=== PATIENT | female | born 1935 | race Caucasian/White ===

== ENCOUNTER 2023-05-12 07:38 | Inpatient (IN) ==
--- NOTE | 2023-05-12 08:12 | Emergency Department Note ---
History of Present Illness General Chief complaint: Fall Stated complaint: AB PAIN, HEADACE Time Seen by Provider: 05/12/23 07:55 Source: patient, family (Son who is at the bedside), RN notes reviewed and old records reviewed (Attempted but there are no old records in the EMR) Mode of arrival: ambulatory Limitations: no limitations History of Present Illness This patient is a 87-year-old female who is brought in by EMS after having frequent falls headache and abdominal distention. She was in [facility] recently for 21 days she tells me she is a DO NOT RESUSCITATE also by report she is on hospice which the patient also tells me she is a headache for about a week she has been falling a lot. Denies chest pain or shortness of breath. No numbness or weakness. I do not have any old records available on her but she tells me she was in for fluid overload. Home Medications Medication Instructions Recorded Confirmed Type Hydrocodone/Acetaminophen 1 tab PO Q6H PRN Pain #0 tabs 04/24/15 05/12/23 History 5MG/325MG ([place] 5MG/325MG) LEVOTHYROXINE SODIUM (SYNTHROID) 75 mg PO QAM 30 days #30 tabs 04/24/15 05/12/23 History Prednisone 5 mg PO DAILY #0 tabs 04/24/15 05/12/23 History Furosemide (Lasix) See Rx Instructions .Route 12/03/15 05/12/23 History .COMPLEX #0 tabs Sertraline (Zoloft) 100 mg PO DAILY #0 tabs 02/13/16 05/12/23 History acetaminophen 650 mg 650 mg PO Q8H PRN Fever Or Pain 05/12/23 05/12/23 History tablet,extended release carvedilol 25 mg tablet 12.5 mg PO BID 05/12/23 05/12/23 History ferrous sulfate 325 mg (65 mg 325 mg PO DAILY 05/12/23 05/12/23 History iron) tablet metolazone 5 mg tablet 5 mg PO .Tuesday05/12/23 05/12/23 History potassium chloride 20 mEq 20 meq PO UD 05/12/23 05/12/23 History tablet,extended release Allergies Allergy/AdvReac Type Severity Reaction Status Date / Time clarithromycin AdvReac Intermediate GI SYMPTOMS Verified 04/15/15 12:56 adhesive AdvReac Unknown RASH Uncoded 12/04/15 07:47 Past Med/Surg History Medical History (Updated 05/12/23 @ 13:59 by Jose A Acuña MD) Chronic kidney disease (CKD), stage III (moderate) Ovarian cyst, left Osteoporosis Aortic stenosis HLD (hyperlipidemia) HTN (hypertension) PMR (polymyalgia rheumatica) Surgical History (Updated 05/12/23 @ 12:06 by Marija Lord PA-C) History of cholecystectomy Hx of appendectomy Family History (Updated 05/12/23 @ 13:00 by Marija Lord PA-C) Mother Diabetes Brother Heart disease Social History (Updated 05/12/23 @ 13:00 by Marija Lord PA-C) Smoking Status: Never smoker Hx Alcohol Use: No Hx Substance Use: No Preferred Language: Thai Feels Safe at Home: Yes Immunizations: Past medical historyCHF. Social history she lives in [facility] she is presently at home Review of Systems A total of 10 systems reviewed and were otherwise negative Physical Exam Vital Signs Vital Signs - 24 hr 05/12/23 07:54 05/12/23 08:00 05/12/23 08:03 Temperature 37.2 C Temperature Source Oral Pulse Rate 81 83 78 Pulse Rate [Right Finger] Respiratory Rate 18 14 18 Respiratory Effort / Characteristics Non-Labored Spontaneous Respiratory Depth Normal Respiratory Pattern Regular Blood Pressure 145/93 H 144/98 H Blood Pressure [Left Arm] Blood Pressure Mean 110 113 Blood Pressure Mean [Left Arm] Blood Pressure Position Semi-fowlers Blood Pressure Position [Left Arm] Pulse Oximetry 91 92 91 Oxygen Delivery Method Nasal Cannula Nasal Cannula Nasal Cannula Oxygen Flow Rate 2 2 2 Sepsis Recent Fever Within 48 Hours No Sepsis New/Unexplained Change in Mental Status No Sepsis Action Taken by Nursing No Action Required Oxygen Flow Rate - Titration Pulse Oximetry Post Tiitration 05/12/23 08:04 05/12/23 08:30 05/12/23 09:21 Temperature Temperature Source Pulse Rate 77 80 Pulse Rate [Right Finger] Respiratory Rate 16 Respiratory Effort / Characteristics Respiratory Depth Respiratory Pattern Blood Pressure 149/83 H Blood Pressure [Left Arm] Blood Pressure Mean 105 Blood Pressure Mean [Left Arm] Blood Pressure Position Blood Pressure Position [Left Arm] Pulse Oximetry 87 L 92 Oxygen Delivery Method Nasal Cannula Oxygen Flow Rate 0 2 Sepsis Recent Fever Within 48 Hours Sepsis New/Unexplained Change in Mental Status Sepsis Action Taken by Nursing Oxygen Flow Rate - Titration 2 Pulse Oximetry Post Tiitration 94 05/12/23 09:30 05/12/23 09:30 05/12/23 10:00 Temperature Temperature Source Pulse Rate 90 74 Pulse Rate [Right Finger] 88 Respiratory Rate 20 14 13 Respiratory Effort / Characteristics Non-Labored Spontaneous Respiratory Depth Normal Respiratory Pattern Regular Blood Pressure 156/96 H 138/87 Blood Pressure [Left Arm] 156/96 H Blood Pressure Mean 116 104 Blood Pressure Mean [Left Arm] 116 Blood Pressure Position Blood Pressure Position [Left Arm] Semi-fowlers Pulse Oximetry 94 93 93 Oxygen Delivery Method Nasal Cannula Nasal Cannula Nasal Cannula Oxygen Flow Rate 2 2 2 Sepsis Recent Fever Within 48 Hours Sepsis New/Unexplained Change in Mental Status Sepsis Action Taken by Nursing Oxygen Flow Rate - Titration Pulse Oximetry Post Tiitration 05/12/23 11:01 05/12/23 11:07 Temperature Temperature Source Pulse Rate 88 76 Pulse Rate [Right Finger] Respiratory Rate 20 Respiratory Effort / Characteristics Respiratory Depth Respiratory Pattern Blood Pressure 137/54 L Blood Pressure [Left Arm] Blood Pressure Mean 81 Blood Pressure Mean [Left Arm] Blood Pressure Position Blood Pressure Position [Left Arm] Pulse Oximetry 92 Oxygen Delivery Method Nasal Cannula Oxygen Flow Rate 2 Sepsis Recent Fever Within 48 Hours Sepsis New/Unexplained Change in Mental Status Sepsis Action Taken by Nursing Oxygen Flow Rate - Titration Pulse Oximetry Post Tiitration General: Well developed well nourished older female who is sitting in the room with a wet towel on her forehead in no acute distress, breathing comfortably on room air. Normal speech HEENT: Normal cephalic atraumatic. Pupils are equal round and reactive to light. Extraocular movements are intact. Oropharynx is pink with moist mucous membranes. No swelling of the mouth lips or tongue. Neck: Supple with a midline trachea. No meningeal signs or stiffness, no JVD or bruits. No Stridor. Chest: Clear to auscultation bilaterally. No wheezes or rhonchi. No increased work of breathing. Heart: Regular rate and rhythm without murmurs or gallops. Abdomen: Soft nontender, it does appear to be distended but without rebound guarding or rigidity. Extremities: No cyanosis clubbing she does have some mild lower extremity edema left greater than right there is a bandage on the left leg and left arm. No calf tenderness or assymetry Spine/Back. Non tender to palpation. No CVA tenderness Skin: Good turgor without rashes. Neurologic exam: Cranial nerves two through 12 are intact. Motor and sensation are intact and symmetrical throughout. Course Administered Medications Docusate Sodium (Docusate Sodium 100 Mg Cap) 100 mg PO BID KAYKAY Stop: 06/11/23 11:44 Last Admin: 05/12/23 13:00 Dose: 100 mg Documented By: [facility] Vancomycin HCl 1,750 mg/ (Sodium Chloride) 535 mls @ 200 mls/hr IV NOW ONE Stop: 05/12/23 13:54 Last Admin: 05/12/23 12:55 Dose: 200 mls/hr Documented By: [facility] Polyethylene Glycol (Polyethylene (Miralax) 17 Gm Pack) 17 gm PO DAILY KAYKAY Stop: 06/11/23 11:44 Last Admin: 05/12/23 13:01 Dose: 17 gm Documented By: [facility] Discontinued Medications Hydrocodone Bitart/Acetaminophen (Hydrocodone/Acetamophen 5/325mg Tab) 1 tab PO ONCE STA Stop: 05/12/23 10:47 Last Admin: 05/12/23 10:57 Dose: 1 tab Documented By: STONE Sodium Chloride (Nss) 500 mls @ 999 mls/hr IV .Q31M ONE Stop: 05/12/23 10:29 Last Infusion: 05/12/23 11:05 Dose: Infused Documented By: Admin: 05/12/23 10:23 Dose: 999 mls/hr Documented By: KIRA Piperacillin Sod/Tazobactam Sod (Zosyn) 4.5 gm in 100 mls @ 200 mls/hr IV NOW STA; Protocol Stop: 05/12/23 10:38 Last Infusion: 05/12/23 11:05 Dose: Infused Documented By: Admin: 05/12/23 10:23 Dose: 200 mls/hr Documented By: KIRA Potassium Chloride (K Zaid / Wtr) 10 meq in 100 mls @ 100 mls/hr IV Q1H KAYKAY Stop: 05/12/23 13:44 Last Admin: 05/12/23 12:55 Dose: 100 mls/hr Documented By: [facility] Morphine Sulfate (Morphine Sulfate 2 Mg/Ml Carp) 2 mg IV NOW STA Stop: 05/12/23 10:31 Last Admin: 05/12/23 10:37 Dose: 2 mg Documented By: STONE Ondansetron HCl (Ondansetron Inj 2 Mg/Ml 2 Ml Vial) 4 mg IV NOW STA Stop: 05/12/23 10:31 Last Admin: 05/12/23 10:37 Dose: 4 mg Documented By: STONE Prednisone (Prednisone 20 Mg Tab) 20 mg PO NOW STA Stop: 05/12/23 11:15 Last Admin: 05/12/23 13:01 Dose: 20 mg Documented By: CATHY Critical Care Time Critical Care Time: Yes Total Critical Care Time: 35 I have personally spent greater than 35 minutes of critical care time in the direct management of this patient. This includes bedside care, interpretation of diagnostic studies, and testing, discussion with consultants, patient, and family members, and other required patient management activities. This 35 minutes is in excess of all separately billable procedures. Medical Decision Making Differential Diagnosis Head injury, intra-abdominal process, electrolyte or metabolic abnormality, cardiac disease, infection, UTI, traumatic injury Medical Records Attestation: I reviewed the patient's medical records. Home Medications Current Medication List: was personally reviewed by me Laboratory Data Attestation: I reviewed the patient's lab results. 05/12/23 07:45 05/12/23 07:45 Lab Results 05/12/23 05/12/23 05/12/23 Range/Units 07:45 08:45 08:57 WBC 23.30 H (4.8-10.8) K/ul RBC 4.31 (4.20-5.40) M/uL Hgb 10.0 L (12.0-16.0) g/dl Hct 33.4 L (37.0-47.0) % MCV 77.5 L (80.0-100.0) fL MCH 23.2 L (25.0-34.0) pg MCHC 29.9 L (32.0-36.0) g/dL RDW Std Deviation 46.7 H (36.4-46.3) fL RDW Coeff of Mary 16.5 H (11.5-14.5) % Plt Count 405 H (130-400) K/uL MPV 9.8 (9.4-12.4) fL Immature Gran % (Auto) 1.0 % Neut % (Auto) 87.0 % Lymph % (Auto) 5.0 % [place] % (Auto) 5.9 % Eos % (Auto) 0.7 % Baso % (Auto) 0.4 % Neut # (Auto) 20.27 H (1.40-6.50) K/uL Lymph # (Auto) 1.16 L (1.20-3.40) K/uL [place] # (Auto) 1.38 H (0.11-0.59) K/uL Eos # (Auto) 0.17 (0.00-0.50) K/uL Baso # (Auto) 0.09 (0.00-0.20) K/uL Immature Gran # (Auto) 0.23 H (0.01-0.20) K/uL PT 11.0 (9.0-12.0) Seconds INR 1.0 (0.9-1.1) APTT 24 (21-31) Seconds PTT Ratio 0.9 Sodium 137 (136-145) mmol/L Potassium 2.8 L (3.5-5.1) mmol/L Chloride 92 L (98-107) mmol/L Carbon Dioxide 31 (21-32) mmol/L Anion Gap 14 H (3-11) BUN 76 H (6-23) mg/dl Creatinine 1.99 H (0.6-1.2) mg/dl Est Cr Clr Drug Dosing 18.3 ml/min Est GFR ( Amer) 25.7 ml/min Est GFR (Non-Af Amer) 22.2 ml/min BUN/Creatinine Ratio 38.2 H (10-20) Glucose 169 H (70-99(Fasting)) mg/dl Lactate (0.4-2.0) mmol/L Calcium 9.3 (8.6-10.3) mg/dl Total Bilirubin 0.7 (0.2-1.0) mg/dl AST 14 (13-39) U/L ALT 8 (7-52) U/L Alkaline Phosphatase 139 H (34-104) U/L Total Creatine Kinase 41 (26-192) U/L Troponin I High Sens 55.8 H* (0-14) pg/ml B-Natriuretic Peptide 225 H (0-100) pg/ml Total Protein 7.9 (6.0-8.3) gm/dl Albumin 3.7 (3.4-5.0) gm/dl Globulin 4.2 H (2.5-4.0) gm/dl Albumin/Globulin Ratio 0.9 (0.9-2) Lipase 12 (11-82) U/L Procalcitonin 0.39 (0-0.5) ng/ml TSH 3.123 (0.300-4.500) uIu/ml Urine Color Yellow Urine Appearance Clear (Clear) Urine pH 5.5 (4.5-7.5) Ur Specific [place] 1.015 (1.000-1.030) Urine Protein Trace H (Negative) Urine Glucose (UA) Negative (Negative) Urine Ketones Negative (Negative) Urine Blood Trace H (Negative) Urine Nitrite Negative (Negative) Urine Bilirubin Negative (Negative) Urine Urobilinogen Negative (Negative) Ur Leukocyte Esterase Trace H (Negative) Urine WBC (Auto) 1-5 (0-5) /hpf Urine RBC (Auto) 0-4 (0-4) /hpf U Hyaline Cast (Auto) 5-10 H (0-5) /lpf U Epithel Cells (Auto) 10-20 H (0-5) /lpf Urine Bacteria (Auto) Negative (Negative) Adenovirus (PCR) (NotDetected) B. pertussis DNA (PCR) (NotDetected) B.parapertussis DNA PCR (NotDetected) C. pneumoniae DNA (PCR) (NotDetected) Coronavirus OC43 (PCR) (NotDetected) Coronavirus HKU1 (PCR) (NotDetected) Coronavirus 229E (PCR) (NotDetected) SARS-CoV-2 (PCR) (NotDetected) Coronavirus NL63 (PCR) (NotDetected) Human Metapneumovir PCR (NotDetected) Influenza Type A (PCR) (NotDetected) Influenza Type B (PCR) (NotDetected) M. pneumoniae (PCR) (NotDetected) Parainfluenza 1 (PCR) (NotDetected) Parainfluenza 2 (PCR) (NotDetected) Parainfluenza 3 (PCR) (NotDetected) Parainfluenza 4 (PCR) (NotDetected) RSV (PCR) (NotDetected) Entero/Rhino (PCR) (NotDetected) 05/12/23 05/12/23 Range/Units 09:04 09:50 WBC (4.8-10.8) K/ul RBC (4.20-5.40) M/uL Hgb (12.0-16.0) g/dl Hct (37.0-47.0) % MCV (80.0-100.0) fL MCH (25.0-34.0) pg MCHC (32.0-36.0) g/dL RDW Std Deviation (36.4-46.3) fL RDW Coeff of Mary (11.5-14.5) % Plt Count (130-400) K/uL MPV (9.4-12.4) fL Immature Gran % (Auto) % Neut % (Auto) % Lymph % (Auto) % [place] % (Auto) % Eos % (Auto) % Baso % (Auto) % Neut # (Auto) (1.40-6.50) K/uL Lymph # (Auto) (1.20-3.40) K/uL [place] # (Auto) (0.11-0.59) K/uL Eos # (Auto) (0.00-0.50) K/uL Baso # (Auto) (0.00-0.20) K/uL Immature Gran # (Auto) (0.01-0.20) K/uL PT (9.0-12.0) Seconds INR (0.9-1.1) APTT (21-31) Seconds PTT Ratio Sodium (136-145) mmol/L Potassium (3.5-5.1) mmol/L Chloride (98-107) mmol/L Carbon Dioxide (21-32) mmol/L Anion Gap (3-11) BUN (6-23) mg/dl Creatinine (0.6-1.2) mg/dl Est Cr Clr Drug Dosing ml/min Est GFR ( Amer) ml/min Est GFR (Non-Af Amer) ml/min BUN/Creatinine Ratio (10-20) Glucose (70-99(Fasting)) mg/dl Lactate 1.9 (0.4-2.0) mmol/L Calcium (8.6-10.3) mg/dl Total Bilirubin (0.2-1.0) mg/dl AST (13-39) U/L ALT (7-52) U/L Alkaline Phosphatase (34-104) U/L Total Creatine Kinase (26-192) U/L Troponin I High Sens 51.7 H* (0-14) pg/ml B-Natriuretic Peptide (0-100) pg/ml Total Protein (6.0-8.3) gm/dl Albumin (3.4-5.0) gm/dl Globulin (2.5-4.0) gm/dl Albumin/Globulin Ratio (0.9-2) Lipase (11-82) U/L Procalcitonin (0-0.5) ng/ml TSH (0.300-4.500) uIu/ml Urine Color Urine Appearance (Clear) Urine pH (4.5-7.5) Ur Specific [place] (1.000-1.030) Urine Protein (Negative) Urine Glucose (UA) (Negative) Urine Ketones (Negative) Urine Blood (Negative) Urine Nitrite (Negative) Urine Bilirubin (Negative) Urine Urobilinogen (Negative) Ur Leukocyte Esterase (Negative) Urine WBC (Auto) (0-5) /hpf Urine RBC (Auto) (0-4) /hpf U Hyaline Cast (Auto) (0-5) /lpf U Epithel Cells (Auto) (0-5) /lpf Urine Bacteria (Auto) (Negative) Adenovirus (PCR) Not Detected (NotDetected) B. pertussis DNA (PCR) Not Detected (NotDetected) B.parapertussis DNA PCR Not Detected (NotDetected) C. pneumoniae DNA (PCR) Not Detected (NotDetected) Coronavirus OC43 (PCR) Not Detected (NotDetected) Coronavirus HKU1 (PCR) Not Detected (NotDetected) Coronavirus 229E (PCR) Not Detected (NotDetected) SARS-CoV-2 (PCR) Not Detected (NotDetected) Coronavirus NL63 (PCR) Not Detected (NotDetected) Human Metapneumovir PCR Not Detected (NotDetected) Influenza Type A (PCR) Not Detected (NotDetected) Influenza Type B (PCR) Not Detected (NotDetected) M. pneumoniae (PCR) Not Detected (NotDetected) Parainfluenza 1 (PCR) Not Detected (NotDetected) Parainfluenza 2 (PCR) Not Detected (NotDetected) Parainfluenza 3 (PCR) Not Detected (NotDetected) Parainfluenza 4 (PCR) Not Detected (NotDetected) RSV (PCR) DETECTED A (NotDetected) Entero/Rhino (PCR) Not Detected (NotDetected) Imaging Data Attestation: I personally reviewed and interpreted this imaging study as follows: My Impression: Chest x-raycardiomegaly but no acute infiltrate, failure, pneumothorax seen. Head CTno hemorrhage or mass effect Radiologist's Impression: Chest X-Ray 05/12/23 08:21 XR chest 1V portable HISTORY: Shortness of breath. COMPARISON: None. FINDINGS: No pneumothorax. No pleural effusions. The heart is mildly enlarged. Mitral annulus calcifications are noted. No focal lung consolidations to suggest a pneumonia. No evidence for pulmonary edema. Mild interstitial thickening which is likely chronic. No acute fractures identified. Degenerative changes within the shoulders. Right basilar linear densities favor subsegmental atelectasis. IMPRESSION: 1. Cardiomegaly and mild interstitial thickening. This is likely chronic. 2. Right basilar linear densities favor subsegmental atelectasis. ACT 112: Negative or not required by law. Electronically signed by: Masoud Falcon M.D. 05/12/2023 9:[address] 05/12/23 08:26 CT OF THE CERVICAL SPINE WITHOUT CONTRAST CLINICAL HISTORY: Falls. COMPARISON STUDY: No previous studies for comparison. TECHNIQUE: Helical axial images of the cervical spine were obtained without IV contrast. Sagittal and coronal reconstructions were viewed. Automated exposure control was utilized for the study. A dose lowering technique was utilized adhering to the principles of ALARA. FINDINGS: There is reversal of the cervical lordosis and mild anterolisthesis of C2 on C3 and C3 on C4. This is likely due to facet arthrosis. Severe facet arthrosis is noted at multiple levels. There is also severe multilevel disc space narrowing and osteophytosis within the cervical spine. There is no cervical spine fracture. Craniocervical junction is intact. IMPRESSION: 1. No acute cervical spine fracture or subluxation. 2. Severe multilevel degenerative changes within the cervical spine. ACT 112: Negative or not required by law. Electronically signed by: Kevin Hill M.D. 05/12/2023 9:[address] 05/12/23 08:[address] DOSE: HISTORY: falls TECHNIQUE: Multiaxial CT images of the head were performed without the use of intravenous contrast. Automated exposure control was utilized for this study. A dose lowering technique was utilized adhering to the principles of ALARA. Comparison: None. Findings: Fluid levels with near complete opacification of the right maxillary sinus. There is partial opacification of the ethmoid air cells and left sphenoid sinus due to multiple fluid levels. The mastoid air cells are clear. Prior right parietal craniotomy. A 13 mm completely calcified extra-axial lesion within the left middle cranial fossa consistent with a meningioma. No calvarial fractures identified. Mild atrophy and mild microvascular ischemic changes are noted. 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 No hematoma, midline shift, or acute infarct. Impression: 1. No acute intracranial abnormality. 2. Acute paranasal sinusitis. 3. Additional findings as described above. ACT 112: Negative or not required by law. Electronically signed by: Masoud Falcon M.D. 05/12/2023 9:32 AM Abdomen/Pelvis CT 05/12/23 09:06 CT chest diagnostic wo con, CT abd pelvis wo con CT DOSE: 2540.32 mGy.cm HISTORY: Multiple falls. Assess for trauma. TECHNIQUE: Multiaxial CT images of the chest , abdomen, and pelvis were performed without contrast. A dose lowering technique was utilized adhering to the principles of ALARA. COMPARISON: None. FINDINGS: Chest CT: No mediastinal hematoma or lymphadenopathy. No hilar lymphadenopathy. The heart is mildly enlarged. No pleural or pericardial effusions. Dense mitral annulus calcifications are noted. The ascending thoracic aorta measures up to 4.3 cm in diameter. Moderate calcified plaque within the thoracic aorta. Degenerative changes within the shoulders. Old mild superior endplate compression deformities at T4 and T12. Old left lower rib fractures are noted. No acute fractures within the chest. No pneumothorax. The central airways are patent. There are small patchy densities within the base of the bilateral lower lobes. A few punctate calcified granulomas within the base of the right lower lobe. There is a 6 mm nodule within the right lower lobe on image 142 and a 4 mm nodule within the right middle lobe on image 131. Abdomen/pelvis CT: Mild motion artifact. No pneumoperitoneum. No pneumatosis. No acute fractures identified. Abdominal wall laxity is noted. Prior cholecystectomy. The unenhanced liver, spleen, adrenal glands, pancreas, and right kidney are unremarkable. There are 2 hypodense lesions within the left kidney with the largest measuring 14 mm. These are incompletely characterized on this noncontrast study but favor cysts. There is also a 1 cm hyperdense lesion within the left kidney. There is a similar-appearing 5 mm hyperdense lesion within the right kidney. These are also incompletely characterized on this noncontrast study but favor hyperdense cysts. No hydronephrosis. Calcified plaque within the normal caliber abdominal aorta. No retroperitoneal or pelvic hematoma. No lymphadenopathy identified. The uterus and right ovary are unremarkable. There is a 4 cm cyst within the left ovary. The bladder is decompressed by a Antonio catheter. There is mild pelvic floor collapse. Multiple colonic diverticula. Minimal fat stranding at the distal sigmoid colon.. Therefore, an early acute diverticulitis is not excluded. No definite bowel wall thickening or obstruction. Moderate fecal retention. IMPRESSION: 1. No acute traumatic process within the chest, abdomen, or pelvis. 2. Small patchy densities within the base of the bilateral lower lobes. This may represent atelectasis or a low-grade pneumonitis. 3. There are 2 indeterminate pulmonary nodules within the right lung with the largest in the right lower lobe measuring 6 mm. Please refer to the chart below for recommended follow-up. 4. Minimal fat stranding at the distal sigmoid colon. An early acute diverticulitis excluded. 5. A 4 cm cyst within the left ovary. This is considered pathologic in a postmenopausal female. Please refer to below summary of Fleischner criteria recommendations for follow- up of incidental CT nodules (Maria Fernanda Laguerre, Guidelines for management of small pulmonary nodules detected on CT scans: A statement from the Fleischner Society, Radiology 237: [phone].) SOLID NODULES Solitary nodule size: <6 mm * Low risk patients: no follow-up needed * high risk patients: optional CT at 12 months Solitary nodule size: 6-8 mm * Low risk patients: follow-up at 6-12 months, then consider further follow-up at 18-24 months * high risk patients: initial follow-up CT at 6-12 months and then at 18-24 months if no change Solitary nodule size: >8 mm * either low or high risk patients - consider follow-up CT at 3 months, and/or CT-PET, and/or biopsy Multiple nodules size: <6 mm * Low risk patients: no routine follow-up * high risk patients: optional CT at 12 months Multiple nodules size: 6-8 mm * Low risk patients: follow-up at 3-6 months, then consider further follow-up at 18-24 months * high risk patients: follow-up at 3-6 months, then at 18-24 months if no change Multiple nodules size: >8 mm * Low risk patients: follow-up at 3-6 months, then consider further follow-up at 18-24 months * high risk patients: follow-up at 3-6 months, then at 18-24 months if no change Note: newly detected indeterminate nodule in persons 35 years of age or older. * Low risk patients: minimal or absent history of smoking and/or other known risk factors * high risk patients: history of smoking or of other known risk factors (e.g. first degree relative with lung cancer, or exposure to asbestos, radon, uranium) * if a nodule up to 8 mm is partly solid or is ground glass further follow-up is required after 24 months to exclude possible slow growing adenocarcinoma (TE) SUBSOLID NODULES Solitary pure ground-glass nodule * nodule size <6 mm - no CT follow-up required * nodule size >=6 mm - follow-up CT at 6-12 months, then every 2 years until 5 years Solitary part-solid nodule * nodule size <6 mm - no CT follow-up required * nodule size >=6 mm - follow-up CT at 3-6 months. If unchanged, and solid component remains <6 mm, then annual follow-up for 5 years Multiple subsolid nodules * nodule size <6 mm - follow-up CT at 3-6 months, consider further follow-up at 2 and 4 years if stable * nodule size >=6 mm - follow-up CT at 3-6 months, subsequent management based on the most suspicious nodule(s) ACT 112: Negative or not required by law. Electronically signed by: Masoud Falcon M.D. 05/12/2023 9:[address] 05/12/23 09:06 CT chest diagnostic wo con, CT abd pelvis wo con CT DOSE: 2540.32 mGy.cm HISTORY: Multiple falls. Assess for trauma. TECHNIQUE: Multiaxial CT images of the chest , abdomen, and pelvis were performed without contrast. A dose lowering technique was utilized adhering to the principles of ALARA. COMPARISON: None. FINDINGS: Chest CT: No mediastinal hematoma or lymphadenopathy. No hilar lymphadenopathy. The heart is mildly enlarged. No pleural or pericardial effusions. Dense mitral annulus calcifications are noted. The ascending thoracic aorta measures up to 4.3 cm in diameter. Moderate calcified plaque within the thoracic aorta. Degenerative changes within the shoulders. Old mild superior endplate compression deformities at T4 and T12. Old left lower rib fractures are noted. No acute fractures within the chest. No pneumothorax. The central airways are patent. There are small patchy densities within the base of the bilateral lower lobes. A few punctate calcified granulomas within the base of the right lower lobe. There is a 6 mm nodule within the right lower lobe on image 142 and a 4 mm nodule within the right middle lobe on image 131. Abdomen/pelvis CT: Mild motion artifact. No pneumoperitoneum. No pneumatosis. No acute fractures identified. Abdominal wall laxity is noted. Prior cholecystectomy. The unenhanced liver, spleen, adrenal glands, pancreas, and right kidney are unremarkable. There are 2 hypodense lesions within the left kidney with the largest measuring 14 mm. These are incompletely characterized on this noncontrast study but favor cysts. There is also a 1 cm hyperdense lesion within the left kidney. There is a similar-appearing 5 mm hyperdense lesion within the right kidney. These are also incompletely characterized on this noncontrast study but favor hyperdense cysts. No hydronephrosis. Calcified plaque within the normal caliber abdominal aorta. No retroperitoneal or pelvic hematoma. No lymphadenopathy identified. The uterus and right ovary are unremarkable. There is a 4 cm cyst within the left ovary. The bladder is decompressed by a Antonio catheter. There is mild pelvic floor collapse. Multiple colonic diverticula. Minimal fat stranding at the distal sigmoid colon.. Therefore, an early acute diverticulitis is not excluded. No definite bowel wall thickening or obstruction. Moderate fecal retention. IMPRESSION: 1. No acute traumatic process within the chest, abdomen, or pelvis. 2. Small patchy densities within the base of the bilateral lower lobes. This may represent atelectasis or a low-grade pneumonitis. 3. There are 2 indeterminate pulmonary nodules within the right lung with the largest in the right lower lobe measuring 6 mm. Please refer to the chart below for recommended follow-up. 4. Minimal fat stranding at the distal sigmoid colon. An early acute diverticulitis excluded. 5. A 4 cm cyst within the left ovary. This is considered pathologic in a postmenopausal female. Please refer to below summary of Fleischner criteria recommendations for follow- up of incidental CT nodules (Maria Fernanda Laguerre, Guidelines for management of small pulmonary nodules detected on CT scans: A statement from the Fleischner Society, Radiology 237: [phone].) SOLID NODULES Solitary nodule size: <6 mm * Low risk patients: no follow-up needed * high risk patients: optional CT at 12 months Solitary nodule size: 6-8 mm * Low risk patients: follow-up at 6-12 months, then consider further follow-up at 18-24 months * high risk patients: initial follow-up CT at 6-12 months and then at 18-24 months if no change Solitary nodule size: >8 mm * either low or high risk patients - consider follow-up CT at 3 months, and/or CT-PET, and/or biopsy Multiple nodules size: <6 mm * Low risk patients: no routine follow-up * high risk patients: optional CT at 12 months Multiple nodules size: 6-8 mm * Low risk patients: follow-up at 3-6 months, then consider further follow-up at 18-24 months * high risk patients: follow-up at 3-6 months, then at 18-24 months if no change Multiple nodules size: >8 mm * Low risk patients: follow-up at 3-6 months, then consider further follow-up at 18-24 months * high risk patients: follow-up at 3-6 months, then at 18-24 months if no change Note: newly detected indeterminate nodule in persons 35 years of age or older. * Low risk patients: minimal or absent history of smoking and/or other known risk factors * high risk patients: history of smoking or of other known risk factors (e.g. first degree relative with lung cancer, or exposure to asbestos, radon, uranium) * if a nodule up to 8 mm is partly solid or is ground glass further follow-up is required after 24 months to exclude possible slow growing adenocarcinoma (TE) SUBSOLID NODULES Solitary pure ground-glass nodule * nodule size <6 mm - no CT follow-up required * nodule size >=6 mm - follow-up CT at 6-12 months, then every 2 years until 5 years Solitary part-solid nodule * nodule size <6 mm - no CT follow-up required * nodule size >=6 mm - follow-up CT at 3-6 months. If unchanged, and solid component remains <6 mm, then annual follow-up for 5 years Multiple subsolid nodules * nodule size <6 mm - follow-up CT at 3-6 months, consider further follow-up at 2 and 4 years if stable * nodule size >=6 mm - follow-up CT at 3-6 months, subsequent management based on the most suspicious nodule(s) ACT 112: Negative or not required by law. Electronically signed by: Masoud Falcon M.D. 05/12/2023 9:52 AM ECG Data Attestation: I personally reviewed and interpreted this ECG as follows: Indication: + weakness Rate (beats per minute): 98 Rhythm: + sinus with SA ECG Intervals/blocks: + Normal QRS, + Normal QT and + Normal RI ECG [place]: + Normal ECG ST segments: + Nonspecific ST abnormalities ECG Findings: no PACs or no PVCs Comparison ECG Date: no prior available MDM Narrative This patient comes in as described above. She was placed on a court monitor in room A9. She is here for treatment evaluation of frequent falls and headache. She was just in [place] for 21 days and is apparently on hospice at home. Not much else is known about her medical history she does answer questions appropriately and denies chest pain or shortness of breath. I have attempted to contact the son but there is no number in the EMR but his mom says that he is on the way. IV access was established blood work was obtained she was placed on a court monitor room A9. The patient does confirm to me that she is a DNR/DNI. I did call and talk to Stephen who is the son. He tells me that she was admitted in the [place] but it was about 6 months ago for sepsis he said that she declined a blood transfusion and the only way would let her go home she was on hospice she been doing well until this past Tuesday when she fell and could not get up she had significant pain since then in her head and abdomen. She has had the hospice nurses out they saw her yesterday and told her that she was okay and did not need to see a doctor. He is frustrated because she has had ongoing pain. He does agree and acknowledges she is DNR/DNI and he says that she is at the end of life and ready to go. He is concerned there is something going on and does want to get CAT scans and blood work and is in agreement with a typical workup as the patient is as well. Her hemoglobin is 10. I do not have any old labs available for comparison. Her white count is elevated at 23,000. Her chest x-ray does not show any pneumothorax or acute CHF or pneumonia her troponin came back elevated at 55 if she does not have any chest pain or ischemic EKG changes. Her creatinine also came back elevated at 1.99 with an elevated BUN as well. This could be prerenal but given her elevated creatinine I did change the CAT scans to without contrast. I did CAT scan of the head, cervical spine, chest/abdomen/pelvis. There is no acute traumatic process seen. There is no definite source for infection is no bowel obstruction. There is possibly a mild pneumonitis and diverticulitis. The patient did receive IV fluid bolus 500 cc I was concerned about fluid overload/CHF so this was judicious particular in the setting of normotension and normal lactic acid. She was given Zosyn 4.5 g IV after I discussed the antibiotic choices with her ED pharmacist. I do think she needs to be admitted/observed for further treatment and evaluation and pain management. She did receive morphine 2 mg IV and Zofran 4 mg IV for pain and nausea management. Her legs have some redness of the skin is possible that cellulitis could be a source of infection/sepsis Continuous cardiac monitoring: Order was placed in EMR for continuous court monitor upon my evaluation patient was noted to be in normal sinus rhythm with a rate of 100 Impression & Plan Sepsis, Hypokalemia, Weakness, Frequent falls, Elevated troponin, Abdominal pain, Headache, DNR (do not resuscitate) Discharge Plan Visit Data Chief Complaint: Fall Stated Complaint: AB PAIN, HEADACE ED Provider: Jose A Acuña Discharge Problem: Sepsis, Hypokalemia, Weakness, Frequent falls, Elevated troponin, Abdominal pain, Headache, DNR (do not resuscitate) Patient Disposition: Admitted As Inpatient Discharge Instructions Interventions: ED Discharge Assessment Last Done: 05/12/23 13:09 Discharge Problem: Sepsis Qualifiers: Sepsis type: sepsis due to unspecified organism Sepsis acute organ dysfunction status: unspecified Qualified Code(s): A41.9 - Sepsis, unspecified organism Abdominal pain Qualifiers: Abdominal location: unspecified location Qualified Code(s): R10.9 - Unspecified abdominal pain Headache Qualifiers: Headache type: unspecified Headache chronicity pattern: unspecified pattern I ntractability: not intractable Qualified Code(s): R51.9 - Headache, unspecified
[2023-05-12 08:30] LABS: Hematocrit (blood only) 33.4 % (37.0-47.0); Mean Corpuscular Hemoglobin 23.2 pg (25.0-34.0); Mean Corpuscular Hgb Conc 29.9 g/dL (32.0-36.0); Mean Corpuscular Volume 77.5 fL (80.0-100.0); Mean Platelet Volume 9.8 fL (9.4-12.4); Platelet Count 405 K/uL (130-400); RDW Coefficient of Variation 16.5 % (11.5-14.5); RDW Standard Deviation 46.7 fL (36.4-46.3); Red Blood Count 4.31 M/uL (4.20-5.40)
[2023-05-12 08:51] LABS: Basophils # (auto) 0.09 K/uL (0.00-0.20); Basophils % (auto) 0.4 %; Eosinophils # (auto) 0.17 K/uL (0.00-0.50); Eosinophils % (auto) 0.7 %; Immature Granulocytes # (auto) 0.23 K/uL (0.01-0.20); Lymphocytes # (auto) 1.16 K/uL (1.20-3.40); Monocytes # (auto) 1.38 K/uL (0.11-0.59); Monocytes % (auto) 5.9 %; Neutrophils # (auto) 20.27 K/uL (1.40-6.50)
[2023-05-12 08:55] LABS: Albumin Globulin Ratio 0.9 (0.9-2); Albumin Level 3.7 gm/dl (3.4-5.0); BUN Creatinine Ratio 38.2 (10-20); Bilirubin,Total 0.7 mg/dl (0.2-1.0); Calcium 9.3 mg/dl (8.6-10.3); Creatinine Clr Calc Pharmacy 18.3 ml/min; Est GFR (African American) 25.7 ml/min; Est GFR (Non-African American) 22.2 ml/min; Globulin 4.2 gm/dl (2.5-4.0); Potassium 2.8 mmol/L (3.5-5.1); Total Protein 7.9 gm/dl (6.0-8.3)
[2023-05-12 08:58] LABS: Appearance Urine Clear (Clear); Bacteria Urine Automated Negative (Negative); Bilirubin Urine Negative (Negative); Blood Urine Trace (Negative); Color Urine Yellow; Glucose Urine UA Negative (Negative); Ketones Urine Negative (Negative); Leukocyte Esterase Urine Trace (Negative); Nitrite Urine Negative (Negative); Protein Urine Trace (Negative); RBC Urine Automated 0-4 /hpf (0-4); Specific Gravity Urine 1.015 (1.000-1.030); Urobilinogen Urine Negative (Negative); pH Urine 5.5 (4.5-7.5)
[2023-05-12 09:02] LABS: Partial Thromboplastin Ratio 0.9; Partial Thromboplastin Time 24 Seconds (21-31)
--- NOTE | 2023-05-12 09:04 | XRay Report ---
XR chest 1V portable HISTORY: Shortness of breath. COMPARISON: None. FINDINGS: No pneumothorax. No pleural effusions. The heart is mildly enlarged. Mitral annulus calcifi cations are noted. No focal lung consolidations to suggest a pneumonia. No evidence for pulmonary sherie ma. Mild interstitial thickening which is likely chronic. No acute fractures identified. Degenerative changes within the shoulders. Right basilar linear densities favor subsegmental atelectasis. IMPRESSION: 1. Cardiomegaly and mild interstitial thickening. This is likely chronic. 2. Right basilar linear densities favor subsegmental atelectasis. ACT 112: Negative or not required by law. Electronically signed by: Masoud Falcon M.D. 05/12/2023 9:03 AM
[2023-05-12 09:07] LABS: Troponin I High Sensitivity 55.8 pg/ml (0-14)
--- NOTE | 2023-05-12 09:30 | CT Scan Report ---
CT OF THE CERVICAL SPINE WITHOUT CONTRAST CLINICAL HISTORY: Falls. COMPARISON STUDY: No previous studies for comparison. TECHNIQUE: Helical axial images of the cervical spine were obtained without IV contrast. Sagittal a nd coronal reconstructions were viewed. Automated exposure control was utilized for the study. A do se lowering technique was utilized adhering to the principles of ALARA. FINDINGS: There is reversal of the cervical lordosis and mild anterolisthesis of C2 on C3 and C3 on C 4. This is likely due to facet arthrosis. Severe facet arthrosis is noted at multiple levels. There i s also severe multilevel disc space narrowing and osteophytosis within the cervical spine. There is n o cervical spine fracture. Craniocervical junction is intact. IMPRESSION: 1. No acute cervical spine fracture or subluxation. 2. Severe multilevel degenerative changes within the cervical spine. ACT 112: Negative or not required by law. Electronically signed by: Kevin Hill M.D. 05/12/2023 9:29 AM
--- NOTE | 2023-05-12 09:34 | CT Scan Report ---
HEAD CT NONCONTRAST CT DOSE: HISTORY: falls TECHNIQUE: Multiaxial CT images of the head were performed without the use of intravenous contrast. A utomated exposure control was utilized for this study. A dose lowering technique was utilized adheri ng to the principles of ALARA. Comparison: None. Findings: Fluid levels with near complete opacification of the right maxillary sinus. There is partia l opacification of the ethmoid air cells and left sphenoid sinus due to multiple fluid levels. The ma stoid air cells are clear. Prior right parietal craniotomy. A 13 mm completely calcified extra-axial lesion within the left middle cranial fossa consistent with a meningioma. No calvarial fractures iden tified. Mild atrophy and mild microvascular ischemic changes are noted. 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 No hematoma, midline shift, or acute infarct. Impression: 1. No acute intracranial abnormality. 2. Acute paranasal sinusitis. 3. Additional findings as described above. ACT 112: Negative or not required by law. Electronically signed by: Masoud Falcon M.D. 05/12/2023 9:32 AM
--- NOTE | 2023-05-12 09:54 | CT Scan Report ---
CT chest diagnostic wo con, CT abd pelvis wo con CT DOSE: 2540.32 mGy.cm HISTORY: Multiple falls. Assess for trauma. TECHNIQUE: Multiaxial CT images of the chest , abdomen, and pelvis were performed without contrast. A dose lowering technique was utilized adhering to the principles of ALARA. COMPARISON: None. FINDINGS: Chest CT: No mediastinal hematoma or lymphadenopathy. No hilar lymphadenopathy. The heart is mildly e nlarged. No pleural or pericardial effusions. Dense mitral annulus calcifications are noted. The asce nding thoracic aorta measures up to 4.3 cm in diameter. Moderate calcified plaque within the thoracic aorta. Degenerative changes within the shoulders. Old mild superior endplate compression deformities at T4 and T12. Old left lower rib fractures are noted. No acute fractures within the chest. No pneum othorax. The central airways are patent. There are small patchy densities within the base of the bila teral lower lobes. A few punctate calcified granulomas within the base of the right lower lobe. There is a 6 mm nodule within the right lower lobe on image 142 and a 4 mm nodule within the right middle lobe on image 131. Abdomen/pelvis CT: Mild motion artifact. No pneumoperitoneum. No pneumatosis. No acute fractures iden tified. Abdominal wall laxity is noted. Prior cholecystectomy. The unenhanced liver, spleen, adrenal glands, pancreas, and right kidney are unremarkable. There are 2 hypodense lesions within the left ki dney with the largest measuring 14 mm. These are incompletely characterized on this noncontrast study but favor cysts. There is also a 1 cm hyperdense lesion within the left kidney. There is a similar-a ppearing 5 mm hyperdense lesion within the right kidney. These are also incompletely characterized on this noncontrast study but favor hyperdense cysts. No hydronephrosis. Calcified plaque within the no rmal caliber abdominal aorta. No retroperitoneal or pelvic hematoma. No lymphadenopathy identified. T he uterus and right ovary are unremarkable. There is a 4 cm cyst within the left ovary. The bladder i s decompressed by a Antonio catheter. There is mild pelvic floor collapse. Multiple colonic diverticula . Minimal fat stranding at the distal sigmoid colon.. Therefore, an early acute diverticulitis is not excluded. No definite bowel wall thickening or obstruction. Moderate fecal retention. IMPRESSION: 1. No acute traumatic process within the chest, abdomen, or pelvis. 2. Small patchy densities within the base of the bilateral lower lobes. This may represent atelectasi s or a low-grade pneumonitis. 3. There are 2 indeterminate pulmonary nodules within the right lung with the largest in the right lo wer lobe measuring 6 mm. Please refer to the chart below for recommended follow-up. 4. Minimal fat stranding at the distal sigmoid colon. An early acute diverticulitis excluded. 5. A 4 cm cyst within the left ovary. This is considered pathologic in a postmenopausal female. Please refer to below summary of Fleischner criteria recommendations for follow-up of incidental CT n odules (Maria Fernanda Laguerre, Guidelines for management of small pulmonary nodules detected on CT scans: A sta tement from the Fleischner Society, Radiology 237: [phone].) SOLID NODULES Solitary nodule size: <6 mm * Low risk patients: no follow-up needed * high risk patients: optional CT at 12 months Solitary nodule size: 6-8 mm * Low risk patients: follow-up at 6-12 months, then consider further follow-up at 18-24 months * high risk patients: initial follow-up CT at 6-12 months and then at 18-24 months if no change Solitary nodule size: >8 mm * either low or high risk patients - consider follow-up CT at 3 months, and/or CT-PET, and/or biopsy Multiple nodules size: <6 mm * Low risk patients: no routine follow-up * high risk patients: optional CT at 12 months Multiple nodules size: 6-8 mm * Low risk patients: follow-up at 3-6 months, then consider further follow-up at 18-24 months * high risk patients: follow-up at 3-6 months, then at 18-24 months if no change Multiple nodules size: >8 mm * Low risk patients: follow-up at 3-6 months, then consider further follow-up at 18-24 months * high risk patients: follow-up at 3-6 months, then at 18-24 months if no change Note: newly detected indeterminate nodule in persons 35 years of age or older. * Low risk patients: minimal or absent history of smoking and/or other known risk factors * high risk patients: history of smoking or of other known risk factors (e.g. first degree relative with lung cancer, or exposure to asbestos, radon, uranium) * if a nodule up to 8 mm is partly solid or is ground glass further follow-up is required after 24 m onths to exclude possible slow growing adenocarcinoma (TE) SUBSOLID NODULES Solitary pure ground-glass nodule * nodule size <6 mm - no CT follow-up required * nodule size >=6 mm - follow-up CT at 6-12 months, then every 2 years until 5 years Solitary part-solid nodule * nodule size <6 mm - no CT follow-up required * nodule size >=6 mm - follow-up CT at 3-6 months. If unchanged, and solid component remains <6 mm, then annual follow-up for 5 years Multiple subsolid nodules * nodule size <6 mm - follow-up CT at 3-6 months, consider further follow-up at 2 and 4 years if sta ble * nodule size >=6 mm - follow-up CT at 3-6 months, subsequent management based on the most suspiciou s nodule(s) ACT 112: Negative or not required by law. Electronically signed by: Masoud Falcon M.D. 05/12/2023 9:52 AM
[2023-05-12 09:57] LABS: Thyroid Stimulating Hormone 3.123 uIu/ml (0.300-4.500)
[2023-05-12] MEDS ORDERED: PIPERACILLIN/TAZOBACTAM 4.5 GM in DEXTROSE 5% MINI-B 100 ML IV ONE (10:01)
[2023-05-12] MEDS: PIPERACILLIN/TAZOBACTAM 4.5 GM/100 ML BAG IV STA (10:23)
[2023-05-12] MEDS: SODIUM CHLORIDE 0.9% 500 ML IV ONE (10:23)
--- NOTE | 2023-05-12 10:30 | History & Physical Report ---
Date of Service May 12, 2023 Assessment & Plan (1) Sepsis: (2) Acute renal failure: (3) Weakness: (4) Fall: (5) Leukocytosis: (6) PMR (polymyalgia rheumatica): Plan: Appears patient was placed on hospice care in September 2022 status post hospital stay at [facility] for sepsis from arm cellulitis, A-fib with RVR. After this hospital stay patient family wants her to be able to go home again with hospice, they are looking for increased improvement in her pain management, and treating her for any current underlying infection. palliative care consultation while she is in hospital. - Admit to med surg with tele - WBC of 23 K, possible infectious source of cellulitis of the bilateral lower extremities with open wounds, wound consulted, CT abd stating cannot exclude diverticulitis, and pt with acute parasinus infection on CT head with recent upp er resp symptoms. Will await blood cultures x 2, lactate negative at 1.9, Pro- Abraham 0.39, and check RVP/MRSA nasal swab -Treating with IV Vanco and Zosyn now -Concern for acute PMR flare as patient reports pain all over, no specific region, will dose with prednisone 20 mg daily starting today, baseline she takes 5 mg daily - PT/OT consults - Pain management with oxycodone 5 mg Q4H, tylenol, MS IV for breakthrough pain, prednisone - Bowel regimen ordered for moderate fecal impaction on CT abd - Allow diet as tolerated, antiemetics ordered (7) Aortic stenosis: (8) HTN (hypertension): (9) HLD (hyperlipidemia): Plan: -Patient denies any chest pain/heaviness, EKG is negative for acute changes and do not think that this is ACS -Troponin 58 --> 51 on recheck, BNP 225, does not appear fluid overloaded at this time -Patient was on short course of Lasix p.o. recently per hospice for edema in lower extremities, this appears improved however she does still have redness surrounding some wounds as noted above (10) Osteoporosis: Plan: -Chronic, stable (11) Ovarian cyst, left: Plan: -CT abdomen left ovarian cyst measuring 4 cm, will discuss with patient/family regarding further workup for such (12) Hypokalemia: Plan: -Replace potassium with p.o. and IV, 2.8 on arrival -Trend with a.m. labs (13) Chronic kidney disease (CKD), stage III (moderate): Plan: -Baseline appears to be creatinine of 1.2. -BUN 76, Cr. 1.99 on admission, likely secondary to acute Lasix dosing for lower extremity edema as above -Hold Lasix/spironolactone -Renally reduce medications, avoid nephrotoxins -If worsening would consider nephrology consultation DVT PPx- scds Lines: 2 PIV FEN/GI: Allow regular diet, easy to chew CODE: DNR/DNI A total of 80 minutes were spent with greater than 50% of that time face to face with the patient, personally reviewing all current laboratories, imaging studies, past medication reconciliation, outpatient chart review, and discussion with specialists to collaborate care for the patient with attending. Please see attending documentation for corrections and/or additions. (14) RSV (respiratory syncytial virus infection): (15) Hypoxia: (16) Anemia: History of Present Illness Chief Complaint: Falls, weakness Primary Care Provider: Roland Shannon PA-C This is a 87 yo F with PMHx of vitamin D deficiency, HTN, chronic diastolic CHF, polymyalgia rheumatica, nonrheumatic aortic valve stenosis, CKD stage III, HLD, vitamin D deficiency, osteoporosis who was recently transitioned to hospice care on 05/[address] Lopez and on [facility] chart review. She presents today here from home by being brought EMS as her family states she is weak and continues to fall at home. Her family son, Stephen and son's girlfriend, Tawny are present at bedside and supports the history. They state that she has been on hospice for approximately the past 6 months since being admitted to [facility] for sepsis and requiring a blood transfusion at that point in time. They cannot recall what her source of infection was but stated that if she did not receive a blood transfusion she would likely within a 3-month timeframe. She received a blood transfusion there and has been doing quite well since then. She lives at home, grandson is there during the day as he works filling station attendant, and other family members check in with her routinely. They note that she fell on Tuesday morning and was on the ground for 1 hour of time. She attempted to get up and walk without her walker in the kitchen after grandson left to go to work in the morning. As she is currently on hospice, nurses check on her twice per week but they do not receive additional caregiver support. She also has had respiratory symptoms for the past 2 weeks, Tawny has asked for antibiotic for symptoms however they have not prescribed. Since her fall patient has been attempting to ambulate with use of a walker, states she is having pain all over, present in her legs bilaterally, abdomen, low back, and cannot pinpoint which area is the worst currently. Denies any acute fevers, chills or sweats. She does not wear any supplemental O2 at baseline. Patient did not get any of her morning medications today. She has been taking prednisone 5 mg for PMR. On review of [facility] outpatient it appears that she has been treated recently for lower extremity edema and bilateral lower extremity wounds with Lasix burst and Zaroxolyn dosing. Patient is found to have hypokalemia, elevated white count of 23,000, afebrile, creatinine 1.99 compared to her baseline of 1.2. Allergies Allergy/AdvReac Type Severity Reaction Status Date / Time clarithromycin AdvReac Intermediate GI SYMPTOMS Verified 04/15/15 12:56 adhesive AdvReac Unknown RASH Uncoded 12/04/15 07:47 Home Medications Medication Instructions Recorded Confirmed Type Hydrocodone/Acetaminophen 1 tab PO Q6H PRN Pain #0 tabs 04/24/15 05/12/23 History 5MG/325MG ([place] 5MG/325MG) LEVOTHYROXINE SODIUM (SYNTHROID) 75 mg PO QAM 30 days #30 tabs 04/24/15 05/12/23 History Prednisone 5 mg PO DAILY #0 tabs 04/24/15 05/12/23 History Furosemide (Lasix) See Rx Instructions .Route 12/03/15 05/12/23 History .COMPLEX #0 tabs Sertraline (Zoloft) 100 mg PO DAILY #0 tabs 02/13/16 05/12/23 History acetaminophen 650 mg 650 mg PO Q8H PRN Fever Or Pain 05/12/23 05/12/23 History tablet,extended release carvedilol 25 mg tablet 12.5 mg PO BID 05/12/23 05/12/23 History ferrous sulfate 325 mg (65 mg 325 mg PO DAILY 05/12/23 05/12/23 History iron) tablet metolazone 5 mg tablet 5 mg PO .Tuesday05/12/23 05/12/23 History potassium chloride 20 mEq 20 meq PO UD 05/12/23 05/12/23 History tablet,extended release Past Med/Surg History Medical History (Updated 05/12/23 @ 15:19 by Nora Ayala, ) Chronic kidney disease (CKD), stage III (moderate) Ovarian cyst, left Osteoporosis Aortic stenosis HLD (hyperlipidemia) HTN (hypertension) PMR (polymyalgia rheumatica) Surgical History (Updated 05/12/23 @ 12:06 by Marija Lord PA-C) History of cholecystectomy Hx of appendectomy Family History (Updated 05/12/23 @ 13:00 by Marija Lord PA-C) Mother Diabetes Brother Heart disease Social History (Updated 05/12/23 @ 13:00 by Marija Lord PA-C) Smoking Status: Never smoker Hx Alcohol Use: No Hx Substance Use: No Preferred Language: Bruneian Feels Safe at Home: Yes Review of Systems Review of Systems: Constitutional: No fever, sweats or chills, + pain throughout body Eyes: No diplopia, no worsening or blurred vision ENT: normal hearing, no trouble swallowing, + runny nose, nasal congestion Respiratory: No cough, sputum, dyspnea at rest or on exertion Cardiovascular: No chest pain, tightness or palpitations Back: chronic lower back pain Abdomen: + distneded, + pain, + nausea, no vomiting, diarrhea or constipation, tolerates oral intake without difficulty Musculoskeletal: + diffuse joint pain,no calf pain, no swelling Neurologic: No weakness, numbness/tingling, or balance problems Psychiatric: No anxiety or depression Skin: No rash or itch, + erythema BLE, + wounds on left lateral lower leg, and posterior half of right lower leg Physical Exam Physical Exam: General: awake, alert, uncomfortable, elderly white female Head: Normocephalic, atraumatic ENT: PERRL, EOMI, no pharyngeal exudate, mucous membranes slightly dry Chest: Clear to auscultation, on 2 LPM NC, diminished breath sounds at bases bilaterally Cardiac: Regular rate and rhythm, mild LANCE grade 3/4, no JVD, normal peripheral pulses, good capillary refill Abdominal: NABS x 4 quadrants, appears distended but soft, + hernia, + mildly tender to palpation in LLQ, no rebound or guarding Back: No ecchymosis or injury Extremities: + Skin tear on left upper extremity, + BLE erythema surrounding, left lateral lower extremity with wounds, right posterior calf with wounds, no peripheral edema, calfs nontender to palpation Psych: Depressed, tearful mood and affect Neuro: AAO x 3, strength intact bilaterally and rated 4/5, no motor deficits, speech is clear, no peripheral sensory deficits Results & Data Results & Data Vital Signs (Past 12 Hours) Vital Signs Temp Pulse Pulse Resp BP BP Pulse Ox 05/12/23 09:30 88 20 156/96 H 94 05/12/23 09:21 80 05/12/23 08:04 87 L 05/12/23 08:03 78 18 91 05/12/23 07:54 37.2 C 81 18 145/93 H 91 O2 Del Method O2 Flow Rate 05/12/23 09:30 Nasal Cannula 2 05/12/23 09:21 05/12/23 08:04 0 05/12/23 08:03 Nasal Cannula 2 05/12/23 07:54 Nasal Cannula 2 Laboratory Results 05/12/23 08:57 Aerobic Blood Culture - Pending Blood Anaerobic Blood Culture - Pending 05/12/23 09:05 Aerobic Blood Culture - Pending Blood Anaerobic Blood Culture - Pending 05/12/23 05/12/23 05/12/23 09:04 08:57 08:45 WBC RBC Hgb Hct MCV MCH MCHC RDW Std Deviation RDW Coeff of Mary Plt Count MPV Immature Gran % (Auto) Neut % (Auto) Lymph % (Auto) [place] % (Auto) Eos % (Auto) Baso % (Auto) Neut # (Auto) Lymph # (Auto) [place] # (Auto) Eos # (Auto) Baso # (Auto) Immature Gran # (Auto) PT INR APTT PTT Ratio Sodium Potassium Chloride Carbon Dioxide Anion Gap BUN Creatinine Est Cr Clr Drug Dosing Est GFR ( Amer) Est GFR (Non-Af Amer) BUN/Creatinine Ratio Glucose Lactate 1.9 Calcium Total Bilirubin AST ALT Alkaline Phosphatase Total Creatine Kinase 41 Troponin I High Sens B-Natriuretic Peptide Total Protein Albumin Globulin Albumin/Globulin Ratio Lipase TSH 3.123 Urine Color Yellow Urine Appearance Clear Urine pH 5.5 Ur Specific [place] 1.015 Urine Protein Trace H Urine Glucose (UA) Negative Urine Ketones Negative Urine Blood Trace H Urine Nitrite Negative Urine Bilirubin Negative Urine Urobilinogen Negative Ur Leukocyte Esterase Trace H Urine WBC (Auto) 1-5 Urine RBC (Auto) 0-4 U Hyaline Cast (Auto) 5-10 H U Epithel Cells (Auto) 10-20 H Urine Bacteria (Auto) Negative 05/12/23 07:45 WBC 23.30 H RBC 4.31 Hgb 10.0 L Hct 33.4 L MCV 77.5 L MCH 23.2 L MCHC 29.9 L RDW Std Deviation 46.7 H RDW Coeff of Mary 16.5 H Plt Count 405 H MPV 9.8 Immature Gran % (Auto) 1.0 Neut % (Auto) 87.0 Lymph % (Auto) 5.0 [place] % (Auto) 5.9 Eos % (Auto) 0.7 Baso % (Auto) 0.4 Neut # (Auto) 20.27 H Lymph # (Auto) 1.16 L [place] # (Auto) 1.38 H Eos # (Auto) 0.17 Baso # (Auto) 0.09 Immature Gran # (Auto) 0.23 H PT 11.0 INR 1.0 APTT 24 PTT Ratio 0.9 Sodium 137 Potassium 2.8 L Chloride 92 L Carbon Dioxide 31 Anion Gap 14 H BUN 76 H Creatinine 1.99 H Est Cr Clr Drug Dosing 18.3 Est GFR ( Amer) 25.7 Est GFR (Non-Af Amer) 22.2 BUN/Creatinine Ratio 38.2 H Glucose 169 H Lactate Calcium 9.3 Total Bilirubin 0.7 AST 14 ALT 8 Alkaline Phosphatase 139 H Total Creatine Kinase Troponin I High Sens 55.8 H* B-Natriuretic Peptide 225 H Total Protein 7.9 Albumin 3.7 Globulin 4.2 H Albumin/Globulin Ratio 0.9 Lipase 12 TSH Urine Color Urine Appearance Urine pH Ur Specific [place] Urine Protein Urine Glucose (UA) Urine Ketones Urine Blood Urine Nitrite Urine Bilirubin Urine Urobilinogen Ur Leukocyte Esterase Urine WBC (Auto) Urine RBC (Auto) U Hyaline Cast (Auto) U Epithel Cells (Auto) Urine Bacteria (Auto) Diagnostic Findings Chest X-Ray 05/12/23 08:21 XR chest 1V portable HISTORY: Shortness of breath. COMPARISON: None. FINDINGS: No pneumothorax. No pleural effusions. The heart is mildly enlarged. Mitral annulus calcifications are noted. No focal lung consolidations to suggest a pneumonia. No evidence for pulmonary edema. Mild interstitial thickening which is likely chronic. No acute fractures identified. Degenerative changes within the shoulders. Right basilar linear densities favor subsegmental atelectasis. IMPRESSION: 1. Cardiomegaly and mild interstitial thickening. This is likely chronic. 2. Right basilar linear densities favor subsegmental atelectasis. ACT 112: Negative or not required by law. Electronically signed by: Masoud Falcon M.D. 05/12/2023 9:[address] 05/12/23 08:26 CT OF THE CERVICAL SPINE WITHOUT CONTRAST CLINICAL HISTORY: Falls. COMPARISON STUDY: No previous studies for comparison. TECHNIQUE: Helical axial images of the cervical spine were obtained without IV contrast. Sagittal and coronal reconstructions were viewed. Automated exposure control was utilized for the study. A dose lowering technique was utilized adhering to the principles of ALARA. FINDINGS: There is reversal of the cervical lordosis and mild anterolisthesis of C2 on C3 and C3 on C4. This is likely due to facet arthrosis. Severe facet arthr osis is noted at multiple levels. There is also severe multilevel disc space narrowing and osteophytosis within the cervical spine. There is no cervical spine fracture. Craniocervical junction is intact. IMPRESSION: 1. No acute cervical spine fracture or subluxation. 2. Severe multilevel degenerative changes within the cervical spine. ACT 112: Negative or not required by law. Electronically signed by: Kevin Hill M.D. 05/12/2023 9:[address] 05/12/23 08:[address] DOSE: HISTORY: falls TECHNIQUE: Multiaxial CT images of the head were performed without the use of intravenous contrast. Automated exposure control was utilized for this study. A dose lowering technique was utilized adhering to the principles of ALARA. Comparison: None. Findings: Fluid levels with near complete opacification of the right maxillary sinus. There is partial opacification of the ethmoid air cells and left sphenoid sinus due to multiple fluid levels. The mastoid air cells are clear. Prior right parietal craniotomy. A 13 mm completely calcified extra-axial lesion within the left middle cranial fossa consistent with a meningioma. No calvarial fractures identified. Mild atrophy and mild microvascular ischemic changes are noted. 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 No hematoma, midline shift, or acute infarct. Impression: 1. No acute intracranial abnormality. 2. Acute paranasal sinusitis. 3. Additional findings as described above. ACT 112: Negative or not required by law. Electronically signed by: Masoud Falcon M.D. 05/12/2023 9:32 AM Abdomen/Pelvis CT 05/12/23 09:06 CT chest diagnostic wo con, CT abd pelvis wo con CT DOSE: 2540.32 mGy.cm HISTORY: Multiple falls. Assess for trauma. TECHNIQUE: Multiaxial CT images of the chest , abdomen, and pelvis were performed without contrast. A dose lowering technique was utilized adhering to the principles of ALARA. COMPARISON: None. FINDINGS: Chest CT: No mediastinal hematoma or lymphadenopathy. No hilar lymphadenopathy. The heart is mildly enlarged. No pleural or pericardial effusions. Dense mitral annulus calcifications are noted. The ascending thoracic aorta measures up to 4.3 cm in diameter. Moderate calcified plaque within the thoracic aorta. Degenerative changes within the shoulders. Old mild superior endplate compression deformities at T4 and T12. Old left lower rib fractures are noted. No acute fractures within the chest. No pneumothorax. The central airways are patent. There are small patchy densities within the base of the bilateral lower lobes. A few punctate calcified granulomas within the base of the right lower lobe. There is a 6 mm nodule within the right lower lobe on image 142 and a 4 mm nodule within the right middle lobe on image 131. Abdomen/pelvis CT: Mild motion artifact. No pneumoperitoneum. No pneumatosis. No acute fractures identified. Abdominal wall laxity is noted. Prior cholecystectomy. The unenhanced liver, spleen, adrenal glands, pancreas, and right kidney are unremarkable. There are 2 hypodense lesions within the left kidney with the largest measuring 14 mm. These are incompletely characterized on this noncontrast study but favor cysts. There is also a 1 cm hyperdense lesion within the left kidney. There is a similar-appearing 5 mm hyperdense lesion within the right kidney. These are also incompletely characterized on this noncontrast study but favor hyperdense cysts. No hydronephrosis. Calcified plaque within the normal caliber abdominal aorta. No retroperitoneal or pelvic hematoma. No lymphadenopathy identified. The uterus and right ovary are unremarkable. There is a 4 cm cyst within the left ovary. The bladder is de compressed by a Muniz catheter. There is mild pelvic floor collapse. Multiple colonic diverticula. Minimal fat stranding at the distal sigmoid colon.. Therefore, an early acute diverticulitis is not excluded. No definite bowel wall thickening or obstruction. Moderate fecal retention. IMPRESSION: 1. No acute traumatic process within the chest, abdomen, or pelvis. 2. Small patchy densities within the base of the bilateral lower lobes. This may represent atelectasis or a low-grade pneumonitis. 3. There are 2 indeterminate pulmonary nodules within the right lung with the largest in the right lower lobe measuring 6 mm. Please refer to the chart below for recommended follow-up. 4. Minimal fat stranding at the distal sigmoid colon. An early acute diverticulitis excluded. 5. A 4 cm cyst within the left ovary. This is considered pathologic in a postmenopausal female. Please refer to below summary of Fleischner criteria recommendations for follow- up of incidental CT nodules (Maria Fernanda Laguerre, Guidelines for management of small pulmonary nodules detected on CT scans: A statement from the Fleischner Society, Radiology 237: [id number].) SOLID NODULES Solitary nodule size: <6 mm * Low risk patients: no follow-up needed * high risk patients: optional CT at 12 months Solitary nodule size: 6-8 mm * Low risk patients: follow-up at 6-12 months, then consider further follow-up at 18-24 months * high risk patients: initial follow-up CT at 6-12 months and then at 18-24 months if no change Solitary nodule size: >8 mm * either low or high risk patients - consider follow-up CT at 3 months, and/or CT-PET, and/or biopsy Multiple nodules size: <6 mm * Low risk patients: no routine follow-up * high risk patients: optional CT at 12 months Multiple nodules size: 6-8 mm * Low risk patients: follow-up at 3-6 months, then consider further follow-up at 18-24 months * high risk patients: follow-up at 3-6 months, then at 18-24 months if no change Multiple nodules size: >8 mm * Low risk patients: follow-up at 3-6 months, then consider further follow-up at 18-24 months * high risk patients: follow-up at 3-6 months, then at 18-24 months if no change Note: newly detected indeterminate nodule in persons 35 years of age or older. * Low risk patients: minimal or absent history of smoking and/or other known risk factors * high risk patients: history of smoking or of other known risk factors (e.g. first degree relative with lung cancer, or exposure to asbestos, radon, uranium) * if a nodule up to 8 mm is partly solid or is ground glass further follow-up is required after 24 months to exclude possible slow growing adenocarcinoma (TE) SUBSOLID NODULES Solitary pure ground-glass nodule * nodule size <6 mm - no CT follow-up required * nodule size >=6 mm - follow-up CT at 6-12 months, then every 2 years until 5 years Solitary part-solid nodule * nodule size <6 mm - no CT follow-up required * nodule size >=6 mm - follow-up CT at 3-6 months. If unchanged, and solid component remains <6 mm, then annual follow-up for 5 years Multiple subsolid nodules * nodule size <6 mm - follow-up CT at 3-6 months, consider further follow-up at 2 and 4 years if stable * nodule size >=6 mm - follow-up CT at 3-6 months, subsequent management based on the most suspicious nodule(s) ACT 112: Negative or not required by law. Electronically signed by: Masoud Falcon M.D. 05/12/2023 9:[address] 05/12/23 09:06 CT chest diagnostic wo con, CT abd pelvis wo con CT DOSE: 2540.32 mGy.cm HISTORY: Multiple falls. Assess for trauma. TECHNIQUE: Multiaxial CT images of the chest , abdomen, and pelvis were performed without contrast. A dose lowering technique was utilized adhering to the principles of ALARA. COMPARISON: None. FINDINGS: Chest CT: No mediastinal hematoma or lymphadenopathy. No hilar lymphadenopathy. The heart is mildly enlarged. No pleural or pericardial effusions. Dense mitral annulus calcifications are noted. The ascending thoracic aorta measures up to 4.3 cm in diameter. Moderate calcified plaque within the thoracic aorta. Degenerative changes within the shoulders. Old mild superior endplate compression deformities at T4 and T12. Old left lower rib fractures are noted. No acute fractures within the chest. No pneumothorax. The central airways are patent. There are small patchy densities within the base of the bilateral lower lobes. A few punctate calcified granulomas within the base of the right lower lobe. There is a 6 mm nodule within the right lower lobe on image 142 and a 4 mm nodule within the right middle lobe on image 131. Abdomen/pelvis CT: Mild motion artifact. No pneumoperitoneum. No pneumatosis. No acute fractures identified. Abdominal wall laxity is noted. Prior cholecystectomy. The unenhanced liver, spleen, adrenal glands, pancreas, and right kidney are unremarkable. There are 2 hypodense lesions within the left kidney with the largest measuring 14 mm. These are incompletely characterized on this noncontrast study but favor cysts. There is also a 1 cm hyperdense lesion within the left kidney. There is a similar-appearing 5 mm hyperdense lesion within the right kidney. These are also incompletely characterized on this noncontrast study but favor hyperdense cysts. No hydronephrosis. Calcified plaque within the normal caliber abdominal aorta. No retroperitoneal or pelvic hematoma. No lymphadenopathy identified. The uterus and right ovary are unremarkable. There is a 4 cm cyst within the left ovary. The bladder is d ecompressed by a Muniz catheter. There is mild pelvic floor collapse. Multiple colonic diverticula. Minimal fat stranding at the distal sigmoid colon.. Therefore, an early acute diverticulitis is not excluded. No definite bowel wall thickening or obstruction. Moderate fecal retention. IMPRESSION: 1. No acute traumatic process within the chest, abdomen, or pelvis. 2. Small patchy densities within the base of the bilateral lower lobes. This may represent atelectasis or a low-grade pneumonitis. 3. There are 2 indeterminate pulmonary nodules within the right lung with the largest in the right lower lobe measuring 6 mm. Please refer to the chart below for recommended follow-up. 4. Minimal fat stranding at the distal sigmoid colon. An early acute diverticulitis excluded. 5. A 4 cm cyst within the left ovary. This is considered pathologic in a postmenopausal female. Please refer to below summary of Fleischner criteria recommendations for follow- up of incidental CT nodules (Maria Fernanda Laguerre, Guidelines for management of small pulmonary nodules detected on CT scans: A statement from the Fleischner Society, Radiology 237: [phone].) SOLID NODULES Solitary nodule size: <6 mm * Low risk patients: no follow-up needed * high risk patients: optional CT at 12 months Solitary nodule size: 6-8 mm * Low risk patients: follow-up at 6-12 months, then consider further follow-up at 18-24 months * high risk patients: initial follow-up CT at 6-12 months and then at 18-24 months if no change Solitary nodule size: >8 mm * either low or high risk patients - consider follow-up CT at 3 months, and/or CT-PET, and/or biopsy Multiple nodules size: <6 mm * Low risk patients: no routine follow-up * high risk patients: optional CT at 12 months Multiple nodules size: 6-8 mm * Low risk patients: follow-up at 3-6 months, then consider further follow-up at 18-24 months * high risk patients: follow-up at 3-6 months, then at 18-24 months if no change Multiple nodules size: >8 mm * Low risk patients: follow-up at 3-6 months, then consider further follow-up at 18-24 months * high risk patients: follow-up at 3-6 months, then at 18-24 months if no change Note: newly detected indeterminate nodule in persons 35 years of age or older. * Low risk patients: minimal or absent history of smoking and/or other known risk factors * high risk patients: history of smoking or of other known risk factors (e.g. first degree relative with lung cancer, or exposure to asbestos, radon, uranium) * if a nodule up to 8 mm is partly solid or is ground glass further follow-up is required after 24 months to exclude possible slow growing adenocarcinoma (TE) SUBSOLID NODULES Solitary pure ground-glass nodule * nodule size <6 mm - no CT follow-up required * nodule size >=6 mm - follow-up CT at 6-12 months, then every 2 years until 5 years Solitary part-solid nodule * nodule size <6 mm - no CT follow-up required * nodule size >=6 mm - follow-up CT at 3-6 months. If unchanged, and solid component remains <6 mm, then annual follow-up for 5 years Multiple subsolid nodules * nodule size <6 mm - follow-up CT at 3-6 months, consider further follow-up at 2 and 4 years if stable * nodule size >=6 mm - follow-up CT at 3-6 months, subsequent management based on the most suspicious nodule(s) ACT 112: Negative or not required by law. Electronically signed by: Masoud Falcon M.D. 05/12/2023 9:52 AM Code Status & VTE Plan Code Status DNR/DNI - discussed at bedside with pt and family Supervising Physician Co-Signing Physician Notes I have seen and examined the patient and have discussed the case with the provider above. I have reviewed the advanced practitioner's documentation, and I agree with, and take responsibility for that plan of care. The patient is an 87 yo F who presents with generalized weakness for the past several days after multiple falls at home. She is clinically dehydrated and has not been eating or drinking much which is corroborated by her son and his fianc/pt animal caretaker at the bedside who are assisting with the history. At baseline, the patient ambulates independently and is very sharp mentally. She manages her own medications. She comes in today with terrible pain which she describes as all over and is constant. She also reports abdominal pain for an undetermined amount of time in the RLQ which is not well characterized. There are no clear exacerbating/alleviating factors and no changes in her stool. It is not clear if she has nausea or is avoiding eating because of this pain. She has a history of PMR and is steroid-dependent on prednisone 5mg daily. She was also admitted to [facility] from 09/04/22 to 09/26/22 for sepsis related to a LUE abscess s/p I&D and surrounding cellulitis. She also has a history of atrial fibrillation, hypothyroidism, osteoarthritis, hypertension, and chronic anemia, depression and aortic stenosis. Per outside records that were obtained from [facility], during that hospital stay, she initially presented with LUE cellulitis that was refractory to PO abx and was treated with intravenous abx and I&D for an abscess of her LUE. She developed new onset a fib and anemia at that time. She underwent an upper GI endoscopy on 09/17/22 for acute posthemorrhagic anemia and melena that revealed one superficial esophageal ulcer with no bleeding. Multiple small angioectasias were found in the gastric fundus and in the gastric body which were treated with APC. She had an echo performed on 09/05/22 revealing a EF 65-70% and mild LVH. She had normal right and left ventricular function and there was severe aortic sclerosis with stenosis noted. Cardiology was consulted for her afib and it was determined that although her stroke risk score was high, anticoagulation would put her at risk given her history of frequent falls. She was discharged on aspirin monotherapy. There was a consultation with palliative services and the patient was placed on home hospice. At this point, given her baseline level of function, she may not be appropriate for Hospice and this was briefly discussed with family who agrees. Her CT scan today did reveal a possible early developing diverticulitis at the distal sigmoid colon and revealed a 4cm ovarian cyst. I discussed these findings with the patient and family who wish to pursue a workup on this cyst. IV antibiotics have been started for possible sepsis of unclear source. She is positive for RSV and has a nonproductive cough with clear lungs to auscultation. She is on oxygen supplementation in the ER today and is not working to breathe. She has a normal baseline renal function with a worsened creatinine today of 1.99, along with signs of dehydration mentioned above including dry mucous membranes and generalized weakness in the setting of poor PO intake. She denies any issues with urination recently. She reports using a lot of ibuprofen for her generalized pain in addition to Lortab every 3-4 hours at home. She has constipation. On exam she is very weak and ill appearing. She is mentating clearly but is a poor historian because of fatigue and lethargy. She cannot sit up or roll independently in the bed, therefore, exam is limited. She has wounds that are closed on her lower posterior right leg and second right toe with swelling and erythema of that right toe along with a scab on the dorsal surface of the distal toe joint. She has another wound with a gauze that is stuck to the wound in a fashion that is dried and if pulled off would put her at risk for wound destruction but appears to be a stage II ulceration. She has an appearance to her lower distal extremities of venous stasis vs celluliits not involving the feet on both legs. She has pain with movement including flexion and extension of her knees bilaterally. She has average ROM with passive movement by examiner. CN 2-12 are grossly intact and she is making good eye contact and able to follow instructions. Poor dentition noted with very dry oral mucous membranes noted. No cervical LAD. Lungs are clear to auscultation throughout. She has a harsh 3/6 LANCE across the precordium (patient is aware of this and h/o in the records). Abdomen is soft, nondistended, with TTP in the RLQ>RUQ and mild pain in the LLQ. Muniz catheter is in place. Workup today includes leukocytosis of 23K with a left shift on differential, presence on bands and a monocytosis, +RSV on biofire panel, anemia with an H/H 10/33.4. Chemistry reflects dehydrated state with K 2.8, Cl 92, AG 14, BUN 76, and create 1..99. Will perform screening A1C given her glucose of 169 in this fasting state. She has a mild troponemia of 55.8 with repeat 51.7 in the setting of no chest pain or evidence of acute ischemia on EKG. She denies any chest pain. UA with no sarah signs of infection but with microscopic blood and protein after muniz placement. Imaging as noted above. 1. Possible sepsis, uncertain source-poss early diverticulitis, possible underlying pneumonia? LE cellulitis? Cont broad spectrum abx pending culture results and clinical improvement. 2. ARF-likely prerenal with toxicity from frequent NSAID use at home. Hold NSAIDs and Lasix and metolazone and cont with pain control efforts as outlined below. 3. PMR-steroid dependent and total body pain may reflect a flare. Wilmer increase to flare dose pred 20mg PO daily for a few days. With her underlying h/o OA, will also add scheduled APAP. Cont to wean her off so many opiates (which was given to palliate by Hospice) to help with likely opiate-induced constipation and other side effects likely grogginess while still controlling her pain. 4. RSV-cont supportive care efforts including cough syrup and Mucinex/oxygen, etc. 5. Generalized weakness-likely the result of ongoing CIERA illness with delayed care given hospice status, in the setting of multiple falls, poor PO intake. She doesnt appear to have any fractures because of her falls. PT/OT to see and evaluate. I made it clear to family and patient that rehab as a transition to home was very possible. 6. Hypokalemia-replace 7. Hypoxia-poss related to respiratory illness and overall state of weakness. She does have with an elevated BNP. She appears clinically volume depleted but will monitor closely for any signs of volume overload as we rehydrate her. IF not able to wean oxygen in the next few days, would investigate further. 8. L ovarian cyst-strategic accounts manager consultation for assistance with workup. 9. Anemia-no reports of blood per rectum but she does have a h/o GI bleed last year. Appears to be at her baseline, cont monitoring. 10. PAF- sinus rhythm on admission, cont Coreg per home regimen. No anticoagulation as mentioned above. Follow-up with outpatient bank teller machine mechanic. 11. Wounds-poss Stage II ulcerative wounds, consult driver's license reviewing officer and will need follouwp in the outpatient space. 12. Hypertroponemia-probably related to demand ischemia in setting of poss sepsis with known valve disease. Repeat echo. She is a clear DNR per my conversation with her today and with family, however, would like to revoke Hospice and be re-evaluated for home health vs rehab options. May need [facility] care options for home closer o discharge. Appreciate case management looking into this. Daughter also asking for a wedge pillow at discharge. DO Jamie (1) Sepsis Sepsis acute organ dysfunction status: unspecified Sepsis type: sepsis due to unspecified organism Qualified Code(s): A41.9 - Sepsis, unspecified organism
[2023-05-12] MEDS: MoRPHine SULFATE 2 MG/ML CARP IV STA (10:37)
[2023-05-12] MEDS: ONDANSETRON INJ 2 MG/ML 2 ML VIAL IV STA (10:37)
[2023-05-12] MEDS: HYDROCODONE/ACETAMOPHEN 5/325MG TAB PO STA (10:57)
[2023-05-12] MEDS ORDERED: VANCOMYCIN CONSULT ACTIVE PRN ×2 (11:14→13:48)
[2023-05-12] MEDS ORDERED: bisacodyL 10 MG SUPP PR PRN (11:33)
[2023-05-12 11:41] LABS: Adenovirus PCR Not Detected (NotDetected); Bordetella parapertussis PCR Not Detected (NotDetected); Bordetella pertussis PCR Not Detected (NotDetected); Chlamydia pneumoniae PCR Not Detected (NotDetected); Coronavirus 229E PCR Not Detected (NotDetected); Coronavirus CoV-2 (COVID19)PCR Not Detected (NotDetected); Coronavirus HKU1 PCR Not Detected (NotDetected); Coronavirus NL63 PCR Not Detected (NotDetected); Coronavirus OC43PCR Not Detected (NotDetected); Human Metapneumovirus PCR Not Detected (NotDetected); Influenza A PCR Not Detected (NotDetected); Influenza B PCR Not Detected (NotDetected); Mycoplasma pneumoniae PCR Not Detected (NotDetected); Parainfluenza Virus 1 PCR Not Detected (NotDetected); Parainfluenza Virus 2 PCR Not Detected (NotDetected); Parainfluenza Virus 3 PCR Not Detected (NotDetected); Parainfluenza Virus 4 PCR Not Detected (NotDetected); Respiratory Syncytial VirusPCR DETECTED (NotDetected); Rhinovirus/Enterovirus PCR Not Detected (NotDetected)
[2023-05-12] MEDS: VANCOMYCIN HCL 1,750 MG in SODIUM CHLORIDE 0.9% 500 ML IV ONE (12:55)
[2023-05-12] MEDS: POTASSIUM CHLORIDE / WTR 10 MEQ/100 ML PLCT IV SCH (12:55)
[2023-05-12] MEDS: DOCUSATE SODIUM 100 MG CAP PO SCH (13:00)
[2023-05-12] MEDS: POLYETHYLENE (MIRALAX) 17 GM PACK PO SCH (13:01)
[2023-05-12] MEDS: predniSONE 20 MG TAB PO STA (13:01)
--- NOTE | 2023-05-12 13:31 | Electrocardiogram Report ---
Test Reason : Blood Pressure : / mmHG Vent. Rate : 098 BPM Atrial Rate : 098 BPM P-R Int : 206 ms QRS Dur : 076 ms QT Int : 364 ms P-R-T Axes : -01 009 013 degrees QTc Int : 464 ms Poor data quality, interpretation may be adversely affected Sinus rhythm with sinus arrhythmia Abnormal ECG No previous ECGs available Confirmed by Fabricio Prince ([id number]) on 05/12/2023 1:31:27 PM Referred By: REFERRED SELF Confirmed By:Fabricio Prince
[2023-05-12] MEDS ORDERED: ONDANSETRON INJ 2 MG/ML 2 ML VIAL IV PRN (13:48)
[2023-05-12] MEDS ORDERED: MoRPHine SULFATE 2 MG/ML CARP IV PRN (13:48)
[2023-05-12] MEDS ORDERED: ACETAMINOPHEN 325 MG TAB PO PRN (13:48)
[2023-05-12] MEDS: POTASSIUM CHLORIDE CRTAB 20 MEQ TABCR PO STA ×2 (14:25→14:54)
--- NOTE | 2023-05-12 15:27 | Pharmacy Report ---
Pharmacy PK ABX Note - Date of Service May 12, 2023 - Assessment and Plan Assessment 87 year old F receiving Vancomycin and Zosyn for treatment of illness of unknown source. * Day #1 of antimicrobial therapy. * Afebrile. Leukocytosis of 23.3k. SCr 1.99 mg/dL, CrCl 18.3 mL/min. Procal 0.39 ng/mL. * Blood cultures pending. Respiratory biofire positive for RSV. * Provider note states possible GI infection, skin soft tissue, and/or pulm source. Plan Vancomycin * Loading dose: 1750 mg IV x 1 * No maintenance dose will be ordered due to kidney dysfunction * Random level ordered for: 05/13/23 Zosyn * 4.5 g IV every 12 hours Pharmacy will continue to follow and will adjust dose/frequency as necessary. Thank you. Pharmacy has transitioned to AUC monitoring for vancomycin. AUC/JESSICA is the preferred PK/PD target and is associated with decreased risk of nephrotoxicity compared to traditional trough targets.
[2023-05-12] MEDS: carvediloL 12.5 MG TAB PO SCH (16:28)
[2023-05-12] MEDS: ACETAMINOPHEN 500 MG TAB PO SCH (16:28)
[2023-05-12] MEDS: SODIUM CHLORIDE 0.9% 1,000 ML IV SCH (16:44)
[2023-05-12] MEDS: SODIUM CHLORIDE 0.9% 250 ML IV SCH (18:33)
[2023-05-12] MEDS: PIPERACILLIN/TAZOBACTAM 4.5 GM in DEXTROSE 5% MINI-B 100 ML IV SCH (19:20)
--- NOTE | 2023-05-12 19:59 | OB/GYN Consultation ---
Date of Consultation May 12, 2023 Assessment & Plan (1) PMR (polymyalgia rheumatica): (2) HTN (hypertension): (3) HLD (hyperlipidemia): (4) Aortic stenosis: (5) Osteoporosis: (6) Ovarian cyst, left: (7) Weakness: (8) Fall: (9) Leukocytosis: (10) Hypokalemia: (11) Chronic kidney disease (CKD), stage III (moderate): (12) Sepsis: (13) Frequent falls: (14) Elevated troponin: (15) Abdominal pain: (16) Headache: (17) DNR (do not resuscitate): (18) Acute renal failure: (19) RSV (respiratory syncytial virus infection): (20) Hypoxia: (21) Anemia: Plan 87-year-old hospice patient brought to the emergency room today for dehydration and generalized weakness after several falls. Patient has multiple medical problems. Problems are listed above. As part of her ER evaluation CT scan done showed 4 cm left ovarian cyst. No ascites is reported on ultrasound. Consult is placed for evaluation of the foci with ovarian cyst. Further workup will include a pelvic ultrasound and surgery. Since patient is a hospice patient not think we need to proceed in that route. Unfortunately I was not able to meet patient's family to have this discussion with them. I have therefore discussed this with the hospitalist,Dr Gonzalez. My recommendation at this point is expectant management thank. History of Present Illness Reason for Consultation: Ovarian cyst Attending Physician: Nora Ayala, History of Present Illness This is an 87-year-old patient who presented to the emergency room today patient was brought in by his son and fiance. Patient is status post hospice since admission at [facility]. Shortness brought in today by her sister she had generalized weakness for several days was not eating and to have fallen several times. On admission to the ER she complains of abdominal pain and right lower quadrant pain. Patient has multiple medical problems including sepsis diverticulitis pneumonia renal failure hyperkalemia hypertension anemia aortic aneurysm, to mention to mention a few. As part of her workup in the ER she received a CT scan which showed an incidental finding of a 4 cm left ovarian cyst. This is what prompted the SUPERVISOR COLOR MAKING consult. On arrival to see patient patient is unable to give history there is no family member for me to talk to so most of this information is obtained from reviewing the patient's chart. Patient is able to tell me where she is but is not able to give me any history at all. Therefore done best by going through patient's record as well as the ER and medicine evaluation. Allergies Allergy/AdvReac Type Severity Reaction Status Date / Time clarithromycin AdvReac Intermediate GI SYMPTOMS Verified 04/15/15 12:56 adhesive AdvReac Rash Verified 05/12/23 16:08 Home Medications Medication Instructions Recorded Confirmed Type Hydrocodone/Acetaminophen 1 tab PO Q6H PRN Pain #0 tabs 04/24/15 05/12/23 History 5MG/325MG ([place] 5MG/325MG) LEVOTHYROXINE SODIUM (SYNTHROID) 75 mg PO QAM 30 days #30 tabs 04/24/15 05/12/23 History Prednisone 5 mg PO DAILY #0 tabs 04/24/15 05/12/23 History Furosemide (Lasix) See Rx Instructions .Route 12/03/15 05/12/23 History .COMPLEX #0 tabs Sertraline (Zoloft) 100 mg PO DAILY #0 tabs 02/13/16 05/12/23 History acetaminophen 650 mg 650 mg PO Q8H PRN Fever Or Pain 05/12/23 05/12/23 History tablet,extended release carvedilol 25 mg tablet 12.5 mg PO BID 05/12/23 05/12/23 History ferrous sulfate 325 mg (65 mg 325 mg PO DAILY 05/12/23 05/12/23 History iron) tablet metolazone 5 mg tablet 5 mg PO .Tuesday05/12/23 05/12/23 History potassium chloride 20 mEq 20 meq PO UD 05/12/23 05/12/23 History tablet,extended release Patient History Medical History (Updated 05/12/23 @ 15:19 by Nora Ayala DO) Chronic kidney disease (CKD), stage III (moderate) Ovarian cyst, left Osteoporosis Aortic stenosis HLD (hyperlipidemia) HTN (hypertension) PMR (polymyalgia rheumatica) Surgical History (Updated 05/12/23 @ 12:06 by Marija Lord PA-C) History of cholecystectomy Hx of appendectomy Family History (Updated 05/12/23 @ 13:00 by Marija C Filipowicz, PA-C) Mother Diabetes Brother Heart disease Social History (Updated 05/12/23 @ 13:00 by Marija Lord PA-C) Smoking Status: Never smoker Hx Alcohol Use: No Hx Substance Use: No Preferred Language: [place] Leonean Feels Safe at Home: Yes Results & Data Vital Signs (Past 12 Hours) Vital Signs Temp Pulse Pulse Resp BP BP Pulse Ox 05/12/23 19:24 36.5 C 54 L 16 97/52 L 96 05/12/23 18:30 58 L 17 114/59 L 99 05/12/23 18:02 55 L 16 90/46 L 95 05/12/23 17:33 63 17 92/48 L 95 05/12/23 17:00 62 15 96/40 L 95 05/12/23 16:30 67 18 121/58 L 96 05/12/23 16:10 71 16 05/12/23 16:01 70 16 05/12/23 16:00 75 17 138/78 97 05/12/23 15:33 61 05/12/23 15:30 66 15 88/50 L 95 05/12/23 15:00 66 16 112/53 L 96 05/12/23 14:30 68 16 117/59 L 97 05/12/23 14:00 68 15 105/63 95 05/12/23 13:30 72 17 95/52 L 95 05/12/23 13:00 71 15 116/63 96 05/12/23 12:30 75 12 109/67 95 05/12/23 12:00 74 16 108/69 95 05/12/23 11:30 78 17 113/71 96 05/12/23 11:07 76 05/12/23 11:01 88 20 137/54 L 92 05/12/23 10:00 74 13 138/87 93 05/12/23 09:30 90 14 156/96 H 93 05/12/23 09:30 88 20 156/96 H 94 05/12/23 09:21 80 05/12/23 08:30 77 16 149/83 H 92 05/12/23 08:04 87 L 05/12/23 08:03 78 18 91 05/12/23 08:00 83 14 144/98 H 92 05/12/23 07:54 37.2 C 81 18 145/93 H 91 O2 Del Method O2 Flow Rate 05/12/23 19:24 Nasal Cannula 2 05/12/23 18:30 Nasal Cannula 2 05/12/23 18:02 Nasal Cannula 2 05/12/23 17:33 Nasal Cannula 2 05/12/23 17:00 Nasal Cannula 2 05/12/23 16:30 Nasal Cannula 2 05/12/23 16:10 05/12/23 16:01 05/12/23 16:00 Nasal Cannula 2 05/12/23 15:33 05/12/23 15:30 Nasal Cannula 2 05/12/23 15:00 Nasal Cannula 2 05/12/23 14:30 Nasal Cannula 2 05/12/23 14:00 Nasal Cannula 2 05/12/23 13:30 Nasal Cannula 2 05/12/23 13:00 Nasal Cannula 2 05/12/23 12:30 Nasal Cannula 2 05/12/23 12:00 Nasal Cannula 2 05/12/23 11:30 Nasal Cannula 2 05/12/23 11:07 05/12/23 11:01 Nasal Cannula 2 05/12/23 10:00 Nasal Cannula 2 05/12/23 09:30 Nasal Cannula 2 05/12/23 09:30 Nasal Cannula 2 05/12/23 09:21 05/12/23 08:30 Nasal Cannula 2 05/12/23 08:04 0 05/12/23 08:03 Nasal Cannula 2 05/12/23 08:00 Nasal Cannula 2 05/12/23 07:54 Nasal Cannula 2 (12) Sepsis Sepsis acute organ dysfunction status: unspecified Sepsis type: sepsis due to unspecified organism Qualified Code(s): A41.9 - Sepsis, unspecified organism (15) Abdominal pain Abdominal location: unspecified location Qualified Code(s): R10.9 - Unspecified abdominal pain (16) Headache Headache chronicity pattern: unspecified pattern Headache type: unspecified Intractability: not intractable Qualified Code(s): R51.9 - Headache, unspecified
--- OUTSIDE RECORDS SUMMARY | 2023-05-12 20:18 | External Medical Summary ---
Author Name Unknown Address Unknown Organization [id number] [address] [id number] Laboratory Report Ordering Provider Test Date Status MARSHA TOVAR 01/18/2023 17:17:00 Final Observation Date Value Abnormality Reference (Units ) Status Glucose 01/18/2023 17:47 114 Above high normal 70-99 (mg/dL) Final BUN 01/18/2023 17:47 17 7-18 (mg/dL) Final Creatinine 01/18/2023 17:47 1.16 0.60-1.30 (m g/dL) Final eGFR 01/18/2023 17:47 46 Below low normal >59 (m L/min/1.73m2) Final eGFR = 142 X [min(Scr/k,1)]* *a [max(Scr/k,1)-1.200x0.9938age X 1.012 [if female] Where Scr is serum creatinine; k is 0.7 for females and 0.9 males; a is -0.241 for females and -0.302 for males; min indicates the minimum of Scr/k or 1, max indicates the maximum of Scr/k or 1 Sodium 01/18/2023 17:47 140 136-145 (mmol /L) Final Potassium 01/18/2023 17:47 3.0 Below low normal 3.6-5. 0 (mmol/L) Final Chloride 01/18/2023 17:47 101 101-111 (mmol /L) Final CO2 01/18/2023 17:47 27 21-31 (mmol/L ) Final Anion Gap 01/18/2023 17:47 15 6-16 (mmol/L) Final Calcium 01/18/2023 17:47 8.4 8.4-10.5 (mg/ dL) Final Performing Location [facility] [address] [id number]
--- OUTSIDE RECORDS SUMMARY | 2023-05-12 20:18 | External Medical Summary | Summary of Care ---
Author Name Unknown Organization [facility] Address [address] [place] [address] Phone [phone] Care Team Providers Care Knurling Machine Tender Name Role Phone Blair Simental DO Primary Care Provid er Reason for Visit * Reason Comments eRx-Medication Refill Encounter Details Date Type Department Care Team ([facility] Contact Info) Description 01/16/[address] [phone] Blair Simental DO [address] [place] [id number] Dyslipidemia, goal LDL below 130 Allergies Active Allergy Reactions Criticality Noted Date Comments Adhesive Tape 04/20/2004 Clarithromycin 10/03/2000 nausea documented as of this encounter (statuses as of 01/17/2023) Medications Medication Sig Dispensed Refills Start Date End Date Status ASPIRIN 81 MG OR CHEWIndications:Gen eralized osteoarthritis of multiple sites 1 chewable by mouth daily to prevent heart attack 100 5 03/27/2003 Active Carvedilol 25 MG Oral Tablet (Coreg) TAKE 1 TABLET BY MOUTH TWICE DAILY 200 Tablet 1 07/06/2022 Active Furosemide 40 MG Oral Tablet (Lasix)Indications: Hypertensive heart disease with heart failure (HCC) TAKE 2 TABLETS BY MOUTH ONCE DAILY IN THE MORNING 200 Tablet 1 07/06/2022 Active HYDROcodone-Acetami nophen 5-325 MG Oral TabletIndications:P MR (polymyalgia rheumatica) (HCC),Chronic pain syndrome Take 1 Tablet by mouth every 6 hours as needed for Other (pain). 60 Tablet 0 09/03/2022 Active predniSONE 5 MG Oral Tablet (Deltasone)Indicati ons:Bilateral knee pain,PMR (polymyalgia rheumatica) (HCC) TAKE ONE TABLET BY MOUTH ONCE DAILY 90 Tablet 1 09/14/2022 Active Sertraline HCl 100 MG Oral Tablet (Zoloft)Indications :Depression with anxiety TAKE 1 TABLET BY MOUTH ONCE DAILY IN THE MORNING 90 Tablet 2 09/25/2022 Active Levothyroxine Sodium 75 MCG Oral Tablet (Levoxyl)Indication s:Acquired hypothyroidism TAKE 1 TABLET BY MOUTH ONCE DAILY AT LEAST 30 MINUTES PRIOR TO BREAKFAST AND OTHER MEDS 100 Tablet 1 09/25/2022 Active Atorvastatin Calcium 20 MG Oral Tablet (Lipitor)Indication s:Dyslipidemia, goal LDL below 130 TAKE ONE TABLET BY MOUTH ONCE DAILY 90 Tablet 1 01/17/2023 Active Atorvastatin Calcium 20 MG Oral Tablet (Lipitor)Indication s:Dyslipidemia, goal LDL below 130 TAKE ONE TABLET BY MOUTH ONCE DAILY 90 Tablet 1 07/15/2022 01/18/20 23 Discontinued documented as of this encounter (statuses as of 01/17/2023) Active Problems Problem Noted Date Diagnosed Date Mixed hyperlipidemia 06/28/2022 Controlled substance agreement signed 12/09/2020 Chronic kidney disease, stage 3a 08/26/2020 Overview: Per CKD protocol Nonrheumatic aortic valve stenosis 11/29/2017 Overview: Mild in 2017 Acquired hypothyroidism 08/26/2017 PMR (polymyalgia rheumatica) 08/26/2017 Hypertensive 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 Age-related osteoporosis wit hout current pathological fracture Overview: dexa 09/13 mod fx risk, started on Fosamax 08/16 documented as of this encounter (statuses as of 01/17/2023) Resolved Problems Problem Noted Date Diagnosed Date Resolved Date Gastroesophageal reflux dise ase without esophagitis 07/25/2020 07/25/2020 Benign hypertension with sta ge 3a chronic kidney disease 07/22/2020 12/09/2020 Overview: Per CKD protocol Benign hypertension with chr onic kidney disease, stage III 05/08/2019 07/24/2020 Overview: Per CKD protocol Non-rheumatic tricuspid valve insufficiency 11/29/2017 12/09/2020 Hypertensive heart disease with heart failure 08/27/19 18 06/02/2018 Thoracic aortic aneurysm without rupture 08/26/2017 11/29/2017 HTN, goal below 140/90 09/27/201609/27 Acquired hypothyroidism 09/27/201603/14 Kidney disease, chronic, sta ge III (GFR 30-59 ml/min) 07/19/2016 05/24/2019 Overview: Per CKD protocol #1 Essential hypertension with goal blood pressure less than 140/90 12/29/2015 09/27/2016 History of colonic polyps 07/19/2012 Overview: ICD-10 update of inactive term OA (osteoarthritis) of knee 06/22/2012 03/28/2017 Vertebral fracture 10/21/2011 8 Encounter for long-term (cur rent) use of medications 10/21/2011 03/28/2017 Overview: ICD-10 update of inactive term PMR (polymyalgia rheumatica) 10/21/2011 09/27/2016 Dyslipidemia, goal to be determined 02/26/2009 03/28/2017 Overview: Per Lipid Taxonomy. Menopause 09/16/2004 03/28/2017 Overview: lmp 1987, hrt x 2 yrs [id number] IRON DEF ANEMIA DIETARY 08/26/200403/14 GENERAL OSTEOARTHROSIS 02/26/200412/09 Benign neoplasm of cerebral meninges 11/13/2003 09/27/2016 Overview: surgery in 1998 Vertebral fracture, pathological 08/21/2002 09/27/2016 Special screening for malign ant neoplasms, colon 01/30/2002 03/28/2017 Overview: 12/01/01 Hypothyroidism 08/26/2017 Mixed dyslipidemia 02/26/ 9 Overview: Per Lipid Taxonomy. Major depressive disorder Overview: ICD-10 update of inactive term Anxiety state 03/28/2017 Positional vertigo 8 HTN, goal below 140/90 12/24 Overview: 06/12 documented as of this encounter (statuses as of 01/17/2023) Immunizations Name Administration Dates Next Due COVID-19 mRNA, LNP-s, No Pre serve, 2-Dose Series (Moderna) 03/25/2021,08/13/2020,07/14/2020 Influenza, Whole Virus 12/21/2005 Pneumococcal Conjugate Vacc, 13 Valent (Prevnar) 12/25/2015 Pneumococcal Polysaccharide PPV23 (Pneumovax) 12/21/2005 SEASONAL INFLUENZA, PF, 6 M & Above, IM , (FLULAVAL or FLUZONE) 12/14/2019,01/31/2018,03/18/2017 Seasonal Influenza, Quadriva lent Hd (Fluzone Hd) 12/23/2021,12/09/2020 Seasonal Influenza, Quadriva lent, No Preserve, IM 12/25/2015 Seasonal Influenza, Split, I IV3, With Preserve, Inj 11/28/2014,02/01/2014,04/02/2013,12/22,01/14/2011,01/26/2010,12/04/2008 ,12/26/2007,01/12/2007 Seasonal Influenza, Trivalen t, Adjuvanted, 65+ yrs 12/05/2018 TD - Tetanus/Diptheria (ADULT) 11/01/2007 TDAP (age 10 and older)(Boostrix) 11/29/2014 documented as of this encounter Social History Tobacco Use Types Packs/Day Years Used Date Smoking Tobacco: Never Smokeless Tobacco: Never Alcohol Use Standard Drinks/Week Comments No 0 (1 standard drink = 0.6 oz pur e alcohol) PHQ-2 Answer Date Recorded PHQ Adult Total Score 0 12/23/2021 Hunger Vital Sign Answer Date Recorded Worried About Running Out of Food in the Last Ye ar Never true 10/16/2019 Ran Out of Food in the Last Year Never true 10/16/2019 Sex and Gender Information Value Date Recorded Sex Assigned at Female 12/09/2020 3:42 PM EDT Gender Identity Female 12/09/2020 3:42 PM EDT Sexual Orientation Straight 12/09/2020 3: 42 PM EDT Job Start Date Occupation Industry Not on file Not on file Not on file documented as of this encounter Miscellaneous Notes * Telephone Encounter - Maxine Pittman RPh - 01/17/2023 12:06 PM ESTSigned Prescriptions: Disp Refills Atorvastatin Calcium 20 MG Oral Tablet (Li*90 Tab*1 Sig: TAKE ONE TABLET BY MOUTH ONCE DAILYAuthorizing Provider: BLAIR SIMENTAL User: VINOD PITTMAN documented in this encounter Plan of Treatment Upcoming Encounters Date Type Department Care Team ([facility] Contact Info) Description 01/21/2023 10:20 AM EST Office Visit Family [address] [phone] Blair Simental DO [address] [place] [phone] Scheduled Procedures Name Priority Associated Diagnoses Date/Ti me COLONOSCOPY CA SCRN HI RISK Recall History of colon polyps Health Maintenance Due Date Last Done Comments *BISPHONATE OR OTHER ACCEPTABLE MEDICATION NEEDED FOR OSTEOPOROSIS (REFER TO SMARTSET #1146) 08/29/2017 DXA Scan 06/29/2020 06/29/2018, 02/0 03/2012, 03/20/2010, Additional history exists COVID-19 Vaccine ( season) 2022 03/25/2021, 08/13/2020, 07/14/2020 Influenza Vaccine (FLU shot) (#1) 2022 12/23/2021, 12/09/2020, 12/14/2019, Additional history exists Albumin/Creatinine Ratio 12/07/2022 022, 01/17/2020, 03/06/2019, Additional history exists CKD PHOS USE SMARTSET 97192 12/07/202211/13, 01/17/2020, 03/06/2019, Additional history exists Depression Screening 12/23/2022 12/23/2021 TSH 06/22/2023 06/21/2022, 11/13, 12/02/2020, Additional history exists CKD HGB USE SMARTSET 67717 09/04/202309/03, 09/03/2022, 06/21/2022, Additional history exists DTaP,Tdap,and Td Vaccines (2 - Td or Tdap) 11/29/2024 11/29/2014, 11/01/2007 Pneumococcal Vaccine: 65+ Years Completed 12/25/2015, 12/21/2005, 01/01/1999 VITAMIN D LEVEL ONCE IN A LIFETIME-USE SMARTSET# [id number] Completed 06/27/2020, 01/17/2020, 03/06/2019, Additional history exists GARDASIL-HPV IMMUNIZATION SERIES Aged Out No longer eligible based on patient's age to complete this topic Hepatitis B Aged Out No longer eligi ble based on patient's age to complete this topic MENINGOCOCCAL (MENACTRA/MENVEO) Aged Out No longer eligible based on patient's age to complete this topic Zoster Vaccines Discontinued documented as of this encounter Medical Devices Not on filedocumented as of this encounter Visit Diagnoses Diagnosis Dyslipidemia, goal LDL below 130 Other and unspecified hyperlipidemia documented in this encounter Care Teams Knurling Machine Tender Relationship Specialty Start Date End Date Blair Simental DO [address] [place] [phone] PCP - General Internal Medicine 09/03/20 documented as of this encounter
--- OUTSIDE RECORDS SUMMARY | 2023-05-12 20:18 | External Medical Summary | Summary of Care ---
Author Name Unknown Organization [facility] Address [address] [place] [address] Phone [phone] Care Team Providers Care Customer Marketing Assistant Name Role Phone Blair Kasper DO Primary Care Provid er Reason for Visit * Reason Onset Date Comments Medication Administration 01/21/2023 Flu an d/or Pneumo Inj Follow Up Patient is here today for a follow up. Patient would like to discuss injection in shoulder. Encounter Details Date Type Department Care Team ([facility] Contact Info) Description 01/21/2023 10:20 AM EST Office Visit [address] [phone] Blair Kasper DO [address] [place] [phone] Hypertensive heart and kidney disease with chronic diastolic congestive heart failure and stage 3b chronic kidney disease ([facility])*; Need for prophylactic vaccination and inoculation against influenza; Depression with anxiety; Acquired hypothyroidism; Chronic kidney disease, stage 3a ([facility]); Mixed hyperlipidemia; PMR (polymyalgia rheumatica) ([facility]); PAF (paroxysmal atrial fibrillation) ([facility]); Hospice care patient; Chronic right shoulder pain Allergies Active Allergy Reactions Criticality Noted Date Comments Adhesive Tape 04/20/2004 Clarithromycin 10/03/2000 nausea documented as of this encounter (statuses as of 01/21/2023) Medications Medication Sig Dispensed Refills Start Date End Date Status ASPIRIN 81 MG OR CHEWIndications:Gene ralized osteoarthritis of multiple sites 1 chewable by mouth daily to prevent heart attack 100 5 03/27/2003 Active Carvedilol 25 MG Oral Tablet (Coreg) TAKE 1 TABLET BY MOUTH TWICE DAILY 200 Tablet 1 07/06/2022 Active Additional Information Patient taking differently: Only taking 1 per day, Reported on 01/21/2023 Furosemide 40 MG Oral Tablet (Lasix)Indications:H ypertensive heart disease with heart failure (HCC) TAKE 2 TABLETS BY MOUTH ONCE DAILY IN THE MORNING 200 Tablet 1 07/06/2022 Active Additional Information Patient taking differently: Four pills Tuesday, Tuesday and Tuesday.Two Pills Tuesday, , Tuesday, Tuesday, Reported on 01/21/2023 HYDROcodone-Acetamin ophen 5-325 MG Oral TabletIndications:PM R (polymyalgia rheumatica) (HCC),Chronic pain syndrome Take 1 Tablet by mouth every 6 hours as needed for Other (pain). 60 Tablet 0 09/03/2022 Active predniSONE 5 MG Oral Tablet (Deltasone)Indicatio ns:Bilateral knee pain,PMR (polymyalgia rheumatica) (HCC) TAKE ONE TABLET BY MOUTH ONCE DAILY 90 Tablet 1 09/14/2022 Active Sertraline HCl 100 MG Oral Tablet (Zoloft)Indications: Depression with anxiety TAKE 1 TABLET BY MOUTH ONCE DAILY IN THE MORNING 90 Tablet 2 09/25/2022 Active Levothyroxine Sodium 75 MCG Oral Tablet (Levoxyl)Indications :Acquired hypothyroidism TAKE 1 TABLET BY MOUTH ONCE DAILY AT LEAST 30 MINUTES PRIOR TO BREAKFAST AND OTHER MEDS 100 Tablet 1 09/25/2022 Active Atorvastatin Calcium 20 MG Oral Tablet (Lipitor)Indications :Dyslipidemia, goal LDL below 130 TAKE ONE TABLET BY MOUTH ONCE DAILY 90 Tablet 1 01/17/2023 Active Hospital, Clinic, or Other Facility Administered Medication Ordered Dose Route Frequency Start Date End Date Status lidocaine 1 % inj 10 mgIndications:Chronic right shoulder pain 10 mg IX ONCE 01/21/2023 01/21/2023 Ended dexAMETHasone Sodium Phosphate (Decadron) 4 MG/ML inj 4 mgIndications:Chronic right shoulder pain 4 mg IX ONCE 01/21/2023 01/21/2023 Ended Triamcinolone Acetonide (Kenalog) 40 MG/ML inj 40 mgIndications:Chronic right shoulder pain 40 mg IX ONCE 01/21/2023 01/21/2023 Ended documented as of this encounter (statuses as of 01/21/2023) Active Problems Problem Noted Date Diagnosed Date [...] as of this encounter (statuses as of 01/21/2023) Resolved Problems Problem Noted Date Diagnosed Date [...] Lipid Taxonomy. Menopause 09/16/2004 03/28/2017 Overview: lmp 1986, hrt x 2 yrs [id number] IRON DEF ANEMIA DIETARY 08/26/200403/14 GENERAL OSTEOARTHROSIS 02/26/200412/09 Benign neoplasm of cerebral meninges 11/13/2003 09/27/2016 Overview: surgery in 1998 Vertebral fracture, pathological 08/21/2002 09/27/2016 Special screening for malign ant neoplasms, colon 01/30/2002 03/28/2017 Overview: 12/01/01 Hypothyroidism 08/26/2017 Mixed dyslipidemia 9 Overview: Per Lipid Taxonomy. Major depressive disorder Overview: ICD-10 update of inactive term Anxiety state 03/28/2017 Positional vertigo 8 HTN, goal below 140/90 12/24 Overview: 06/12 documented as of this encounter (statuses as of 01/21/2023) Immunizations Name Administration Dates Next Due COVID-19 mRNA, LNP-s, No Pre serve, 2-Dose Series (Moderna) 03/25/2021,08/13/2020,07/14/2020 Influenza, Whole Virus 12/21/2005 Pneumococcal Conjugate Vacc, 13 Valent (Prevnar) 12/25/2015 Pneumococcal Polysaccharide PPV23 (Pneumovax) 12/21/2005 SEASONAL INFLUENZA, PF, 6 M & Above, IM , (FLULAVAL or FLUZONE) 12/14/2019,01/31/2018,03/18/2017 Seasonal Influenza, Quadriva lent Hd (Fluzone Hd) 01/21/2023,12/23/2021,12/09/2020 Seasonal Influenza, Quadriva lent, No Preserve, IM [...] on file documented as of this encounter Last Filed Vital Signs Vital Sign Reading Time Taken Comments Blood Pressure 118/88 01/21/2023 10:10 AM EST Pulse 68 01/21/2023 10:10 AM EST Temperature 35.8 C (96.4 F) 01/21/2023 10:[address] Respiratory Rate 16 01/21/2023 10:10 AM EST Oxygen Saturation 95% 01/21/2023 10:10 AM EST Inhaled Oxygen Concentration - - Weight 71.9 kg (158 lb 9.6 oz) 01/21/2023 10:10 AM EST Height - - Body Mass Index 35.88 06/28/2022 3:42 PM EDT documented in this encounter Progress Notes * Blair Kasper, DO - 01/21/2023 10:20 AM EST Subjective Judith Crowe is a 87 year old female. Chief Complaint Patient presents with Medication Administration Flu and/or Pneumo Inj Follow Up Patient is here today for a follow up. Patient would like to discuss injection in shoulder. HPI: Patient presents to office for routine follow up. No new labs done for this visit. Medication list reviewed. Patient previously had complex hospitalization at [facility] in August 2022 due to significantleft upper extremity cellulitis, abscess with resultant sepsis. She was treated with IV antibioticsin her arm is now looking better from this regard however her hospitalization was complicated by Afib, acute renal failure, CHF. Patient eventually decided after speaking with son that she did not want any other aggressive care. She was discharged from the hospital on home hospice service through [facility]. Available notes reviewed. 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 Has historically received occasional cortisone injections. These have helped in the past. She would like 1 today. She has also been prescribed hydrocodone/APAP 5-325 mg every 6 hours as needed for pain without any acute side effects. Medications still effective Hypertension, hyperlipidemia. Tolerating current medication regimen. No symptoms noted be consistent with elevation of baseline blood pressure. Labs on discharge from [facility] in August showedstable renal function and electrolytes. She has not wanted any further testing since on hospice Only other issue that she and son note is history of lymphedema, chronic swelling in both of her legs. This does limit her ability to ambulate to appoint. She is not tolerated compression socks in the past. She does have a small cut on her left duong which is currently being treated topically by hospice team PMH: Patient Active Problem List Diagnosis Code ADVANCE DIRECTIVE INFORMATION Age-related osteoporosis without current pathological fracture M81.0 Generalized osteoarthritis M15.9 BMI 35-39 ISOLATED (SEE ACTUAL BMI) E66.9 Vitamin D deficiency E55.9 Hypertensive heart and kidney disease with chronic diastolic congestive heart failure and stage 3b chronic kidney disease (HCC) I13.0, I50.32, N18.32 Acquired hypothyroidism E03.9 PMR (polymyalgia rheumatica) ([facility]) M35.3 Nonrheumatic aortic valve stenosis I35.0 Chronic kidney disease, stage 3a (HCC) N18.31 Controlled substance agreement signed Z79.899 Mixed hyperlipidemia E78.2 Current Outpatient Medications Medication Sig Dispense Refill ASPIRIN 81 MG OR CHEW 1 chewable by mouth daily to prevent heart attack 100 5 Carvedilol 25 MG Oral Tablet (Coreg) TAKE 1 TABLET BY MOUTH TWICE DAILY (Patient taking differently: Only taking 1 per day) 200 Tablet 1 Furosemide 40 MG Oral Tablet (Lasix) TAKE 2 TABLETS BY MOUTH ONCE DAILY IN THE MORNING (Patient taking differently: Four pills Tuesday, Tuesday and Tuesday. Two Pills Tuesday, , Tuesday, Tuesday) 200 Tablet 1 HYDROcodone-Acetaminophen 5-325 MG Oral Tablet Take 1 Tablet by mouth every 6 hours as needed for Other (pain). 60 Tablet 0 predniSONE 5 MG Oral Tablet (Deltasone) TAKE ONE TABLET BY MOUTH ONCE DAILY 90 Tablet 1 Sertraline HCl 100 MG Oral Tablet (Zoloft) TAKE 1 TABLET BY MOUTH ONCE DAILY IN THE MORNING 90 Tablet 2 Levothyroxine Sodium 75 MCG Oral Tablet (Levoxyl) TAKE 1 TABLET BY MOUTH ONCE DAILY AT LEAST 30 MINUTES PRIOR TO BREAKFAST AND OTHER MEDS 100 Tablet 1 Atorvastatin Calcium 20 MG Oral Tablet (Lipitor) TAKE ONE TABLET BY MOUTH ONCE DAILY 90 Tablet 1 Current Facility-Administered Medications Medication Dose Route Frequency Provider Last Rate Last Admin lidocaine 1 % inj 10 mg 10 mg Intra-Articular Once Blair Kasper DO dexAMETHasone Sodium Phosphate (Decadron) 4 MG/ML inj 4 mg 4 mg Intra-Articular Once Blair Kasper DO Triamcinolone Acetonide (Kenalog) 40 MG/ML inj 40 mg 40 mg Intra-Articular Once Blair Kasper DO Past Medical History: Diagnosis Date Anxiety state Anxiety State Benign neoplasm of cerebral meninges (HCC) surgery in 1998 Depressive disorder, not elsewhere classified Depression Diverticulosis of colon Esophageal reflux Generalized osteoarthritis of multiple sites Hemorrhoids, external without complications Hypertensive heart and kidney disease with chronic diastolic congestive heart failure and stage 3b chronic kidney disease (HCC) 09/27/2016 Hypothyroidism Menopause 09/16/2004 lmp 1987, hrt x 2 yrs [id number] Mixed dyslipidemia Osteoporosis Personal history of peptic ulcer disease Past Surgical History: Procedure Laterality Date COLONOSCOPY 11/13 diverticulosis REMOVAL OF APPENDIX Appendectomy REMOVE GALLBLADDER Cholecystectomy Review of patient's allergies indicates: Allergen Reactions Adhesive Tape Clarithromycin nausea Family History Problem Relation Age of Onset Diabetes Mother insulin Other (aceves) Father home burned, he lived 26d Endocrine Disorder Sister liver failure Heart Disorder Brother Cancer Brother colon Family Status Relation Status Mo (Not Specified) Fa (Not Specified) Sis (Not Specified) Bro (Not Specified) Bro (Not Specified) Social History Socioeconomic History Marital status: Spouse name: Not on file Number of children: 2 Years of education: 9 Highest education level: Not on file Occupational History Occupation: cleaning person Tobacco Use Smoking status: Never Smokeless tobacco: Never Vaping Use Vaping Use: Never used Substance and Sexual Activity Alcohol use: No Drug use: Never Sexual activity: Not Currently Other Topics Concern Service No Blood Transfusions No Caffeine Concern No Occupational Exposure No Hobby Hazards No Sleep Concern Yes Stress Concern Yes Comment: gets weary, deaths in family, family pressures. Weight Concern Yes Special Diet No Back Care Yes Comment: Saw Chiropractor in the past month Exercise Yes Comment: walking Bike Helmet No Seat Belt Yes Self-Exams No Social History Narrative Not on file Social Determinants of Health Financial Resource Strain: Not on file Food Insecurity: No Food Insecurity (10/16/2019) Hunger Vital Sign Worried About Running Out of Food in the Last Year: Never true Ran Out of Food in the Last Year: Never true Transportation Needs: Not on file Physical Activity: Not on file Stress: Not on file Social Connections: Not on file Intimate Partner Violence: Not on file Housing Stability: Not on file Review of Systems Constitutional: Negative for chills and fever. HENT: Negative for congestion, sore throat and trouble swallowing. Eyes: Negative for photophobia and itching. Respiratory: Negative for apnea, cough, shortness of breath and wheezing. Cardiovascular: Positive for leg swelling. Negative for chest pain and palpitations. Gastrointestinal: Negative for abdominal distention, abdominal pain, nausea and vomiting. Genitourinary: Negative for dysuria and frequency. Musculoskeletal: Positive for arthralgias. Negative for myalgias. Skin: Negative for pallor and rash. Neurological: Negative for dizziness, light-headedness and headaches. Psychiatric/Behavioral: Negative for sleep disturbance. The patient is not nervous/anxious. Objective BP 118/88 | Pulse 68 | Temp 35.8 C (96.4 F) (Tympanic) | Resp 16 | Wt 71.9 kg (158 lb 9.6 oz) |SpO2 95% | BMI 35.88 kg/m | BSA 1.68 m Physical Exam Constitutional: General: She is not in acute distress. Appearance: She is not ill-appearing. HENT: Head: Normocephalic and atraumatic. Right Ear: Tympanic membrane, ear canal and external ear normal. Left Ear: Tympanic membrane, ear canal and external ear normal. Nose: Nose normal. No congestion or rhinorrhea. Mouth/Throat: Mouth: Mucous membranes are moist. Pharynx: Oropharynx is clear. Eyes: General: No scleral icterus. Extraocular Movements: Extraocular movements intact. Conjunctiva/sclera: Conjunctivae normal. Pupils: Pupils are equal, round, and reactive to light. Cardiovascular: Rate and Rhythm: Normal rate and regular rhythm. Pulses: Normal pulses. Heart sounds: Normal heart sounds. No murmur heard. No friction rub. No gallop. Pulmonary: Effort: Pulmonary effort is normal. Breath sounds: Normal breath sounds. No wheezing, rhonchi or rales. Abdominal: General: Bowel sounds are normal. There is no distension. Palpations: Abdomen is soft. There is no mass. Tenderness: There is no abdominal tenderness. There is no right CVA tenderness or left CVA tenderness. Musculoskeletal: General: No deformity. Normal range of motion. Cervical back: Normal range of motion and neck supple. Right lower leg: Edema present. Left lower leg: Edema present. Comments: Chronic lymphedema noted both lower extremities Decreased range of motion right shoulder. No obvious subluxation or dislocation Lymphadenopathy: Cervical: No cervical adenopathy. Skin: General: Skin is warm and dry. Coloration: Skin is not jaundiced. Findings: No rash. Comments: Does have skin tear left duong. No signs of secondary infection Neurological: General: No focal deficit present. Mental Status: She is oriented to person, place, and time. Cranial Nerves: No cranial nerve deficit. Sensory: No sensory deficit. Motor: No weakness. Psychiatric: Mood and Affect: Mood normal. Behavior: Behavior normal. Procedure Note: Right Shoulder Injection Patient presents to office for follow-up. Has known DJD in the right shoulder. Has benefitted from cortisone injections in the past. Has not had any within the past 3-4 months. Wishes to have repeat injection. Counseled patient on risks/benefits of procedure. Risks minimal but do include bleeding, infection, worsening pain. She acknowledges this and wishes to proceed. Posterior shoulder landmarkscorrectly identified. Area cleaned with Betadine as well as alcohol swab. Cold spray used for topical anesthesia. Injection of triamcinolone, Decadron, lidocaine successfully introduced into shoulderjoint space. Medication administered without issues. Minimal blood loss. Patient tolerated procedure well ASSESSMENT/PLAN: Hypertensive heart and kidney disease with chronic diastolic congestive heart failure and stage 3b chronic kidney disease (HCC) (Primary) Need for prophylactic vaccination and inoculation against influenza - INFLUENZA VACC, QUAD, HIGH DOSE (FLUZONE [facility]) Depression with anxiety Acquired hypothyroidism Chronic kidney disease, stage 3a ([facility]) Mixed hyperlipidemia PMR (polymyalgia rheumatica) ([facility]) PAF (paroxysmal atrial fibrillation) ([facility]) Hospice care patient Chronic right shoulder pain - ARTHROCENT ASP &/OR INJ MAJOR JX/BURSA W/O US - lidocaine 1 % inj 10 mg - dexAMETHasone Sodium Phosphate (Decadron) 4 MG/ML inj 4 mg - Triamcinolone Acetonide (Kenalog) 40 MG/ML inj 40 mg Plan: Patient presents office for routine follow-up. Is having her usual joint pains but feeling okay overall. Is now being followed by hospice team at [facility] for diagnosis of AFib, CKD, CHF. Recent, available hospice notes personally reviewed from [facility] Patient given cortisone injection successfully in right shoulder. Will continue to monitor. Tolerated well Flu shot given today in office, left deltoid, tolerated well Continue current medications. Her blood pressure is currently managed by carvedilol 25 mg twice daily, Lasix 20 mg daily Reviewed her most recent lab work from [facility] in August. Showed anemia for which she did not want bloodtransfusion. Showed stable renal function and electrolytes Continue to follow with [facility] hospice/palliative Follow Up: Return in about 6 months (around 07/22/2023), or if symptoms worsen or fail to improve, for Return with Physician. | For: Return with Physician | Check-out note: 6 month follow up, sooner if needed\\[id number]\\ Blair Kasper DO * Otilia Leon LPN - 01/21/2023 10:09 AM EST Pre-Administration Time Out Procedure Performed: Yes Patient Identified (Ask Name/Date of ): Yes Does the patient have a fever greater than 101 degrees today? No Patient allergic to latex? No Has the patient ever fainted after receiving an injection? No VFC Stock: No Immunization(s) verified: Yes, Immunization Name: Flu, VIS Sheet(s) given: Yes Verified Side and Site: Yes Verified Shot(s) with Parent(s)/Patient: Yes Flu Injection was placed by Dr. Kasper. PRE - ADMINISTRATION DOCUMENTATION Are you experiencing any cold symptoms or fever? No Have you had Guillain-[place] Syndrome (an illness that causes paralysis) within the last 6 weeks? No Have you had the flu shot in the past? YES Have you ever had a reaction to the flu shot? No Otilia Leon LPN, 01/21/2023 10:09 AM documented in this encounter Nursing Notes * Otilia Leon LPN - 01/21/2023 10:14 AM EST The patient has been properly identified by confirmation of name and date of . Chief Complaint Patient presents with Medication Administration Flu and/or Pneumo Inj Follow Up Patient is here today for a follow up. Patient would like to discuss injection in shoulder. documented in this encounter Plan of Treatment Upcoming Encounters Date Type Department Care Team ([facility] Contact Info) Description 07/22/2023 9:00 AM EDT Office Visit [address] [phone] Blair Kasper, DO [address] [place] [address] Scheduled Orders Name Type Priority Associated Diagnoses Orde r Schedule ARTHROCENT ASP &/OR INJ MAJOR JX/BURSA W/O US Procedures Routine Chronic right shoulder pain Ordered: 01/21/2023 Scheduled Procedures Name Priority Associated Diagnoses Date/Ti me COLONOSCOPY CA SCRN HI RISK Recall History of colon polyps Health Maintenance Due Date Last Done Comments *BISPHONATE OR OTHER ACCEPTABLE MEDICATION NEEDED FOR OSTEOPOROSIS (REFER TO SMARTSET #1146) 08/29/2017 DXA Scan 06/29/2020 06/29/2018, 03/2012, 03/20/2010, Additional history exists COVID-19 Vaccine ( season) 2022 03/25/2021, 08/13/2020, 07/14/2020 Albumin/Creatinine Ratio 12/07/2022 022, 01/17/2020, 03/06/2019, Additional history exists CKD PHOS USE SMARTSET 82360 12/07/202211/13, 01/17/2020, 03/06/2019, Additional history exists Depression Screening 12/23/2022 12/23/2021 TSH 06/22/2023 06/21/2022, 11/13, 12/02/2020, Additional history exists CKD HGB USE SMARTSET 36079 09/04/202309/03, 09/03/2022, 06/21/2022, Additional history exists DTaP,Tdap,and Td Vaccines (2 - Td or Tdap) 11/29/2024 11/29/2014, 11/01/2007 Pneumococcal Vaccine: 65+ Years Completed 12/25/2015, 12/21/2005, 01/01/1999 VITAMIN D LEVEL ONCE IN A LIFETIME-USE SMARTSET# [id number] Completed 06/27/2020, 01/17/2020, 03/06/2019, Additional history exists Influenza Vaccine (FLU shot) Completed 01/21/2023, 12/23/2021, 12/09/2020, Additional history exists GARDASIL-HPV IMMUNIZATION SERIES Aged [...] as of this encounter Visit Diagnoses Diagnosis Hypertensive heart and kidney disease with chronic diastolic congestive heart failure and stage 3b chronic kidney disease (HCC)- Primary Need for prophylactic vaccination and inoculation against influenza Depression with anxiety Dysthymic disorder Acquired hypothyroidism Unspecified hypothyroidism Chronic kidney disease, stage 3a (HCC) Mixed hyperlipidemia PMR (polymyalgia rheumatica) (HCC) Polymyalgia rheumatica PAF (paroxysmal atrial fibrillation) (HCC) Atrial fibrillation Hospice care patient Encounter for palliative care Chronic right shoulder pain Pain in joint, shoulder region documented in this encounter Administered Medications Inactive Administered Medications - up to 3 most recent administrations Medication Order MAR Action Action Date Dose Rate Site dexAMETHasone Sodium Phosphate (Decadron) 4 MG/ML inj 4 mg 4 mg, Intra-Articular, ONCE, On Tue01/21/23 at 1115, For 1 dose, Protect from Light Given 01/21/2023 10:49 AM EST 4 mg lidocaine 1 % inj 10 mg 10 mg, Intra-Articular, ONCE, On Tue01/21/23 at 1115, For 1 dose Given 01/21/2023 10:49 AM EST 10 mg Triamcinolone Acetonide (Kenalog) 40 MG/ML inj 40 mg 40 mg, Intra-Articular, ONCE, On Tue01/21/23 at 1115, For 1 dose Given 01/21/2023 10:49 AM EST 40 mg documented in this encounter Care Teams Customer Marketing Assistant Relationship Specialty Start Date End Date Blair Kasepr DO [address] [place] [id number] PCP - General Internal Medicine 09/03/20 documented as of this encounter"
--- OUTSIDE RECORDS SUMMARY | 2023-05-12 20:18 | External Medical Summary ---
Author Name Unknown Address Unknown Organization [id number] [address] [id number] Laboratory Report Ordering Provider Test Date Status MARSHA TOVAR 03/17/2023 13:45:00 Final Observation Date Value Abnormality Reference (Units ) Status Glucose 03/17/2023 14:55 108 Above high normal 70-99 (mg/dL) Final BUN 03/17/2023 14:55 56 Above high normal 7-18 (mg/dL) Final Creatinine 03/17/2023 14:55 2.42 Above high normal 0.60 -1.30 (mg/dL) Final eGFR 03/17/2023 14:55 19 Below low normal >59 (m L/min/1.73m2) Final eGFR = 142 X [min(Scr/k,1)]* *a [max(Scr/k,1)-1.200x0.9938age X 1.012 [if female] Where Scr is serum creatinine; k is 0.7 for females and 0.9 males; a is -0.241 for females and -0.302 for males; min indicates the minimum of Scr/k or 1, max indicates the maximum of Scr/k or 1 Sodium 03/17/2023 14:55 135 Below low normal 136-14 5 (mmol/L) Final Potassium 03/17/2023 14:55 3.3 Below low normal 3.6-5. 0 (mmol/L) Final Chloride 03/17/2023 14:55 92 Below low normal 101-11 1 (mmol/L) Final CO2 03/17/2023 14:55 26 21-31 (mmol/L ) Final Anion Gap 03/17/2023 14:55 20 Above high normal 6-16 (mmol/L) Final Calcium 03/17/2023 14:55 8.6 8.4-10.5 (mg/ dL) Final Performing Location [facility] [address] [id number]
--- OUTSIDE RECORDS SUMMARY | 2023-05-12 20:18 | External Medical Summary ---
Author Name Unknown Address Unknown Organization [email or web address] [address] [address] Laboratory Report Ordering Provider Test Date Status MARSHA TOVAR 03/31/2023 14:45:00 Final Observation Date Value Abnormality Reference (Units ) Status Glucose 03/31/2023 15:49 100 Above high normal 70-99 (mg/dL) Final BUN 03/31/2023 15:49 46 Above high normal 7-18 (mg/dL) Final Creatinine 03/31/2023 15:49 1.50 Above high normal 0.60 -1.30 (mg/dL) Final eGFR 03/31/2023 15:49 33 Below low normal >59 (m L/min/1.73m2) Final eGFR = 142 X [min(Scr/k,1)]* *a [max(Scr/k,1)-1.200x0.9938age X 1.012 [if female] Where Scr is serum creatinine; k is 0.7 for females and 0.9 males; a is -0.241 for females and -0.302 for males; min indicates the minimum of Scr/k or 1, max indicates the maximum of Scr/k or 1 Sodium 03/31/2023 15:49 137 136-145 (mmol /L) Final Potassium 03/31/2023 15:49 3.8 3.6-5.0 (mmol /L) Final Chloride 03/31/2023 15:49 94 Below low normal 101-11 1 (mmol/L) Final CO2 03/31/2023 15:49 30 21-31 (mmol/L ) Final Anion Gap 03/31/2023 15:49 17 Above high normal 6-16 (mmol/L) Final Calcium 03/31/2023 15:49 9.0 8.4-10.5 (mg/ dL) Final Performing Location [facility] [address] [address]
--- OUTSIDE RECORDS SUMMARY | 2023-05-12 20:18 | External Medical Summary | Summary of Care ---
Author Name Unknown Organization [facility] Address [address] [place] [address] Phone [phone] Care Team Providers Care Electronic Maintenance Supervisor Name Role Phone Blair Simental DO Primary Care Provid er Reason for Visit * Reason Comments eRx-Medication Refill Encounter Details Date Type Department Care Team ([facility] Contact Info) Description 05/03/[address] [phone] Blair Simental DO [address] [place] [phone] Bilateral knee pain; PMR (polymyalgia rheumatica) ([facility]); Acquired hypothyroidism Allergies Active Allergy Reactions Criticality Noted Date Comments Adhesive Tape 04/20/2004 Clarithromycin 10/03/2000 nausea documented as of this encounter (statuses as of 05/03/2023) Medications Medication Sig Dispensed Refills Start Date End Date Status ASPIRIN 81 MG OR CHEWIndications:Gen eralized osteoarthritis of multiple sites 1 chewable by mouth daily to prevent heart attack 100 5 4 Active Carvedilol 25 MG Oral Tablet (Coreg) TAKE 1 TABLET BY MOUTH TWICE DAILY 200 Tablet 1 3 Active Additional Information Patient taking differently: Only taking 1 per day, Reported on 01/21/2023 HYDROcodone-Acetami nophen 5-325 MG Oral TabletIndications:P MR (polymyalgia rheumatica) (HCC),Chronic pain syndrome Take 1 Tablet by mouth every 6 hours as needed for Other (pain). 60 Tablet 0 3 Active Sertraline HCl 100 MG Oral Tablet (Zoloft)Indications :Depression with anxiety TAKE 1 TABLET BY MOUTH ONCE DAILY IN THE MORNING 90 Tablet 2 3 Active Atorvastatin Calcium 20 MG Oral Tablet (Lipitor)Indication s:Dyslipidemia, goal LDL below 130 TAKE ONE TABLET BY MOUTH ONCE DAILY 90 Tablet 1 3 Active Furosemide 40 MG Oral Tablet (Lasix)Indications: Hypertensive heart disease with heart failure (HCC) TAKE 2 TABLETS BY MOUTH ONCE DAILY IN THE MORNING 200 Tablet 1 4 Active predniSONE 5 MG Oral Tablet (Deltasone)Indicati ons:Bilateral knee pain,PMR (polymyalgia rheumatica) (HCC) TAKE ONE TABLET BY MOUTH ONCE DAILY 90 Tablet 1 4 Active Levothyroxine Sodium 75 MCG Oral Tablet (Levoxyl)Indication s:Acquired hypothyroidism TAKE 1 TABLET BY MOUTH ONCE DAILY AT LEAST 30 MINUTES PRIOR TO BREAKFAST AND OTHER MEDS 100 Tablet 0 4 Active predniSONE 5 MG Oral Tablet (Deltasone)Indicati ons:Bilateral knee pain,PMR (polymyalgia rheumatica) (HCC) TAKE ONE TABLET BY MOUTH ONCE DAILY 90 Tablet 1 3 05/03/19 24 Discontinued Levothyroxine Sodium 75 MCG Oral Tablet (Levoxyl)Indication s:Acquired hypothyroidism TAKE 1 TABLET BY MOUTH ONCE DAILY AT LEAST 30 MINUTES PRIOR TO BREAKFAST AND OTHER MEDS 100 Tablet 1 3 05/03/19 24 Discontinued documented as of this encounter (statuses as of 05/03/2023) Active Problems Problem Noted Date Diagnosed Date [...] as of this encounter (statuses as of 05/03/2023) Resolved Problems Problem Noted Date Diagnosed Date [...] Overview: lmp 1987, hrt x 2 yrs 5966-4462 IRON DEF ANEMIA DIETARY 08/26/200403/14 GENERAL OSTEOARTHROSIS [...] as of this encounter (statuses as of 05/03/2023) Immunizations Name Administration Dates Next Due COVID-19 mRNA, LNP-s, No Pre serve, 2-Dose Series (Moderna) 03/25/2021,08/13/2020,07/14/2020 Influenza, Whole Virus 12/21/2005 Pneumococcal Conjugate Vacc, 13 Valent (Prevnar) 12/25/2015 Pneumococcal Polysaccharide PPV23 (Pneumovax) 12/21/2005 Seasonal Influenza, PF, 6 M & above, IM , (FluLaval or Fluzone) 12/14/2019,01/31/2018,03/18/2017 Seasonal Influenza, Quadriva lent Hd (Fluzone [...] encounter Miscellaneous Notes * Telephone Encounter - Blair Simental DO - 05/03/2023 2:12 PM EST Signed Prescriptions: Disp Refills predniSONE 5 MG Oral Tablet (Deltasone) 90 Tab*1 Sig: TAKE ONE TABLET BY MOUTH ONCE DAILY Authorizing Provider: BLAIR SIMENTAL Levothyroxine Sodium 75 MCG Oral Tablet (L*100 Ta*0 Sig: TAKE 1 TABLET BY MOUTH ONCE DAILY AT LEAST 30 MINUTES PRIOR TO BREAKFAST AND OTHER MEDS Authorizing Provider: BLAIR SIMENTAL< BR>Ordering User: ESTEPHANIE ABARCA * Telephone Encounter - Estephanie Abarca [facility] - 05/03/2023 2:06 PM ESTPending Prescriptions: Disp Refills predniSONE 5 MG Oral Tablet (Deltasone) 90 Tab*1 Sig: TAKE ONE TABLET BY MOUTH ONCE DAILY Signed Prescriptions: Disp Refills Levothyroxine Sodium 75 MCG Oral Tablet (L*100 Ta*0 Sig: TAKE 1 TABLET BY MOUTH ONCE DAILY AT LEAST 30 MINUTES PRIOR TO BREAKFAST AND OTHER MEDS Authorizing Provider: BLAIR SIMENTAL Ordering User: ESTEPHANIE ABARCA * Telephone Encounter - Estephanie Abarca RPh - 05/03/2023 2:05 PM EST [facility] is currently not authorized to approve refills for the pended medication(s) per refill protocol. Please approve if appropriate. ThanksEstephanie, PharmD Clinical Pharmacist Centralized Clinical Pharmacy Services ([facility]) [phone] 05/03/2023, 2:05 PM * Telephone Encounter - Estephanie Abarca RPh - 05/03/2023 2:04 PM EST Pending Prescriptions: Disp Refills predniSONE 5 MG Oral Tablet (Deltasone) [*90 Tab*1 Sig: TAKE ONE TABLET BY MOUTH ONCE DAILY Levothyroxine Sodium 75 MCG Oral Tablet (*100 Ta*0 Sig: TAKE 1 TABLET BY MOUTH ONCE DAILY AT LEAST 30 MINUTES PRIOR TO BREAKFAST AND OTHER MEDS Last Visit: 01/21/2023 (in office), Visit date not found (telemedicine) Next Visit: 07/22/2023 If no future appointments scheduled, and last appointment is greater than a year ago, please schedule patient for a follow-up appointment Last date the medication was ordered: 09/14/22 Pharmacy: [facility] Is this request for a controlled substance? No Urine Drug Screen: Results for orders placed or performed in visit on 12/23/21 PAIN MANAGEMENT DRUG PANEL, URINE Result Value Amphetamines Screen, U Negative Benzodiazepines Screen, U Negative Cannabinoids Screen, U Negative Cocaine Metabolite Screen, U Negative Fentanyl Screen, U Negative Hydrocodone Screen, U Refer to confirmation results (A) Methadone Metabolite Screen, U Negative Morphine/Codeine Screen, U Refer to confirmation results (A) Oxycodone Screen, U Refer to confirmation results (A) Valid Interpretation Normal Creatinine, U 136 Narrative Cutoff Concentrations: Drug Level Amphetamines 500 ng/mL Benzodiazepines 100 ng/mL Cannabinoids 50 ng/mL Cocaine Metabolite 150 ng/mL Fentanyl 1 ng/mL Hydrocodone / Hydromorphone 300 ng/mL Methadone Metabolite 100 ng/mL Morphine / Codeine 300 ng/mL Oxycodone / Oxymorphone 100 ng/mL Screening results are presumptive and can only be used for medical purposes. Confirmatory testing is available upon request. Patient Phone Numbers Labs: Lab Results Component Value Date/Time CREAT 1.2 (H) 06/21/2022 11:15 AM CREAT 1.2 (H) 01/17/2020 02:02 PM POTASSIUM 3.4 (L) 06/21/2022 11:15 AM POTASSIUM 4.6 01/17/2020 02:02 PM TSH 1.37 06/21/2022 11:15 AM TSH 9.31 (H) 01/17/2020 02:02 PM LDLCALC 118 12/07/2021 10:55 AM LDLCALC 95 01/17/2020 02:02 PM LDLDIRECT 84 06/21/2022 11:15 AM LDLDIRECT 108 06/18/2011 09:31 AM ALT 16 06/21/2022 11:15 AM ALT 19 01/17/2020 02:02 PM documented in this encounter Plan of Treatment Upcoming Encounters Date Type Department Care Team (Late st Contact Info) Description 07/22/2023 9:00 AM EDT Office Visit [address] [phone] Blair Simental DO [address] [place] [phone] Scheduled Procedures Name Priority Associated Diagnoses Date/Ti me COLONOSCOPY CA SCRN HI RISK Recall History of colon polyps Health Maintenance Due Date Last Done Comments *BISPHONATE OR OTHER ACCEPTABLE MEDICATION NEEDED FOR OSTEOPOROSIS (REFER TO SMARTSET #1146) 08/29/2017 DXA Scan 06/29/2020 06/29/2018, 02/03/2012, 03/20/2010, Additional history exists COVID-19 Vaccine ( season) 2022 03/25/2021, 08/13/2020, 07/14/2020 Albumin/Creatinine Ratio 12/07/2022 022, 01/17/2020, 03/06/2019, Additional history exists CKD PHOS USE SMARTSET 67174 12/07/202211/13, 01/17/2020, 03/06/2019, Additional history exists Depression Screening 12/23/2022 12/23/2021 TSH 06/22/2023 06/21/2022, 11/13, 12/02/2020, Additional history exists CKD HGB USE SMARTSET 47862 09/04/202309/03, 09/03/2022, 06/21/2022, Additional history exists DTaP,Tdap,and Td Vaccines (2 - Td or Tdap) 11/29/2024 11/29/2014, 11/01/2007 Pneumococcal Vaccine: 65+ Years Completed 12/25/2015, 12/21/2005, 01/01/1999 VITAMIN D LEVEL ONCE IN A LIFETIME-USE SMARTSET# 39061 Completed 06/27/2020, 01/17/2020, 03/06/2019, Additional history exists [...] as of this encounter Visit Diagnoses Diagnosis Bilateral knee pain Pain in joint, lower leg PMR (polymyalgia rheumatica) (HCC) Polymyalgia rheumatica Acquired hypothyroidism Unspecified hypothyroidism documented in this encounter Care Teams Electronic Maintenance Supervisor Relationship Specialty Start Date End Date Blair Simental DO [address] [place] [phone] PCP - General Internal Medicine 09/03/20 documented as of this encounter
--- OUTSIDE RECORDS SUMMARY | 2023-05-12 20:18 | External Medical Summary | Summary of Care ---
Author Name Unknown Organization [facility] Address [address] [place] [address] Phone [phone] Care Team Providers Care Musical Instrument Mechanic Name Role Phone Blair Simental DO Primary Care Provid er Reason for Visit * Reason Comments eRx-Medication Refill Encounter Details Date Type Department Care Team ([facility] Contact Info) Description 04/18/[address] [phone] Blair Simental DO [address] [place] [id number] Hypertensive heart disease with heart failure (HCC) Allergies Active Allergy Reactions Criticality Noted Date Comments Adhesive Tape 04/20/2004 Clarithromycin 10/03/2000 nausea documented as of this encounter (statuses as of 04/19/2023) Medications Medication Sig Dispensed Refills Start Date [...] Other (pain). 60 Tablet 0 3 Active predniSONE 5 MG Oral Tablet (Deltasone)Indicati ons:Bilateral knee pain,PMR (polymyalgia rheumatica) (HCC) TAKE ONE TABLET BY MOUTH ONCE DAILY 90 Tablet 1 3 Active Sertraline HCl 100 MG Oral Tablet (Zoloft)Indications :Depression with anxiety TAKE 1 TABLET BY MOUTH ONCE DAILY IN THE MORNING 90 Tablet 2 3 Active Levothyroxine Sodium 75 MCG Oral Tablet (Levoxyl)Indication s:Acquired hypothyroidism TAKE 1 TABLET BY MOUTH ONCE DAILY AT LEAST 30 MINUTES PRIOR TO BREAKFAST AND OTHER MEDS 100 Tablet 1 3 Active Atorvastatin Calcium 20 MG Oral Tablet (Lipitor)Indication s:Dyslipidemia, goal LDL below 130 TAKE ONE TABLET BY MOUTH ONCE DAILY 90 Tablet 1 3 Active Furosemide 40 MG Oral Tablet (Lasix)Indications: Hypertensive heart disease with heart failure (HCC) TAKE 2 TABLETS BY MOUTH ONCE DAILY IN THE MORNING 200 Tablet 1 4 Active Furosemide 40 MG Oral Tablet (Lasix)Indications: Hypertensive heart disease with heart failure (HCC) TAKE 2 TABLETS BY MOUTH ONCE DAILY IN THE MORNING 200 Tablet 1 3 04/19/19 24 Discontinued documented as of this encounter (statuses as of 04/19/2023) Active Problems Problem Noted Date Diagnosed Date [...] as of this encounter (statuses as of 04/19/2023) Resolved Problems Problem Noted Date Diagnosed Date Resolved Date Gastroesophageal reflux dise ase without esophagitis 07/25/2020 07/25/2020 Benign hypertension with sta ge 3a chronic kidney disease 07/22/2020 12/09/2020 Overview: Per CKD protocol Benign hypertension with chr onic kidney disease, stage III 05/08/2019 07/24/2020 Overview: Per CKD protocol Non-rheumatic tricuspid valve insufficiency 11/29/2017 12/09/2020 Hypertensive heart disease with heart failure 08/27/1906/02/2018 Thoracic aortic aneurysm without rupture 08/26/2017 11/29/2017 [...] Overview: lmp 1986, hrt x 2 yrs 0429-3372 IRON DEF ANEMIA DIETARY 08/26/200403/14 GENERAL OSTEOARTHROSIS [...] as of this encounter (statuses as of 04/19/2023) Immunizations Name Administration Dates Next Due COVID-19 [...] Telephone Encounter - Blair Simental DO - 04/19/2023 10:18 AM EST Signed Prescriptions: Disp Refills Furosemide 40 MG Oral Tablet (Lasix) 200 Ta*1 Sig: TAKE 2 TABLETS BY MOUTH ONCE DAILY IN THE MORNING Authorizing Provider: BLAIR SIMENTAL * Telephone Encounter - Osito Elam RPh - 04/19/2023 8:16 AM ESTPending Prescriptions: Disp Refills Furosemide 40 MG Oral Tablet (Lasix) 200 Ta*1 Sig: TAKE 2 TABLETS BY MOUTH ONCE DAILY IN THE MORNING * Telephone Encounter - Osito Elam RPh - 04/19/2023 8:13 AM EST Unable to authorize medication refills for pended medication(s) at this time. Part of the protocol criteria used for refill authorization was not satisfied. Patient's last potassium level was below protocol parameters. Please approve if appropriate. Thanks, Aydin Elam, PharmD Clinical Pharmacist Centralized Clinical Pharmacy Services ([facility]) ([facility]) [phone] 04/19/2023 8:15 AM documented in this encounter Plan of Treatment Upcoming Encounters Date Type Department Care Team ([facility] st Contact Info) Description 07/22/2023 9:00 AM EDT Office Visit [address] [phone] Blair Simental DO [address] [place] [phone] Scheduled Procedures Name Priority Associated Diagnoses Date/Ti me COLONOSCOPY CA SCRN HI RISK Recall History of colon polyps Health Maintenance Due Date Last Done Comments *BISPHONATE OR OTHER ACCEPTABLE MEDICATION NEEDED FOR OSTEOPOROSIS (REFER TO SMARTSET #1146) 08/29/2017 DXA Scan 06/29/2020 06/29/2018, 0203/2012, 03/20/2010, Additional history exists COVID-19 Vaccine ( season) 2022 03/25/2021, 08/13/2020, 07/14/2020 Albumin/Creatinine Ratio 12/07/2022 022, 01/17/2020, 03/06/2019, Additional history exists CKD PHOS USE SMARTSET 74122 12/07/202211/13, 01/17/2020, 03/06/2019, Additional history exists Depression Screening 12/23/2022 12/23/2021 TSH 06/22/2023 06/21/2022, 11/13, 12/02/2020, Additional history exists CKD HGB USE SMARTSET 15141 09/04/202309/03, 09/03/2022, 06/21/2022, Additional history exists DTaP,Tdap,and Td Vaccines (2 - Td or Tdap) 11/29/2024 11/29/2014, 11/01/2007 Pneumococcal Vaccine: 65+ Years Completed 12/25/2015, 12/21/2005, 01/01/1999 VITAMIN D LEVEL ONCE IN A LIFETIME-USE SMARTSET# 23035 Completed 06/27/2020, 01/17/2020, 03/06/2019, Additional history exists [...] this encounter Visit Diagnoses Diagnosis Hypertensive heart disease with heart failure (HCC) Unspecified hypertensive heart disease with heart failure documented in this encounter Care Teams Musical Instrument Mechanic Relationship Specialty Start Date End Date Blair Simental DO [address] [place] [address] [phone] PCP - General Internal Medicine 09/03/20 documented as of this encounter
--- OUTSIDE RECORDS SUMMARY | 2023-05-12 20:18 | External Medical Summary | Summary of Care ---
Author Name Unknown Organization [facility] Address [address] [place] [address] Phone [phone] Care Team Providers Care Purchasing Coordinator Name Role Phone Blair Kasper Primary Care Provid er Reason for Visit * Reason Onset Date Comments MyCode Nonconsent - Not interested at this time 01/21/2023 Encounter Details Date Type Department Care Team (Late st Contact Info) Description 01/21/2023 Orders Only Outcomes Research Department [address] [place] [address] Dana Simpson CHRA MyCode Nonconsent Documentation Allergies Active Allergy Reactions Criticality Noted Date Comments Adhesive Tape 04/20/2004 Clarithromycin 10/03/2000 nausea documented as of this encounter (statuses as of 01/21/2023) Medications Medication Sig Dispensed Refills Start Date End Date Status ASPIRIN 81 MG OR CHEWIndications:Gener alized osteoarthritis of multiple sites 1 chewable by mouth daily to prevent heart attack 100 5 03/27/2003 Active Carvedilol 25 MG Oral Tablet (Coreg) TAKE 1 TABLET BY MOUTH TWICE DAILY 200 Tablet 1 07/06/2022 Active Furosemide 40 MG Oral Tablet (Lasix)Indications:Hy pertensive heart disease with heart failure (HCC) TAKE 2 TABLETS BY MOUTH ONCE DAILY IN THE MORNING 200 Tablet 1 07/06/2022 Active HYDROcodone-Acetamino phen 5-325 MG Oral TabletIndications:PMR (polymyalgia rheumatica) (HCC),Chronic pain syndrome Take 1 Tablet by mouth every 6 hours as needed for Other (pain). 60 Tablet 0 09/03/2022 Active predniSONE 5 MG Oral Tablet (Deltasone)Indication s:Bilateral knee pain,PMR (polymyalgia rheumatica) (HCC) TAKE ONE TABLET BY MOUTH ONCE DAILY 90 Tablet 1 09/14/2022 Active Sertraline HCl 100 MG Oral Tablet (Zoloft)Indications:D epression with anxiety TAKE 1 TABLET BY MOUTH ONCE DAILY IN THE MORNING 90 Tablet 2 09/25/2022 Active Levothyroxine Sodium 75 MCG Oral Tablet (Levoxyl)Indications: Acquired hypothyroidism TAKE 1 TABLET BY MOUTH ONCE DAILY AT LEAST 30 MINUTES PRIOR TO BREAKFAST AND OTHER MEDS 100 Tablet 1 09/25/2022 Active Atorvastatin Calcium 20 MG Oral Tablet (Lipitor)Indications: Dyslipidemia, goal LDL below 130 TAKE ONE TABLET BY MOUTH ONCE DAILY 90 Tablet 1 01/17/2023 Active documented as of this encounter (statuses as [...] Overview: lmp 1987, hrt x 2 yrs 6873-0692 IRON DEF ANEMIA DIETARY 08/26/200403/14 GENERAL OSTEOARTHROSIS [...] on file documented as of this encounter Progress Notes * Dana Simpson CHRA - 01/21/2023 9:43 AM EST MyCode Nonconsent Documentation Judith Crowe was approached in the clinic regarding participation in the MyCode Project and did not consent. documented in this encounter Plan of Treatment Upcoming Encounters Date Type Department Care Team ([facility] Contact Info) Description 01/21/2023 10:20 AM EST Office Visit [address] [phone] Blair Kasper, [address] [place] [phone] Arrived Scheduled Procedures Name Priority Associated Diagnoses Date/Ti [...] Additional history exists CKD PHOS USE SMARTSET 10539 12/07/2022 09/2 08/2021, 01/17/2020, 03/06/2019, Additional history exists Depression Screening 12/23/2022 12/23/2021 TSH 06/22/2023 06/21/2022, 11/13, 12/02/2020, Additional history exists CKD HGB USE SMARTSET 51123 09/04/202309/03, 09/03/2022, 06/21/2022, Additional history exists DTaP,Tdap,and Td Vaccines (2 - Td or Tdap) 11/29/2024 11/29/2014, 11/01/2007 Pneumococcal Vaccine: 65+ Years Completed 12/25/2015, 12/21/2005, 01/01/1999 VITAMIN D LEVEL ONCE IN A LIFETIME-USE SMARTSET# 89672 Completed 06/27/2020, 01/17/2020, 03/06/2019, Additional history exists [...] Not on filedocumented as of this encounter Care Teams Purchasing Coordinator Relationship Specialty Start Date End Date Blair Kasper DO [address] [place] [address] [phone] PCP - General Internal Medicine 09/03/20 documented as of this encounter
--- OUTSIDE RECORDS SUMMARY | 2023-05-12 20:18 | External Medical Summary ---
Author Name Unknown Address Unknown Organization [id number] [address] [id number] Laboratory Report Ordering Provider Test Date Status MARSHA TOVAR 02/01/2023 14:45:00 Final Observation Date Value Abnormality Reference (Units ) Status Glucose 02/01/2023 16:18 86 70-99 (mg/dL) Final BUN 02/01/2023 16:18 21 Above high normal 7-18 (mg/dL) Final Creatinine 02/01/2023 16:18 1.26 0.60-1.30 (m g/dL) Final eGFR 02/01/2023 16:18 41 Below low normal >59 (m L/min/1.73m2) Final eGFR = 142 X [min(Scr/k,1)]* *a [max(Scr/k,1)-1.200x0.9938age X 1.012 [if female] Where Scr is serum creatinine; k is 0.7 for females and 0.9 males; a is -0.241 for females and -0.302 for males; min indicates the minimum of Scr/k or 1, max indicates the maximum of Scr/k or 1 Sodium 02/01/2023 16:18 141 136-145 (mmol /L) Final Potassium 02/01/2023 16:18 4.2 3.6-5.0 (mmol /L) Final Chloride 02/01/2023 16:18 104 101-111 (mmol /L) Final CO2 02/01/2023 16:18 28 21-31 (mmol/L ) Final Anion Gap 02/01/2023 16:18 13 6-16 (mmol/L) Final Calcium 02/01/2023 16:18 8.7 8.4-10.5 (mg/ dL) Final Performing Location [facility] [address] [address]
[2023-05-12] MEDS: guaiFENesin 600 MG TABCR PO SCH (21:32)
[2023-05-12] MEDS: HYDROCORTISONE SOD 100 MG in SYRINGE 0 ML IV SCH (23:31)
[2023-05-13 04:33] LABS: Hematocrit (blood only) 26.8 % (37.0-47.0); Hemoglobin 7.8 g/dl (12.0-16.0); Mean Corpuscular Hemoglobin 22.7 pg (25.0-34.0); Mean Corpuscular Hgb Conc 29.1 g/dL (32.0-36.0); Mean Corpuscular Volume 78.1 fL (80.0-100.0); Mean Platelet Volume 9.9 fL (9.4-12.4); Platelet Count 297 K/uL (130-400); RDW Coefficient of Variation 16.4 % (11.5-14.5); Red Blood Count 3.43 M/uL (4.20-5.40); White Blood Count 14.58 K/ul (4.8-10.8)
[2023-05-13 04:53] LABS: BUN Creatinine Ratio 46.5 (10-20); Calcium 7.7 mg/dl (8.6-10.3); Creatinine Clr Calc Pharmacy 31.9 ml/min; Est GFR (African American) 50.4 ml/min; Est GFR (Non-African American) 43.5 ml/min; Potassium 3.4 mmol/L (3.5-5.1)
[2023-05-13 07:45] LABS: Estimated Average Glucose 157 mg/dl; Hemoglobin A1C 7.1 % (4.5-5.6)
[2023-05-13] MEDS: FERROUS SULFATE 325 MG TAB PO SCH (08:37)
[2023-05-13] MEDS: LEVOTHYROXINE SODIUM 75 MCG TABLET PO SCH (08:37)
[2023-05-13] MEDS: ASPIRIN 325 MG ECTAB PO SCH (08:37)
[2023-05-13] MEDS: SERTRALINE HCL 50 MG TABLET PO SCH (08:38)
[2023-05-13] MEDS ORDERED: predniSONE 20 MG TAB PO SCH (09:00)
[2023-05-13] MEDS: VANCOMYCIN HCL 1,000 MG in SODIUM CHLORIDE 0.9% 250 ML IV SCH (09:47)
--- NOTE | 2023-05-13 10:50 | Pharmacy Report ---
Pharmacy PK ABX Note - Date of Service May 13, 2023 - Assessment and Plan Assessment 05/13/23 SCr improved this morning, 1.99 --> 1.14 this morning. Random level 15.4 mcg/ml. Will start scheduled maintenance dose. Blood cultures negative at 24 hours. WBC down trending. afebrile. 05/12/23 87 year old F receiving Vancomycin and Zosyn for treatment of illness of unknown source. * Day #1 of antimicrobial therapy. * Afebrile. Leukocytosis of 23.3k. SCr 1.99 mg/dL, CrCl 18.3 mL/min. Procal 0.39 ng/mL. * Blood cultures pending. Respiratory biofire positive for RSV. * Provider note states possible GI infection, skin soft tissue, and/or pulm source. Plan Vancomycin * Loading dose: 1750 mg IV x 1 * Begind 1000 mg q24H; this is predicted to achieve target AUC at steady state (400-600 mg/L.hr) * Random level ordered for: 05/15/23 Zosyn * 4.5 g IV can be adjusted to q8H Pharmacy will continue to follow and will adjust dose/frequency as necessary. Thank you. Pharmacy has transitioned to AUC monitoring for vancomycin. AUC/JESSICA is the preferred PK/PD target and is associated with decreased risk of nephrotoxicity compared to traditional trough targets.
[2023-05-13] MEDS: PIPERACILLIN/TAZOBACTAM 4.5 GM in DEXTROSE 5% MINI-B 100 ML IV SCH (13:36)
--- NOTE | 2023-05-13 15:24 | Palliative Family Discussion ---
Date of Service May 13, 2023 Patient Directed Conference Time of Meetin-315pm Participants: Ines Baires DNP Patient participation: no Patient Support System: son/POA Li Barragan Other Healthcare Provider Participation: None Meeting Location: telephonic, Li lives in [place] and will be coming alter this evening Advanced Directive available: yes - li is aware of pt wishes, she is DNR/DNI and would want to be home if dying but they do not want to resume hospice A family meeting was held for BIGG BARRAGAN. This meeting was necessary for determining the appropriate course of treatment. Topics of Discussion Topics of Discussion: 1. 87yo female with recurrent cellulitis, worsening PS, falls, BLE wounds, CKD III, PMR. Was at home on hospice since September 2022 which was arranged by [facility] where she had been admitted for >21 days with ?infection and per son, "She refused a transfusion so they told us she had to come home on hospice bc she only had a few weeks to months to live." 2. Li is very frustrated with hospice and states they were not attentive to pt needs. She has uncontrolled pain and progressive weakness and hospice never, in his opinion, tried to help ameliorate those issues for her. When she was getting sicker, Li says he "begged hospice to come see her, to have the doctor come out to see her but they refused." She then came to our ED and has been found to have RSV in addition to cellulitis of the wounds. 3. Currently on IV Abtx and supportive care for RSV. We discussed potential complexity with comorbid CKD III and declining PS/weakness/falls. At her age she may not recover back to [employer] baseline and may in fact have a lower baseline. Li and family want pt to have a rehab trial bc he feels she "was a strong woman, dusting and cleaning her house before all this happened, we want her to have the chance to get strong again." He would like rehab at SNF with understanding that if she does not get better or worsens acutely they would want EOL care at home as pt has been very clear she does not want to in a medical setting. 4. Li does not want hospice and states he is very frustrated and disappointed with this experience of hospice. He feels they were not kind and attentive to pt needs, left her in distress without pain mgt and did not come to see her as asked when she was getting sick initially and now she has RSV which was progressing during the time he asked for earlier help and support. he is unsure he would agree to hospice again. Other Content of Meetin. Opportunity given for participants to speak and ask questions. 2. Participants were assured of attention to patient comfort. 3. Reassurance provided. 4. Support was provided for informed, good-ember decisions. 5. Emotions expressed by family were acknowledged and addressed. 6. Follow-up Outpatient: I offered OP [facility] for ongoing sx mgt and he was very accepting, advised we would aim for a follow up appt within 2-3 weeks of dc 7. Plan of Care: Continue current plan of care, aim for SNF rehab. If she declines or worsens in spite of tx then will plan a follow up meeting to discuss options next week. I have updated Dr Daley. Time Involved in Meeting: I spent 45 minutes overall addressing this case:30 min in ACP telephonic discussion and 15 min in chart review Thank you for allowing us to participate in the ongoing care of this patient. Please don't hesitate to call or page with any additional concerns. Dr. Ines Baires DNP Director, Palliative Care
--- NOTE | 2023-05-13 16:38 | Hospitalist Progress Note ---
Date of Service May 13, 2023 Assessment & Plan (1) Sepsis: (2) Hypoxia: (3) Acute renal failure: (4) RSV (respiratory syncytial virus infection): (5) Weakness: (6) Fall: (7) Leukocytosis: (8) PMR (polymyalgia rheumatica): (9) Aortic stenosis: (10) HTN (hypertension): (11) HLD (hyperlipidemia): (12) Osteoporosis: Plan: -Chronic, stable (13) Ovarian cyst, left: (14) Hypokalemia: (15) Chronic kidney disease (CKD), stage III (moderate): Plan: Sepsis POA RSV infection Possible sigmoid diverticulitis VENTURA on CKD Patient was admitted to the hospital due to frequent falls and abdominal pain/discomfort. Patient was previously on home hospice prior to presentation. Leukocytosis present on admission CT chest personally reviewed; mild basal infiltrates CT abdomen pelvis showed possible early sigmoid diverticulitis RSV positive on BioFire Blood cultureno growth till date Patient was started on Zosyn and vancomycin. Likely source of infection thought secondary to diverticulitis or lower extremity wounds. Continue on antibiotics for the time being Started on stress dose steroids with IV hydrocortisone 50 mg every 8 hours IV fluid boluses as necessary Bowel regimen for moderate fecal impaction Continue to hold diuretics Obtain x-ray of right foot as patient has point tenderness on midfoot Chronic conditions. PMRon prednisone at home; currently on stress dose steroid Hypothyroidismcontinue levothyroxine Hypertensioncontinue on Coreg DVT PPx-heparin Lines: 2 PIV FEN/GI: Allow regular diet, easy to chew CODE: DNR/DNI Discussed with patient's son at bedside. Answer questions/queries. Time spent evaluating patient, direct bedside care, chart review, placing orders, interpretation of diagnostic studies, discussion with consultants, patient, and family members, as well as other required patient management activities is 60 minutes Please note the above document was generated using voice recognition software. It may contain grammatical, syntax or spelling errors. Any formal questions or concerns about the content, text or information contained within the body of this dictation should be directly addressed to the provider for clarification (16) Anemia: Admission and Anticipated Discharge Date Admission Date: May 12, 2023 Subjective Patient seen and examined at bedside She is working with occupational therapy. Sitting up at the side of the bed; currently requiring oxygen via OxyMask at 4 L/min. Her son was also at bedside Review of Systems Review of Systems: All systems reviewed & are unremarkable except as noted in Subjective Physical Exam Physical Exam: Constitutional: Awake, alert; appears comfortable. Respiratory: Decreased breath sound at bases Cardiovascular: RRR, no murmur, no edema Vessels: no JVD or carotid bruit Chest: normal inspection of chest Abdomen: Mild tenderness on right lower quadrant. Bowel sound present Musculoskeletal: Tenderness present in right midfoot Skin: no rashes, warm and dry normal turgor Neurologic: PERRL, EOMI, accommodation nl, no face palsy, no dysarthria CN's II- XI intact bilaterally and moves all extremities Results & Data Results & Data Vital Signs (Past 12 Hours) Vital Signs Temp Pulse Pulse Resp BP Pulse Ox O2 Del Method 05/13/23 16:28 36.6 C 54 L 16 147/81 H Oxymask 05/13/23 15:24 100 05/13/23 12:02 55 L 18 98/54 L 99 Oxymask 05/13/23 08:00 50 L 18 137/76 98 Oxymask 05/13/23 07:23 47 L O2 Flow Rate 05/13/23 16:28 4 05/13/23 15:24 05/13/23 12:02 4 05/13/23 08:00 4 05/13/23 07:23 (1) Sepsis Sepsis acute organ dysfunction status: unspecified Sepsis type: sepsis due to unspecified organism Qualified Code(s): A41.9 - Sepsis, unspecified organism
--- NOTE | 2023-05-13 18:26 | XRay Report ---
RIGHT FOOT 2 VIEWS CLINICAL HISTORY: Right foot pain. FINDINGS: AP and crosstable lateral views of the right foot are obtained. No prior studies are availa ble for comparison at the time of dictation. The examination is degraded by suboptimal positioning. T he skeletal structures are osteopenic. No fracture is seen. Mild/moderate osteoarthritic change is se en throughout the foot, greatest at the first metatarsophalangeal joint and at the tarsometatarsal torsten ints. Degenerative spurring is seen along the dorsal aspect of the tarsal bones. Mild soft tissue swe lling is noted in the foot. There is atherosclerotic calcification of the renal arteries. IMPRESSION: Soft tissue swelling with no acute bony abnormality identified. Electronically signed by: Bryce Sainz M.D. 05/13/2023 6:25 PM
[2023-05-13] MEDS: POLYETHYLENE (MIRALAX) 17 GM PACK PO SCH (22:38)
[2023-05-13] MEDS: HYDROCORTISONE SOD 50 MG in SYRINGE 0 ML IV SCH (22:38)
[2023-05-13] MEDS: HEPARIN SOD 5,000 UNIT/0.5 ML VIAL SQ SCH (22:40)
[2023-05-13] MEDS: oxyCODONE HCL IR 5 MG TAB (IMMEDIATE RELEASE) PO PRN (22:51)
[2023-05-14 07:05] LABS: Basophils # (auto) 0.03 K/uL (0.00-0.20); Basophils % (auto) 0.2 %; Eosinophils # (auto) 0.01 K/uL (0.00-0.50); Eosinophils % (auto) 0.1 %; Hematocrit (blood only) 26.4 % (37.0-47.0); Immature Granulocytes # (auto) 0.12 K/uL (0.01-0.20); Immature Granulocytes % (auto) 0.9 %; Lymphocytes # (auto) 0.76 K/uL (1.20-3.40); Lymphocytes % (auto) 5.6 %; Mean Corpuscular Hemoglobin 23.3 pg (25.0-34.0); Mean Corpuscular Hgb Conc 30.3 g/dL (32.0-36.0); Mean Corpuscular Volume 76.7 fL (80.0-100.0); Mean Platelet Volume 9.6 fL (9.4-12.4); Monocytes # (auto) 0.51 K/uL (0.11-0.59); Monocytes % (auto) 3.8 %; Neutrophils # (auto) 12.05 K/uL (1.40-6.50); Neutrophils % (auto) 89.4 %; Platelet Count 319 K/uL (130-400); RDW Coefficient of Variation 16.5 % (11.5-14.5); RDW Standard Deviation 45.5 fL (36.4-46.3); Red Blood Count 3.44 M/uL (4.20-5.40); White Blood Count 13.48 K/ul (4.8-10.8)
[2023-05-14 07:22] LABS: BUN Creatinine Ratio 45.1 (10-20); Calcium 8.2 mg/dl (8.6-10.3); Creatinine Clr Calc Pharmacy 36.1 ml/min; Est GFR (African American) 57.7 ml/min; Est GFR (Non-African American) 49.8 ml/min; Potassium 3.1 mmol/L (3.5-5.1)
[2023-05-14] MEDS: POTASSIUM CHLORIDE / WTR 10 MEQ/100 ML PLCT IV SCH (09:35)
[2023-05-14] MEDS: ASPIRIN 81 MG ECTAB PO SCH (09:36)
--- NOTE | 2023-05-14 15:35 | Hospitalist Progress Note ---
Date of Service May 14, 2023 Assessment & Plan (1) Sepsis: (2) Hypoxia: (3) Acute renal failure: (4) RSV (respiratory syncytial virus infection): (5) Weakness: (6) Fall: (7) Leukocytosis: (8) PMR (polymyalgia rheumatica): (9) Aortic stenosis: (10) HTN (hypertension): (11) HLD (hyperlipidemia): (12) Osteoporosis: Plan: -Chronic, stable (13) Ovarian cyst, left: (14) Hypokalemia: (15) Chronic kidney disease (CKD), stage III (moderate): Plan: Sepsis POA RSV infection Possible sigmoid diverticulitis VENTURA on CKD Patient was admitted to the hospital due to frequent falls and abdominal pain/discomfort. Patient was previously on home hospice prior to presentation. Leukocytosis present on admission; improving CT chest personally reviewed; mild basal infiltrates CT abdomen pelvis showed possible early sigmoid diverticulitis RSV positive on BioFire Blood cultureno growth till date Patient was started on Zosyn and vancomycin. Likely source of infection thought secondary to diverticulitis or lower extremity wounds. Vancomycin DC'd as blood culture is negative. Started on stress dose steroids with IV hydrocortisone 50 mg every 8 hours IV fluid boluses as necessary Bowel regimen for moderate fecal impaction Continue to hold diuretics Chronic conditions. PMRon prednisone at home; currently on stress dose steroid Hypothyroidismcontinue levothyroxine Hypertensioncontinue on Coreg DVT PPx-heparin Lines: 2 PIV FEN/GI: Allow regular diet, easy to chew CODE: DNR/DNI DispositionPT OT ordered; will likely need rehab. Discussed with patient's son at bedside on May 13, 2023. Answer questions/queries. Time spent evaluating patient, direct bedside care, chart review, placing orders, interpretation of diagnostic studies, discussion with consultants, patient, and family members, as well as other required patient management activities is 60 minutes Please note the above document was generated using voice recognition software. It may contain grammatical, syntax or spelling errors. Any formal questions or concerns about the content, text or information contained within the body of this dictation should be directly addressed to the provider for clarification (16) Anemia: Admission and Anticipated Discharge Date Admission Date: May 12, 2023 Subjective Patient seen and examined at bedside. Comfortable; not in distress. Denies fever, chills, chest pain, shortness of breath, abdominal pain or urinary symptoms. No significant overnight events Review of Systems Review of Systems: All systems reviewed & are unremarkable except as noted in Subjective Physical Exam Physical Exam: Constitutional: Awake, alert; appears comfortable. Respiratory: Decreased breath sound at bases Cardiovascular: RRR, no murmur, no edema Vessels: no JVD or carotid bruit Chest: normal inspection of chest Abdomen: Mild tenderness on right lower quadrant. Bowel sound present Musculoskeletal: Tenderness present in right midfoot Skin: no rashes, warm and dry normal turgor Neurologic: PERRL, EOMI, accommodation nl, no face palsy, no dysarthria CN's II- XI intact bilaterally and moves all extremities Results & Data Results & Data Vital Signs (Past 12 Hours) Vital Signs Temp Pulse Pulse Pulse Resp BP Pulse Ox 05/14/23 15:21 60 05/14/23 11:00 36.6 C 57 L 18 119/74 95 05/14/23 08:00 60 05/14/23 08:00 05/14/23 07:31 36.5 C 60 18 142/89 H 96 05/14/23 04:21 34 L 05/14/23 04:00 36.7 C 54 L 18 154/80 H 100 O2 Del Method O2 Flow Rate 05/14/23 15:21 05/14/23 11:00 Nasal Cannula 1.5 05/14/23 08:00 05/14/23 08:00 Nasal Cannula 1 05/14/23 07:31 Nasal Cannula 2 05/14/23 04:21 05/14/23 04:00 Nasal Cannula 2 (1) Sepsis Sepsis acute organ dysfunction status: unspecified Sepsis type: sepsis due to unspecified organism Qualified Code(s): A41.9 - Sepsis, unspecified organism
[2023-05-14] MEDS: MAGNESIUM HYDROXIDE SUSP 30 ML UDC PO ONE (18:35)
[2023-05-14] MEDS: MAGNESIUM HYDROXIDE SUSP 30 ML UDC ONE (19:11)
[2023-05-15 07:35] LABS: Basophils # (auto) 0.03 K/uL (0.00-0.20); Basophils % (auto) 0.2 %; Hematocrit (blood only) 28.3 % (37.0-47.0); Hemoglobin 8.2 g/dl (12.0-16.0); Immature Granulocytes # (auto) 0.08 K/uL (0.01-0.20); Immature Granulocytes % (auto) 0.6 %; Lymphocytes # (auto) 0.88 K/uL (1.20-3.40); Lymphocytes % (auto) 6.6 %; Mean Corpuscular Hemoglobin 22.8 pg (25.0-34.0); Mean Corpuscular Volume 78.8 fL (80.0-100.0); Mean Platelet Volume 9.6 fL (9.4-12.4); Monocytes # (auto) 0.68 K/uL (0.11-0.59); Monocytes % (auto) 5.1 %; Neutrophils # (auto) 11.61 K/uL (1.40-6.50); Neutrophils % (auto) 87.5 %; Platelet Count 357 K/uL (130-400); RDW Coefficient of Variation 16.6 % (11.5-14.5); RDW Standard Deviation 47.4 fL (36.4-46.3); Red Blood Count 3.59 M/uL (4.20-5.40); White Blood Count 13.28 K/ul (4.8-10.8)
[2023-05-15 07:50] LABS: BUN Creatinine Ratio 39.3 (10-20); Calcium 8.2 mg/dl (8.6-10.3); Creatinine Clr Calc Pharmacy 42.2 ml/min; Est GFR (Non-African American) 58.7 ml/min
[2023-05-15] MEDS: POTASSIUM CHLORIDE / WTR 10 MEQ/100 ML PLCT IV SCH (10:32)
--- NOTE | 2023-05-15 13:04 | Hospitalist Progress Note ---
Date of Service May 15, 2023 Assessment & Plan (1) Sepsis: (2) Hypoxia: (3) Acute renal failure: (4) RSV (respiratory syncytial virus infection): (5) Weakness: (6) Fall: (7) Leukocytosis: (8) PMR (polymyalgia rheumatica): (9) Aortic stenosis: (10) HTN (hypertension): (11) HLD (hyperlipidemia): (12) Osteoporosis: (13) Ovarian cyst, left: (14) Hypokalemia: (15) Chronic kidney disease (CKD), stage III (moderate): Plan: Sepsis POA RSV infection Possible sigmoid diverticulitis VENTURA on CKD Patient was admitted to the hospital due to frequent falls and abdominal pain/discomfort. Patient was previously on home hospice prior to presentation. Leukocytosis present on admission; improving CT chest personally reviewed; mild basal infiltrates CT abdomen pelvis showed possible early sigmoid diverticulitis RSV positive on BioFire Blood cultureno growth till date Patient was started on Zosyn and vancomycin. Likely source of infection thought secondary to diverticulitis or lower extremity wounds. Vancomycin DC'd as blood culture is negative. Stress dose steroid given; switched over to home dose. IV fluid boluses as necessary Bowel regimen for moderate fecal impaction Continue to hold diuretics. Unable to determine the reason for patient being on Lasix. Will discontinue metolazone at discharge. Lasix as needed Right foot pain Reports pain on his right foot. Tenderness present around the midfoot and ankle X-ray of the foot do not show any fracture Will obtain x-ray of the ankle [id number] Tylenol Will see if cam boot will help with the patient Ovarian cyst CT of the abdomen showed 4 cm left ovarian cyst. Gynecology consulted during admission; conservative management for the time being with monitor. Chronic conditions. PMRon prednisone at home; previously in stress dose steroids; switched over to home dose with Hypothyroidismcontinue levothyroxine Hypertensioncontinue on Coreg DVT PPx-heparin Lines: 2 PIV FEN/GI: Allow regular diet, easy to chew CODE: DNR/DNI. Palliative care consulted earlier in hospitalization; patient was previously on hospice care prior to admission. Family had a bad experience with hospice. Plan is to discharge to rehab in next few days. DispositionPT OT ordered; will need rehab. Case management on board Discussed with patient's son at bedside on May 13, 2023. Answer questions/queries. Time spent evaluating patient, direct bedside care, chart review, placing orders, interpretation of diagnostic studies, discussion with consultants, patient, and family members, as well as other required patient management activities is 60 minutes Please note the above document was generated using voice recognition software. It may contain grammatical, syntax or spelling errors. Any formal questions or concerns about the content, text or information contained within the body of this dictation should be directly addressed to the provider for clarification (16) Anemia: Admission and Anticipated Discharge Date Admission Date: May 12, 2023 Subjective Seen and examined at bedside. She reports that she is not able to put weight on her right foot. Reports being anxious Review of Systems Review of Systems: All systems reviewed & are unremarkable except as noted in Subjective Physical Exam Physical Exam: Constitutional: Awake, alert; appears comfortable. Respiratory: Decreased breath sound at bases Cardiovascular: RRR, no murmur, no edema Vessels: no JVD or carotid bruit Chest: normal inspection of chest Abdomen: Mild tenderness on right lower quadrant. Bowel sound present Musculoskeletal: Tenderness present in right midfoot Skin: no rashes, warm and dry normal turgor Neurologic: PERRL, EOMI, accommodation nl, no face palsy, no dysarthria CN's II- XI intact bilaterally and moves all extremities Results & Data Results & Data Vital Signs (Past 12 Hours) Vital Signs Temp Pulse Pulse Pulse Resp BP Pulse Ox 05/15/23 11:30 36.5 C 66 18 148/77 H 96 05/15/23 09:00 54 L 05/15/23 09:00 05/15/23 07:35 36.9 C 54 L 18 151/78 H 95 05/15/23 03:16 36.7 C 61 18 154/88 H 98 O2 Del Method O2 Flow Rate 05/15/23 11:30 Nasal Cannula 2 05/15/23 09:00 05/15/23 09:00 Nasal Cannula 2 05/15/23 07:35 Nasal Cannula 2 05/15/23 03:16 Nasal Cannula 2 (1) Sepsis Sepsis acute organ dysfunction status: unspecified Sepsis type: sepsis due to unspecified organism Qualified Code(s): A41.9 - Sepsis, unspecified organism
[2023-05-15] MEDS: predniSONE 5 MG TAB PO SCH (14:24)
--- NOTE | 2023-05-15 15:12 | XRay Report ---
XR ankle RT min 3V routine HISTORY: 87 years-old Female rule out fracture acute ankle COMPARISON: Foot radiograph 05/13/2023 TECHNIQUE: 3 views of the right ankle FINDINGS: Arterial calcifications. Mild to moderate circumferential soft tissue swelling is most pronounced lat erally. No acute fracture, dislocation or osteochondral defect. Pes planus. IMPRESSION: Soft tissue swelling without acute fracture or dislocation. ACT 112: Negative or not required by law. The above report was generated using voice recognition software. It may contain grammatical, syntax o r spelling errors. Electronically signed by: Osito Jackson M.D. 05/15/2023 3:10 PM
[2023-05-16 07:41] LABS: Hemoglobin 8.1 g/dl (12.0-16.0); Mean Corpuscular Hemoglobin 22.8 pg (25.0-34.0); Mean Corpuscular Hgb Conc 28.9 g/dL (32.0-36.0); Mean Corpuscular Volume 78.9 fL (80.0-100.0); Mean Platelet Volume 9.2 fL (9.4-12.4); Platelet Count 339 K/uL (130-400); RDW Coefficient of Variation 16.6 % (11.5-14.5); RDW Standard Deviation 47.7 fL (36.4-46.3); Red Blood Count 3.55 M/uL (4.20-5.40); White Blood Count 13.22 K/ul (4.8-10.8)
[2023-05-16 07:48] LABS: BUN Creatinine Ratio 30.6 (10-20); Calcium 8.1 mg/dl (8.6-10.3); Creatinine Clr Calc Pharmacy 43.6 ml/min; Est GFR (African American) 71.9 ml/min; Potassium 3.1 mmol/L (3.5-5.1)
[2023-05-16 07:56] LABS: Basophils # (auto) 0.02 K/uL (0.00-0.20); Basophils % (auto) 0.2 %; Eosinophils # (auto) 0.13 K/uL (0.00-0.50); Immature Granulocytes % (auto) 0.8 %; Lymphocytes % (auto) 11.3 %; Microcytosis Present; Monocytes # (auto) 0.89 K/uL (0.11-0.59); Monocytes % (auto) 6.7 %; Neutrophils # (auto) 10.58 K/uL (1.40-6.50); Polychromasia 1+
[2023-05-16] MEDS: MoRPHine SULFATE 2 MG/ML CARP IV PRN (11:01)
[2023-05-16] MEDS: POTASSIUM CHLORIDE PWD 20 MEQ PACK PO SCH (11:03)
--- NOTE | 2023-05-16 11:34 | Communication Note ---
Date of Service: May 16, 2023 Brief Pall Med Note pt stable thru weekend with plans for SNF Rehab trial. GOC discussion previously documented No acute or urgent IP Pall med needs therefore I will sign off. This pt can be followed up in outpatient pall med clinic if she and family desire. No charge submitted. Pt not seen TS 20min including chart review Thank you for allowing us to participate in the ongoing care of this patient. Please don't hesitate to call or page with any additional concerns. Dr. Ines Baires DNP Director, Palliative Care
--- NOTE | 2023-05-16 12:39 | Hospitalist Progress Note ---
Date of Service May 16, 2023 Assessment & Plan (1) Sepsis: (2) Hypoxia: (3) Acute renal failure: (4) RSV (respiratory syncytial virus infection): (5) Weakness: (6) Fall: (7) Leukocytosis: (8) PMR (polymyalgia rheumatica): (9) Aortic stenosis: (10) HTN (hypertension): (11) HLD (hyperlipidemia): (12) Osteoporosis: (13) Ovarian cyst, left: (14) Hypokalemia: (15) Chronic kidney disease (CKD), stage III (moderate): Plan: Sepsis POA RSV infection Possible sigmoid diverticulitis VENTURA on CKD Patient was admitted to the hospital due to frequent falls and abdominal pain/discomfort. Patient was previously on home hospice prior to presentation. Leukocytosis present on admission; improving CT chest personally reviewed; mild basal infiltrates CT abdomen pelvis showed possible early sigmoid diverticulitis RSV positive on BioFire Blood cultureno growth till date Patient was started on Zosyn and vancomycin. Likely source of infection thought secondary to diverticulitis or lower extremity wounds. Vancomycin DC'd as blood culture is negative. Stress dose steroid given; switched over to home dose. Bowel regimen for moderate fecal impaction Continue to hold diuretics. Unable to determine the reason for patient being on Lasix. Will discontinue metolazone at discharge. Lasix as needed Right foot pain Reports pain on his right foot. Tenderness present around the midfoot and ankle X-ray of the foot do not show any fracture X-ray of the ankle do not show any fracture as well [id number] Tylenol Will see if cam boot will help with the patient Ovarian cyst CT of the abdomen showed 4 cm left ovarian cyst. Gynecology consulted during admission; conservative management for the time being with monitor. Chronic conditions. PMRon prednisone at home; previously in stress dose steroids; switched over to home dose Hypothyroidismcontinue levothyroxine Hypertensioncontinue on Coreg DVT PPx-heparin Lines: 2 PIV FEN/GI: Allow regular diet, easy to chew CODE: DNR/DNI. Palliative care consulted earlier in hospitalization; patient was previously on hospice care prior to admission. Family had a bad experience with hospice at home. Discussed with patient's son over the phone on May 16, 2023. Discussed about possibly exploring other hospice agency or looking to see if she will be able to go to rehab. Decision made to be made about disposition. Appreciate case management input. Time spent evaluating patient, direct bedside care, chart review, placing orders, interpretation of diagnostic studies, discussion with consultants, giae nt, and family members, as well as other required patient management activities is 50 minutes Please note the above document was generated using voice recognition software. It may contain grammatical, syntax or spelling errors. Any formal questions or concerns about the content, text or information contained within the body of this dictation should be directly addressed to the provider for clarification (16) Anemia: Admission and Anticipated Discharge Date Admission Date: May 12, 2023 Subjective Patient seen and examined at bedside. She reports pain in her left hip and abdominal discomfort. Review of Systems Review of Systems: All systems reviewed & are unremarkable except as noted in Subjective Physical Exam Physical Exam: Constitutional: Awake, alert; appears comfortable. Respiratory: Decreased breath sound at bases Cardiovascular: RRR, no murmur, no edema Vessels: no JVD or carotid bruit Chest: normal inspection of chest Abdomen: Tenderness present in left lower quadrant. Musculoskeletal: Tenderness present in right midfoot and ankle Skin: no rashes, warm and dry normal turgor Neurologic: PERRL, EOMI, accommodation nl, no face palsy, no dysarthria CN's II- XI intact bilaterally and moves all extremities Results & Data Results & Data Vital Signs (Past 12 Hours) Vital Signs Temp Pulse Pulse Pulse Resp BP Pulse Ox 05/16/23 08:30 36.9 C 62 16 145/87 H 99 05/16/23 07:44 56 L 05/16/23 03:44 36.6 C 59 L 18 134/72 97 O2 Del Method O2 Flow Rate 05/16/23 08:30 Room Air 05/16/23 07:44 05/16/23 03:44 Nasal Cannula 2 (1) Sepsis Sepsis acute organ dysfunction status: unspecified Sepsis type: sepsis due to unspecified organism Qualified Code(s): A41.9 - Sepsis, unspecified organism
[2023-05-16] MEDS: oxyCODONE HCL IR 5 MG TAB (IMMEDIATE RELEASE) PO PRN (14:02)
[2023-05-16] MEDS: METOPROLOL TARTRATE 1 MG/ML VIAL IV STA (22:10)
[2023-05-17] MEDS: SODIUM CHLORIDE 0.9% 250 ML IV SCH (00:33)
[2023-05-17 00:57] LABS: Magnesium 1.8 mg/dl (1.7-2.4); Potassium 3.1 mmol/L (3.5-5.1)
[2023-05-17] MEDS: METOPROLOL TARTRATE 1 MG/ML VIAL IV STA (01:58)
[2023-05-17] MEDS: MAGNESIUM SULFATE / D5W 1 GM/100 ML BAG IV ONE (02:11)
[2023-05-17] MEDS: POTASSIUM CHLORIDE / WTR 10 MEQ/100 ML PLCT IV SCH ×2 (02:22→03:54)
[2023-05-17] MEDS: DICLOFENAC SOD 1% GEL 100 GM TUBE EXT SCH (02:22)
[2023-05-17] MEDS: POTASSIUM CHLORIDE CRTAB 20 MEQ TABCR PO STA (03:54)
[2023-05-17 07:50] LABS: Basophils # (auto) 0.07 K/uL (0.00-0.20); Basophils % (auto) 0.4 %; Eosinophils # (auto) 0.24 K/uL (0.00-0.50); Eosinophils % (auto) 1.5 %; Hematocrit (blood only) 27.3 % (37.0-47.0); Hemoglobin 8.1 g/dl (12.0-16.0); Immature Granulocytes # (auto) 0.17 K/uL (0.01-0.20); Immature Granulocytes % (auto) 1.1 %; Lymphocytes # (auto) 1.18 K/uL (1.20-3.40); Lymphocytes % (auto) 7.4 %; Mean Corpuscular Hemoglobin 22.9 pg (25.0-34.0); Mean Corpuscular Hgb Conc 29.7 g/dL (32.0-36.0); Mean Corpuscular Volume 77.3 fL (80.0-100.0); Mean Platelet Volume 9.3 fL (9.4-12.4); Monocytes # (auto) 0.82 K/uL (0.11-0.59); Monocytes % (auto) 5.2 %; Neutrophils # (auto) 13.41 K/uL (1.40-6.50); Neutrophils % (auto) 84.4 %; Platelet Count 369 K/uL (130-400); RDW Coefficient of Variation 16.9 % (11.5-14.5); RDW Standard Deviation 47.5 fL (36.4-46.3); Red Blood Count 3.53 M/uL (4.20-5.40); White Blood Count 15.89 K/ul (4.8-10.8)
[2023-05-17 08:15] LABS: BUN Creatinine Ratio 23.5 (10-20); Calcium 7.9 mg/dl (8.6-10.3); Creatinine Clr Calc Pharmacy 43.4 ml/min; Est GFR (African American) 71.9 ml/min; Potassium 3.4 mmol/L (3.5-5.1)
--- NOTE | 2023-05-17 16:21 | Hospitalist Progress Note ---
Date of Service May 17, 2023 Assessment & Plan (1) Sepsis: (2) Hypoxia: (3) Acute renal failure: (4) RSV (respiratory syncytial virus infection): (5) Weakness: (6) Fall: (7) Leukocytosis: (8) PMR (polymyalgia rheumatica): (9) Aortic stenosis: (10) HTN (hypertension): (11) HLD (hyperlipidemia): (12) Osteoporosis: (13) Ovarian cyst, left: (14) Hypokalemia: (15) Chronic kidney disease (CKD), stage III (moderate): Plan: Sepsis POA RSV infection Possible sigmoid diverticulitis VENTURA on CKD Patient was admitted to the hospital due to frequent falls and abdominal pain/discomfort. Patient was previously on home hospice prior to presentation. Leukocytosis present on admission; improving CT chest personally reviewed; mild basal infiltrates CT abdomen pelvis showed possible early sigmoid diverticulitis RSV positive on BioFire Blood cultureno growth till date Patient was started on Zosyn and vancomycin. Likely source of infection thought secondary to diverticulitis or lower extremity wounds. Vancomycin DC'd as blood culture is negative. Plan to treat for 7 days. Continue full diet for today. Possible advance to normal diet tomorrow Stress dose steroid given; switched over to home dose. Bowel regimen for moderate fecal impaction Continue to hold diuretics. Unable to determine the reason for patient being on Lasix. Will discontinue metolazone at discharge. Lasix as needed Right foot pain Reports pain on his right foot. Tenderness present around the midfoot and ankle X-ray of the foot do not show any fracture X-ray of the ankle do not show any fracture as well [id number] Tylenol Cam boot offered to the patient; patient rejected it. Ovarian cyst CT of the abdomen showed 4 cm left ovarian cyst. Gynecology consulted during admission; conservative management for the time being with monitor. Chronic conditions. PMRon prednisone at home; previously in stress dose steroids; switched over to home dose Hypothyroidismcontinue levothyroxine Hypertensioncontinue on Coreg DVT PPx-heparin Lines: 2 PIV FEN/GI: Allow regular diet, easy to chew CODE: DNR/DNI. Palliative care consulted earlier in hospitalization; patient was previously on hospice care prior to admission. Family had a bad experience with hospice at home. Discussed with patient's son over the phone on May 16, 2023. Discussed about possibly exploring other hospice agency or looking to see if she will be able to go to rehab. Decision yet to be made about disposition. Appreciate case management input. Please note the above document was generated using voice recognition software. It may contain grammatical, syntax or spelling errors. Any formal questions or concerns about the content, text or information contained within the body of this dictation should be directly addressed to the provider for clarification (16) Anemia: Admission and Anticipated Discharge Date Admission Date: May 12, 2023 Subjective Patient seen and examined at bedside. Comfortable; not in distress. Denies fever, chills, chest pain, shortness of breath, abdominal pain or urinary symptoms. No significant overnight events Review of Systems Review of Systems: All systems reviewed & are unremarkable except as noted in Subjective Physical Exam Physical Exam: Constitutional: Awake, alert; appears comfortable. Respiratory: Decreased breath sound at bases Cardiovascular: RRR, no murmur, no edema Vessels: no JVD or carotid bruit Chest: normal inspection of chest Abdomen: Soft, nontender Musculoskeletal: Tenderness present in right midfoot and ankle Skin: no rashes, warm and dry normal turgor Neurologic: PERRL, EOMI, accommodation nl, no face palsy, no dysarthria CN's II- XI intact bilaterally and moves all extremities Results & Data Results & Data Vital Signs (Past 12 Hours) Vital Signs Temp Pulse Pulse Resp BP Pulse Ox O2 Del Method 05/17/23 14:55 63 05/17/23 12:34 36.7 C 64 16 109/74 99 Room Air 05/17/23 11:35 Nasal Cannula 05/17/23 11:33 74 05/17/23 07:59 36.8 C 65 16 134/86 96 Nasal Cannula O2 Flow Rate 05/17/23 14:55 05/17/23 12:34 05/17/23 11:35 2 05/17/23 11:33 05/17/23 07:59 2 (1) Sepsis Sepsis acute organ dysfunction status: unspecified Sepsis type: sepsis due to unspecified organism Qualified Code(s): A41.9 - Sepsis, unspecified organism
[2023-05-18 06:38] LABS: Hematocrit (blood only) 26.9 % (37.0-47.0); Hemoglobin 7.7 g/dl (12.0-16.0); Mean Corpuscular Hemoglobin 22.7 pg (25.0-34.0); Mean Corpuscular Hgb Conc 28.6 g/dL (32.0-36.0); Mean Corpuscular Volume 79.4 fL (80.0-100.0); Mean Platelet Volume 9.5 fL (9.4-12.4); Platelet Count 365 K/uL (130-400); RDW Standard Deviation 48.6 fL (36.4-46.3); Red Blood Count 3.39 M/uL (4.20-5.40); White Blood Count 12.32 K/ul (4.8-10.8)
[2023-05-18 06:55] LABS: BUN Creatinine Ratio 27.1 (10-20); Calcium 8.1 mg/dl (8.6-10.3); Creatinine Clr Calc Pharmacy 43.8 ml/min; Est GFR (African American) 71.9 ml/min; Potassium 3.6 mmol/L (3.5-5.1)
[2023-05-18 06:58] LABS: Basophils # (auto) 0.06 K/uL (0.00-0.20); Basophils % (auto) 0.5 %; Eosinophils # (auto) 0.19 K/uL (0.00-0.50); Eosinophils % (auto) 1.5 %; Immature Granulocytes % (auto) 0.8 %; Lymphocytes # (auto) 0.92 K/uL (1.20-3.40); Lymphocytes % (auto) 7.5 %; Monocytes # (auto) 0.55 K/uL (0.11-0.59); Monocytes % (auto) 4.5 %; Neutrophils % (auto) 85.2 %; Polychromasia 1+
[2023-05-18 14:29] LABS: Hematocrit (blood only) 26.6 % (37.0-47.0); Hemoglobin 7.6 g/dl (12.0-16.0)
--- NOTE | 2023-05-18 17:00 | Hospitalist Progress Note ---
Date of Service May 18, 2023 Assessment & Plan (1) Sepsis: (2) Hypoxia: (3) Acute renal failure: (4) RSV (respiratory syncytial virus infection): (5) Weakness: (6) Fall: (7) Leukocytosis: (8) PMR (polymyalgia rheumatica): (9) Aortic stenosis: (10) HTN (hypertension): (11) HLD (hyperlipidemia): (12) Osteoporosis: (13) Ovarian cyst, left: (14) Hypokalemia: (15) Chronic kidney disease (CKD), stage III (moderate): Plan: Sepsis POA RSV infection Possible sigmoid diverticulitis VENTURA on CKD Patient was admitted to the hospital due to frequent falls and abdominal pain/discomfort. Patient was previously on home hospice prior to presentation. Leukocytosis present on admission; improving CT chest reviewed; mild basal infiltrates CT abdomen pelvis showed possible early sigmoid diverticulitis RSV positive on BioFire Blood cultureno growth till date Patient was started on Zosyn and vancomycin. Likely source of infection thought secondary to diverticulitis or lower extremity wounds. Vancomycin DC'd as blood culture is negative. Plan to treat for 7 days. Adv to soft diet, communicated w/ RN. Will follow clinically. Pt w/ no belly pain today AM on full liq diet. s/p Stress dose steroid; switched over to home dose. Bowel regimen for moderate fecal impaction Continue to hold diuretics. Unable to determine the reason for patient being on Lasix. Will discontinue metolazone at discharge. Lasix as needed Right foot pain Reports pain on the right foot. Tenderness present around the midfoot and ankle X-ray of the foot do not show any fracture X-ray of the ankle do not show any fracture as well [id number] Tylenol Cam boot offered to the patient; patient rejected it. Ovarian cyst CT of the abdomen showed 4 cm left ovarian cyst. Gynecology consulted during admission; conservative management for the time being with monitor. Chronic conditions. PMRon prednisone at home; previously in stress dose steroids; switched over to home dose Hypothyroidismcontinue levothyroxine Hypertensioncontinue on Coreg DVT PPx-heparin Lines: 2 PIV FEN/GI: Allow regular diet, easy to chew CODE: DNR/DNI. Palliative care consulted earlier in hospitalization; patient was previously on hospice care prior to admission. Family had a bad experience with hospice at home. Prior attending discussed with patient's son over the phone on May 16, 2023. Discussed about possibly exploring other hospice agency or looking to see if she will be able to go to rehab. Decision yet to be made about disposition. Appreciate case management input. Please note the above document was generated using voice recognition software. It may contain grammatical, syntax or spelling errors. Any formal questions or concerns about the content, text or information contained within the body of this dictation should be directly addressed to the provider for clarification (16) Anemia: Admission and Anticipated Discharge Date Admission Date: May 12, 2023 Subjective Patient seen and examined at bedside. Comfortable; not in distress. Denies fever, chills, chest pain, shortness of breath, abdominal pain or urinary symptoms. No significant overnight events Physical Exam Physical Exam: Constitutional: Awake, alert; appears comfortable. Respiratory: Decreased breath sound at bases Cardiovascular: RRR, no murmur, no edema Vessels: no JVD or carotid bruit Chest: normal inspection of chest Abdomen: Soft, nontender Musculoskeletal: Tenderness present in right midfoot and ankle Skin: no rashes, warm and dry normal turgor Neurologic: PERRL, EOMI, accommodation nl, no face palsy, no dysarthria CN's II- XI intact bilaterally and moves all extremities Results & Data Results & Data Vital Signs (Past 12 Hours) Vital Signs Temp Pulse Pulse Pulse Resp BP Pulse Ox 05/18/23 15:31 36.7 C 51 L 16 135/78 94 05/18/23 11:50 36.7 C 52 L 16 143/76 H 97 05/18/23 08:00 05/18/23 07:50 36.5 C 53 L 16 159/82 H 99 05/18/23 07:47 53 L O2 Del Method O2 Flow Rate 05/18/23 15:31 Nasal Cannula 2 05/18/23 11:50 Nasal Cannula 2 05/18/23 08:00 Nasal Cannula 2 05/18/23 07:50 Nasal Cannula 2 05/18/23 07:47 (1) Sepsis Sepsis acute organ dysfunction status: unspecified Sepsis type: sepsis due to unspecified organism Qualified Code(s): A41.9 - Sepsis, unspecified organism
[2023-05-19 05:04] LABS: Hematocrit (blood only) 26.5 % (37.0-47.0); Hemoglobin 7.9 g/dl (12.0-16.0); Mean Corpuscular Hemoglobin 23.4 pg (25.0-34.0); Mean Corpuscular Hgb Conc 29.8 g/dL (32.0-36.0); Mean Corpuscular Volume 78.4 fL (80.0-100.0); Mean Platelet Volume 9.6 fL (9.4-12.4); Platelet Count 453 K/uL (130-400); RDW Coefficient of Variation 16.9 % (11.5-14.5); RDW Standard Deviation 48.1 fL (36.4-46.3); Red Blood Count 3.38 M/uL (4.20-5.40); White Blood Count 11.94 K/ul (4.8-10.8)
[2023-05-19 05:16] LABS: Calcium 8.1 mg/dl (8.6-10.3); Creatinine Clr Calc Pharmacy 46.6 ml/min; Est GFR (African American) 77.4 ml/min; Est GFR (Non-African American) 66.8 ml/min; Phosphorus 2.9 mg/dl (2.5-4.9); Potassium 4.2 mmol/L (3.5-5.1)
--- NOTE | 2023-05-19 15:57 | Hospitalist Progress Note ---
Date of Service May 19, 2023 Assessment & Plan (1) Sepsis: (2) Hypoxia: (3) Acute renal failure: (4) RSV (respiratory syncytial virus infection): (5) Weakness: (6) Fall: (7) Leukocytosis: (8) PMR (polymyalgia rheumatica): (9) Aortic stenosis: (10) HTN (hypertension): (11) HLD (hyperlipidemia): (12) Osteoporosis: (13) Ovarian cyst, left: (14) Hypokalemia: (15) Chronic kidney disease (CKD), stage III (moderate): Plan: Sepsis POA RSV infection Possible sigmoid diverticulitis VENTURA on CKD Patient was admitted to the hospital due to frequent falls and abdominal pain/discomfort. Patient was previously on home hospice prior to presentation. Leukocytosis present on admission; improving CT chest reviewed; mild basal infiltrates CT abdomen pelvis showed possible early sigmoid diverticulitis RSV positive on BioFire Blood cultureno growth. Patient was started on Zosyn and vancomycin. Likely source of infection thought secondary to diverticulitis or lower extremity wounds. Vancomycin DC'd as blood culture is negative. Plan to treat for 10 days for diverticulitis, WBC gradually improving not yet wnl. . Adv to soft diet, Pt w/ no belly pain. Has loose stool today, add probiotic, send c diff. Hold bowel regimen. s/p Stress dose steroid; switched over to home dose. Continue to hold diuretics. Unable to determine the reason for patient being on Lasix. Will discontinue metolazone at discharge. Lasix as needed Right foot pain Reports pain on the right foot. Tenderness present around the midfoot and ankle X-ray of the foot do not show any fracture X-ray of the ankle do not show any fracture as well [id number] Tylenol Cam boot offered to the patient; patient rejected it. Ovarian cyst CT of the abdomen showed 4 cm left ovarian cyst. Gynecology consulted during admission; conservative management for the time being with monitor. Chronic conditions. PMRon prednisone at home; previously in stress dose steroids; switched over to home dose Hypothyroidismcontinue levothyroxine Hypertensioncontinue on Coreg DVT PPx-heparin Lines: 2 PIV FEN/GI: Allow regular diet, easy to chew CODE: DNR/DNI. Palliative care consulted earlier in hospitalization; patient was previously on hospice care prior to admission. Family had a bad experience with hospice at home. Prior attending discussed with patient's son over the matthew ne on May 16, 2023. Discussed about possibly exploring other hospice agency or looking to see if she will be able to go to rehab. Decision yet to be made about disposition. Appreciate case management input. Please note the above document was generated using voice recognition software. It may contain grammatical, syntax or spelling errors. Any formal questions or concerns about the content, text or information contained within the body of this dictation should be directly addressed to the provider for clarification (16) Anemia: Admission and Anticipated Discharge Date Admission Date: May 12, 2023 Subjective Patient seen and examined at bedside. Comfortable; not in distress. Denies fever, chills, chest pain, shortness of breath, abdominal pain or urinary symptoms. No significant overnight events. Pt does report her chronic pain at baseline. Pt w/ loose stools, will get c diff. Physical Exam Physical Exam: Constitutional: Awake, alert; appears comfortable. Respiratory: Decreased breath sound at bases Cardiovascular: RRR, no murmur, no edema Vessels: no JVD or carotid bruit Chest: normal inspection of chest Abdomen: Soft, nontender Musculoskeletal: Tenderness present in right midfoot and ankle Skin: no rashes, warm and dry normal turgor Neurologic: PERRL, EOMI, accommodation nl, no face palsy, no dysarthria CN's II- XI intact bilaterally and moves all extremities Results & Data Results & Data Vital Signs (Past 12 Hours) Vital Signs Temp Pulse Pulse Resp BP Pulse Ox O2 Del Method 05/19/23 15:41 56 L 05/19/23 11:20 36.6 C 57 L 18 132/83 98 Nasal Cannula 05/19/23 11:10 Nasal Cannula 05/19/23 08:21 36.6 C 58 L 18 165/98 H 96 Nasal Cannula 05/19/23 07:30 51 L 05/19/23 03:56 36.5 C 54 L 18 154/85 H 98 Nasal Cannula O2 Flow Rate 05/19/23 15:41 05/19/23 11:20 2 05/19/23 11:10 2 05/19/23 08:21 2 05/19/23 07:30 05/19/23 03:56 2 (1) Sepsis Sepsis acute organ dysfunction status: unspecified Sepsis type: sepsis due to unspecified organism Qualified Code(s): A41.9 - Sepsis, unspecified organism
[2023-05-19] MEDS: ADVANCED PROBIOTIC 625 MG CAPSULE PO SCH (18:19)
[2023-05-19] MEDS: LORazepam 0.5 MG TAB PO PRN (21:51)
[2023-05-20 05:02] LABS: Hematocrit (blood only) 25.7 % (37.0-47.0); Hemoglobin 7.6 g/dl (12.0-16.0); Mean Corpuscular Hemoglobin 23.2 pg (25.0-34.0); Mean Corpuscular Hgb Conc 29.6 g/dL (32.0-36.0); Mean Corpuscular Volume 78.4 fL (80.0-100.0); Mean Platelet Volume 9.5 fL (9.4-12.4); Platelet Count 435 K/uL (130-400); RDW Coefficient of Variation 17.2 % (11.5-14.5); RDW Standard Deviation 48.7 fL (36.4-46.3); Red Blood Count 3.28 M/uL (4.20-5.40); White Blood Count 12.16 K/ul (4.8-10.8)
[2023-05-20 05:20] LABS: BUN Creatinine Ratio 25.4 (10-20); Calcium 7.8 mg/dl (8.6-10.3); Creatinine Clr Calc Pharmacy 57.4 ml/min; Est GFR (African American) 92.2 ml/min; Est GFR (Non-African American) 79.6 ml/min; Magnesium 1.9 mg/dl (1.7-2.4); Phosphorus 2.6 mg/dl (2.5-4.9); Potassium 4.3 mmol/L (3.5-5.1)
[2023-05-20 10:15] LABS: Ferritin 79.2 ng/ml (8-388)
[2023-05-20 10:31] LABS: Folate (Folic Acid),Ser orPlas 11.25 ng/ml (>5.38)
[2023-05-20] MEDS: AMOXICILLIN/CLAVULANATE 875 MG TAB PO SCH (15:01)
--- NOTE | 2023-05-20 16:29 | Hospitalist Progress Note ---
Date of Service May 20, 2023 Assessment & Plan (1) Sepsis: (2) Hypoxia: (3) Acute renal failure: (4) RSV (respiratory syncytial virus infection): (5) Weakness: (6) Fall: (7) Leukocytosis: (8) PMR (polymyalgia rheumatica): (9) Aortic stenosis: (10) HTN (hypertension): (11) HLD (hyperlipidemia): (12) Osteoporosis: (13) Ovarian cyst, left: (14) Hypokalemia: (15) Chronic kidney disease (CKD), stage III (moderate): Plan: Sepsis POA RSV infection Possible sigmoid diverticulitis VENTURA on CKD Patient was admitted to the hospital due to frequent falls and abdominal pain/discomfort. Patient was previously on home hospice prior to presentation. Leukocytosis present on admission; improving CT chest reviewed; mild basal infiltrates CT abdomen pelvis showed possible early sigmoid diverticulitis RSV positive on BioFire Blood cultureno growth. Patient was started on Zosyn and vancomycin. Likely source of infection thought secondary to diverticulitis or lower extremity wounds. Vancomycin DC'd as blood culture is negative. Plan to treat for 10 days for diverticulitis, WBC gradually improving not yet wnl. Transition to Augmentin 05/19. Patient tolerating diet very well, Pt w/ no belly pain. Patient with no further loose stool. s/p Stress dose steroid; switched over to home dose. Continue to hold diuretics. Unable to determine the reason for patient being on Lasix. Will discontinue metolazone at discharge. Lasix as needed Right foot pain Reports pain on the right foot. Tenderness present around the midfoot and ankle X-ray of the foot do not show any fracture X-ray of the ankle do not show any fracture as well [id number] Tylenol Cam boot offered to the patient; patient rejected it. Ovarian cyst CT of the abdomen showed 4 cm left ovarian cyst. Gynecology consulted during admission; conservative management for the time being with monitor. Chronic conditions. PMRon prednisone at home; previously in stress dose steroids; switched over to home dose Hypothyroidismcontinue levothyroxine Hypertensioncontinue on Coreg DVT PPx-heparin Lines: 2 PIV FEN/GI: Allow regular diet, easy to chew CODE: DNR/DNI. Palliative care consulted earlier in hospitalization; patient was previously on hospice care prior to admission. Family had a bad experience with hospice at home. Prior attending discussed with patient's son over the phone on May 16, 2023. Discussed about possibly exploring other hospice agency or looking to see if she will be able to go to rehab. Decision yet to be made about disposition. Appreciate case management input. Please note the above document was generated using voice recognition software. It may contain grammatical, syntax or spelling errors. Any formal questions or concerns about the content, text or information contained within the body of this dictation should be directly addressed to the provider for clarification (16) Anemia: Admission and Anticipated Discharge Date Admission Date: May 12, 2023 Subjective Patient seen and examined at bedside. Comfortable; not in distress. Denies fever, chills, chest pain, shortness of breath, abdominal pain or urinary symptoms. No significant overnight events. Pt does report her chronic pain at baseline. Patient denies any further loose stools, reports eating better than she does at home. Physical Exam Physical Exam: Constitutional: Awake, alert; appears comfortable. Respiratory: Decreased breath sound at bases Cardiovascular: RRR, no murmur, no edema Vessels: no JVD or carotid bruit Chest: normal inspection of chest Abdomen: Soft, nontender Musculoskeletal: Tenderness present in right midfoot and ankle Skin: no rashes, warm and dry normal turgor Neurologic: PERRL, EOMI, accommodation nl, no face palsy, no dysarthria CN's II- XI intact bilaterally and moves all extremities Results & Data Results & Data Vital Signs (Past 12 Hours) Vital Signs Temp Pulse Pulse Resp BP Pulse Ox O2 Del Method 05/20/23 16:04 36.9 C 53 L 18 163/92 H 98 Nasal Cannula 05/20/23 15:34 56 L 05/20/23 12:23 36.9 C 61 18 149/85 H 96 Nasal Cannula 05/20/23 10:09 Nasal Cannula 05/20/23 07:41 36.8 C 60 20 155/95 H 96 Nasal Cannula 05/20/23 07:30 49 L O2 Flow Rate 05/20/23 16:04 2 05/20/23 15:34 05/20/23 12:23 2 05/20/23 10:09 2 05/20/23 07:41 2 05/20/23 07:30 (1) Sepsis Sepsis acute organ dysfunction status: unspecified Sepsis type: sepsis due to unspecified organism Qualified Code(s): A41.9 - Sepsis, unspecified organism
[2023-05-20] MEDS: FOLIC ACID 1 MG TAB PO SCH (18:04)
[2023-05-20] MEDS: CEROVITE ADV FORMULA TAB PO SCH (18:05)
[2023-05-21 05:36] LABS: Hemoglobin 8.1 g/dl (12.0-16.0); Mean Corpuscular Hemoglobin 23.5 pg (25.0-34.0); Mean Corpuscular Volume 78.5 fL (80.0-100.0); Mean Platelet Volume 9.6 fL (9.4-12.4); Platelet Count 462 K/uL (130-400); RDW Coefficient of Variation 17.4 % (11.5-14.5); RDW Standard Deviation 49.2 fL (36.4-46.3); Red Blood Count 3.44 M/uL (4.20-5.40); White Blood Count 14.24 K/ul (4.8-10.8)
[2023-05-21 05:53] LABS: BUN Creatinine Ratio 21.2 (10-20); Calcium 8.3 mg/dl (8.6-10.3); Creatinine Clr Calc Pharmacy 56.3 ml/min; Est GFR (African American) 92.7 ml/min; Magnesium 1.9 mg/dl (1.7-2.4); Phosphorus 2.7 mg/dl (2.5-4.9); Potassium 4.5 mmol/L (3.5-5.1)
--- NOTE | 2023-05-21 16:32 | Hospitalist Progress Note ---
Date of Service May 21, 2023 Assessment & Plan (1) Sepsis: (2) Hypoxia: (3) Acute renal failure: (4) RSV (respiratory syncytial virus infection): (5) Weakness: (6) Fall: (7) Leukocytosis: (8) PMR (polymyalgia rheumatica): (9) Aortic stenosis: (10) HTN (hypertension): (11) HLD (hyperlipidemia): (12) Osteoporosis: (13) Ovarian cyst, left: (14) Hypokalemia: (15) Chronic kidney disease (CKD), stage III (moderate): Plan: Sepsis POA RSV infection Possible sigmoid diverticulitis VENTURA on CKD Patient was admitted to the hospital due to frequent falls and abdominal pain/discomfort. Patient was previously on home hospice prior to presentation. Leukocytosis present on admission; improving CT chest reviewed; mild basal infiltrates CT abdomen pelvis showed possible early sigmoid diverticulitis RSV positive on BioFire Blood cultureno growth. Patient was started on Zosyn and vancomycin. Likely source of infection thought secondary to diverticulitis or lower extremity wounds. Vancomycin DC'd as blood culture is negative. Plan to treat for 10 days for diverticulitis, WBC gradually improving not yet wnl. Transitioned to Augmentin 05/19. Patient tolerating diet very well, Pt w/ no belly pain. Patient with no further loose stool. s/p Stress dose steroid; switched over to home dose. Continue to hold diuretics. Unable to determine the reason for patient being on Lasix. Will discontinue metolazone at discharge. Lasix as needed Right foot pain Reports pain on the right foot. Tenderness present around the midfoot and ankle X-ray of the foot do not show any fracture X-ray of the ankle do not show any fracture as well [id number] Tylenol Cam boot offered to the patient; patient rejected it. Ovarian cyst CT of the abdomen showed 4 cm left ovarian cyst. Gynecology consulted during admission; conservative management for the time being with monitor. Chronic conditions. PMRon prednisone at home; previously in stress dose steroids; switched over to home dose Hypothyroidismcontinue levothyroxine Hypertensioncontinue on Coreg DVT PPx-heparin Lines: 2 PIV FEN/GI: Allow regular diet, easy to chew CODE: DNR/DNI. Palliative care consulted earlier in hospitalization; patient was previously on hospice care prior to admission. Family had a bad experience with hospice at home. Prior attending discussed with patient's son over the phone on May 16, 2023. Discussed about possibly exploring other hospice agency or looking to see if she will be able to go to rehab. Decision yet to be made about disposition. Appreciate case management input. Please note the above document was generated using voice recognition software. It may contain grammatical, syntax or spelling errors. Any formal questions or concerns about the content, text or information contained within the body of this dictation should be directly addressed to the provider for clarification (16) Anemia: Admission and Anticipated Discharge Date Admission Date: May 12, 2023 Subjective Patient seen and examined at bedside. Comfortable; not in distress. Denies fever, chills, chest pain, shortness of breath, abdominal pain or urinary symptoms. No significant overnight events. Pt does report her chronic pain at baseline. Patient denies any further loose stools, reports eating better than she does at home. Physical Exam Physical Exam: Constitutional: Awake, alert; appears comfortable. Respiratory: Decreased breath sound at bases Cardiovascular: RRR, no murmur, no edema Vessels: no JVD or carotid bruit Chest: normal inspection of chest Abdomen: Soft, nontender Musculoskeletal: Tenderness present in right midfoot and ankle Skin: no rashes, warm and dry normal turgor Neurologic: PERRL, EOMI, accommodation nl, no face palsy, no dysarthria CN's II- XI intact bilaterally and moves all extremities Results & Data Results & Data Vital Signs (Past 12 Hours) Vital Signs Temp Pulse Pulse Resp BP Pulse Ox O2 Del Method 05/21/23 16:20 37.1 C 67 18 161/90 H 96 Room Air 05/21/23 11:23 36.6 C 58 L 18 156/87 H 97 Nasal Cannula 05/21/23 08:26 36.6 C 58 L 20 142/86 H 97 Nasal Cannula 05/21/23 08:12 Nasal Cannula 05/21/23 07:30 65 O2 Flow Rate 05/21/23 16:20 05/21/23 11:23 2 05/21/23 08:26 2 05/21/23 08:12 1 05/21/23 07:30 (1) Sepsis Sepsis acute organ dysfunction status: unspecified Sepsis type: sepsis due to unspecified organism Qualified Code(s): A41.9 - Sepsis, unspecified organism
[2023-05-22 05:49] LABS: Hematocrit (blood only) 29.9 % (37.0-47.0); Hemoglobin 8.8 g/dl (12.0-16.0); Mean Corpuscular Hgb Conc 29.4 g/dL (32.0-36.0); Mean Corpuscular Volume 78.3 fL (80.0-100.0); Mean Platelet Volume 9.8 fL (9.4-12.4); Platelet Count 535 K/uL (130-400); RDW Coefficient of Variation 17.6 % (11.5-14.5); RDW Standard Deviation 48.5 fL (36.4-46.3); Red Blood Count 3.82 M/uL (4.20-5.40); White Blood Count 13.85 K/ul (4.8-10.8)
[2023-05-22 05:52] LABS: BUN Creatinine Ratio 18.8 (10-20); Calcium 8.9 mg/dl (8.6-10.3); Creatinine Clr Calc Pharmacy 52.9 ml/min; Est GFR (African American) 91.4 ml/min; Est GFR (Non-African American) 78.8 ml/min; Potassium 4.5 mmol/L (3.5-5.1)
--- NOTE | 2023-05-22 15:46 | Hospitalist Progress Note ---
Date of Service May 22, 2023 Assessment & Plan (1) Sepsis: (2) Hypoxia: (3) Acute renal failure: (4) RSV (respiratory syncytial virus infection): (5) Weakness: (6) Fall: (7) Leukocytosis: (8) PMR (polymyalgia rheumatica): (9) Aortic stenosis: (10) HTN (hypertension): (11) HLD (hyperlipidemia): (12) Osteoporosis: (13) Ovarian cyst, left: (14) Hypokalemia: (15) Chronic kidney disease (CKD), stage III (moderate): Plan: Sepsis POA RSV infection Possible sigmoid diverticulitis VENTURA on CKD Patient was admitted to the hospital due to frequent falls and abdominal pain/discomfort. Patient was previously on home hospice prior to presentation. Leukocytosis present on admission; improving CT chest reviewed; mild basal infiltrates CT abdomen pelvis showed possible early sigmoid diverticulitis RSV positive on BioFire Blood cultureno growth. Patient was started on Zosyn and vancomycin. Likely source of infection thought secondary to diverticulitis or lower extremity wounds. Vancomycin DC'd as blood culture is negative. Plan to treat for 10 days for diverticulitis-transitioned to Augmentin 05/19. Patient tolerating diet very well, Pt w/ no belly pain. Patient with no further loose stool. s/p Stress dose steroid; switched over to home dose. Right foot pain Reports pain on the right foot. Tenderness present around the midfoot and ankle X-ray of the foot do not show any fracture X-ray of the ankle do not show any fracture as well [id number] Tylenol Cam boot offered to the patient; patient rejected it. H/O Chr Diastolic CHF: per OP chart review 05/21, pt on lasix 80 mg daily and coreg 25 mg bid. Pt noted taking 12.5 mg bid coreg at home. Will give her iv lasix today, ble edema noted. Monitor electrolytes/replete. Ovarian cyst CT of the abdomen showed 4 cm left ovarian cyst. Gynecology consulted during admission; conservative management for the time being with monitor. Chronic conditions. PMRon prednisone at home; previously in stress dose steroids; switched over to home dose Hypothyroidismcontinue levothyroxine Hypertensioncontinue on Coreg DVT PPx-heparin Lines: 2 PIV FEN/GI: Allow regular diet, easy to chew CODE: DNR/DNI. Palliative care consulted earlier in hospitalization; patient was previously on hospice care prior to admission. Family had a bad experience with hospice at home. Prior attending discussed with patient's son over the phone on May 16, 2023. Discussed about possibly exploring other hospice agency or looking to see if she will be able to go to rehab. Decision yet to be made about disposition. Appreciate case management input. Please note the above document was generated using voice recognition software. It may contain grammatical, syntax or spelling errors. Any formal questions or concerns about the content, text or information contained within the body of this dictation should be directly addressed to the provider for clarification (16) Anemia: Admission and Anticipated Discharge Date Admission Date: May 12, 2023 Subjective Patient seen and examined at bedside. Comfortable; not in distress. Denies fever, chills, chest pain, shortness of breath, abdominal pain or urinary symptoms. No significant overnight events. Pt does report her chronic pain at baseline. Patient denies any further loose stools, reports eating better than she does at home. Physical Exam Physical Exam: Constitutional: Awake, alert; appears comfortable. Respiratory: Decreased breath sound at bases Cardiovascular: RRR, no murmur, 1-2+ ble edema Vessels: no JVD or carotid bruit Chest: normal inspection of chest Abdomen: Soft, nontender Musculoskeletal: Tenderness present in right midfoot and ankle Skin: no rashes, warm and dry normal turgor Neurologic: PERRL, EOMI, accommodation nl, no face palsy, no dysarthria CN's II- XI intact bilaterally and moves all extremities Results & Data Results & Data Vital Signs (Past 12 Hours) Vital Signs Temp Pulse Pulse Pulse Resp BP Pulse Ox 05/22/23 11:54 36.5 C 63 18 115/70 91 05/22/23 08:00 67 05/22/23 08:00 05/22/23 07:43 36.8 C 67 18 157/90 H 93 05/22/23 05:01 36.6 C 88 18 158/95 H 93 05/22/23 04:53 36.5 C 78 16 148/80 H 94 O2 Del Method 05/22/23 11:54 Room Air 05/22/23 08:00 05/22/23 08:00 Room Air 05/22/23 07:43 Room Air 05/22/23 05:01 Room Air 05/22/23 04:53 Room Air (1) Sepsis Sepsis acute organ dysfunction status: unspecified Sepsis type: sepsis due to unspecified organism Qualified Code(s): A41.9 - Sepsis, unspecified organism
[2023-05-22] MEDS: FUROSEMIDE 40 MG/4 ML VIAL IV ONE (16:54)
[2023-05-23 06:33] LABS: Hematocrit (blood only) 29.4 % (37.0-47.0); Hemoglobin 8.8 g/dl (12.0-16.0); Mean Corpuscular Hgb Conc 29.9 g/dL (32.0-36.0); Mean Platelet Volume 9.8 fL (9.4-12.4); Platelet Count 546 K/uL (130-400); RDW Coefficient of Variation 17.8 % (11.5-14.5); RDW Standard Deviation 47.9 fL (36.4-46.3); Red Blood Count 3.82 M/uL (4.20-5.40); White Blood Count 11.35 K/ul (4.8-10.8)
[2023-05-23 06:59] LABS: BUN Creatinine Ratio 16.5 (10-20); Calcium 8.8 mg/dl (8.6-10.3); Est GFR (African American) 71.9 ml/min; Magnesium 1.9 mg/dl (1.7-2.4); Potassium 4.7 mmol/L (3.5-5.1)
[2023-05-23] MEDS: FUROSEMIDE 40 MG/4 ML VIAL IV ONE (09:52)
--- NOTE | 2023-05-23 15:28 | Hospitalist Progress Note ---
Date of Service May 23, 2023 Assessment & Plan (1) Sepsis: (2) Hypoxia: (3) Acute renal failure: (4) RSV (respiratory syncytial virus infection): (5) Weakness: (6) Fall: (7) Leukocytosis: (8) PMR (polymyalgia rheumatica): (9) Aortic stenosis: (10) HTN (hypertension): (11) HLD (hyperlipidemia): (12) Osteoporosis: (13) Ovarian cyst, left: (14) Hypokalemia: (15) Chronic kidney disease (CKD), stage III (moderate): Plan: Sepsis POA RSV infection Possible sigmoid diverticulitis VENTURA on CKD Patient was admitted to the hospital due to frequent falls and abdominal pain/discomfort. Patient was previously on home hospice prior to presentation. Leukocytosis present on admission; improving CT chest reviewed; mild basal infiltrates CT abdomen pelvis showed possible early sigmoid diverticulitis RSV positive on BioFire Blood cultureno growth. Patient was started on Zosyn and vancomycin. Likely source of infection thought secondary to diverticulitis or lower extremity wounds. Vancomycin DC'd as blood culture is negative. s/p 10 days atb rx for diverticulitis. Patient tolerating diet very well, Pt w/ no belly pain. Patient with no further loose stool. s/p Stress dose steroid; switched over to home dose. Right foot pain Reports pain on the right foot. Tenderness present around the midfoot and ankle X-ray of the foot do not show any fracture X-ray of the ankle do not show any fracture as well [id number] Tylenol Cam boot offered to the patient; patient rejected it. Pt requests compression stocking to rle, ordered. H/O Chr Diastolic CHF: per OP chart review 05/21, pt on lasix 80 mg daily and coreg 25 mg bid. Pt noted taking 12.5 mg bid coreg at home. Will give her iv lasix again today, ble edema stable. Monitor electrolytes/replete. Ovarian cyst CT of the abdomen showed 4 cm left ovarian cyst. Gynecology consulted during admission; conservative management for the time being with monitor. Chronic conditions. PMRon prednisone at home; previously in stress dose steroids; switched over to home dose Hypothyroidismcontinue levothyroxine Hypertensioncontinue on Coreg DVT PPx-heparin Lines: 2 PIV FEN/GI: Allow regular diet, easy to chew CODE: DNR/DNI. Palliative care consulted earlier in hospitalization; patient was previously on hospice care prior to admission. Family had a bad experience with hospice at home. Prior attending discussed with patient's son over the phone on May 16, 2023. Discussed about possibly exploring other hospice agency or looking to see if she will be able to go to rehab. Decision yet to be made about disposition. Appreciate case management input. Please note the above document was generated using voice recognition software. It may contain grammatical, syntax or spelling errors. Any formal questions or concerns about the content, text or information contained within the body of this dictation should be directly addressed to the provider for clarification (16) Anemia: Admission and Anticipated Discharge Date Admission Date: May 12, 2023 Subjective Patient seen and examined at bedside. Comfortable; not in distress. Denies fever, chills, chest pain, shortness of breath, abdominal pain or urinary symptoms. No significant overnight events. Pt does report her chronic pain at baseline. Pt requests compression stocking to rle. Patient denies any further loose stools, reports eating better than she does at home. Physical Exam Physical Exam: Constitutional: Awake, alert; appears comfortable. Respiratory: Decreased breath sound at bases Cardiovascular: RRR, no murmur, 1-2+ ble edema Vessels: no JVD or carotid bruit Chest: normal inspection of chest Abdomen: Soft, nontender Musculoskeletal: Tenderness present in right midfoot and ankle Skin: no rashes, warm and dry normal turgor Neurologic: PERRL, EOMI, accommodation nl, no face palsy, no dysarthria CN's II- XI intact bilaterally and moves all extremities Results & Data Results & Data Vital Signs (Past 12 Hours) Vital Signs Temp Pulse Pulse Resp BP BP Pulse Ox 05/23/23 15:10 75 05/23/23 11:11 36.5 C 81 22 99/63 L 96 05/23/23 09:16 69 05/23/23 07:31 36.7 C 64 18 119/61 94 05/23/23 04:10 36.9 C 62 16 127/87 94 O2 Del Method 05/23/23 15:10 05/23/23 11:11 Room Air 05/23/23 09:16 05/23/23 07:31 Room Air 05/23/23 04:10 Room Air (1) Sepsis Sepsis acute organ dysfunction status: unspecified Sepsis type: sepsis due to unspecified organism Qualified Code(s): A41.9 - Sepsis, unspecified organism
[2023-05-24 05:55] LABS: BUN Creatinine Ratio 17.2 (10-20); Calcium 8.9 mg/dl (8.6-10.3); Creatinine Clr Calc Pharmacy 31.5 ml/min; Est GFR (African American) 49.4 ml/min; Est GFR (Non-African American) 42.6 ml/min; Magnesium 1.9 mg/dl (1.7-2.4); Potassium 5.1 mmol/L (3.5-5.1)
--- NOTE | 2023-05-24 14:48 | Hospitalist Progress Note ---
Date of Service May 24, 2023 Assessment & Plan (1) Sepsis: (2) Hypoxia: (3) Acute renal failure: (4) RSV (respiratory syncytial virus infection): (5) Weakness: (6) Fall: (7) Leukocytosis: (8) PMR (polymyalgia rheumatica): (9) Aortic stenosis: (10) HTN (hypertension): (11) HLD (hyperlipidemia): (12) Osteoporosis: (13) Ovarian cyst, left: (14) Hypokalemia: (15) Chronic kidney disease (CKD), stage III (moderate): Plan: Sepsis POA RSV infection Possible sigmoid diverticulitis VENTURA on CKD Patient was admitted to the hospital due to frequent falls and abdominal pain/discomfort. Patient was previously on home hospice prior to presentation. Leukocytosis present on admission; improving CT chest reviewed; mild basal infiltrates CT abdomen pelvis showed possible early sigmoid diverticulitis RSV positive on BioFire Blood cultureno growth. Patient was started on Zosyn and vancomycin. Likely source of infection thought secondary to diverticulitis or lower extremity wounds. Vancomycin DC'd as blood culture is negative. s/p 10 days atb rx for diverticulitis. Patient tolerating diet very well, Pt w/ no belly pain. Patient with no further loose stool. s/p Stress dose steroid; switched over to home dose. Right foot pain Reports pain on the right foot. Tenderness present around the midfoot and ankle X-ray of the foot do not show any fracture X-ray of the ankle do not show any fracture as well [id number] Tylenol Cam boot offered to the patient; patient rejected it. Pt requests compression stocking to rle, ordered but couldn't wear it. H/O Chr Diastolic CHF: per OP chart review 05/21, pt on lasix 80 mg daily and coreg 25 mg bid. Now w/ coreg 12.5 mg bid coreg, soft BP. Will give her iv lasix again today with iv albumin as soft BP, ble edema stable. Monitor electrolytes/replete. Elevate LLE. Consider decreasing coreg in favor of diuresis if BP continues to remain soft. Ovarian cyst CT of the abdomen showed 4 cm left ovarian cyst. Gynecology consulted during admission; conservative management for the time being with monitor. Chronic conditions. PMRon prednisone at home; previously in stress dose steroids; switched over to home dose Hypothyroidismcontinue levothyroxine Hypertensioncontinue on Coreg DVT PPx-heparin Lines: 2 PIV FEN/GI: Allow regular diet, easy to chew CODE: DNR/DNI. Palliative care consulted earlier in hospitalization; patient was previously on hospice care prior to admission. Family had a bad experience with hospice at home. Prior attending discussed with patient's son over the phone on May 16, 2023. Discussed about possibly exploring other hospice agency or looking to see if she will be able to go to rehab. Decision yet to be made about disposition. Appreciate case management input. Dispo: next 1-2 days pending improving trend on LE edema. Please note the above document was generated using voice recognition software. It may contain grammatical, syntax or spelling errors. Any formal questions or concerns about the content, text or information contained within the body of this dictation should be directly addressed to the provider for clarification (16) Anemia: Admission and Anticipated Discharge Date Admission Date: May 12, 2023 Subjective Patient seen and examined at bedside. Comfortable; not in distress. Denies fever, chills, chest pain, shortness of breath, abdominal pain or urinary symptoms. No significant overnight events. Pt does report her chronic pain at baseline. Pt requests compression stocking to rle. Patient denies any further loose stools, reports eating better than she does at home. Physical Exam Physical Exam: Constitutional: Awake, alert; appears comfortable. Respiratory: Decreased breath sound at bases Cardiovascular: RRR, no murmur, 2+ ble edema Vessels: no JVD or carotid bruit Chest: normal inspection of chest Abdomen: Soft, nontender Musculoskeletal: Tenderness present in right midfoot and ankle Skin: no rashes, warm and dry normal turgor Neurologic: PERRL, EOMI, accommodation nl, no face palsy, no dysarthria CN's II- XI intact bilaterally and moves all extremities Results & Data Results & Data Vital Signs (Past 12 Hours) Vital Signs Temp Pulse Pulse Pulse Resp BP Pulse Ox 05/24/23 11:21 36.7 C 63 18 99/65 L 94 05/24/23 10:00 73 05/24/23 07:36 36.5 C 69 17 106/71 95 05/24/23 03:25 36.6 C 78 20 132/78 94 O2 Del Method 05/24/23 11:21 Room Air 05/24/23 10:00 03/12/24 07:36 Room Air 05/24/23 03:25 Room Air (1) Sepsis Sepsis acute organ dysfunction status: unspecified Sepsis type: sepsis due to unspecified organism Qualified Code(s): A41.9 - Sepsis, unspecified organism
[2023-05-24] MEDS: ALBUMIN 25% 25 GM/100 ML VIAL IV ONE (15:04)
[2023-05-24] MEDS: FUROSEMIDE 40 MG/4 ML VIAL IV ONE (15:04)
[2023-05-25 03:54] LABS: Calcium 9.2 mg/dl (8.6-10.3); Creatinine Clr Calc Pharmacy 27.1 ml/min; Est GFR (African American) 41.1 ml/min; Est GFR (Non-African American) 35.5 ml/min; Magnesium 2.2 mg/dl (1.7-2.4); Phosphorus 4.3 mg/dl (2.5-4.9); Potassium 5.3 mmol/L (3.5-5.1)
[2023-05-25] MEDS: FUROSEMIDE 40 MG/4 ML VIAL IV ONE (16:14)
--- NOTE | 2023-05-25 17:11 | Hospitalist Progress Note ---
Date of Service May 25, 2023 Assessment & Plan (1) Sepsis: (2) Hypoxia: (3) Acute renal failure: (4) RSV (respiratory syncytial virus infection): (5) Weakness: (6) Fall: (7) Leukocytosis: (8) PMR (polymyalgia rheumatica): (9) Aortic stenosis: (10) HTN (hypertension): (11) HLD (hyperlipidemia): (12) Osteoporosis: (13) Ovarian cyst, left: (14) Hypokalemia: (15) Chronic kidney disease (CKD), stage III (moderate): Plan: Sepsis POA RSV infection Possible sigmoid diverticulitis VENTURA on CKD Patient was admitted to the hospital due to frequent falls and abdominal pain/discomfort. Patient was previously on home hospice prior to presentation. Leukocytosis present on admission CT chest reviewed; mild basal infiltrates CT abdomen pelvis showed possible early sigmoid diverticulitis RSV positive on BioFire Blood cultureno growth. Patient was started on Zosyn and vancomycin. Likely source of infection thought secondary to diverticulitis or lower extremity wounds. Vancomycin DC'd as blood culture is negative. Completed 10 days of antibiotics for diverticulitis. Patient tolerating diet very well Received stress dose steroid; now back to home dose. Right foot pain Had reported pain on the right foot. X-ray of the foot do not show any fracture X-ray of the ankle do not show any fracture as well Continue scheduled tylenol Tramadol prn mild to moderate pain Cam boot had been offered to the patient but she declined H/O Chr Diastolic CHF: Per OP chart review 05/21, pt on lasix 80 mg daily and coreg 25 mg bid. Continue coreg Give IV lasix 40mg today Cr today is 1.35. Baseline is 1-1.2 Monitor renal function and electrolytes If Cr trends up, will consult Nephro to aid with diuresis and management of renal function Elevate LLE. Ovarian cyst CT of the abdomen showed 4 cm left ovarian cyst. Gynecology consulted during admission; conservative management for the time being with monitor. Chronic conditions. PMRon prednisone at home; previously in stress dose steroids; Now back to home dose Hypothyroidismcontinue levothyroxine Hypertensioncontinue on Coreg DVT PPx-heparin Lines: 2 PIV FEN/GI: Allow regular diet, easy to chew CODE: DNR/DNI. Palliative care consulted earlier in hospitalization; patient was previously on hospice care prior to admission. Family had a bad experience with hospice at home. Prior attending discussed with patient's son over the phone on May 16, 2023. CM working on dispo I spent a total of 50 minutes coordinating, documenting and providing care for this patient excluding time spent in performance of separately billed services (16) Anemia: Admission and Anticipated Discharge Date Admission Date: May 12, 2023 Subjective Patient seen and examined. Reports bilateral leg swelling and pain from swelling Reports some mild cough. Denies any chest pain, shortness of breath, nausea, vomiting, abdominal pain, diarrhea. Denies any fevers or chills Physical Exam Constitutional: + well hydrated; no acute distress Eyes: PERRL, conjunctivae normal, anicteric sclerae ENMT: external ear and nose normal, oropharynx normal Respiratory: normal respiratory effort, lungs clear to auscultation Cardiovascular: Rate/Rhythm: regular rate and regular rhythm S1-S2 Gastrointestinal (Abdomen): normal bowel sounds, soft, nontender, no hepatosplenomegaly Musculoskeletal: Bilateral pedal edema Neurologic: PERRL, EOMI, accommodation nl, no face palsy, no dysarthria Psychiatric: A+Ox3, euthymic affect Results & Data Results & Data Vital Signs (Past 12 Hours) Vital Signs Temp Pulse Pulse Resp BP Pulse Ox O2 Del Method 05/25/23 16:15 36.8 C 83 105/62 97 Room Air 05/25/23 12:09 36.6 C 78 18 106/62 95 Room Air 05/25/23 09:30 Room Air 05/25/23 07:30 36.7 C 72 16 122/72 97 Room Air 05/25/23 07:27 67 Laboratory Results Abnormal lab results 05/25/23 Range/Units 03:11 Potassium 5.3 H (3.5-5.1) mmol/L Creatinine 1.35 H (0.6-1.2) mg/dl (1) Sepsis Sepsis acute organ dysfunction status: unspecified Sepsis type: sepsis due to unspecified organism Qualified Code(s): A41.9 - Sepsis, unspecified organism
[2023-05-25] MEDS: traMADol HCL 50 MG TABLET PO PRN (20:33)
[2023-05-26 06:02] LABS: Hematocrit (blood only) 27.1 % (37.0-47.0); Hemoglobin 8.1 g/dl (12.0-16.0); Mean Corpuscular Hemoglobin 23.1 pg (25.0-34.0); Mean Corpuscular Hgb Conc 29.9 g/dL (32.0-36.0); Mean Corpuscular Volume 77.4 fL (80.0-100.0); Mean Platelet Volume 9.4 fL (9.4-12.4); Platelet Count 521 K/uL (130-400); RDW Coefficient of Variation 18.9 % (11.5-14.5); White Blood Count 16.18 K/ul (4.8-10.8)
[2023-05-26 06:17] LABS: BUN Creatinine Ratio 19.7 (10-20); Calcium 9.2 mg/dl (8.6-10.3); Creatinine Clr Calc Pharmacy 28.8 ml/min; Est GFR (African American) 44.3 ml/min; Est GFR (Non-African American) 38.2 ml/min; Magnesium 2.2 mg/dl (1.7-2.4); Phosphorus 4.4 mg/dl (2.5-4.9)
[2023-05-26] MEDS: FUROSEMIDE 40 MG/4 ML VIAL IV ONE (09:26)
[2023-05-26] MEDS: FUROSEMIDE 40 MG/4 ML VIAL IV SCH ×2 (09:37→15:23)
--- NOTE | 2023-05-26 12:26 | Hospitalist Progress Note ---
Date of Service May 26, 2023 Assessment & Plan (1) Sepsis: (2) Hypoxia: (3) Acute renal failure: (4) RSV (respiratory syncytial virus infection): (5) Weakness: (6) Fall: (7) Leukocytosis: (8) PMR (polymyalgia rheumatica): (9) Aortic stenosis: (10) HTN (hypertension): (11) HLD (hyperlipidemia): (12) Osteoporosis: (13) Ovarian cyst, left: (14) Hypokalemia: (15) Chronic kidney disease (CKD), stage III (moderate): Plan: Sepsis POA RSV infection Possible sigmoid diverticulitis VENTURA on CKD Patient was admitted to the hospital due to frequent falls and abdominal pain/discomfort. Patient was previously on home hospice prior to presentation. CT chest reviewed; mild basal infiltrates CT abdomen pelvis showed possible early sigmoid diverticulitis RSV positive on BioFire Blood cultureno growth. Patient was started on Zosyn and vancomycin. Likely source of infection thought secondary to diverticulitis or lower extremity wounds. Vancomycin DC'd as blood culture is negative. Completed 10 days of antibiotics for diverticulitis. Patient tolerating diet very well Received stress dose steroid; now back to home dose. Right foot pain Had reported pain on the right foot. X-ray of the foot do not show any fracture X-ray of the ankle do not show any fracture as well Continue scheduled tylenol Tramadol prn mild to moderate pain Cam boot were offered to the patient but she declined Also declined compression socks at this time for swelling H/O Chr Diastolic CHF: VENTURA Worsening fluid retention Per OP chart review 05/21, pt on lasix 80 mg daily and coreg 25 mg bid. TTE from 05/13/23 noted 65-70, mild conc LVH, mod to borderline severe aortic stenois, mild MR, small loculated posterior pericardial effusion with moderate organization, no tamponade Continue coreg Cr today is 1.27. Baseline is 1-1.2 Started on IV lasix 40mg BID Nephrology consulted Monitor renal function and electrolytes Home po potassium stopped for now Elevate LLE. Ovarian cyst CT of the abdomen showed 4 cm left ovarian cyst. Gynecology consulted during admission; conservative management for the time being with monitor. Chronic conditions. PMRon prednisone at home; previously in stress dose steroids; Now back to home dose Hypothyroidismcontinue levothyroxine Hypertensioncontinue on Coreg DVT PPx-heparin Lines: 2 PIV FEN/GI: Allow regular diet, easy to chew CODE: DNR/DNI. Palliative care consulted earlier in hospitalization; patient was previously on hospice care prior to admission. Family had a bad experience with hospice at home. Prior attending discussed with patient's son over the phone on May 16, 2023. CM working on dispo when stable for dc I spent a total of 50 minutes coordinating, documenting and providing care for this patient excluding time spent in performance of separately billed services (16) Anemia: Admission and Anticipated Discharge Date Admission Date: May 12, 2023 Subjective Patient seen and examined. No new complaints Reports bilateral leg swelling and pain from swelling Denied any cough Denies any chest pain, shortness of breath, nausea, vomiting, abdominal pain, diarrhea. Denies any fevers or chills Physical Exam Constitutional: + well hydrated; no acute distress Eyes: PERRL, conjunctivae normal, anicteric sclerae ENMT: external ear and nose normal, oropharynx normal Respiratory: normal respiratory effort, lungs clear to auscultation Cardiovascular: Rate/Rhythm: regular rate and regular rhythm S1 S2 Gastrointestinal (Abdomen): normal bowel sounds, soft, nontender, no hepatosplenomegaly Musculoskeletal: Bilateral pedal edema Neurologic: PERRL, EOMI, accommodation nl, no face palsy, no dysarthria Psychiatric: A+Ox3, euthymic affect Results & Data Results & Data Vital Signs (Past 12 Hours) Vital Signs Temp Pulse Pulse Resp BP Pulse Ox O2 Del Method 05/26/23 12:09 36.5 C 76 18 96/63 L 94 Room Air 05/26/23 07:36 37.3 C 76 18 110/72 94 Room Air 05/26/23 07:26 69 05/26/23 03:48 37.3 C 80 16 103/58 L 96 Room Air Laboratory Results Abnormal lab results 05/26/23 Range/Units 05:26 WBC 16.18 H (4.8-10.8) K/ul RBC 3.50 L (4.20-5.40) M/uL Hgb 8.1 L (12.0-16.0) g/dl Hct 27.1 L (37.0-47.0) % MCV 77.4 L (80.0-100.0) fL MCH 23.1 L (25.0-34.0) pg MCHC 29.9 L (32.0-36.0) g/dL RDW Std Deviation 51.0 H (36.4-46.3) fL RDW Coeff of Mary 18.9 H (11.5-14.5) % Plt Count 521 H (130-400) K/uL BUN 25 H (6-23) mg/dl Creatinine 1.27 H (0.6-1.2) mg/dl (1) Sepsis Sepsis acute organ dysfunction status: unspecified Sepsis type: sepsis due to unspecified organism Qualified Code(s): A41.9 - Sepsis, unspecified organism (3) Acute renal failure Acute renal failure type: unspecified Qualified Code(s): N17.9 - Acute kidney failure, unspecified
--- NOTE | 2023-05-26 14:41 | Nephrology Consultation ---
Date of Consultation May 26, 2023 Assessment & Plan (1) Acute renal failure: pre admission had creat in the low 1's. had VENTURA on Admission creat was 1.99 but then dropped down to 0.6 but now rising again co-inciding with iv lasix. NO proteinuria. But do need to check UA and prot/creat again. (2) RSV (respiratory syncytial virus infection): Noted. (3) Worsening body fluid retention: (4) Aortic stenosis: Moderate to severe type Aortic Stenosis. Whether this is the cause of edema is not clear. She does have lot of edema but could be more lymphedema. for now ok to continue iv lasix. In fact her urine was only 1300 ml. So can raise the dose to 40 iv q8hr. Check for proteinuria. I did review her ECHO--has Aortic Stenosis otherwise heart looks fine. She will have sig edema. Trying to make her edema free will make her creat get really high K is getting higher so will Stop KCl Supplement. History of Present Illness Reason for Consultation: Diuretics management in [facility]A Attending Physician: Olivia Mcintosh MD History of Present Illness 87/F admitted 05/12/2023--2 weeks ago. She has HTN, chronic diastolic CHF, polymyalgia rheumatica, nonrheumatic aortic valve stenosis, CKD stage III ( baseline creat low 1's) , HLD, vitamin D deficiency, osteoporosis who was recent ly transitioned to hospice care. She presented 2 weeks ago from home by being brought EMS as her family states she was too weak and continues to fall at home. has been Seen by palliative med. On Admission had creat of 1.99 which then improved all the way to 0.6 but now rising for last few days. However Creat is down from 1.35 to 1.27 overnight. She has massive edema ( not new) and is now getting some Iv lasix takes lasix and weekly metolazone at home. Now +ve for RSV and major increase in edema. ROS--Says no SOB but has lot of edema. Denies Other Complaints. 12 Systems reviewed and negative Physical Exam Physical Exam: Constitutional: Awake, alert; appears comfortable. Respiratory: Decreased breath sound at bases Cardiovascular: RRR, no murmur, 3+ ble edema with Chronic Skin changes and blisters.no JVD or carotid bruit Chest: normal inspection of chest Abdomen: Soft, nontender Musculoskeletal: Tenderness present in right midfoot and ankle Neurologic: PERRL, EOMI, accommodation nl, no face palsy, no dysarthria CN's II- XI intact bilaterally and moves all extremities Allergies Allergy/AdvReac Type Severity Reaction Status Date / Time clarithromycin AdvReac Intermediate GI SYMPTOMS Verified 04/15/15 12:56 adhesive AdvReac Rash Verified 05/12/23 16:08 Home Medications Medication Instructions Recorded Confirmed Type Hydrocodone/Acetaminophen 1 tab PO Q6H PRN Pain #0 tabs 04/24/15 05/12/23 History 5MG/325MG ([place] 5MG/325MG) LEVOTHYROXINE SODIUM (SYNTHROID) 75 mg PO QAM 30 days #30 tabs 04/24/15 05/12/23 History Prednisone 5 mg PO DAILY #0 tabs 04/24/15 05/12/23 History Furosemide (Lasix) See Rx Instructions .Route 12/03/15 05/12/23 History .COMPLEX #0 tabs Sertraline (Zoloft) 100 mg PO DAILY #0 tabs 02/13/16 05/12/23 History acetaminophen 650 mg 650 mg PO Q8H PRN Fever Or Pain 05/12/23 05/12/23 History tablet,extended release carvedilol 25 mg tablet 12.5 mg PO BID 05/12/23 05/12/23 History ferrous sulfate 325 mg (65 mg 325 mg PO DAILY 05/12/23 05/12/23 History iron) tablet metolazone 5 mg tablet 5 mg PO .Tuesday05/12/23 05/12/23 History potassium chloride 20 mEq 20 meq PO UD 05/12/23 05/12/23 History tablet,extended release Patient History Medical History Chronic kidney disease (CKD), stage III (moderate) Ovarian cyst, left Osteoporosis Aortic stenosis HLD (hyperlipidemia) HTN (hypertension) PMR (polymyalgia rheumatica) Surgical History History of cholecystectomy Hx of appendectomy Family History Mother Diabetes Brother Heart disease Social History Smoking Status: Never smoker Hx Alcohol Use: No Hx Substance Use: No Preferred Language: Y[place] [employer] Required: No Beliefs That Will Affect Care: None Current Living Situation: Alone Feels Safe at Home: Yes Safety Concerns: Feels Safe At This Time Assistive Devices: Walker Results & Data Vital Signs (Past 12 Hours) Vital Signs Temp Pulse Pulse Resp BP Pulse Ox O2 Del Method 05/26/23 12:09 36.5 C 76 18 96/63 L 94 Room Air 05/26/23 07:36 37.3 C 76 18 110/72 94 Room Air 05/26/23 07:26 69 05/26/23 03:48 37.3 C 80 16 103/58 L 96 Room Air Laboratory Results reviewed Diagnostic Findings Reviewed. (1) Acute renal failure Acute renal failure type: unspecified Qualified Code(s): N17.9 - Acute kidney failure, unspecified
[2023-05-26 18:27] LABS: Appearance Urine Clear (Clear); Bacteria Urine Automated Negative (Negative); Bilirubin Urine Negative (Negative); Blood Urine 2+ (Negative); Color Urine Yellow; Epithelial Cell Urine Auto 0-5 /lpf (0-5); Glucose Urine UA Negative (Negative); Ketones Urine Negative (Negative); Leukocyte Esterase Urine 3+ (Negative); Nitrite Urine Positive (Negative); Protein Urine Negative (Negative); Specific Gravity Urine 1.007 (1.000-1.030); Urobilinogen Urine Negative (Negative); WBC Urine Automated >30 /hpf (0-5)
[2023-05-26 18:52] LABS: Creatinine Urine Random 24.1 mg/dl; Protein Creatinine Ratio Urine 0.2 (0-0.2); Total Protein Urine Random 5.8 mg/dl (0-11.9)
[2023-05-27 06:33] LABS: BUN Creatinine Ratio 20.5 (10-20); Creatinine Clr Calc Pharmacy 22.4 ml/min; Est GFR (African American) 33.2 ml/min; Est GFR (Non-African American) 28.7 ml/min; Magnesium 2.3 mg/dl (1.7-2.4); Phosphorus 5.7 mg/dl (2.5-4.9); Potassium 4.6 mmol/L (3.5-5.1)
--- NOTE | 2023-05-27 09:56 | Nephrology Progress Note ---
Date of Service May 27, 2023 Assessment & Plan Admission and Anticipated Discharge Date Admission Date: May 12, 2023 Subjective Assessment & Plan (1) Acute renal failure: pre admission had creat in the low 1's. had V[facility] on Admission creat was 1.99 but then dropped down to 0.6 but now rising again co-inciding with iv lasix. NO proteinuria. (2) RSV (respiratory syncytial virus infection): Noted. (3) Worsening body fluid retention: (4) Aortic stenosis: Moderate to severe type Aortic Stenosis. Whether this is the cause of edema is not clear. She does have lot of edema but could be more lymphedema. for now ok to continue iv lasix. In fact her urine was only 1300 ml. So can raise the dose to 40 iv q8hr. Check for proteinuria. I did review her ECHO--has Aortic Stenosis otherwise heart looks fine. She will have sig edema. Trying to make her edema free will make her creat get really high K is getting higher so will Stop KCl Supplement. hard to tell whether the Massive edema is lymphedema or true fluid retention that needs to be tackled with increasing dose of lasix. Patient was on hospice Just recently. No lasix for now. she is on room air and not in resp Distress. Creat had started to rise even before lasix started so more likely She had ATN with RSV infection S--feels fine. No SOb and is on RA. Creat is rising though. NO new issues. making urine 1350 ml yesterday. Physical Exam Physical Exam: Constitutional: Awake, alert; appears comfortable. Respiratory: Decreased breath sound at bases Cardiovascular: RRR, no murmur, 3+ ble edema with Chronic Skin changes and blisters.no JVD or carotid bruit Chest: normal inspection of chest Abdomen: Soft, nontender Musculoskeletal: Tenderness present in right midfoot and ankle Neurologic: PERRL, EOMI, accommodation nl, no face palsy, no dysarthria CN's II- XI intact bilaterally and moves all extremities Results & Data Vital Signs (Past 12 Hours) Vital Signs Temp Pulse Pulse Resp BP Pulse Ox O2 Del Method 05/27/23 07:48 36.3 C L 63 18 105/54 L 97 Room Air 05/27/23 05:00 36.7 C 61 18 110/72 95 Room Air 05/27/23 00:50 68 113/69 05/26/23 23:24 69 103/66 05/26/23 23:16 36.9 C 70 16 92/54 L 94 Room Air 05/26/23 21:57 66
--- NOTE | 2023-05-27 10:48 | Hospitalist Progress Note ---
Date of Service May 27, 2023 Assessment & Plan (1) Sepsis: (2) Hypoxia: (3) Acute renal failure: (4) RSV (respiratory syncytial virus infection): (5) Weakness: (6) Fall: (7) Leukocytosis: (8) PMR (polymyalgia rheumatica): (9) Aortic stenosis: (10) HTN (hypertension): (11) HLD (hyperlipidemia): (12) Osteoporosis: (13) Ovarian cyst, left: (14) Hypokalemia: (15) Chronic kidney disease (CKD), stage III (moderate): Plan: Sepsis POA RSV infection Possible sigmoid diverticulitis VENTURA on CKD Patient was admitted to the hospital due to frequent falls and abdominal pain/discomfort. Patient was previously on home hospice prior to presentation. CT chest reviewed; mild basal infiltrates CT abdomen pelvis showed possible early sigmoid diverticulitis RSV positive on BioFire Blood cultureno growth. Patient was started on Zosyn and vancomycin. Likely source of infection thought secondary to diverticulitis or lower extremity wounds. Vancomycin DC'd as blood culture is negative. Completed 10 days of antibiotics for diverticulitis. Patient tolerating diet very well Received stress dose steroid; now back to home dose. Right foot pain Had reported pain on the right foot. X-ray of the foot do not show any fracture X-ray of the ankle do not show any fracture as well Continue scheduled tylenol Tramadol prn mild to moderate pain Cam boot were offered to the patient but she declined Also declined compression socks at this time for swelling H/O Chr Diastolic CHF: VENTURA Worsening fluid retention Per OP chart review 05/21, pt on lasix 80 mg daily and coreg 25 mg bid. TTE from 05/13/23 noted 65-70, mild conc LVH, mod to borderline severe aortic stenois, mild MR, small loculated posterior pericardial effusion with moderate organization, no tamponade Continue coreg Cr today trended up to 1.61 Baseline is 1-1.2 Lasix stopped for now Nephrology recs appreciated Monitor renal function and electrolytes Home po potassium stopped for now Elevate LLE. Ovarian cyst CT of the abdomen showed 4 cm left ovarian cyst. Gynecology consulted during admission; conservative management for the time being with monitor. Chronic conditions. PMRon prednisone at home; previously in stress dose steroids; Now back to home dose Hypothyroidismcontinue levothyroxine Hypertensioncontinue on Coreg DVT PPx-heparin FEN/GI: Allow regular diet, easy to chew CODE: DNR/DNI. Palliative care consulted earlier in hospitalization; patient was previously on hospice care prior to admission. Family had a bad experience with hospice at home. Called son and updated him. He stated he will like patient to go to SNF first and then may subsequently consider transition back to hospice I spent a total of 40 minutes coordinating, documenting and providing care for this patient excluding time spent in performance of separately billed services (16) Anemia: Admission and Anticipated Discharge Date Admission Date: May 12, 2023 Subjective Patient seen and examined. Reports feeling better today Only complaints of leg pains from leg swelling Physical Exam Constitutional: + well hydrated; no acute distress Eyes: PERRL, conjunctivae normal, anicteric sclerae ENMT: external ear and nose normal, oropharynx normal Respiratory: normal respiratory effort, lungs clear to auscultation Cardiovascular: Rate/Rhythm: regular rate and regular rhythm Heart Sounds: + murmur S1 S2 Gastrointestinal (Abdomen): normal bowel sounds, soft, nontender, no hepatosplenomegaly Musculoskeletal: Bilateral leg edema Neurologic: PERRL, EOMI, accommodation nl, no face palsy, no dysarthria Psychiatric: A+Ox3, euthymic affect Results & Data Results & Data Vital Signs (Past 12 Hours) Vital Signs Temp Pulse Resp BP Pulse Ox O2 Del Method 05/27/23 10:37 Room Air 05/27/23 07:48 36.3 C L 63 18 105/54 L 97 Room Air 05/27/23 05:00 36.7 C 61 18 110/72 95 Room Air 05/27/23 00:50 68 113/69 05/26/23 23:24 69 103/66 05/26/23 23:16 36.9 C 70 16 92/54 L 94 Room Air Laboratory Results Abnormal lab results 05/26/23 05/27/23 Range/Units 18:13 05:43 Sodium 134 L (136-145) mmol/L BUN 33 H (6-23) mg/dl Creatinine 1.61 H D (0.6-1.2) mg/dl BUN/Creatinine Ratio 20.5 H (10-20) Glucose 102 H (70-99(Fasting)) mg/dl Phosphorus 5.7 H (2.5-4.9) mg/dl Urine Blood 2+ H (Negative) Urine Nitrite Positive A (Negative) Ur Leukocyte Esterase 3+ H (Negative) Urine WBC (Auto) >30 H (0-5) /hpf Urine RBC (Auto) 5-10 H (0-4) /hpf Urine Yeast Present A (None Prsent) (1) Sepsis Sepsis acute organ dysfunction status: unspecified Sepsis type: sepsis due to unspecified organism Qualified Code(s): A41.9 - Sepsis, unspecified organism (3) Acute renal failure Acute renal failure type: unspecified Qualified Code(s): N17.9 - Acute kidney failure, unspecified
[2023-05-28 08:38] LABS: BUN Creatinine Ratio 27.8 (10-20); Calcium 9.1 mg/dl (8.6-10.3); Creatinine Clr Calc Pharmacy 23.9 ml/min; Est GFR (African American) 35.9 ml/min; Magnesium 2.4 mg/dl (1.7-2.4); Phosphorus 4.8 mg/dl (2.5-4.9)
--- NOTE | 2023-05-28 11:29 | Nephrology Progress Note ---
Date of Service May 28, 2023 Assessment & Plan (1) Acute renal failure: Plan: pre admission had creat in the low 1's. had [facility] on Admission creat was 1.99 but then dropped down to 0.6 but now rising again with iv lasix.She however needs Lasix given massive edema. Will restart Lasix 40 mg IV 3 times daily. Monitor input output and daily standing weight. NO proteinuria. But do need to check UA and prot/creat again. (2) RSV (respiratory syncytial virus infection): Plan: Continue supportive management Admission and Anticipated Discharge Date Admission Date: May 12, 2023 Subjective Seen for acute kidney injury and massive edema. Main complaint is leg swelling and leg pain. No shortness of breath. Patient states she was forced to go on hospice at home but does not appear to be choosing hospice herself. Review of Systems 2 Review of Systems: All other systems were reviewed and negative except as noted in HPI Physical Exam 2 Physical Exam: General exam: Appears comfortable, no acute distress HEENT: Pupils are equal and reactive to light Neck: No JVD, neck is supple trachea is midline Respiratory system: Clear breath sounds bilaterally. Gastrointestinal: Abdomen is soft, non distended, non tender, bowel sounds are present CVS: Regular rate and rhythm. No murmurs, rubs or gallops Musculoskeletal: No joint or muscle tenderness Extremities: Non tender, 2+ edema, peripheral pulses are present Neuro: Oriented, no tremors, no focal neurological deficits Skin: No rashes Results & Data Vital Signs (Past 12 Hours) Vital Signs Temp Pulse Pulse Pulse Resp BP Pulse Ox 05/28/23 11:18 36.5 C 63 18 92/55 L 99 05/28/23 07:34 36.5 C 63 18 117/62 98 05/28/23 07:13 62 05/28/23 03:49 36.4 C L 60 18 98/66 L 97 05/27/23 23:47 58 L 05/27/23 23:43 36.4 C L 64 18 91/55 L 99 O2 Del Method 05/28/23 11:18 Room Air 05/28/23 07:34 Room Air 05/28/23 07:13 05/28/23 03:49 Room Air 05/27/23 23:47 05/27/23 23:43 Room Air Laboratory Results 05/28/23 07:23 05/28/23 07:23 Phosphorus 4.8 (1) Acute renal failure Acute renal failure type: unspecified Qualified Code(s): N17.9 - Acute kidney failure, unspecified
[2023-05-28] MEDS: FUROSEMIDE 40 MG/4 ML VIAL IV SCH (13:05)
--- NOTE | 2023-05-28 15:40 | Hospitalist Progress Note ---
Date of Service May 28, 2023 Assessment & Plan (1) Sepsis: (2) Hypoxia: (3) Acute renal failure: (4) RSV (respiratory syncytial virus infection): (5) Weakness: (6) Fall: (7) Leukocytosis: (8) PMR (polymyalgia rheumatica): (9) Aortic stenosis: (10) HTN (hypertension): (11) HLD (hyperlipidemia): (12) Osteoporosis: (13) Ovarian cyst, left: (14) Hypokalemia: (15) Chronic kidney disease (CKD), stage III (moderate): Plan: Sepsis POA RSV infection Possible sigmoid diverticulitis V[facility]A on CKD Patient was admitted to the hospital due to frequent falls and abdominal pain/discomfort. Patient was previously on home hospice prior to presentation. CT chest reviewed; mild basal infiltrates CT abdomen pelvis showed possible early sigmoid diverticulitis RSV positive on BioFire Blood cultureno growth. Patient was started on Zosyn and vancomycin. Likely source of infection thought secondary to diverticulitis or lower extremity wounds. Vancomycin DC'd as blood culture is negative. Completed 10 days of antibiotics for diverticulitis. Patient tolerating diet very well Received stress dose steroid; now back to home dose. Right foot pain Had reported pain on the right foot. X-ray of the foot do not show any fracture X-ray of the ankle do not show any fracture as well Continue scheduled tylenol Tramadol prn mild to moderate pain Cam boot were offered to the patient but she declined Also declined compression socks at this time for swelling H/O Chr Diastolic CHF: [facility] Worsening fluid retention Per OP chart review 05/21, pt on lasix 80 mg daily and coreg 25 mg bid. TTE from 05/13/23 noted 65-70, mild conc LVH, mod to borderline severe aortic stenois, mild MR, small loculated posterior pericardial effusion with moderate organization, no tamponade Continue coreg Cr today trended up to 1.51 Baseline is 1-1.2 Nephrology on board managing diuretics Elevate LLE. Ovarian cyst CT of the abdomen showed 4 cm left ovarian cyst. Gynecology consulted during admission; conservative management for the time being with monitor. Chronic conditions. PMRon prednisone at home; previously in stress dose steroids; Now back to home dose Hypothyroidismcontinue levothyroxine Hypertensioncontinue on Coreg DVT PPx-heparin FEN/GI: Allow regular diet, easy to chew CODE: DNR/DNI. Palliative care consulted earlier in hospitalization; patient was previously on hospice care prior to admission. Family had a bad experience with hospice at home. On 05/27/23, I called son and updated him. He stated he will like patient to go to SNF first and then may subsequently consider transition back to hospice I spent a total of 40 minutes coordinating, documenting and providing care for this patient excluding time spent in performance of separately billed services (16) Anemia: Admission and Anticipated Discharge Date Admission Date: May 12, 2023 Subjective Patient seen and examined Reports leg pains No new complaints Physical Exam Constitutional: + well hydrated; no acute distress Eyes: PERRL, conjunctivae normal, anicteric sclerae ENMT: external ear and nose normal, oropharynx normal Respiratory: normal respiratory effort, lungs clear to auscultation Cardiovascular: Rate/Rhythm: regular rate and regular rhythm Heart Sounds: + murmur Gastrointestinal (Abdomen): normal bowel sounds, soft, nontender, no hepatosplenomegaly Musculoskeletal: +bilateral LE edema Neurologic: PERRL, EOMI, accommodation nl, no face palsy, no dysarthria Psychiatric: A+Ox3, euthymic affect Results & Data Results & Data Vital Signs (Past 12 Hours) Vital Signs Temp Pulse Pulse Pulse Resp BP Pulse Ox 05/28/23 15:28 36.7 C 66 16 119/73 98 05/28/23 11:18 36.5 C 63 18 92/55 L 99 05/28/23 08:20 05/28/23 07:34 36.5 C 63 18 117/62 98 05/28/23 07:13 62 05/28/23 03:49 36.4 C L 60 18 98/66 L 97 O2 Del Method 05/28/23 15:28 Room Air 05/28/23 11:18 Room Air 05/28/23 08:20 Room Air 05/28/23 07:34 Room Air 05/28/23 07:13 05/28/23 03:49 Room Air Laboratory Results Abnormal lab results 05/28/23 Range/Units 07:23 Sodium 134 L (136-145) mmol/L BUN 42 H (6-23) mg/dl Creatinine 1.51 H (0.6-1.2) mg/dl BUN/Creatinine Ratio 27.8 H (10-20) (1) Sepsis Sepsis acute organ dysfunction status: unspecified Sepsis type: sepsis due to unspecified organism Qualified Code(s): A41.9 - Sepsis, unspecified organism (3) Acute renal failure Acute renal failure type: unspecified Qualified Code(s): N17.9 - Acute kidney failure, unspecified
[2023-05-28] MEDS: carvediloL 6.25 MG TAB PO SCH (16:42)
[2023-05-29 06:50] LABS: BUN Creatinine Ratio 34.1 (10-20); Calcium 8.9 mg/dl (8.6-10.3); Creatinine Clr Calc Pharmacy 27.3 ml/min; Est GFR (African American) 42.2 ml/min; Est GFR (Non-African American) 36.4 ml/min; Magnesium 2.3 mg/dl (1.7-2.4); Phosphorus 4.2 mg/dl (2.5-4.9)
--- NOTE | 2023-05-29 10:57 | Hospitalist Progress Note ---
Date of Service May 29, 2023 Assessment & Plan (1) Sepsis: (2) Hypoxia: (3) Acute renal failure: (4) RSV (respiratory syncytial virus infection): (5) Weakness: (6) Fall: (7) Leukocytosis: (8) PMR (polymyalgia rheumatica): (9) Aortic stenosis: (10) HTN (hypertension): (11) HLD (hyperlipidemia): (12) Osteoporosis: (13) Ovarian cyst, left: (14) Hypokalemia: (15) Chronic kidney disease (CKD), stage III (moderate): Plan: Sepsis POA RSV infection Possible sigmoid diverticulitis [facility] on CKD Patient was admitted to the hospital due to frequent falls and abdominal pain/discomfort. Patient was previously on home hospice prior to presentation. CT chest reviewed; mild basal infiltrates CT abdomen pelvis showed possible early sigmoid diverticulitis RSV positive on BioFire Blood cultureno growth. Patient was started on Zosyn and vancomycin. Likely source of infection thought secondary to diverticulitis or lower extremity wounds. Vancomycin DC'd as blood culture is negative. Completed 10 days of antibiotics for diverticulitis. Patient tolerating diet very well Received stress dose steroid; now back to home dose. Right foot pain Had reported pain on the right foot. X-ray of the foot do not show any fracture X-ray of the ankle do not show any fracture as well Continue scheduled tylenol Tramadol prn mild to moderate pain Cam boot were offered to the patient but she declined Also declined compression socks at this time for swelling H/O Chr Diastolic CHF: [place] Worsening fluid retention Per OP chart review 05/21, pt on lasix 80 mg daily and coreg 25 mg bid. TTE from 05/13/23 noted 65-70, mild conc LVH, mod to borderline severe aortic stenois, mild MR, small loculated posterior pericardial effusion with moderate organization, no tamponade Continue coreg Cr 1.32 today Baseline is 1-1.2 Nephrology on board managing diuretics Discussed with Measurement Supervisor who recommends transitioning to po torsemide 40mg BID Elevate LLE. Ovarian cyst CT of the abdomen showed 4 cm left ovarian cyst. Gynecology consulted during admission; conservative management for the time being with monitor. Chronic conditions. PMRon prednisone at home; previously in stress dose steroids; Now back to home dose Hypothyroidismcontinue levothyroxine Hypertensioncontinue on Coreg DVT PPx-heparin FEN/GI: Allow regular diet, easy to chew CODE: DNR/DNI. Palliative care consulted earlier in hospitalization; patient was previously on hospice care prior to admission. Family had a bad experience with hospice at home. On 05/27/23, I called son and updated him. He stated he will like patient to go to SNF first and then may subsequently consider transition back to hospice Possible DC in AM I spent a total of 45 minutes coordinating, documenting and providing care for this patient excluding time spent in performance of separately billed services (16) Anemia: Admission and Anticipated Discharge Date Admission Date: May 12, 2023 Subjective Patient seen and examined Reports joint arthritis pain Repors mild leg pains No other new complaints Physical Exam Constitutional: + well hydrated; no acute distress Eyes: PERRL, conjunctivae normal, anicteric sclerae ENMT: external ear and nose normal, oropharynx normal Respiratory: normal respiratory effort, lungs clear to auscultation Cardiovascular: Rate/Rhythm: regular rate and regular rhythm Heart Sounds: + murmur Gastrointestinal (Abdomen): normal bowel sounds, soft, nontender, no hepatosplenomegaly Musculoskeletal: +LE edema Neurologic: PERRL, EOMI, accommodation nl, no face palsy, no dysarthria Psychiatric: A+Ox3, euthymic affect Results & Data Results & Data Vital Signs (Past 12 Hours) Vital Signs Temp Pulse Pulse Resp BP Pulse Ox O2 Del Method 05/29/23 07:44 36.8 C 66 18 113/62 98 Room Air 05/29/23 07:09 61 05/29/23 03:56 36.9 C 67 18 147/64 H 94 Room Air 05/28/23 23:55 36.3 C L 66 18 125/81 95 Room Air 05/28/23 23:22 64 Laboratory Results Abnormal lab results 05/29/23 Range/Units 05:54 BUN 45 H (6-23) mg/dl Creatinine 1.32 H (0.6-1.2) mg/dl BUN/Creatinine Ratio 34.1 H (10-20) (1) Sepsis Sepsis acute organ dysfunction status: unspecified Sepsis type: sepsis due to unspecified organism Qualified Code(s): A41.9 - Sepsis, unspecified organism (3) Acute renal failure Acute renal failure type: unspecified Qualified Code(s): N17.9 - Acute kidney failure, unspecified
--- NOTE | 2023-05-29 11:26 | Nephrology Progress Note ---
Date of Service May 29, 2023 Assessment & Plan (1) Acute renal failure: Plan: pre admission had creat in the low 1's. had VENTURA on Admission creat was 1.99 but then dropped down to 0.6 but now rising again with iv lasix. She however needs Lasix given massive edema. Patient is being prepared for rehab. We can switch her to torsemide 40 mg twice daily. Monitor input output and daily standing weight. NO proteinuria. But do need to check UA and prot/creat again. (2) RSV (respiratory syncytial virus infection): Plan: Continue supportive management Admission and Anticipated Discharge Date Admission Date: May 12, 2023 Subjective Seen for VENTURA and volume overload. She reports feeling better. Legs are still swollen but she was net -860 mL. Review of Systems 2 Review of Systems: All other systems were reviewed and negative except as noted in HPI Physical Exam 2 Physical Exam: General exam: Appears comfortable, no acute distress HEENT: Pupils are equal and reactive to light Neck: No JVD, neck is supple trachea is midline Respiratory system: Clear breath sounds bilaterally. Gastrointestinal: Abdomen is soft, non distended, non tender, bowel sounds are present CVS: Regular rate and rhythm. No murmurs, rubs or gallops Musculoskeletal: No joint or muscle tenderness Extremities: Non tender, 2+ edema, peripheral pulses are present Neuro: Oriented, no tremors, no focal neurological deficits Skin: No rashes Results & Data Vital Signs (Past 12 Hours) Vital Signs Temp Pulse Pulse Resp BP Pulse Ox O2 Del Method 05/29/23 07:44 36.8 C 66 18 113/62 98 Room Air 05/29/23 07:09 61 05/29/23 03:56 36.9 C 67 18 147/64 H 94 Room Air 05/28/23 23:55 36.3 C L 66 18 125/81 95 Room Air Laboratory Results 05/29/23 05:54 05/29/23 05:54 Phosphorus 4.2 (1) Acute renal failure Acute renal failure type: unspecified Qualified Code(s): N17.9 - Acute kidney failure, unspecified
[2023-05-29] MEDS: TORSEMIDE 20 MG TAB PO SCH (13:14)
[2023-05-30 08:35] LABS: BUN Creatinine Ratio 35.7 (10-20); Calcium 8.8 mg/dl (8.6-10.3); Creatinine Clr Calc Pharmacy 28.6 ml/min; Est GFR (African American) 44.7 ml/min; Est GFR (Non-African American) 38.5 ml/min; Magnesium 2.2 mg/dl (1.7-2.4); Phosphorus 3.9 mg/dl (2.5-4.9); Potassium 3.6 mmol/L (3.5-5.1)
--- NOTE | 2023-05-30 11:20 | Hospitalist Progress Note ---
Date of Service May 30, 2023 Assessment & Plan (1) Sepsis: (2) Hypoxia: (3) Acute renal failure: (4) RSV (respiratory syncytial virus infection): (5) Weakness: (6) Fall: (7) Leukocytosis: (8) PMR (polymyalgia rheumatica): (9) Aortic stenosis: (10) HTN (hypertension): (11) HLD (hyperlipidemia): (12) Osteoporosis: (13) Ovarian cyst, left: (14) Hypokalemia: (15) Chronic kidney disease (CKD), stage III (moderate): Plan: Sepsis POA RSV infection Possible sigmoid diverticulitis VENTURA on CKD Patient was admitted to the hospital due to frequent falls and abdominal pain/discomfort. Patient was previously on home hospice prior to presentation. CT chest reviewed; mild basal infiltrates CT abdomen pelvis showed possible early sigmoid diverticulitis RSV positive on BioFire Blood cultureno growth. Patient was started on Zosyn and vancomycin. Likely source of infection thought secondary to diverticulitis or lower extremity wounds. Vancomycin DC'd as blood culture is negative. Completed 10 days of antibiotics for diverticulitis. Patient tolerating diet very well Received stress dose steroid; now back to home dose. Right foot pain Had reported pain on the right foot. X-ray of the foot do not show any fracture X-ray of the ankle do not show any fracture as well Continue scheduled tylenol Tramadol prn mild to moderate pain Cam boot were offered to the patient but she declined Also declined compression socks at this time for swelling H/O Chr Diastolic CHF: VENTURA Worsening fluid retention Per OP chart review 05/21, pt on lasix 80 mg daily and coreg 25 mg bid. TTE from 05/13/23 noted 65-70, mild conc LVH, mod to borderline severe aortic stenois, mild MR, small loculated posterior pericardial effusion with moderate organization, no tamponade Continue coreg Cr 1.26 today Baseline is 1-1.2 Nephrology recommendations appreciated Currently on po torsemide 40mg BID Elevate LLE. Ovarian cyst CT of the abdomen showed 4 cm left ovarian cyst. Gynecology consulted during admission; conservative management for the time being with monitor. Chronic conditions. PMRon prednisone at home; previously in stress dose steroids; Now back to home dose Hypothyroidismcontinue levothyroxine Hypertensioncontinue on Coreg DVT PPx-heparin FEN/GI: Allow regular diet, easy to chew CODE: DNR/DNI. Palliative care consulted earlier in hospitalization; patient was previously on hospice care prior to admission. Family had a bad experience with hospice at home. On 05/27/23, I called son and updated him. He stated he will like patient to go to SNF first and then may subsequently consider transition back to hospice Awaiting DC once CM finalizes placement I spent a total of 35 minutes coordinating, documenting and providing care for this patient excluding time spent in performance of separately billed services (16) Anemia: Admission and Anticipated Discharge Date Admission Date: May 12, 2023 Subjective Patient seen and examined Reports mild leg pains No other new complaints Physical Exam Constitutional: + well hydrated; no acute distress Eyes: PERRL, conjunctivae normal, anicteric sclerae ENMT: external ear and nose normal, oropharynx normal Respiratory: normal respiratory effort, lungs clear to auscultation Cardiovascular: Rate/Rhythm: regular rate and regular rhythm Heart Sounds: + murmur Gastrointestinal (Abdomen): normal bowel sounds, soft, nontender, no hepatosplenomegaly Musculoskeletal: +bilateral LE edema Neurologic: PERRL, EOMI, accommodation nl, no face palsy, no dysarthria Psychiatric: A+Ox3, euthymic affect Results & Data Results & Data Vital Signs (Past 12 Hours) Vital Signs Temp Pulse Pulse Pulse Resp BP Pulse Ox 05/30/23 08:30 05/30/23 07:35 36.4 C L 68 18 128/67 99 05/30/23 07:15 60 05/30/23 03:23 36.5 C 68 20 126/71 97 05/29/23 23:41 36.4 C L 68 18 134/79 93 O2 Del Method 05/30/23 08:30 Room Air 05/30/23 07:35 Room Air 05/30/23 07:15 05/30/23 03:23 Room Air 05/29/23 23:41 Room Air Laboratory Results Abnormal lab results 05/30/23 Range/Units 07:37 BUN 45 H (6-23) mg/dl Creatinine 1.26 H (0.6-1.2) mg/dl BUN/Creatinine Ratio 35.7 H (10-20) (1) Sepsis Sepsis acute organ dysfunction status: unspecified Sepsis type: sepsis due to unspecified organism Qualified Code(s): A41.9 - Sepsis, unspecified organism (3) Acute renal failure Acute renal failure type: unspecified Qualified Code(s): N17.9 - Acute kidney failure, unspecified
[2023-05-31 07:26] LABS: BUN Creatinine Ratio 41.5 (10-20); Calcium 8.8 mg/dl (8.6-10.3); Creatinine Clr Calc Pharmacy 29.3 ml/min; Est GFR (Non-African American) 39.7 ml/min; Magnesium 2.2 mg/dl (1.7-2.4); Potassium 3.4 mmol/L (3.5-5.1)
[2023-05-31] MEDS: POTASSIUM CHLORIDE CRTAB 20 MEQ TABCR PO STA (08:58)
--- NOTE | 2023-05-31 09:47 | Nephrology Progress Note ---
Date of Service May 31, 2023 Assessment & Plan Admission and Anticipated Discharge Date Admission Date: May 12, 2023 Subjective Assessment & Plan (1) Acute renal failure: Plan: pre admission had creat in the low 1's. had VENTURA on Admission creat was 1.99 but then dropped down to 0.6 but now rising again with iv lasix. She however needs Lasix given massive edema. Patient is being prepared for rehab. We can switch her to torsemide 40 mg twice daily. Monitor input output and daily standing weight. K is low. For D/c: torsemide 40 bid. Add kcl 20 bid. f/u nephrology within 1-2 week if patient /family desires given hospice recently. But she needs BMP done in 2 days after discharge to monitor renal function and K. Subjective Seen for VENTURA and volume overload. She reports feeling better. edema less Review of Systems Review of Systems: All other systems were reviewed and negative except as noted in HPI Physical Exam Physical Exam: General exam: Appears comfortable, no acute distress HEENT: Pupils are equal and reactive to light Neck: No JVD, neck is supple trachea is midline Respiratory system: Clear breath sounds bilaterally. Gastrointestinal: Abdomen is soft, non distended, non tender, bowel sounds are present CVS: Regular rate and rhythm. No murmurs, rubs or gallops Musculoskeletal: No joint or muscle tenderness Extremities: Non tender, 2+ edema, peripheral pulses are present Neuro: Oriented, no tremors, no focal neurological deficits Skin: No rashes Results & Data Vital Signs (Past 12 Hours) Vital Signs Temp Pulse Pulse Pulse Resp BP Pulse Ox 05/31/23 07:54 36.3 C L 56 L 16 113/68 99 05/31/23 07:30 57 L 05/31/23 03:37 36.4 C L 66 18 116/72 98 05/31/23 00:17 72 05/31/23 00:03 36.6 C 72 18 122/68 95 O2 Del Method 05/31/23 07:54 Room Air 05/31/23 07:30 05/31/23 03:37 Room Air 05/31/23 00:17 05/31/23 00:03 Room Air
--- NOTE | 2023-05-31 12:41 | Discharge Summary ---
Date of Service May 31, 2023 Admission HPI Per Admitting Provider This is a 87 yo F with PMHx of vitamin D deficiency, HTN, chronic diastolic CHF, polymyalgia rheumatica, nonrheumatic aortic valve stenosis, CKD stage III, HLD, vitamin D deficiency, osteoporosis who was recently transitioned to hospice care on 05/[address] Lopez and on [facility] chart review. She presents today here from home by being brought EMS as her family states she is weak and continues to fall at home. Her family son, Stephen and son's girlfriend, Tawny are present at bedside and supports the history. They state that she has been on hospice for approximately the past 6 months since being admitted to [facility] for sepsis and requiring a blood transfusion at that point in time. They cannot recall what her source of infection was but stated that if she did not receive a blood transfusion she would likely within a 3-month timeframe. She received a blood transfusion there and has been doing quite well since then. She lives at home, grandson is there during the day as he works night time babysitter, and other family members check in with her routinely. They note that she fell on Tuesday morning and was on the ground for 1 hour of time. She attempted to get up and walk without her walker in the kitchen after grandson left to go to work in the morning. As she is currently on hospice, nurses check on her twice per week but they do not receive additional caregiver support. She also has had respiratory symptoms for the past 2 weeks, Tawny has asked for antibiotic for symptoms however they have not prescribed. Since her fall patient has been attempting to ambulate with use of a walker, states she is having pain all over, present in her legs bilaterally, abdomen, low back, and cannot pinpoint which area is the worst currently. Denies any acute fevers, chills or sweats. She does not wear any supplemental O2 at baseline. Patient did not get any of her morning medications today. She has been taking prednisone 5 mg for PMR. On review of [facility] outpatient it appears that she has been treated recently for lower extremity edema and bilateral lower extremity wounds with Lasix burst and Zaroxolyn dosing. Patient is found to have hypokalemia, elevated white count of 23,000, afebrile, creatinine 1.99 compared to her baseline of 1.2. Admission Exam Per Admitting Provider General: awake, alert, uncomfortable, elderly white female Head: Normocephalic, atraumatic ENT: PERRL, EOMI, no pharyngeal exudate, mucous membranes slightly dry Chest: Clear to auscultation, on 2 LPM NC, diminished breath sounds at bases bilaterally Cardiac: Regular rate and rhythm, mild LANCE grade 3/4, no JVD, normal peripheral pulses, good capillary refill Abdominal: NABS x 4 quadrants, appears distended but soft, + hernia, + mildly tender to palpation in LLQ, no rebound or guarding Back: No ecchymosis or injury Extremities: + Skin tear on left upper extremity, + BLE erythema surrounding, left lateral lower extremity with wounds, right posterior calf with wounds, no peripheral edema, calfs nontender to palpation Psych: Depressed, tearful mood and affect Neuro: AAO x 3, strength intact bilaterally and rated 4/5, no motor deficits, speech is clear, no peripheral sensory deficits Principal Diagnosis Sepsis VENTURA RSV Possible diverticulitis Discharge Exam Constitutional + well hydrated; no acute distress Eyes PERRL, conjunctivae normal, anicteric sclerae ENMT external ear and nose normal, oropharynx normal Respiratory normal respiratory effort, lungs clear to auscultation Cardiovascular Rate/Rhythm: regular rate and regular rhythm Heart Sounds: + murmur Gastrointestinal (Abdomen) normal bowel sounds, soft, nontender, no hepatosplenomegaly Musculoskeletal Bilateral lower extremity edema Neurologic PERRL, EOMI, accommodation nl, no face palsy, no dysarthria Psychiatric A+Ox3, euthymic affect Discharge Data Allergies Allergy/AdvReac Type Severity Reaction Status Date / Time clarithromycin AdvReac Intermediate GI SYMPTOMS Verified 04/15/15 12:56 adhesive AdvReac Rash Verified 05/12/23 16:08 Consultations 05/12/23 10:10 ED Decision to Admit Stat 05/12/23 11:53 Consult Palliative Care Routine 05/12/23 15:07 Consult Gynecology Routine 05/26/23 08:01 Consult Nephrology Routine Ordered Studies 05/12/23 08:26 CT cervical spine wo con Stat CT head/brain wo con Stat 05/12/23 09:06 CT abd pelvis wo con Stat CT chest diagnostic wo con Stat Hospital Course (1) Sepsis: (2) Hypoxia: (3) Acute renal failure: (4) RSV (respiratory syncytial virus infection): (5) Weakness: (6) Fall: (7) Leukocytosis: (8) PMR (polymyalgia rheumatica): (9) Aortic stenosis: (10) HTN (hypertension): (11) HLD (hyperlipidemia): (12) Osteoporosis: (13) Ovarian cyst, left: (14) Hypokalemia: (15) Chronic kidney disease (CKD), stage III (moderate): Sepsis POA RSV infection Possible sigmoid diverticulitis VENTURA on CKD Patient was admitted to the hospital due to frequent falls and abdominal pain/discomfort. Patient was previously on home hospice prior to presentation. CT chest reviewed; mild basal infiltrates CT abdomen pelvis showed possible early sigmoid diverticulitis RSV positive on Bio[employer] Blood cultureno growth. Patient was started on Zosyn and vancomycin. Likely source of infection thought secondary to diverticulitis or lower extremity wounds. Vancomycin DC'd as blood culture is negative. Urine culture grew Pseudomonas and Klebsiella. Hence possible UTI vs asymptomatic bacteuria as she denied any urinary symptoms Completed 10 days of antibiotics Patient tolerating diet very well Received stress dose steroid; now back to home dose. Right foot pain Had reported pain on the right foot. X-ray of the foot do not show any fracture X-ray of the ankle do not show any fracture as well Continue scheduled tylenol Tramadol prn mild to moderate pain Pain is better controlled on current regimen on discharge Cam boot were offered to the patient but she declined Also declined compression socks at this time for swelling H/O Chr Diastolic CHF: VENTURA Worsening fluid retention Per OP chart review 05/21, pt on lasix 80 mg daily and coreg 25 mg bid. TTE from 05/13/23 noted 65-70, mild conc LVH, mod to borderline severe aortic stenois, mild MR, small loculated posterior pericardial effusion with moderate organization, no tamponade Continue coreg Cr 1.99 on presentation Baseline is 1-1.2 Cr is 1.23 today Nephrology was involved in managing diuretics Currently discharged on torsemide 40mg BID and Potassium 20mEq BID Patient can follow up with Nephrology outpatient Ovarian cyst CT of the abdomen showed 4 cm left ovarian cyst. Gynecology consulted during admission; conservative management for the time being with monitor. Chronic conditions. PMRon prednisone at home; previously in stress dose steroids; Now back to home dose Hypothyroidismcontinue levothyroxine Hypertensioncontinue on Coreg Palliative care evaluated earlier in hospitalization; patient was previously on hospice care prior to admission. Family had a bad experience with hospice at home prior to presentation. On 05/27/23, I discussed with son. He stated he will like patient to go to SNF first and then may subsequently consider transition back to hospice Paitent discharged to SNF (16) Anemia: Total Time Total Time Spent Total Time Spent (In Minutes): 45 Total Time Includes: Examination of the Patient, Discharge Planning, Medication Reconciliation and Communication With Other Providers Discharge Plan Discharge Items Patient Disposition: Transfer [facility] Reason For Visit: FALL Discharge Diagnosis: Sepsis VENTURA RSV Possible diverticulitis Activity: Resume your previous activity Non-emergency contact: Primary Care Provider and Education Technician Call non-emergency contact if: you have any medication questions and your symptoms worsen Follow-up/Referrals: Roland Shannon PA-C [Primary Care Provider] - Diet: Heart Healthy and Low Sodium (2gm) Fluids: 1500ml (6 cups) Addtl Attending Provider Instructions: Mrs Crowe You came to the hospital for weakness and fall You were managed for the above listed diagnoses. You are being discharged to [facility]. They will continue taking care of you and you may transition back to hospice as you and your son desires You may follow up with Nephrology if desired in 2 weeks. Your furosemide was changed to torsemide 40mg twice a day Your potassium tab was increased to 20mEq twice a day Your Carvedilol was reduced to 6.25mg twice a day Continue your prednisone, sertraline Your pain has been controlled with tylenol and tramadol while inpatient Stop ativan for now as you have not needed this for over a week. Pending Studies at Discharge: No Stand-Alone Forms: My [facility] Skilled Items Patient informed of condition?: Yes DNR: Yes Discharge Level of Care: Skilled Communicable Disease: No Discharge Prognosis: Stable Lines: None Urinary Catheter: No Medications and DC Order Prescriptions: New carvedilol 6.25 mg Tablet 6.25 mg PO BIDM Qty: 60 0RF aspirin 81 mg Tablet,Delayed Release (Dr/Ec) 81 mg PO QAM Qty: 30 0RF tramadol 50 mg Tablet 25 mg PO Q6H PRN (Reason: moderate pain (scale score 5-6)) Qty: 30 0RF torsemide 20 mg Tablet 40 mg PO BID17 Qty: 120 0RF Cerovite Senior 0.4 mg-300 mcg- 250 mcg Tablet 1 tab PO QAM Qty: 30 0RF potassium chloride 20 mEq tablet extended release 20 meq PO BID Qty: 60 0RF levothyroxine [Synthroid] 75 mcg Tablet 75 mcg PO DAILYBB 30 Days Qty: 30 0RF prednisone 5 mg Tablet 5 mg PO DAILY Qty: 30 0RF sertraline 50 mg Tablet 100 mg PO DAILY Qty: 60 0RF Continued acetaminophen 650 mg Tablet Extended Release 650 mg PO Q8H PRN (Reason: Fever Or Pain) Qty: 50 0RF ferrous sulfate 325 mg (65 mg iron) Tablet 325 mg PO DAILY Qty: 30 0RF Discontinued Hydrocodone/Acetaminophen 5MG/325MG ([place] 5MG/325MG) tablet 1 tab PO Q6H PRN (Reason: Pain) Qty: 0 Patient Comments: PRN PAIN LEVOTHYROXINE SODIUM (SYNTHROID) 100 MCG tablet 75 mg PO QAM 30 Days Qty: 30 Prednisone 5 MG tablet 5 mg PO DAILY Qty: 0 Furosemide (Lasix) 40 MG tablet See Rx Instructions .ROUTE .COMPLEX Qty: 0 Rx Instructions: 5 tabs every week. 2 tabs QD except tuesday take 5 tabs 1hour before zaroxolyn Sertraline (Zoloft) 25 MG tablet 100 mg PO DAILY Qty: 0 carvedilol 25 mg tablet 12.5 mg PO BID metolazone 5 mg Tablet 5 mg PO .TUESDAY Rx Instructions: 1 HOUR PRIOR TO LASIX 200MG potassium chloride 20 mEq tablet extended release 20 meq PO UD Rx Instructions: M,W,F Discharge Orders: Discharge Order (Routine); Ordered 05/31/23 Ordered By: Olivia Claudio/Other Patient Handouts: A1C Admission Data Admit Date/Time: 05/12/23 11:13 Attending Provider: Olivia Mcintosh I. Admit Provider: Nora Ayala Primary Care Provider: Roland Shannon Other Providers: Nora Ayala; Tony Miek; Ines Baires; [place]; [place]; Eryn Hills; Baljinder Ribera Other Interventions: Discharge Summary Assessment (RN) Last Done: 05/31/23 12:54
--- NOTE | 2023-06-01 09:26 | Coding Query ---
CODING QUERY To promote full compliance with coding requirements relating to patient care, provider participation is requested in all cases of watch inspector uncertainty. Please assist us with the question(s) below: Coding Question(s): Pt admitted with Sepsis d/t leg cellulitis . DS,notes mention VENTURA. 05/26 nephro progress note documented possible ATN. Please check below the diagnosis that was treated during this inpatient stay. Thank you. Julio Dimas [facility] Physician's Response(s): __x VENTURA ATN Principal Diagnosis: "that condition established after study, to be chiefly responsible for occasioning the admission of the patient to the hospital for care." Co-Existing Principal Diagnosis: "when two or more diagnoses equally meet the criteria for principal diagnosis as determined by the circumstances of admission, diagnostic work up, and/or therapy provided, and the Alphabetic Index, Tabular List, or another coding guideline does not provide sequencing direction, any one of the diagnoses may be sequenced first." "When the physician has documented what appears to be a current diagnosis in the body of the record, but has not included the diagnosis in the final diagnostic statement, the physician should be asked whether the diagnosis should be added." (Source Coding Clinic 2 QTR90. p3-4) JAYME
== END 2023-05-31 13:31 | DRG 872 ==
LOC: ED 07:38 → EDINP 11:13 → SUATTDRO 11:13 → 2W 13:09

== ENCOUNTER 2023-12-28 22:57 | Inpatient (IN) ==
--- NOTE | 2023-12-28 23:21 | Emergency Department Note ---
Impression & Plan Acute GI bleeding, Elevated troponin, Headache, Anemia, Abnormal ECG ED Provider Note Name: BIGG BARRAGAN Age: 88 Sex: Female Arrives Via: Ambulance Informant: Patient ED Provider: Brian Tamayo MD Chief Complaint: Abdominal pain and headache Impression: As per impressions above Medical Decision Makin-year-old female with extensive past medical history arrives for evaluation of primarily abdominal pain and headache. Headache itself has been ongoing for 30 years though has been worse the last few days. Denies any falls, trauma, injuries. Patient was given IV Dilaudid and Zofran with significant improvement in her pain. CT of the head and abdomen/pelvis was obtained which are unremarkable. Laboratory workup reveals significant anemia consistent with her examination. She is heme positive stools and I suspect this is an upper GI bleed. I discussed the pros and cons of blood transfusion with patient and she is very adamant she would not want a transfusion. She is aware of the risks of not being transfused as well as the current findings showing evidence of cardiac ischemia. She continues to decline transfusion. After discussing other treatments and workups she is willing to receive IV Protonix. I discussed getting blood cultures and a lactic acid given her elevated white count and she would not want to be stuck again at this time. While her white blood cell count is somewhat elevated I do not currently have a clear indication infectious etiology. I discussed other treatments and patient notes she really just wants to make sure she stays comfortable. With that in mind she is willing to accept some IV medications as well as pain and nausea medications. She notes she previously was on hospice and she is ready to . In the setting of all these findings I do think it is reasonable to bring into the hospital to further figure out specific goals of care and management. Triage/Nursing Notes reviewed by Me External Chart Review by me: Reviewed discharge summary from April 2023 discussing hospitalization for sepsis at that time. Differential:Infection, dehydration, metabolic abnormality, hypo/hyperglycemia, electrolyte disturbance, anemia, hypoxia, cardiac sources, intracerebral event, toxicologic, neurologic, as well as other pathologies. Vital Signs: reviewed and remarkable for no significant abnormalities Interventions: Dilaudid 0.5 mg IV, Zofran 4 mg IV, Protonix 80 mg IV Labs:ED labs Reviewed by me and remarkable for elevated troponin, low hemoglobin, moderately elevated white blood cell count Imaging:CT of the head without contrast as per my informal interpretation reveals no intracranial hemorrhage or mass effect. CT of the ab pelvis without contrast as per my informal interpretation reveals no obstruction, free air, free fluid appreciated. Confirmed by radiologist. No evidence of diverticulitis. 1 view chest x-ray as per my interpretation no infiltrate effusion pneumothorax. No significant free air under the diaphragm. EKG:As per my interpretation. Indication weakness. Sinus at 79 bpm with PAC noted. There are diffuse ST depressions. Depressions are new compared to EKG of 05/12/2023 Cardiac/Tele Monitoring: Cardiac Monitoring: An Order was placed for continuous cardiac monitoring. The monitor shows a rate of 80 with a normal sinus rhythm. Consults:Dr Liam Brooks Hospitalist -discussed with him and he will evaluate manage further. Plan: Disposition:Hospitalization. Condition: Poor History of Present Illness: 88-year-old female arrives for multiple complaints. Primarily being diffuse abdominal pain. Notes increasing pain over the last 4 days. Pain is epigastric in nature. Associate with nausea and vomiting. Worse with eating. Notes ongoing headache as well but that has been ongoing for the last 30 years. She has a previous history of brain tumor removal. No medications prior to arrival. Patient states she feels very ill and unwell. She denies any fevers. Denies any blood in her vomit or stool. Denies any chest pain or shortness of breath. No falls, trauma, injuries. Patient takes 81 mg of aspirin a day. Denies any other blood thinners. Patient states she is DNR DNI. She does note that she had previously been on hospice but is no longer. She would like to be treated and worked up for what ever her element may be. Patient states she had a history of diverticulitis resulting in hospitalization about a year ago for a month. Past Medical History:See Below Home Medications:See Below Allergies: Clarithromycin Vitals:Blood Pressure: 132/83, Pulse 88, RR 21, T 36.9C, O2 98% on RA Physical Exam: GENERAL: Patient is unwell, pale appearing and in moderate distress. RESPIRATORY: No dyspnea. Clear to auscultation and equal bilaterally. CARDIOVASCULAR: Regular rate and rhythm.No murmur appreciated. GASTROINTESTINAL: Diffuse tenderness palpation entire abdomen. No overt peritonitis. Normal active bowel sounds EXTREMITIES: Normal motion all extremities, no cyanosis, no edema. Tenderness to palpation anywhere on body. NEUROLOGIC: Alert and oriented. No focal neurologic deficits appreciated SKIN: No rash, no jaundice, no diaphoresis. PSYCH: Appropriate GCS: 15 ED Course: Times/Reassessments: Multiple repeat evaluations of patient throughout her stay prior to hospitalization Discussed with patient at 12:05 AM. She has a positive Hemoccult. Hemoglobin is 4. EKG with anterior lateral ST depressions concerning for ischemia. Troponin is elevated. Patient is adamant she does not want a blood transfusion. She wants to be allowed to . She does not want aggressive management of her blood pressure. She is agreeable to treatment for a possible stomach ulcer. Declines further blood work including blood cultures and lactic acid at this time. Critical Care: I have personally spent 35 minutes of critical care time in the direct management of this patient. Diagnosis of life threatening illness and discussion of management and through shared decision making and patient's wishes goal of comfort care measures discussed. This was a life/limb threatening event. This 35 minutes is in excess of all separately billable procedures. Brian Tamayo MD Past Med/Surg History Problem List (Updated 12/29/23 @ 00:16 by Brian Tamayo MD) Abnormal ECG (Acute) Anemia (Acute) Headache (Acute) Elevated troponin (Acute) Acute GI bleeding (Acute) Worsening body fluid retention Anemia Hypoxia RSV (respiratory syncytial virus infection) Acute renal failure DNR (do not resuscitate) (Acute) Headache (Acute) Abdominal pain (Acute) Elevated troponin (Acute) Frequent falls (Acute) Sepsis (Acute) Chronic kidney disease (CKD), stage III (moderate) Hypokalemia (Acute) Leukocytosis Fall Weakness (Acute) Ovarian cyst, left Osteoporosis Aortic stenosis HLD (hyperlipidemia) HTN (hypertension) PMR (polymyalgia rheumatica) Medical History Chronic kidney disease (CKD), stage III (moderate) Ovarian cyst, left Osteoporosis Aortic stenosis HLD (hyperlipidemia) HTN (hypertension) PMR (polymyalgia rheumatica) Surgical History History of cholecystectomy Hx of appendectomy Family History Mother Diabetes Brother Heart disease Social History Smoking Status: Unknown if ever smoked Hx Alcohol Use: No Hx Substance Use: No Preferred Language: Portuguese Communication Ability: Effective Equity Research Analyst Required: No Beliefs That Will Affect Care: None Current Living Situation: Family Other Information That Helps Us Care for You: No Feels Safe at Home: Yes Safety Concerns: Feels Safe At This Time Assistive Devices: Denture - Upper, Denture - Lower and Hospital Bed Allergies Allergies Allergy/AdvReac Type Severity Reaction Status Date / Time clarithromycin AdvReac Intermediate GI SYMPTOMS Verified 04/15/15 12:56 adhesive AdvReac Rash Verified 05/12/23 16:08 Home Meds Home Medications Medication Instructions Recorded Confirmed carvedilol 3.125 mg tablet 3.125 mg PO AMHS 12/28/23 12/29/23 ondansetron 4 mg disintegrating 4 mg translingual Q8 PRN Nausea 12/28/23 12/28/23 tablet sertraline 100 mg tablet 100 mg PO QAM 12/28/23 12/29/23 acetaminophen 500 mg tablet 500 mg PO TID 12/29/23 12/29/23 allopurinol 100 mg tablet 100 mg PO QAM 12/29/23 12/29/23 aspirin 81 mg chewable tablet 81 mg PO QAM 12/29/23 12/29/23 (Aspirin Childrens) atorvastatin 20 mg tablet 20 mg PO QAM 12/29/23 12/29/23 ferrous sulfate 325 mg (65 mg 325 mg PO QDB 12/29/23 12/29/23 iron) tablet (FeroSul) hydrocodone 5 mg-acetaminophen 325 1 tab PO Q8 PRN Mild Pain (Scale 12/29/23 12/29/23 mg tablet Score 1-4) levothyroxine 75 mcg tablet 75 mcg PO DAILYBB 12/29/23 12/29/23 prednisone 5 mg tablet 5 mg PO QAM 12/29/23 12/29/23 torsemide 20 mg tablet 40 mg PO AMHS 12/29/23 12/29/23 Results & Data (ED) Vital Signs Vital Signs - 24 hr 12/28/23 23:03 12/28/23 23:16 12/28/23 23:36 Temperature 36.9 C Temperature Source Oral Pulse Rate 88 82 87 Pulse Rate from SpO2 Sensor Respiratory Rate 21 19 Blood Pressure 132/83 123/63 Blood Pressure Mean 99 83 Pulse Oximetry 91 Oxygen Delivery Method Room Air Room Air Sepsis Recent Fever Within 48 Hours No Sepsis New/Unexplained Change in Mental Status N/A Sepsis Action Taken by Nursing No Action Required 12/29/23 00:30 Temperature Temperature Source Pulse Rate 76 Pulse Rate from SpO2 Sensor 81 Respiratory Rate 15 Blood Pressure 102/61 Blood Pressure Mean 74 Pulse Oximetry 100 Oxygen Delivery Method Sepsis Recent Fever Within 48 Hours Sepsis New/Unexplained Change in Mental Status Sepsis Action Taken by Nursing Laboratory Data 12/28/23 23:09 12/28/23 23:09 Lab Results 12/28/23 12/28/23 12/28/23 Range/Units 23:09 23:23 23:54 WBC 17.97 H (4.8-10.8) K/ul RBC 1.43 L (4.20-5.40) M/uL Hgb 4.0 L* (12.0-16.0) g/dl Hct 14.2 L* (37.0-47.0) % MCV 99.3 (80.0-100.0) fL MCH 28.0 (25.0-34.0) pg MCHC 28.2 L (32.0-36.0) g/dL RDW Std Deviation 70.8 H (36.4-46.3) fL RDW Coeff of Mary 20.1 H (11.5-14.5) % Plt Count 404 H (130-400) K/uL MPV 10.3 (9.4-12.4) fL Immature Gran % (Auto) 1.3 % Neut % (Auto) 82.8 % Lymph % (Auto) 8.3 % Hamlin % (Auto) 6.8 % Eos % (Auto) 0.6 % Baso % (Auto) 0.2 % Neut # (Auto) 14.88 H (1.40-6.50) K/uL Lymph # (Auto) 1.49 (1.20-3.40) K/uL Hamlin # (Auto) 1.22 H (0.11-0.59) K/uL Eos # (Auto) 0.11 (0.00-0.50) K/uL Baso # (Auto) 0.03 (0.00-0.20) K/uL Immature Gran # (Auto) 0.24 H (0.01-0.20) K/uL Absolute Nucleated RBC 0.28 H (0.00-0.12) K/uL Nucleated RBC % (auto) 1.6 % Polychromasia 1+ Anisocytosis Present Sodium 141 (136-145) mmol/L Potassium 3.4 L (3.5-5.1) mmol/L Chloride 108 H (98-107) mmol/L Carbon Dioxide 20 L (21-32) mmol/L Anion Gap 13 H (3-11) BUN 46 H (6-23) mg/dl Creatinine 1.67 H (0.6-1.2) mg/dl Est Cr Clr Drug Dosing 19.8 ml/min eGFR 29.47 BUN/Creatinine Ratio 27.5 H (10-20) Glucose 166 H (70-99(Fasting)) mg/dl Calcium 8.2 L (8.6-10.3) mg/dl Magnesium 2.6 H (1.7-2.4) mg/dl Total Bilirubin 0.5 (0.2-1.0) mg/dl Direct Bilirubin 0.1 (0-0.2) mg/dl AST 14 (13-39) U/L ALT 7 (7-52) U/L Alkaline Phosphatase 102 (34-104) U/L Troponin I High Sens 153.8 H* (0-14) pg/ml Total Protein 6.1 (6.0-8.3) gm/dl Albumin 3.7 (3.4-5.0) gm/dl Lipase 39 (11-82) U/L Procalcitonin 0.28 (0-0.5) ng/ml Blood Type B Positive Blood Type Recheck B Positive Antibody Screen NEGATIVE Administered Medications Morphine Sulfate (Morphine Sulfate 4 Mg/Ml 1 Ml Carp\Vial) 4 mg IV Q1H PRN PRN Reason: Pain or Respiratory Distress Stop: 01/12/24 00:58 Last Admin: 12/29/23 01:51 Dose: 4 mg Documented By: [facility] Discontinued Medications Hydromorphone HCl (Hydromorphone Inj 0.5 Mg/0.5 Ml Syr) 0.5 mg IV NOW STA Stop: 12/28/23 23:17 Last Admin: 12/28/23 23:33 Dose: 0.5 mg Documented By: [facility] Pantoprazole Sodium 80 mg/ (Dextrose) 120 mls @ 480 mls/hr IV ONE STA Stop: 12/29/23 00:22 Last Infusion: 12/29/23 01:00 Dose: Infused Documented By: Admin: 12/29/23 00:28 Dose: 480 mls/hr Documented By: [facility] Ondansetron HCl (Ondansetron Inj 2 Mg/Ml 2 Ml Vial) 4 mg IV NOW STA Stop: 12/28/23 23:17 Last Admin: 12/28/23 23:33 Dose: 4 mg Documented By: [facility] Imaging Data Radiologist's Impression: Abdomen/Pelvis CT 12/28/23 23:16 Exam(s): CT ABDOMEN + PELVIS Without Contrast EXAM: CT Abdomen and Pelvis Without Intravenous Contrast CLINICAL HISTORY: Reason for exam: diffuse abdominal pain. TECHNIQUE: Axial computed tomography images of the abdomen and pelvis without intravenous contrast. CTDI is 26.85 mGy and DLP is 1068.21 mGy-cm. Automated exposure control was utilized for the study. A dose lowering technique was utilized adhering to the principles of ALARA. COMPARISON: Head CT May 12, 2023. FINDINGS: Lung bases: Unremarkable. No mass. No consolidation. Heart: Calcified mitral annulus. ABDOMEN: Liver: Unremarkable. Gallbladder and bile ducts: Cholecystectomy. No ductal dilation. Pancreas: Unremarkable. No ductal dilation. Spleen: Unremarkable. No splenomegaly. Adrenals: Unremarkable. No mass. Kidneys and ureters: Unremarkable. No obstructing stones. No hydronephrosis. Stomach and bowel: Diverticulosis, without acute diverticulitis. No small bowel obstruction. No free intraperitoneal air. PELVIS: Appendix: No findings to suggest acute appendicitis. Bladder: Unremarkable. No stones. Reproductive: LEFT ovarian cyst measures 3.3 cm. ABDOMEN and PELVIS: Intraperitoneal space: Unremarkable. No free air. No significant fluid collection. Bones/joints: Degenerative changes of the spine. No acute fracture. No dislocation. Soft tissues: Unremarkable. Vasculature: Atherosclerotic changes of the aorta. No abdominal aortic aneurysm. Lymph nodes: Unremarkable. No enlarged lymph nodes. IMPRESSION: 1. Cholecystectomy. 2. Diverticulosis, without acute diverticulitis. No small bowel obstruction. No free intraperitoneal air. Electronically signed by: Stephen Pagan MD 12/29/23 00:[address] 12/28/23 23:16 Exam(s): CT HEAD Without Contrast EXAM: CT Head Without Intravenous Contrast CLINICAL HISTORY: Reason for exam: Headache. TECHNIQUE: Axial computed tomography images of the head/brain without intravenous contrast. CTDI is 33.97 mGy and DLP is 546.36 mGy-cm. Automated exposure control was utilized for the study. A dose lowering technique was utilized adhering to the principles of ALARA. COMPARISON: No relevant prior studies available. FINDINGS: No acute intracranial hemorrhage. No midline shift or mass effect. The territorial raya-white matter differentiation is maintained throughout. Age-related cerebral volume loss. Periventricular and subcortical white matter hypoattenuation, consistent with chronic microangiopathy. The visualized orbits appear grossly unremarkable. Old RIGHT pterional craniotomy. The visualized paranasal sinuses and mastoid air cells are grossly clear. IMPRESSION: No acute intracranial hemorrhage, midline shift, or mass effect. Electronically signed by: Stephen Pagan MD 12/29/23 00:30 AM Discharge Plan Visit Data Chief Complaint: Illness Stated Complaint: ILLNESS ED Provider: Brian Tamayo Discharge Problem: Acute GI bleeding, Elevated troponin, Headache, Anemia, Abnormal ECG Patient Disposition: Admitted As Inpatient Discharge Instructions Interventions: ED Discharge Assessment Last Done: 12/29/23 01:32 Discharge Problem: Headache Qualifiers: Headache type: unspecified Headache chronicity pattern: acute headache I ntractability: not intractable Qualified Code(s): R51.9 - Headache, unspecified Anemia Qualifiers: Anemia type: other cause Other causes of anemia: acute posthemorrhagic Q ualified Code(s): D62 - Acute posthemorrhagic anemia
[2023-12-28] MEDS: HYDROmorphone INJ 0.5 MG/0.5 ML SYR IV STA (23:33)
[2023-12-28] MEDS: ONDANSETRON INJ 2 MG/ML 2 ML VIAL IV STA (23:33)
[2023-12-28 23:51] LABS: Albumin Level 3.7 gm/dl (3.4-5.0); Bilirubin Direct 0.1 mg/dl (0-0.2); Bilirubin,Total 0.5 mg/dl (0.2-1.0); Calcium 8.2 mg/dl (8.6-10.3); Magnesium 2.6 mg/dl (1.7-2.4); Potassium 3.4 mmol/L (3.5-5.1)
[2023-12-28 23:57] LABS: Hematocrit (blood only) 14.2 % (37.0-47.0); Mean Corpuscular Hgb Conc 28.2 g/dL (32.0-36.0); Mean Corpuscular Volume 99.3 fL (80.0-100.0); Mean Platelet Volume 10.3 fL (9.4-12.4); Nucleated RBC # (auto) 0.28 K/uL (0.00-0.12); Nucleated RBC % (auto) 1.6 %; Platelet Count 404 K/uL (130-400); RDW Coefficient of Variation 20.1 % (11.5-14.5); RDW Standard Deviation 70.8 fL (36.4-46.3); Red Blood Count 1.43 M/uL (4.20-5.40); White Blood Count 17.97 K/ul (4.8-10.8)
[2023-12-28 23:58] LABS: BUN Creatinine Ratio 27.5 (10-20); Creatinine Clr Calc Pharmacy 19.8 ml/min; Total Protein 6.1 gm/dl (6.0-8.3)
[2023-12-29 00:02] LABS: Anisocytosis Present; Basophils # (auto) 0.03 K/uL (0.00-0.20); Basophils % (auto) 0.2 %; Eosinophils # (auto) 0.11 K/uL (0.00-0.50); Eosinophils % (auto) 0.6 %; Immature Granulocytes # (auto) 0.24 K/uL (0.01-0.20); Immature Granulocytes % (auto) 1.3 %; Lymphocytes # (auto) 1.49 K/uL (1.20-3.40); Lymphocytes % (auto) 8.3 %; Monocytes # (auto) 1.22 K/uL (0.11-0.59); Monocytes % (auto) 6.8 %; Neutrophils # (auto) 14.88 K/uL (1.40-6.50); Neutrophils % (auto) 82.8 %; Polychromasia 1+
[2023-12-29 00:05] LABS: Troponin I High Sensitivity 153.8 pg/ml (0-14)
[2023-12-29] MEDS: PANTOprazole 80 MG in DEXTROSE 5% 100 ML IV STA (00:28)
--- NOTE | 2023-12-29 00:31 | CT Scan Report ---
Exam(s): CT HEAD Without Contrast EXAM: CT Head Without Intravenous Contrast CLINICAL HISTORY: Reason for exam: Headache. TECHNIQUE: Axial computed tomography images of the head/brain without intravenous contrast. CTDI is 33.97 mGy and DLP is 546.36 mGy-cm. Automated exposure control was utilized for the study. A dose lowering technique was utilized adhering to the principles of ALARA. COMPARISON: No relevant prior studies available. FINDINGS: No acute intracranial hemorrhage. No midline shift or mass effect. The territorial raya-white matter differentiation is maintained throughout. Age-related cerebral volume loss. Periventricular and subcortical white matter hypoattenuation, consistent with chronic microangiopathy. The visualized orbits appear grossly unremarkable. Old RIGHT pterional craniotomy. The visualized paranasal sinuses and mastoid air cells are grossly clear. IMPRESSION: No acute intracranial hemorrhage, midline shift, or mass effect. Electronically signed by: Stephen Pagan MD 12/29/23 00:30 AM
--- NOTE | 2023-12-29 00:37 | CT Scan Report ---
Exam(s): CT ABDOMEN + PELVIS Without Contrast EXAM: CT Abdomen and Pelvis Without Intravenous Contrast CLINICAL HISTORY: Reason for exam: diffuse abdominal pain. TECHNIQUE: Axial computed tomography images of the abdomen and pelvis without intravenous contrast. CTDI is 26.85 mGy and DLP is 1068.21 mGy-cm. Automated exposure control was utilized for the study. A dose lowering technique was utilized adhering to the principles of ALARA. COMPARISON: Head CT May 12, 2023. FINDINGS: Lung bases: Unremarkable. No mass. No consolidation. Heart: Calcified mitral annulus. ABDOMEN: Liver: Unremarkable. Gallbladder and bile ducts: Cholecystectomy. No ductal dilation. Pancreas: Unremarkable. No ductal dilation. Spleen: Unremarkable. No splenomegaly. Adrenals: Unremarkable. No mass. Kidneys and ureters: Unremarkable. No obstructing stones. No hydronephrosis. Stomach and bowel: Diverticulosis, without acute diverticulitis. No small bowel obstruction. No free intraperitoneal air. PELVIS: Appendix: No findings to suggest acute appendicitis. Bladder: Unremarkable. No stones. Reproductive: LEFT ovarian cyst measures 3.3 cm. ABDOMEN and PELVIS: Intraperitoneal space: Unremarkable. No free air. No significant fluid collection. Bones/joints: Degenerative changes of the spine. No acute fracture. No dislocation. Soft tissues: Unremarkable. Vasculature: Atherosclerotic changes of the aorta. No abdominal aortic aneurysm. Lymph nodes: Unremarkable. No enlarged lymph nodes. IMPRESSION: 1. Cholecystectomy. 2. Diverticulosis, without acute diverticulitis. No small bowel obstruction. No free intraperitoneal air. Electronically signed by: Stephen Pagan MD 12/29/23 00:36 AM
--- NOTE | 2023-12-29 00:51 | History & Physical Report ---
Date of Service December 29, 2023 Assessment & Plan (1) Anemia: Plan: Acute on chronic anemia secondary to UGIB GERD/history PUD as per records Acute on chronic anemia secondary to above Troponin elevation secondary to kidney dysfunction and illness chronic diastolic heart failure, patient on the dry side valvular heart disease (severe mild MR) PVD DM2 on oral medications, reasonable control as of recent hemoglobin A1c of 7.12 September 2023 hypothyroidism, euthyroid as of recent outpatient TSH PMR on chronic steroid Rx Admit to [facility] Comfort measures as per patient request. Palliative care consultation, social service re: home hospice arrangements, patient would like to at home if possible. DNR Patient son requesting updates providers. Mr. Stephen Crowe, contact #[phone]. Text document was generated using [employer] voice recognition software. It may contain grammatical or spelling errors. Kindly contact undersigned for clarification of any documentation item in question. History of Present Illness Chief Complaint: Worsening weakness, abdominal pain Primary Care Provider: Dr. Kasper History obtained from patient, family, and records. Medical history significant for chronic diastolic heart failure, valvular heart disease (severe mild MR), PVD, hypertension, GERD/history PUD as per records, chronic anemia (baseline hemoglobin 10-11), CRI (baseline creatinine 1.2-1.6), DM2 on oral medications, hypothyroidism, PMR on chronic steroid Rx, anxiety/mood disorder. Last confinement May 2023 for sepsis secondary to RSV infection/possible sigmoid diverticulitis. Patient discharged to SNF rehab then later discharged home. Patient not feeling well the last few days. Achy abdominal pain with usual dark stools attributed to iron. Denies chest pain, SOB. Worsening SOB on exertion and weakness. EMS called to patient's home by family. Heme positive melanotic stool noted at the ER. IV PPI administered at the ER for UGIB. Patient refusing further intervention. She adamantly states that she is ready to . She only wants comfort but would like to at home. Medical History as above Surgical History : Cholecystectomy, appendectomy Family History : Colon cancer, DM, heart disease Personal/Social history : Non-smoker, no EtOH intake, retired from cleaning work Allergies Allergy/AdvReac Type Severity Reaction Status Date / Time clarithromycin AdvReac Intermediate GI SYMPTOMS Verified 04/15/15 12:56 adhesive AdvReac Rash Verified 05/12/23 16:08 Home Medications Medication Instructions Recorded Confirmed Type carvedilol 3.125 mg tablet 3.125 mg PO AMHS 12/28/23 12/29/23 History ondansetron 4 mg disintegrating 4 mg translingual Q8 PRN Nausea 12/28/23 12/28/23 History tablet sertraline 100 mg tablet 100 mg PO QAM 12/28/23 12/29/23 History acetaminophen 500 mg tablet 500 mg PO TID 12/29/23 12/29/23 History allopurinol 100 mg tablet 100 mg PO QAM 12/29/23 12/29/23 History aspirin 81 mg chewable tablet 81 mg PO QAM 12/29/23 12/29/23 History (Aspirin Childrens) atorvastatin 20 mg tablet 20 mg PO QAM 12/29/23 12/29/23 History ferrous sulfate 325 mg (65 mg 325 mg PO QDB 12/29/23 12/29/23 History iron) tablet (FeroSul) hydrocodone 5 mg-acetaminophen 325 1 tab PO Q8 PRN Mild Pain (Scale 12/29/23 12/29/23 History mg tablet Score 1-4) levothyroxine 75 mcg tablet 75 mcg PO DAILYBB 12/29/23 12/29/23 History prednisone 5 mg tablet 5 mg PO QAM 12/29/23 12/29/23 History torsemide 20 mg tablet 40 mg PO AMHS 12/29/23 12/29/23 History Past Med/Surg History Problem List (Updated 12/29/23 @ 00:16 by Brian Tamayo MD) Abnormal ECG (Acute) Anemia (Acute) Headache (Acute) Elevated troponin (Acute) Acute GI bleeding (Acute) Worsening body fluid retention Anemia Hypoxia RSV (respiratory syncytial virus infection) Acute renal failure DNR (do not resuscitate) (Acute) Headache (Acute) Abdominal pain (Acute) Elevated troponin (Acute) Frequent falls (Acute) Sepsis (Acute) Chronic kidney disease (CKD), stage III (moderate) Hypokalemia (Acute) Leukocytosis Fall Weakness (Acute) Ovarian cyst, left Osteoporosis Aortic stenosis HLD (hyperlipidemia) HTN (hypertension) PMR (polymyalgia rheumatica) Medical History Chronic kidney disease (CKD), stage III (moderate) Ovarian cyst, left Osteoporosis Aortic stenosis HLD (hyperlipidemia) HTN (hypertension) PMR (polymyalgia rheumatica) Surgical History History of cholecystectomy Hx of appendectomy Family History Mother Diabetes Brother Heart disease Social History Smoking Status: Unknown if ever smoked Hx Alcohol Use: No Hx Substance Use: No Preferred Language: Gabonese Communication Ability: Effective Instrument Shop Supervisor Required: No Beliefs That Will Affect Care: None Current Living Situation: Family Other Information That Helps Us Care for You: No Feels Safe at Home: Yes Safety Concerns: Feels Safe At This Time Assistive Devices: Denture - Upper, Denture - Lower and Hospital Bed Review of Systems Review of Systems: As per HPI, all other systems reviewed and negative Physical Exam Physical Exam: GENERAL: Obese, uncomfortable, no respiratory distress SKIN: Pallor, warm HEENT: Pale palpebral conjunctivae, no ptosis, dry buccal mucosa NECK : Supple, short neck, no tenderness CHEST : CTA, no tenderness HEART : RRR, systolic murmur ABDOMEN: Some distention, epigastric tenderness EXTREMITIES : Minimal LE swelling, no LE tenderness, no other conspicuous deformities noted NEUROLOGIC : Coherent, no facial asymmetry, no other gross focality Results & Data Results & Data Vital Signs (Past 12 Hours) Vital Signs Temp Pulse Resp BP O2 Del Method 12/28/23 23:16 82 12/28/23 23:03 36.9 C 88 21 132/83 Room Air Laboratory Results Laboratory Results WBC 17.97 K/ul (4.8-10.8) H 12/28/23 23:09 RBC 1.43 M/uL (4.20-5.40) L 12/28/23 23:09 Hgb 4.0 g/dl (12.0-16.0) L* 12/28/23 23:09 Hct 14.2 % (37.0-47.0) L* 12/28/23 23:09 MCV 99.3 fL (80.0-100.0) 12/28/23 23:09 MCH 28.0 pg (25.0-34.0) 12/28/23 23:09 MCHC 28.2 g/dL (32.0-36.0) L 12/28/23 23:09 RDW Std Deviation 70.8 fL (36.4-46.3) H 12/28/23 23:09 RDW Coeff of Mary 20.1 % (11.5-14.5) H 12/28/23 23:09 Plt Count 404 K/uL (130-400) H 12/28/23 23:09 MPV 10.3 fL (9.4-12.4) 12/28/23 23:09 Immature Gran % (Auto) 1.3 % 12/28/23 23:09 Neut % (Auto) 82.8 % 12/28/23 23:09 Lymph % (Auto) 8.3 % 12/28/23 23:09 [place] % (Auto) 6.8 % 12/28/23 23:09 Eos % (Auto) 0.6 % 12/28/23 23:09 Baso % (Auto) 0.2 % 12/28/23 23:09 Neut # (Auto) 14.88 K/uL (1.40-6.50) H 12/28/23 23:09 Lymph # (Auto) 1.49 K/uL (1.20-3.40) 12/28/23 23:09 [place] # (Auto) 1.22 K/uL (0.11-0.59) H 12/28/23 23:09 Eos # (Auto) 0.11 K/uL (0.00-0.50) 12/28/23 23:09 Baso # (Auto) 0.03 K/uL (0.00-0.20) 12/28/23 23:09 Immature Gran # (Auto) 0.24 K/uL (0.01-0.20) H 12/28/23 23:09 Absolute Nucleated RBC 0.28 K/uL (0.00-0.12) H 12/28/23 23:09 Nucleated RBC % (auto) 1.6 % 12/28/23 23:09 Polychromasia 1+ 12/28/23 23:09 Anisocytosis Present 12/28/23 23:09 Sodium 141 mmol/L (136-145) 12/28/23 23:09 Potassium 3.4 mmol/L (3.5-5.1) L 12/28/23 23:09 Chloride 108 mmol/L (98-107) H 12/28/23 23:09 Carbon Dioxide 20 mmol/L (21-32) L 12/28/23 23:09 Anion Gap 13 (3-11) H 12/28/23 23:09 BUN 46 mg/dl (6-23) H 12/28/23 23:09 Creatinine 1.67 mg/dl (0.6-1.2) H 12/28/23 23:09 Est Cr Clr Drug Dosing 19.8 ml/min 12/28/23 23:09 eGFR 29.47 12/28/23 23:09 BUN/Creatinine Ratio 27.5 (10-20) H 12/28/23 23:09 Glucose 166 mg/dl (70-99(Fasting)) H 12/28/23 23:09 Calcium 8.2 mg/dl (8.6-10.3) L 12/28/23 23:09 Magnesium 2.6 mg/dl (1.7-2.4) H 12/28/23 23:09 Total Bilirubin 0.5 mg/dl (0.2-1.0) 12/28/23 23:09 Direct Bilirubin 0.1 mg/dl (0-0.2) 12/28/23 23:09 AST 14 U/L (13-39) 12/28/23 23:09 ALT 7 U/L (7-52) 12/28/23 23:09 Alkaline Phosphatase 102 U/L (34-104) 12/28/23 23:09 Troponin I High Sens 153.8 pg/ml (0-14) H* 12/28/23 23:09 Total Protein 6.1 gm/dl (6.0-8.3) 12/28/23 23:09 Albumin 3.7 gm/dl (3.4-5.0) 12/28/23 23:09 Lipase 39 U/L (11-82) 12/28/23 23:09 Procalcitonin 0.28 ng/ml (0-0.5) 12/28/23 23:09 Blood Type B Positive 12/28/23 23:23 Blood Type Recheck B Positive 12/28/23 23:54 Antibody Screen NEGATIVE 12/28/23 23:23 Impressions Abdomen/Pelvis CT 12/28/23 23:16 Exam(s): CT ABDOMEN + PELVIS Without Contrast EXAM: CT Abdomen and Pelvis Without Intravenous Contrast CLINICAL HISTORY: Reason for exam: diffuse abdominal pain. TECHNIQUE: Axial computed tomography images of the abdomen and pelvis without intravenous contrast. CTDI is 26.85 mGy and DLP is 1068.21 mGy-cm. Automated exposure control was utilized for the study. A dose lowering technique was utilized adhering to the principles of ALARA. COMPARISON: Head CT May 12, 2023. FINDINGS: Lung bases: Unremarkable. No mass. No consolidation. Heart: Calcified mitral annulus. ABDOMEN: Liver: Unremarkable. Gallbladder and bile ducts: Cholecystectomy. No ductal dilation. Pancreas: Unremarkable. No ductal dilation. Spleen: Unremarkable. No splenomegaly. Adrenals: Unremarkable. No mass. Kidneys and ureters: Unremarkable. No obstructing stones. No hydronephrosis. Stomach and bowel: Diverticulosis, without acute diverticulitis. No small bowel obstruction. No free intraperitoneal air. PELVIS: Appendix: No findings to suggest acute appendicitis. Bladder: Unremarkable. No stones. Reproductive: LEFT ovarian cyst measures 3.3 cm. ABDOMEN and PELVIS: Intraperitoneal space: Unremarkable. No free air. No significant fluid collection. Bones/joints: Degenerative changes of the spine. No acute fracture. No dislocation. Soft tissues: Unremarkable. Vasculature: Atherosclerotic changes of the aorta. No abdominal aortic aneurysm. Lymph nodes: Unremarkable. No enlarged lymph nodes. IMPRESSION: 1. Cholecystectomy. 2. Diverticulosis, without acute diverticulitis. No small bowel obstruction. No free intraperitoneal air. Electronically signed by: Stephen Pagan MD 12/29/23 00:[address] 12/28/23 23:16 Exam(s): CT HEAD Without Contrast EXAM: CT Head Without Intravenous Contrast CLINICAL HISTORY: Reason for exam: Headache. TECHNIQUE: Axial computed tomography images of the head/brain without intravenous contrast. CTDI is 33.97 mGy and DLP is 546.36 mGy-cm. Automated exposure control was utilized for the study. A dose lowering technique was utilized adhering to the principles of ALARA. COMPARISON: No relevant prior studies available. FINDINGS: No acute intracranial hemorrhage. No midline shift or mass effect. The territorial raya-white matter differentiation is maintained throughout. Age-related cerebral volume loss. Periventricular and subcortical white matter hypoattenuation, consistent with chronic microangiopathy. The visualized orbits appear grossly unremarkable. Old RIGHT pterional craniotomy. The visualized paranasal sinuses and mastoid air cells are grossly clear. IMPRESSION: No acute intracranial hemorrhage, midline shift, or mass effect. Electronically signed by: Stephen Pagan MD 12/29/23 00:30 AM Diagnostic Findings EKG as per my interpretation : Rate 80, NSR, normal axis, T wave abnormalities inferior and anterolateral leads (1) Anemia Anemia type: other cause Other causes of anemia: acute posthemorrhagic Qualified Code(s): D62 - Acute posthemorrhagic anemia
[2023-12-29] MEDS ORDERED: LORazepam 2 MG/1 ML VIAL IV PRN (00:59)
[2023-12-29] MEDS ORDERED: MoRPHine SULFATE 10 MG/0.5 ML UDP PO PRN (00:59)
[2023-12-29] MEDS ORDERED: GLYCOPYRROLATE 0.2 MG/ML VIAL IV PRN (00:59)
[2023-12-29] MEDS ORDERED: HYOSCYAMINE SULFATE 0.125 MG TAB SL PRN (00:59)
[2023-12-29] MEDS ORDERED: ATROPINE SULFATE 1% OP SOLN 5 ML BTL SL PRN (00:59)
[2023-12-29] MEDS: MoRPHine SULFATE 4 MG/ML 1 ML CARP\\VIAL IV PRN (01:51)
--- NOTE | 2023-12-29 06:58 | XRay Report ---
XR chest 1V portable CLINICAL HISTORY: diffuse pain/weakness COMPARISON STUDY: Chest radiograph and chest CT May 12, 2023. FINDINGS: Lung volumes are normal. Lungs are clear. There is no pneumothorax or pleural effusion. Mod erate cardiomegaly is unchanged. Mediastinal contours are normal. There is pulmonary vascular congest ion. IMPRESSION: Cardiomegaly with pulmonary vascular congestion, similar to prior exam. ACT 112: Negative or not required by law. Electronically signed by: Kevin Hill M.D. 12/29/2023 6:57 AM
--- NOTE | 2023-12-29 08:45 | Electrocardiogram Report ---
Test Reason : Blood Pressure : */* mmHG Vent. Rate : 79 BPM Atrial Rate : 79 BPM P-R Int : 178 ms QRS Dur : 94 ms QT Int : 454 ms P-R-T Axes : 64 25 -18 degrees QTcB Int : 520 ms Sinus rhythm with Premature supraventricular complexes Incomplete right bundle branch block Diffuse Nonspecific ST and T wave abnormality Prolonged QT Abnormal ECG When compared with ECG of 12-May-2023 07:47, Premature ventricular complexes are no longer Present Premature supraventricular complexes are now Present Confirmed by Niall Lemos ([id number]) on 12/29/2023 8:45:12 AM Referred By: REFERRED SELF Confirmed By: Niall Lemos
[2023-12-29 09:50] LABS: iSTAT Blood Urea Nitrogen 43 mg/dl (7-18); iSTAT Carbon Dioxide 18 mmol/L (24-31); iSTAT Chloride 108 mmol/L (101-112); iSTAT Creatinine 1.8 mg/dl (0.6-1.3); iSTAT Glucose 168 mg/dl (70-99); iSTAT Hematocrit < 15 % (37-47); iSTAT Ionized Calcium 1.11 mmol/l (1.12-1.32); iSTAT Potassium 3.3 mmol/L (3.3-5.0); iSTAT Sodium 141 mmol/L (135-144)
[2023-12-29] MEDS: ONDANSETRON INJ 2 MG/ML 2 ML VIAL IV PRN (13:39)
--- OUTSIDE RECORDS SUMMARY | 2023-12-29 15:19 | External Medical Summary | Summary of Care ---
Author Name Unknown Organization [facility] Address [address] [address] Phone [phone] Care Team Providers Care Retail Project Merchandiser Name Role Phone NathanBlair tejeda Primary Care Provid er Reason for Visit * Reason Onset Date Comments [facility]: Maintenance 12/28/2023 Encounter Details Date Type Department Care Team (Late st Contact Info) Description 12/28/2023 12:15 PM EDT Scheduled Telephone [facility], [place] [address] [place] [address] Coordinator, [facility] [address] [place] [address] Allergies Active Allergy Reactions Criticality Noted Date Comments Adhesive Tape 04/20/2004 Clarithromycin 10/03/2000 nausea documented as of this encounter (statuses as of 12/28/2023) Medications Medication Sig Dispensed Refills Start Date End Date Status Potassium Chloride ER 10 MEQ Oral Capsule Extended ReleaseIndications:H ypertensive heart disease with heart failure (HCC) Take 2 Capsules by mouth in the morning and 2 Capsules before bedtime. 120 Capsule 5 06/24/2023 Active Aspirin 81 MG Oral Tablet ChewableIndications: Generalized osteoarthritis of multiple sites 1 chewable by mouth daily to prevent heart attack 100 Tablet 5 06/24/2023 Active predniSONE 5 MG Oral Tablet (Deltasone)Indicatio ns:Chronic pain of both knees,PMR (polymyalgia rheumatica) (HCC) Take 1 Tablet by mouth in the morning. 90 Tablet 1 06/24/2023 Active Sertraline HCl 100 MG Oral Tablet (Zoloft)Indications: Depression with anxiety TAKE 1 TABLET BY MOUTH ONCE DAILY IN THE MORNING 90 Tablet 2 06/24/2023 Active Carvedilol 3.125 MG Oral Tablet (Coreg)Indications:H ypertensive heart disease with heart failure (HCC) Take 1 Tablet by mouth in the morning and 1 Tablet before bedtime. with food. 180 Tablet 1 07/22/2023 Active Allopurinol 100 MG Oral Tablet (Zyloprim) Take 1 Tablet by mouth in the morning. 90 Tablet 1 07/22/2023 Active Atorvastatin Calcium 20 MG Oral Tablet (Lipitor)Indications :Dyslipidemia, goal LDL below 130 TAKE 1 TABLET BY MOUTH ONCE DAILY IN THE MORNING 30 Tablet 5 09/06/2023 Active Acetaminophen 500 MG Oral Tablet (Tylenol) Take 1 Tablet by mouth in the morning and 1 Tablet at noon and 1 Tablet in the evening. 270 Tablet 3 10/10/2023 Active Torsemide 20 MG Oral Tablet (Demadex)Indications :Hypertensive heart disease with heart failure (HCC) Take 2 Tablets by mouth in the morning and 2 Tablets before bedtime. 120 Tablet 3 10/12/2023 Active Levothyroxine Sodium 75 MCG Oral Tablet (Levoxyl)Indications :Acquired hypothyroidism Take 1 Tablet by mouth in the morning. (at least 30 min prior to breakfast or other meds). 90 Tablet 3 10/19/2023 Active FeroSul 325 (65 Fe) MG Oral Tablet (Ferrous Sulfate)Indications: Anemia, unspecified type Take 1 Tablet by mouth daily with breakfast. 30 Tablet 3 11/09/2023 Active methylPREDNISolone 4 MG Oral Tablet Therapy Pack (Medrol Dosepack) Take as per instructions on package. 21 Each 11/22/2023 Active Baclofen 5 MG Oral Tablet (Lioresal) Take 1 Tablet by mouth 2 times a day as needed for Muscle spasms. 10 Tablet 11/30/2023 Active HYDROcodone-Acetamin ophen 5-325 MG Oral TabletIndications:Ch ronic right shoulder pain Take 1 Tablet by mouth every 8 hours as needed for Pain, Mild. 30 Tablet 12/14/2023 Active DIURETIC TITRATION PLANIndications:Hype rtensive heart and kidney disease with chronic diastolic congestive heart failure and stage 3b chronic kidney disease (HCC) If no improvement on day 3, contact heart failure managing provider. 1 Each 12/14/2023 Active Ondansetron 4 MG Oral Tablet Disintegrating (Zofran) Place 1 Tablet on tongue every 8 hours as needed for Nausea. 30 Tablet 12/26/2023 Active documented as of this encounter (statuses as of 12/28/2023) Active Problems Problem Noted Date Diagnosed Date Mixed hyperlipidemia 06/28/2022 Last Assessment & Plan: Atorvastatin 20mg daily Controlled substance agreement signed 12/09/2020 Stage 3b chronic kidney disease 08/26/2020 Overview: Latest Reference Range & Units 06/02/23 05:34 06/14/23 12:12 06/24/23 15:40 Estimated Glomerular Filtration Rate >=60 mL/min 80 25 (L) 37 (L) (L): Data is abnormally lowPer CKD protocol Nonrheumatic aortic valve stenosis 11/29/2017 Overview: Mild in 2017 Acquired hypothyroidism 08/26/2017 Last Assessment & Plan: Levothyroxine just increased to 100mcg daily PMR (polymyalgia rheumatica) 08/26/2017 Last Assessment & Plan: Gets steroid injections by PCP Hydrocodone-APAP 5/325 every 6 hours prn Hypertensive heart and kidne y disease with chronic diastolic congestive heart failure and stage 3b chronic kidney disease 09/27/2016 Last Assessment & Plan: Carvedilol 3.125mg BID Torsemide 40mg BID Vitamin D deficiency 12/23/2011 Last Assessment & Plan: Recommended OTC Vitamin D3 supplement BMI 35-39 ISOLATED (SEE ACTUAL BMI) 08/25/2009 Overview: Per Obesity Protocol, #19 Generalized osteoarthritis 12/15/2007 Last Assessment & Plan: Gets steroid injections by PCP Hydrocodone-APAP 5/325 every 6 hours prn Uses TENS and ICY HOT ADVANCE DIRECTIVE INFORMATION 09/05/2004 Overview: No, Advance Directive brochure given to patient at prior appointment. 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 Major depressive disorder Overview: ICD-10 update of inactive term Anxiety state 03/28/2017 Age-related osteoporosis wit hout current pathological fracture 10/10/2023 Overview: dexa 09/13 mod fx risk, started on Fosamax 08/16 Positional vertigo 8 HTN, goal below 140/90 12/24 Overview: 06/12 documented as of this encounter (statuses as of 12/28/2023) Immunizations Name Administration Dates Next Due COVID-19 mRNA, LNP-s, No Pre serve, 2-Dose Series (Moderna) 03/25/2021,08/13/2020,07/14/2020 Influenza, Whole Virus 12/21/2005 Pneumococcal Conjugate Vacc, 13 Valent (Prevnar) 12/25/2015 Pneumococcal Polysaccharide PPV23 (Pneumovax) 12/21/2005 Seasonal Influenza Vac., MDV , IM, 0.5 mL (Fluzone) 11/28/2014,02/01/2014,04/02/2013,12/22,01/14/2011,01/26/2010,12/04/2008 ,12/26/2007,01/12/2007 Seasonal Influenza, PF, 6 M & above, IM , (FluLaval or Fluzone) 12/14/2019,01/31/2018,03/18/2017 Seasonal Influenza, Quadriva lent Hd (Fluzone Hd) 01/21/2023,12/23/2021,12/09/2020 Seasonal Influenza, Quadriva lent, No Preserve, IM 12/25/2015 Seasonal Influenza, Trivalen t, Adjuvanted, 65+ YRS, PF, (Fluad) 12/05/2018 TD - Tetanus/Diptheria (ADULT) 11/01/2007 TDAP (age 10 and older)(Boostrix) 11/29/2014 documented as of this encounter Social History Tobacco Use Types Packs/Day Years Used Date Smoking Tobacco: Never Smokeless Tobacco: Never Alcohol Use Standard Drinks/Week Comments No 0 (1 standard drink = 0.6 oz pur e alcohol) PHQ-2 Answer Date Recorded PHQ Adult Total Score 0 07/22/2023 Hunger Vital Sign Answer Date Recorded Within the past 12 months, y ou worried that your food would run out before you got the money to buy more. Never true 12/14/19 24 Within the past 12 months, t he food you bought just didn't last and you didn't have money to get more. Never true 12/14/2023 Childcare Answer Date Recorded Do you feel overwhelmed with taking care of a child, family member or friend? No 12/14/2023 Does your family need help f inding childcare? (Household - for ages 0-17 years) Not on file 12/14/2023 Clothing Answer Date Recorded Have you been unable to get clothing when it was really needed? No 12/14/2023 Is your family able to get c lothes or diapers when needed? (Household - for ages 0-17 years) Not on file 12/14/2023 Personal Safety Answer Date Recorded Do you feel unsafe or have concerns for your saf ety? No 12/14/2023 Do you have concerns for you r family's safety? (Household - for ages 0-17 years) Not on file 12/14/2023 Utilities Answer Date Recorded Do you have trouble paying y our heating, water, or electric bill? No 12/14/2023 Is your family able to pay t he heat, water, or electric bill? (Household - for ages 0-17 years) Not on file 12/14/2023 Does your family have access to good internet? (Household - for ages 0-17 years) Not on file 12/14/2023 Employment Status Answer Date Recorded Are you unemployed or without regular income? No 12/14/2023 Does the household have a re gular source of income? (Household - for ages 0-17 years) Not on file 12/14/2023 Social Connections Answer Date Recorded How often do you feel lonely or isolated from th ose around you? Never 12/14/2023 Financial Resource Strain Answer Date R ecorded Do you have any trouble payi ng for your medications, or do you think you might in the future? No 12/14/2023 Does your family have troubl e paying for medicine? (Household - for ages 0-17 years) Not on file 12/14/2023 Transportation Needs Answer Date Record ed Do you have trouble getting a ride to medical visits or work? (Adult - for ages 18 years and over) Not on file 12/14/2023 Does your family have a hard time getting a ride to doctors visits? (Household - for ages 0-17 years) Not on file 12/14/2023 Has lack of transportation k ept you from medical appointments, meetings, work, or from getting things needed for daily living? Check all that apply. No 12/14/2023 Do you (or your family) have trouble finding or paying for a ride (transportation)? (Household - for ages 0-17 years) Not on file 12/14/2023 Housing Stability Answer Date Recorded Do you currently live in a s helter or have no steady place to sleep at night? No 12/14/2023 Do you think you are at risk of becoming homeless? (Adult - for ages 18 years and over) Not on file 12/14/2023 Does your family worry about paying for your home or becoming homeless? (Household - for ages 0-17 years) Not on file 1 Are you homeless or worried that you might be in the future? No 12/14/2023 Are you (or your family) gin eless or worried that you might be in the future? (Household - for ages 0-17 years) Not on file Food Insecurity Answer Date Recorded Do you need food for this week? No 12/14/2023 Are you able to get enough f ood for your family? (Household - for ages 0-17 years) Not on file 12/14/2023 Does your family need food t his week? (Household - for ages 0-17 years) Not on file 12/14/2023 Do you always have enough fo od for your family? (Household - for ages 0-17 years) Not on file 12/14/2023 Sex and Gender Information Value Date Recorded Sex Assigned at Female 12/09/2020 3:42 PM EDT Gender Identity Female 12/09/2020 3:42 PM EDT Sexual Orientation Straight 12/09/2020 3: 42 PM EDT Job Start Date Occupation Industry Not on file Not on file Not on file documented as of this encounter Miscellaneous Notes * Telephone Encounter - Terri Carmen RN - 12/28/2023 9:56 AM EDT ising at Home Telephonic Nurse Follow-Up Call [facility] Subprogram: Focused Care Management (3-9 months) Follow Up Call Type: Routine follow up call / Status Check Acute issue requiring follow-up call: Other: post acute visit Tuesday Objective: 12/26/2023 4:29 PM 12/14/2023 9:16 AM 11/15/2023 10:18 AM 10/31/2023 9:37 AM 10/10/2023 8:44 AM VITALS ACROSS ENCOUNTERS BP 100/62 120/80 130/72 138/70 130/70 Pulse 71 79 58 60 52 Weight 67.1 kg BMI 33.48 kg/m2 Remote Patient Monitoring: NONE Oxygen Needs: NO supplemental oxygen needs identified DME Needs: NO DME needs identified Medications: New medication(s) added: Luis Subjective: Condition Status: Improvement in symptoms but not at baseline Current Concerns: Spoke with Judith, reports feeling sleepy, not as nauseas as she was, is following a clear liquid diet, feels better when she gets up, weakness is improving, denies any SOB, has HORNER, did vomit liquid last night X1, no fever/chills, no wheezing, no chest congestion, resting in lift chair presently, has dizziness when she moves very fast. Will attempt to have some saltines today. Phone call follow up tomorrow and encouraged patient to call [facility] with any changes in condition Disposition: Routed to [facility] and/or [facility] at Home Care Team for further advice and Follow up call scheduled for tomorrow with ASSISTANT FINANCIAL ACCOUNTANT Automation Application Engineer Future Visits Scheduled: Future Appointments-next 60 days Date/Time Provider Specialty Dept Phone 12/28/2023 12:15 PM Coordinator, [facility] [phone] 01/12/2024 9:20 AM (Arrive by 9:05 AM) Chelly Steel MD Family Medicine [phone] 03/16/2024 1:15 PM (Arrive by 1:00 PM) Brandon Vee PA-C Orthopedics [phone] Terri Carmen RN documented in this encounter Plan of Treatment Upcoming Encounters Date Type Department Care Team ([facility] st Contact Info) Description 12/29/2023 4:15 PM EDT Scheduled Telephone [facility], [facility] [address] [place] [address] Coordinator, [facility] [address] [place] [address] 01/12/2024 9:20 AM EDT Office Visit Family [address] [phone] Chelly Steel MD [address] [place] [phone] 03/16/2024 1:15 PM EST Office Visit Orthopaedics[address] [address] Brandon Vee PA-C [address] [place] [address] Scheduled Procedures Name Priority Associated Diagnoses Date/Ti me COLONOSCOPY CA SCRN HI RISK Recall History of colon polyps Health Maintenance Due Date Last Done Comments Adult Wellness Visit 2002 DXA Scan 06/29/2021 06/29/2018, 02/0 03/2012, 03/20/2010, Additional history exists COVID-19 Vaccine ( season) 2023 03/25/2021, 08/13/2020, 07/14/2020 Influenza Vaccine (FLU shot) (#1) 2023 01/21/2023, 12/23/2021, 12/09/2020, Additional history exists Albumin/Creatinine Ratio 07/21/2024 024, 12/07/2021, 01/17/2020, Additional history exists CKD PHOS USE SMARTSET 14785 07/21/202407/12, 12/07/2021, 01/17/2020, Additional history exists Depression Screening 07/21/2024 07/22/2023 CKD HGB USE SMARTSET 99402 10/17/202410/17, 10/18/2023, 07/22/2023, Additional history exists TSH 10/17/2024 10/18/2023, 07/12, 06/21/2022, Additional history exists DTap/Tdap Vaccines (2 - Td or Tdap) 11/29/2024 11/29/2014, 11/01/2007 Pneumococcal Vaccine: 65+ Years Completed 12/25/2015, 12/21/2005, 01/01/1999 HPV (Gardasil) Vaccine Aged Out No lo nger eligible based on patient's age to complete this topic Hepatitis B Vaccine Aged Out No longe r eligible based on patient's age to complete this topic MENINGOCOCCAL (MENACTRA/MENVEO) Aged Out No longer eligible based on patient's age to complete this topic Zoster Vaccines Discontinued documented as of this encounter Medical Devices Not on filedocumented as of this encounter Care Teams Retail Project Merchandiser Relationship Specialty Start Date End Date Blair Kasper DO PCP - General Internal Medicine 09/03/20 documented as of this encounter
--- OUTSIDE RECORDS SUMMARY | 2023-12-29 15:19 | External Medical Summary | Summary of Care ---
Author Name Unknown Organization [facility] Address [address] [facility] [address] [address] Phone [phone] Care Team Providers Care R Developer Name Role Phone NathanBlair tejeda Primary Care Provid er Encounter Details Date Type Department Care Team (Late st Contact Info) Description 12/26/2023 Telephone [facility], [place] [address] [place] [address] Terri Carmen RN [address] [place] [address] [address] [phone] Allergies Active Allergy Reactions Criticality Noted Date Comments Adhesive Tape 04/20/2004 Clarithromycin 10/03/2000 nausea documented as of this encounter (statuses as of 12/27/2023) Medications Medication Sig Dispensed Refills Start Date [...] as of this encounter (statuses as of 12/27/2023) Active Problems Problem Noted Date Diagnosed Date [...] as of this encounter (statuses as of 12/27/2023) Resolved Problems Problem Noted Date Diagnosed Date [...] Overview: lmp 1987, hrt x 2 yrs 2432-7923 IRON DEF ANEMIA DIETARY 08/26/200403/14 GENERAL OSTEOARTHROSIS [...] as of this encounter (statuses as of 12/27/2023) Immunizations Name Administration Dates Next Due COVID-19 [...] encounter Miscellaneous Notes * Telephone Encounter - Niall Phelps DO - 12/26/2023 1:28 PM EDT [facility] Remote Medical Command QuickNote Recommendations: Rx sent as requested Orders: Plan Ondansetron 4 MG Oral Tablet Disintegrating (Zofran) To Do: Please see below for follow up items to be completed and correspondence: SERENITY to Judith's Care Team yard loader operator Pool please work on the following: contact the caller with advice and orders as above Niall Phelps DO Remote Medical Command - [facility] 12/26/2023 Scheduled appointments in the next 60 days: Future Appointments-next 60 days Date/Time Provider Specialty Dept Phone 12/26/2023 3:30 PM Mira Jalloh RN [facility] [phone] 12/27/2023 3:00 PM Coordinator, [facility] [phone] 12/28/2023 12:15 PM Coordinator, [facility] [phone] 01/12/2024 9:20 AM (Arrive by 9:05 AM) Chelly Steel MD Family Medicine [phone] 03/16/2024 1:15 PM (Arrive by 1:00 PM) Brandon Vee PA-C Orthopedics [phone] * Telephone Encounter - Terri Carmen RN - 12/26/2023 11:41 AM EDT [facility] yard loader operator Acute Call Date: 12/26/2023 Time: 11:41 AM Name: Judith Crowe : 1935 Caller: Judith Relationship to self No chief complaint on file. HPI: Judith Crowe is a 88 year old female that is calling [facility] to report that for the past 2 days she has been feeling ill, very sick to her stomach, +nausea, no vomiting or diarrhea, +stomach hurts all over, increased weakness, "very nervous inside", +headache, dry throat, no fever/chills, increased HORNER, no SOB at rest, no cough/congestion, has CP when ambulating. Does not have anything for nausea Nursing Assessment: Patient's chief complaint for this call: Abdominal pain Chest pain Nausea Weakness/dizziness Pain Has pain Pain level: 5 Location: stomach Quality of Pain: aching Does the pain radiate: Yes Location(s) pain is radiating to: stomach hurts all over Baseline Assessment Able to performing ADLs at baseline (walking, daily tasks, etc.): No Chief Complaint is related to a chronic condition: Unknown Patient prescribed oxygen? No Patient has been ordered DME equipment (assistive devices, respiratory equipment, etc.): No Medication Reconciliation: Received flu shot this season: No Taking medication as ordered: No, too sick to her stomach Medications ordered/taking to treat reason for call: No Heart failure symptoms: No COPD exacerbation symptoms: No Reinforcement Education: Mira Jalloh to see patient today instead of tomorrow 24/48h phone calls scheduled Patient requesting something for nausea Treatment/Plan: Level of call: Acute Appointment scheduled for same day: Yes Production Stage Manager Provider Name: Mira Jalloh Call back instructions provided to patient. JOSELUIS Whitaker Registered Nurse Navigator Triage [facility] documented in this encounter Plan of Treatment Upcoming Encounters Date Type Department Care Team (Late st Contact Info) Description 12/27/2023 3:00 PM EDT Scheduled Telephone [facility], [place] [address] [place] [address] Coordinator, [facility] [address] [place] [address] 12/28/2023 12:15 PM EDT Scheduled Telephone [facility], [place] [address] [place] [address] Coordinator, [facility] [address] [place] [address] [address] 01/12/2024 9:20 AM EDT Office Visit Family [facility] [address] [place] [phone] Chelly Steel MD [address] [place] [phone] 03/16/2024 1:15 PM EST [facility] [address] [place] [address] Brandon Vee PA-C [address] [place] [address] Scheduled Procedures Name Priority Associated Diagnoses Date/Ti me COLONOSCOPY CA SCRN HI RISK Recall History of colon polyps Health Maintenance Due Date Last Done Comments Adult Wellness Visit 2002 DXA Scan 06/29/2021 06/29/2018, 03/2012, 03/20/2010, Additional history exists COVID-19 Vaccine ( season) 2023 03/25/2021, 08/13/2020, 07/14/2020 Influenza Vaccine (FLU shot) (#1) 2023 01/21/2023, 12/23/2021, 12/09/2020, Additional history exists Albumin/Creatinine Ratio 07/21/2024 024, 12/07/2021, 01/17/2020, Additional history exists CKD PHOS USE SMARTSET 31745 07/21/2024 05, 12/07/2021, 01/17/2020, Additional history exists Depression Screening 07/21/2024 07/22/2023 CKD HGB USE SMARTSET 90768 10/17/202410/17, 10/18/2023, 07/22/2023, Additional history exists TSH [...] filedocumented as of this encounter Care Teams R Developer Relationship Specialty Start Date End Date Blair Kasper DO PCP - General Internal Medicine 09/03/20 documented as of this encounter
--- OUTSIDE RECORDS SUMMARY | 2023-12-29 15:19 | External Medical Summary | Summary of Care ---
Author Name Unknown Organization [facility] Address [address] [place] [address] Phone [phone] Care Team Providers Care Turn Laster Name Role Phone Ranjith Blair Chava Primary Care Provid er Reason for Visit * Reason Onset Date Comments Appointment 12/16/2023 Encounter Details Date Type Department Care Team (Late st Contact Info) Description 12/16/2023 Telephone [facility], [place] [address] [place] [phone] Angel Smiley, BRAD [address], [place] [phone] Appointment Allergies Active Allergy Reactions Criticality Noted Date Comments Adhesive Tape 04/20/2004 Clarithromycin 10/03/2000 nausea documented as of this encounter (statuses as of 12/16/2023) Medications Medication Sig Dispensed Refills Start Date [...] failure managing provider. 1 Each 12/14/2023 Active documented as of this encounter (statuses as of 12/16/2023) Active Problems Problem Noted Date Diagnosed Date [...] as of this encounter (statuses as of 12/16/2023) Resolved Problems Problem Noted Date Diagnosed Date [...] Overview: lmp 1987, hrt x 2 yrs 8079-9117 IRON DEF ANEMIA DIETARY 08/26/200403/14 GENERAL OSTEOARTHROSIS [...] as of this encounter (statuses as of 12/16/2023) Immunizations Name Administration Dates Next Due COVID-19 [...] encounter Miscellaneous Notes * Telephone Encounter - Angel Smiley OSA - 12/16/2023 8:43 AM EDT TT request to change CHW for 12/15 appt. Change made. documented in this encounter Plan of Treatment Upcoming Encounters Date Type Department Care Team (Late st Contact Info) Description 12/16/2023 10:30 AM EDT Home Visit Care Coordination and Integration [address] [place] [address] [facility] Licensed Practical Nurse [address] [place] [address] 12/27/2023 8:30 AM EDT Home Visit [facility] [address] [place] [address] Mira Jalloh RN [address] [place] [address] 01/12/2024 9:20 AM EDT Office Visit Family [address] [phone] Chelly Steel MD [address] [place] [phone] 03/16/2024 1:15 PM EST [place] [address] [place] [address] Barndon Vee PA-C [address] [place] [address] Scheduled Procedures Name Priority Associated Diagnoses Date/Ti [...] Additional history exists CKD PHOS USE SMARTSET 75629 07/21/202407/12, 12/07/2021, 01/17/2020, Additional history exists Depression Screening 07/21/2024 07/22/2023 CKD HGB USE SMARTSET 01041 10/17/202410/17, 10/18/2023, 07/22/2023, Additional history exists TSH [...] filedocumented as of this encounter Care Teams Turn Laster Relationship Specialty Start Date End Date Blair Kasper DO PCP - General Internal Medicine 09/03/20 documented as of this encounter
--- OUTSIDE RECORDS SUMMARY | 2023-12-29 15:19 | External Medical Summary | Summary of Care ---
Author Name Unknown Organization [facility] Address [address] [facility] [place] [address] Phone [phone] Care Team Providers Care Reproductive Healthcare Assistant Name Role Phone NathanBlair tejeda Primary Care Provid er Reason for Visit * Reason Comments Outpatient Testing Encounter Details Date Type Department Care Team (Late st Contact Info) Description 12/26/2023 6:30 PM EDT Laboratory Laboratory, [address] [address] St, Specimen Drop Off [address] [address] Arrived Allergies Active Allergy Reactions Criticality Noted Date Comments Adhesive Tape 04/20/2004 Clarithromycin 10/03/2000 nausea documented as of this encounter (statuses as of 12/26/2023) Medications Medication Sig Dispensed Refills Start Date [...] as of this encounter (statuses as of 12/26/2023) Active Problems Problem Noted Date Diagnosed Date [...] as of this encounter (statuses as of 12/26/2023) Resolved Problems Problem Noted Date Diagnosed Date [...] Overview: lmp 1987, hrt x 2 yrs [id number] IRON DEF ANEMIA DIETARY 08/26/200403/14 GENERAL OSTEOARTHROSIS [...] as of this encounter (statuses as of 12/26/2023) Immunizations Name Administration Dates Next Due COVID-19 [...] on file documented as of this encounter Plan of Treatment Upcoming Encounters Date Type Department Care Team ([facility] Contact Info) Description 12/27/2023 3:00 PM EDT Scheduled Telephone [facility], [facility] [address] [place] [phone] Coordinator, [address] [address] 12/28/2023 12:15 PM EDT Scheduled Telephone [facility], [address] [address] Coordinator, [address] [address] 01/12/2024 9:20 AM EDT Office Visit Family [address] [phone] Chelly Steel MD [address] [place] [phone] 03/16/2024 1:15 PM EST Office Visit Orthopaedics, [address] [address] Brandon Vee PA-C [address] [place] [address] Scheduled Procedures Name Priority Associated Diagnoses Date/Ti [...] Additional history exists CKD PHOS USE SMARTSET 59997 07/21/202407/12, 12/07/2021, 01/17/2020, Additional history exists Depression Screening 07/21/2024 07/22/2023 CKD HGB USE SMARTSET 72789 10/17/202410/17, 10/18/2023, 07/22/2023, Additional history exists TSH [...] filedocumented as of this encounter Care Teams Reproductive Healthcare Assistant Relationship Specialty Start Date End Date Blair Kasper DO PCP - General Internal Medicine 09/03/20 documented as of this encounter
--- OUTSIDE RECORDS SUMMARY | 2023-12-29 15:19 | External Medical Summary | Summary of Care ---
Author Name Unknown Organization [facility] Address [address] [place] [address] Phone [phone] Care Team Providers Care Shutdown Planner Name Role Phone NathanBlair tejeda Primary Care Provid er Reason for Visit * Reason Onset Date Comments [facility]: Maintenance 12/27/2023 Encounter Details Date Type Department Care Team (Late st Contact Info) Description 12/27/2023 3:00 PM EDT Scheduled Telephone [facility], [place] [address] [place] [address] Coordinator, [facility] [address] [place] [address] Allergies Active Allergy Reactions Criticality Noted Date [...] Overview: lmp 1987, hrt x 2 yrs 7013-0720 IRON DEF ANEMIA DIETARY 08/26/200403/14 GENERAL OSTEOARTHROSIS [...] encounter Miscellaneous Notes * Telephone Encounter - Vale Escoto RN - 12/27/2023 1:57 PM EDT [facility] Telephonic Nurse Follow-Up Call [facility] Subprogram: Focused Care Management (3-9 months) Follow Up Call Type: 24 hour follow up Acute issue requiring follow-up call: Other: cold sx,nausea Objective: 12/26/2023 4:29 PM 12/14/2023 9:16 AM 11/15/2023 10:18 AM 10/31/2023 9:37 AM 10/10/2023 8:44 AM VITALS ACROSS ENCOUNTERS BP 100/62 120/80 130/72 138/70 130/70 Pulse 71 79 58 60 52 Weight 67.1 kg BMI 33.48 kg/m2 Remote Patient Monitoring: NONE Oxygen Needs: NO supplemental oxygen needs identified DME Needs: NO DME needs identified Medications: New medication(s) added: zofran Subjective: Condition Status: Improvement in symptoms but not at baseline Current Concerns: Spoke with patient states she hadn't slept in 2 days d/t her cold sx she has been catching up on her sleep. Sleeping a lot Weakness improving. Able to walk to bathroom No SOB when sitting Some HORNER when moving but feels fine when walking + tolerating food. Only ate watermelon yesterday. No food today so far---encouraged CLD and to advance as tolerated + tolerating liquids (water and gingerale per pt) + holding down medications Zofran helping No fevers and chills, wheezing, dizziness,lightheadedness No vitals equip in home per pt PCR negative per results. Patient aware Patient aware to call [facility] with any decline in status and is agreeable to tomorrow Disposition: Follow up call scheduled for tomorrow with [employer]PERATOR Special Deputy Sheriff Future Visits Scheduled: Future Appointments-next 60 days Date/Time Provider Specialty Dept Phone 12/27/2023 3:00 PM Coordinator, [facility] [phone] 12/28/2023 12:15 PM Coordinator, [facility] [phone] 01/12/2024 9:20 AM (Arrive by 9:05 AM) Chelly Steel MD Family Medicine [phone] 03/16/2024 1:15 PM (Arrive by 1:00 PM) Brandon Vee PA-C Orthopedics [phone] Vale Escoto RN documented in this encounter Plan of Treatment Upcoming Encounters Date Type Department Care Team (Late st Contact Info) Description 12/28/2023 12:15 PM EDT Scheduled Telephone [facility] [place], [facility] [address] [place] [address] Coordinator, [facility] [address] [place] [address] 01/12/2024 9:20 AM EDT Office Visit [address] [phone] Chelly Steel MD [address] [place] [phone] 03/16/2024 1:15 PM EST Office Visit Orthopaedics[address] [address] Brandon Vee PA-C [address] [place], [place] [phone] Scheduled Procedures Name Priority Associated Diagnoses Date/Ti me COLONOSCOPY CA SCRN HI RISK Recall History of colon polyps Health Maintenance Due Date Last Done Comments Adult Wellness Visit 2002 DXA Scan 06/29/2021 06/29/2018, 02/03/2012, 03/20/2010, Additional history exists COVID-19 Vaccine ( season) 2023 03/25/2021, 08/13/2020, 07/14/2020 Influenza Vaccine (FLU shot) (#1) 2023 01/21/2023, 12/23/2021, 12/09/2020, Additional history exists Albumin/Creatinine Ratio 07/21/2024 024, 12/07/2021, 01/17/2020, Additional history exists CKD PHOS USE SMARTSET 14864 07/21/202407/12, 12/07/2021, 01/17/2020, Additional history exists Depression Screening 07/21/2024 07/22/2023 CKD HGB USE SMARTSET 80762 10/17/202410/17, 10/18/2023, 07/22/2023, Additional history exists TSH [...] filedocumented as of this encounter Care Teams Shutdown Planner Relationship Specialty Start Date End Date Blair Kasper DO PCP - General Internal Medicine 09/03/20 documented as of this encounter
--- OUTSIDE RECORDS SUMMARY | 2023-12-29 15:19 | External Medical Summary | Summary of Care ---
Author Name Unknown Organization [facility] Address [address] [address] Phone [phone] Care Team Providers Care Rectangular Tank Cooper Name Role Phone Nathannikhil Blair Chava Primary Care Provid er Encounter Details Date Type Department Care Team (Late st Contact Info) Description 12/26/2023 3:30 PM EDT Home Visit [facility] at Home, [place] [address] [place] [address] Mira Jalloh RN [address] [facility] [address] HORNER (dyspnea on exertion)*; Headache, tension-type Allergies Active Allergy Reactions Criticality Noted Date [...] Overview: lmp 1987, hrt x 2 yrs 5000[address]277 IRON DEF ANEMIA DIETARY 08/26/200403/14 GENERAL OSTEOARTHROSIS [...] Sign Reading Time Taken Comments Blood Pressure 100/62 12/26/2023 4:29 PM EDT Pulse 71 12/26/2023 4:29 PM EDT Temperature 37 C (98.6 F) 12/26/2023 4:29 PM EDT Respiratory Rate - - Oxygen Saturation 94% 12/26/2023 4:29 PM EDT room air Inhaled Oxygen Concentration - - Weight - - Height - - Body Mass Index - - documented in this encounter Progress Notes * Mira Jalloh RN - 12/26/2023 3:30 PM EDT Current Concerns: ACUTE VISIT Judith is a 88 year old female being seen in her home for [facility] Acute visit. Pt called into [facility] Home Intake to report that for the past 2 days she has been feeling ill, very sick to her stomach, +nausea, no vomiting or diarrhea, +stomach hurts all over, increased weakness, "very nervous inside", +headache, dry throat, no fever/chills, increased HORNER, no SOB at rest, no cough/congestion, has CP when ambulating. Does not have anything for nausea [facility] Dr. Phelps prescribed PO Zofran Discussed with suman torres PA-C - respiratory pcr ordered Pt sitting in living room. She reports she has not felt well last 2 days. Today she has only drank one bottle of water (16 oz) Yesterday she drank ~ 2 16oz bottles of water, coffee, & orange juice Family home with pt. Pt aware that [facility] ordered zofran & sent to [facility] & family states they will go get script for pt. Transported respiratory swab to [facility] lab. Physical Exam: Physical Exam Constitutional: General: She is awake. Appearance: Normal appearance. She is obese. HENT: Mouth/Throat: Mouth: Mucous membranes are moist. Neck: Vascular: No JVD. Cardiovascular: Rate and Rhythm: Normal rate and regular rhythm. Pulses: Normal pulses. Pulmonary: Effort: Pulmonary effort is normal. Breath sounds: Normal breath sounds. Abdominal: General: Bowel sounds are normal. Palpations: Abdomen is soft. Musculoskeletal: Right lower le+ Pitting Edema (trace) present. Left lower le+ Pitting Edema (trace) present. Comments: Chronic right shoulder pain - receives injections which helps. No c/o's today. Skin: Findings: Bruising (arms) present. Neurological: Mental Status: She is alert and oriented to person, place, and time. GCS: GCS eye subscore is 4. GCS verbal subscore is 5. GCS motor subscore is 6. Gait: Gait abnormal (FWW- always has assist of 1). Psychiatric: Attention and Perception: Attention normal. Mood and Affect: Mood normal. Speech: Speech normal. Behavior: Behavior normal. Behavior is cooperative. Thought Content: Thought content normal. Cognition and Memory: Cognition normal. Judgment: Judgment normal. Review of Systems: Review of Systems Constitutional: Positive for activity change (decreased r/t not feeling well) and fatigue. HENT: Positive for congestion, dental problem, ear pain, sinus pressure and sore throat (raw / dry). Respiratory: Positive for cough (NPC), chest tightness and shortness of breath (HORNER- when up movingaround. reports worse than baseline). Cardiovascular: Positive for leg swelling (chronic - baseline). Gastrointestinal: Positive for abdominal pain and nausea. Negative for constipation (occasional), diarrhea and vomiting. LBM today - denies straining Endocrine: Positive for cold intolerance. Genitourinary: Denies any difficulty urinating Musculoskeletal: Positive for arthralgias, gait problem (uses walker) and myalgias. Chronic right arm / shoulder pain Neurological: Positive for headaches (occasional - denies today). Psychiatric/Behavioral: Positive for sleep disturbance. All other systems reviewed and are negative. Care Plan Goal Progress: Orders Placed: Plan Respiratory Pathogen Panel, PCR SARS-CoV-2 (COVID-19), NAAT : Medications Given: Care Gaps: Care Gaps Care gaps closed this contact:: Home based procedures (12/26/23 6897) Type of divert: Divert ED (12/26/23 1640) Type of education: Clinical/disease (12/26/23 1640) Procedure performed: (had pt drink a bottle of water during visit & tolerated well) (12/26/23 1644) Type of medication care gap: Medication optimization;Medication adherence (12/26/23 1640) documented in this encounter Plan of Treatment Upcoming Encounters Date Type Department Care Team (Late st Contact Info) Description 12/27/2023 3:00 PM EDT Scheduled Telephone [facility], [facility] [address] [place] [address] Coordinator, [facility] [address] [place] [address] 12/28/2023 12:15 PM EDT Scheduled Telephone [facility], [facility] [address] [place] [address] Coordinator, [facility] [address] [place] [address] 01/12/2024 9:20 AM EDT Office Visit [address] [phone] Chelly Steel MD [address] [place] [phone] 03/16/2024 1:15 PM EST Office Visit Orthopaedics, [address] [address] Brandon Vee PA-C [address] [place] [phone] Scheduled Orders Name Type Priority Associated Diagnoses Orde r Schedule RESPIRATORY PATHOGEN PANEL, PCR Lab Routine HORNER (dyspnea on exertion) Headache, tension-type Expected: 12/26/2023 (Approximate), Expires: 12/25/2024 SARS-COV-2 (COVID-19), NAAT Lab Routine HORNER (dyspnea on exertion) Headache, tension-type Ordered: 12/26/2023 Scheduled Procedures Name Priority Associated Diagnoses Date/Ti [...] Additional history exists CKD PHOS USE SMARTSET 78598 07/21/202407/12, 12/07/2021, 01/17/2020, Additional history exists Depression Screening 07/21/2024 07/22/2023 CKD HGB USE SMARTSET 92986 10/17/202410/17, 10/18/2023, 07/22/2023, Additional history exists TSH [...] as of this encounter Visit Diagnoses Diagnosis HORNER (dyspnea on exertion)- Primary Other dyspnea and respiratory abnormality Headache, tension-type Tension type headache, unspecified documented in this encounter Care Teams Rectangular Tank Cooper Relationship Specialty Start Date End Date Blair Kasper DO PCP - General Internal Medicine 09/03/20 documented as of this encounter
--- OUTSIDE RECORDS SUMMARY | 2023-12-29 15:19 | External Medical Summary | Summary of Care ---
Author Name Unknown Organization [facility] Address [address] [place] [address] Phone [phone] Care Team Providers Care Brine Room Laborer Name Role Phone MariahrakeshBlairothy Primary Care Provid er Encounter Details Date Type Department Care Team (Late st Contact Info) Description 12/16/2023 10:30 AM EDT Home Visit Care Coordination and Integration [address] [place] [address] Tawny Power, [facility] [address] [place], [place] [phone] Allergies Active Allergy Reactions Criticality Noted Date Comments Adhesive Tape 04/20/2004 Clarithromycin 10/03/2000 nausea documented as of this encounter (statuses as of 12/20/2023) Medications Medication Sig Dispensed Refills Start Date [...] as of this encounter (statuses as of 12/20/2023) Active Problems Problem Noted Date Diagnosed Date [...] as of this encounter (statuses as of 12/20/2023) Resolved Problems Problem Noted Date Diagnosed Date [...] Overview: lmp 1987, hrt x 2 yrs 4520-9731 IRON DEF ANEMIA DIETARY 08/26/200403/14 GENERAL OSTEOARTHROSIS [...] as of this encounter (statuses as of 12/20/2023) Immunizations Name Administration Dates Next Due COVID-19 [...] as of this encounter Progress Notes * Tawny Power [facility] - 12/16/2023 10:46 AM EDT Telemedicine visit: No [facility] (JIMMIE) documentation: [facility] follow up visit per Bere Lima PA-C [facility] returned this date to do a check on patients BLE. Pt's edema is down, her legs are softer, lessfirm. Pt states she has been doing the titration as ordered. documented in this encounter Plan of Treatment Upcoming Encounters Date Type Department Care Team (Late st Contact Info) Description 12/27/2023 8:30 AM EDT Home Visit [facility] [address] [place] [address] Mira Jalloh RN [address] [place] [address] 01/12/2024 9:20 AM EDT Office Visit [address] [phone] Chelly Steel MD [address] [place] [phone] 03/16/2024 1:15 PM EST Office Visit Orthopaedics[address] [address] Brandon Vee PA-C [address] [place] [address] Scheduled Procedures Name Priority Associated Diagnoses Date/Ti [...] Additional history exists CKD PHOS USE SMARTSET 34398 07/21/202407/12, 12/07/2021, 01/17/2020, Additional history exists Depression Screening 07/21/2024 07/22/2023 CKD HGB USE SMARTSET 02110 10/17/202410/17, 10/18/2023, 07/22/2023, Additional history exists TSH [...] filedocumented as of this encounter Care Teams Brine Room Laborer Relationship Specialty Start Date End Date Blair Kasper DO PCP - General Internal Medicine 09/03/20 documented as of this encounter
--- OUTSIDE RECORDS SUMMARY | 2023-12-29 15:19 | External Medical Summary | Summary of Care ---
Author Name Unknown Organization [facility] Address [address] [address] Phone [phone] Care Team Providers Care Patient Care Nursing Assistant Name Role Phone Blair Simental DO Primary Care Provid er Reason for Referral * Medication Prior Authorization - Pending Review Specialty Diagnoses / Procedures Referred By Shannan frausto Referred To Contact Diagnoses Chronic right shoulder pain Blair Simental DO [address] [id number] Referral ID Status Reason Start Date Expiration Date V isits Requested Visits Authorized [id number] Pending Review 999 999 Reason for Visit * Reason Onset Date Comments Medication Refill 12/12/2023 Encounter Details Date Type Department Care Team (Late st Contact Info) Description 12/12/[address] [phone] Blair Simental DO [address] [id number] Chronic right shoulder pain Allergies Active Allergy Reactions Criticality Noted Date Comments Adhesive Tape 04/20/2004 Clarithromycin 10/03/2000 nausea documented as of this encounter (statuses as of 12/14/2023) Medications Medication Sig Dispensed Refills Start Date End Date Status Potassium Chloride ER 10 MEQ Oral Capsule Extended ReleaseIndications: Hypertensive heart disease with heart failure (HCC) Take 2 Capsules by mouth in the morning and 2 Capsules before bedtime. 120 Capsule 5 4 Active Aspirin 81 MG Oral Tablet ChewableIndications :Generalized osteoarthritis of multiple sites 1 chewable by mouth daily to prevent heart attack 100 Tablet 5 4 Active predniSONE 5 MG Oral Tablet (Deltasone)Indicati ons:Chronic pain of both knees,PMR (polymyalgia rheumatica) (HCC) Take 1 Tablet by mouth in the morning. 90 Tablet 1 4 Active Sertraline HCl 100 MG Oral Tablet (Zoloft)Indications :Depression with anxiety TAKE 1 TABLET BY MOUTH ONCE DAILY IN THE MORNING 90 Tablet 2 4 Active Carvedilol 3.125 MG Oral Tablet (Coreg)Indications: Hypertensive heart disease with heart failure (HCC) Take 1 Tablet by mouth in the morning and 1 Tablet before bedtime. with food. 180 Tablet 1 4 Active Allopurinol 100 MG Oral Tablet (Zyloprim) Take 1 Tablet by mouth in the morning. 90 Tablet 1 4 Active Atorvastatin Calcium 20 MG Oral Tablet (Lipitor)Indication s:Dyslipidemia, goal LDL below 130 TAKE 1 TABLET BY MOUTH ONCE DAILY IN THE MORNING 30 Tablet 5 4 Active Acetaminophen 500 MG Oral Tablet (Tylenol) Take 1 Tablet by mouth in the morning and 1 Tablet at noon and 1 Tablet in the evening. 270 Tablet 3 4 Active Torsemide 20 MG Oral Tablet (Demadex)Indication s:Hypertensive heart disease with heart failure (HCC) Take 2 Tablets by mouth in the morning and 2 Tablets before bedtime. 120 Tablet 3 4 Active Levothyroxine Sodium 75 MCG Oral Tablet (Levoxyl)Indication s:Acquired hypothyroidism Take 1 Tablet by mouth in the morning. (at least 30 min prior to breakfast or other meds). 90 Tablet 3 4 Active FeroSul 325 (65 Fe) MG Oral Tablet (Ferrous Sulfate)Indications :Anemia, unspecified type Take 1 Tablet by mouth daily with breakfast. 30 Tablet 3 4 Active methylPREDNISolone 4 MG Oral Tablet Therapy Pack (Medrol Dosepack) Take as per instructions on package. 21 Each 4 Active Baclofen 5 MG Oral Tablet (Lioresal) Take 1 Tablet by mouth 2 times a day as needed for Muscle spasms. 10 Tablet 4 Active HYDROcodone-Acetami nophen 5-325 MG Oral TabletIndications:C hronic right shoulder pain Take 1 Tablet by mouth every 8 hours as needed for Pain, Mild. 30 Tablet 4 Active HYDROcodone-Acetami nophen 5-325 MG Oral TabletIndications:C hronic right shoulder pain Take 1 Tablet by mouth every 8 hours as needed for Pain, Mild. 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 Major depressive disorder Overview: ICD-10 update of inactive term Anxiety state 03/28/2017 Age-related osteoporosis wit hout current pathological fracture 10/10/2023 Overview: dexa 09/13 mod fx risk, started on Fosamax 08/16 Positional vertigo 8 HTN, goal below 140/90 12/24 Overview: 06/12 documented as of this encounter (statuses as of 12/14/2023) Immunizations Name Administration Dates Next Due COVID-19 [...] Telephone Encounter - Blair Simental DO - 12/14/2023 1:29 PM EDT Signed Prescriptions: Disp Refills HYDROcodone-Acetaminophen 5-325 MG Oral Ta*30 Tab*0 Sig: Take 1 Tablet by mouth every 8 hours as needed for Pain, Mild. Authorizing Provider: BLAIR SIMENTAL * Telephone Encounter - Reno Zabala [facility] - 12/14/2023 7:47 AM EDT Pending Prescriptions: Disp Refills HYDROcodone-Acetaminophen 5-325 MG Oral Ta*30 Tab*0 Sig: Take 1 Tablet by mouth every 8 hours as needed for Pain, Mild. * Telephone Encounter - Reno Zabala [facility] - 12/14/2023 7:46 AM EDT I have reviewed the patients controlled substance dispensing history in the Prescription Drug Monitoring Program in compliance with the [facility] regulations before prescribing a controlled substance. PDMP checked on 12/14/2023. Pending Prescriptions: Disp Refills HYDROcodone-Acetaminophen 5-325 MG Oral T*30 Tab*0 Sig: Take 1 Tablet by mouth every 8 hours as needed for Pain, Mild. Last Visit: 10/10/2023 (in office), Visit date not found (telemedicine) Next Visit: 01/12/2024 Date medication was last filled: 11/03/2023 Date medication is due for refill: 11/12/2023 Pharmacy: [facility] Is this request for a controlled substance? Yes and Urine Drug Screen was completed Toxicology results: Results for orders placed or performed in visit on 07/22/23 PAIN MANAGEMENT DRUG PANEL, URINE Result Value Amphetamines Screen, U Negative Benzodiazepines Screen, U Negative Cannabinoids Screen, U Negative Cocaine Metabolite Screen, U Negative Fentanyl Screen, U Negative Hydrocodone Screen, U Refer to confirmation results (A) Methadone Metabolite Screen, U Negative Morphine/Codeine Screen, U Refer to confirmation results (A) Oxycodone Screen, U Refer to confirmation results (A) Valid Interpretation Normal Creatinine, U 48 Narrative Cutoff Concentrations: Drug Level Amphetamines 500 ng/mL Benzodiazepines 100 ng/mL Cannabinoids 50 ng/mL Cocaine Metabolite 150 ng/mL Fentanyl 1 ng/mL Hydrocodone / Hydromorphone 300 ng/mL Methadone Metabolite 100 ng/mL Morphine / Codeine 300 ng/mL Oxycodone / Oxymorphone 100 ng/mL Screening results are presumptive and can only be used for medical purposes. Confirmatory testing is available upon request. *Note: Due to a large number of results and/or encounters for the requested time period, some results have not been displayed. A complete set of results can be found in Results Review. Please approve if appropriate. Thank You, Reno Zabala, Pharm-D Clinical Pharmacist [facility] ([facility] [phone] 12/14/2023, 7:46 AM * Telephone Encounter - Adria StoneCalin weinstein - 12/12/2023 12:53 PM EDT Did you pend patient's preferred pharmacy and medication before forwarding?yes Pharmacy: [facility] [address] [facility] Pending Prescriptions: Disp Refills HYDROcodone-Acetaminophen 5-325 MG Oral T*30 Tab*0 Sig: Take 1 Tablet by mouth every 8 hours as needed for Pain, Mild. Last Visit: 10/10/2023 (in office), Visit date not found (telemedicine) Next Visit: 01/12/2024 If no future appointments scheduled, and last appointment is greater than a year ago, please schedule patient for a follow-up appointment Last date the medication was ordered: 11/03/23 Is this request for a controlled substance?Yes, What was the last refill date 11/03/23 w/ quantity 30 and dosage 5-325 and Urine Drug Screen was completed Urine Drug Screen: Results for orders placed or performed in visit on 07/22/23 PAIN MANAGEMENT DRUG PANEL, URINE Result Value Amphetamines Screen, U Negative Benzodiazepines Screen, U Negative Cannabinoids Screen, U Negative Cocaine Metabolite Screen, U Negative Fentanyl Screen, U Negative Hydrocodone Screen, U Refer to confirmation results (A) Methadone Metabolite Screen, U Negative Morphine/Codeine Screen, U Refer to confirmation results (A) Oxycodone Screen, U Refer to confirmation results (A) Valid Interpretation Normal Creatinine, U 48 Narrative Cutoff Concentrations: Drug Level Amphetamines 500 ng/mL Benzodiazepines 100 ng/mL Cannabinoids 50 ng/mL Cocaine Metabolite 150 ng/mL Fentanyl 1 ng/mL Hydrocodone / Hydromorphone 300 ng/mL Methadone Metabolite 100 ng/mL Morphine / Codeine 300 ng/mL Oxycodone / Oxymorphone 100 ng/mL Screening results are presumptive and can only be used for medical purposes. Confirmatory testing is available upon request. *Note: Due to a large number of results and/or encounters for the requested time period, some results have not been displayed. A complete set of results can be found in Results Review. Patient Phone Numbers Labs: Lab Results Component Value Date/Time CREAT 1.1 (H) 10/18/2023 10:15 AM CREAT 1.2 (H) 01/17/2020 02:02 PM POTASSIUM 4.4 10/18/2023 10:15 AM POTASSIUM 4.6 01/17/2020 02:02 PM TSH 0.08 (L) 10/18/2023 10:15 AM TSH 9.31 (H) 01/17/2020 02:02 PM LDL 78 10/18/2023 10:15 AM LDL 95 01/17/2020 02:02 PM ALT 14 10/18/2023 10:15 AM ALT 19 01/17/2020 02:02 PM documented in this encounter Plan of Treatment Upcoming Encounters Date Type Department Care Team (Late st Contact Info) Description 12/16/2023 10:30 AM EDT Home Visit [facility] [address] [place] [address] Nany Pryor, Community Health [employer] Developer [address] [place] [address] 12/27/2023 8:30 AM EDT [facility] Visit [facility] [place] [place] [address] [place] [address] Mira Jalloh, RN [address] [place] [address] 01/12/2024 9:20 AM EDT Office Visit Family [facility] [address] [place] [phone] Chelly Steel MD [address] [place] [phone] 03/16/2024 1:15 PM EST Office Visit Orthopaedics, [phone] [place] [address] Brandon Vee PA-C [address] [place], [place] [phone] Scheduled Procedures Name Priority Associated Diagnoses Date/Ti [...] Additional history exists CKD PHOS USE SMARTSET 31082 07/21/202407/12, 12/07/2021, 01/17/2020, Additional history exists Depression Screening 07/21/2024 07/22/2023 CKD HGB USE SMARTSET 29104 10/17/202410/17, 10/18/2023, 07/22/2023, Additional history exists TSH [...] as of this encounter Visit Diagnoses Diagnosis Chronic right shoulder pain Pain in joint, shoulder region documented in this encounter Care Teams Patient Care Nursing Assistant Relationship Specialty Start Date End Date Blair Simental DO PCP - General Internal Medicine 09/03/20 documented as of this encounter
--- OUTSIDE RECORDS SUMMARY | 2023-12-29 15:19 | External Medical Summary ---
Author Name Unknown Address Unknown Organization K01:[facility] [place] - [address] [facility] [address] Laboratory Report Ordering Provider Test Date Status KALINA QUINTANA 12/26/2023 18:31:36 Final For PreSurgery, Procedure, O B Admit, or Surveillance testing - Nasal Turbinate source preferred.

For Symptomatic testing - Nasopharyngeal source preferred.
null Observation Date Value Abnormality Reference (Units ) Status SARS Coronavirus 2 12/26/2023 18:31:36 Negative N egative Final 2018 Novel Coronavirus not d etected.

This express test was developed and its performance characteristics determined by [facility]. It has not been cleared or approved by the U.S. Food and Drug Administration (FDA). FDA does not require this test to go thru premarket FDA review. This test is used for clinical purposes. It should not be regarded as investigational or for research. This laboratory is certified under the Clinical Laboratory Improvement Amendments (CLIA) as qualified to perform high complexity clinical laboratory testing.

This test is a nucleic acid amplification test (NAAT), a reverse transcriptase polymerase chain reaction (RT-PCR) test, or a Centers for Disease Control-acceptable equivalent. The test is performed in a high complexity Clinical Laboratory Improvement Amendments-(CLIA) certified laboratory. The test is acceptable for SARS-CoV-2 diagnosis, surveillance, and travel within the [place] and to most countries. Please check with local testing authorities about requirements before travel.

The validation of bronchial specimens, tracheal aspirates, and sputum for this assay was developed and performance characteristics determined by [facility]. The validation of alternate specimen types has not been cleared or approved by the U.S. Food and Drug Administration (FDA). It has been determined that such clearance is not necessary. Performing Location [facility] [place] - [address] [address]
--- OUTSIDE RECORDS SUMMARY | 2023-12-29 15:20 | External Medical Summary | Summary of Care ---
Author Name Unknown Organization [facility] Address [address] [place] [address] Phone [phone] Care Team Providers Care Director Product Management Name Role Phone Nathannikhil Blair Chava Primary Care Provid er Reason for Visit * Reason Onset Date Comments Appointment 12/14/2023 Encounter Details Date Type Department Care Team (Late st Contact Info) Description 12/14/2023 Telephone [facility] [place] [address] [place], [place] [phone] Alana Rainey, BRAD [address] [place], [place] [phone] Appointment Allergies Active Allergy Reactions Criticality Noted [...] other meds). 90 Tablet 3 10/19/2023 Active HYDROcodone-Acetamin ophen 5-325 MG Oral TabletIndications:Ch ronic right shoulder pain Take 1 Tablet by mouth every 8 hours as needed for Pain, Mild. 30 Tablet 11/03/2023 Active FeroSul 325 (65 Fe) MG Oral [...] for Muscle spasms. 10 Tablet 11/30/2023 Active DIURETIC TITRATION PLANIndications:Hype rtensive heart and [...] Overview: lmp 1987, hrt x 2 yrs [id number] IRON DEF ANEMIA DIETARY 08/26/200403/14 GENERAL OSTEOARTHROSIS [...] encounter Miscellaneous Notes * Telephone Encounter - Alana Rainey OSA - 12/14/2023 10:28 AM EDT Per request, schedule a chw visit for Friday 12/15 to check leg edema Scheduled with Nany oliver on 12/15@10:30 Called and spoke to pt; confirmed date and time okay. documented in this encounter Plan of Treatment Upcoming Encounters Date Type Department Care Team (Late st Contact Info) Description 12/16/2023 10:30 AM EDT Home Visit Care Coordination and Integration [address] [place] [address] Nany Oliver, Community Health [facility] [address] [place] [address] 12/27/2023 8:30 AM EDT Home Visit [facility] [address] [place] [address] Mira Jalloh RN [address] [place] [address] 01/12/2024 9:20 AM EDT Office Visit Family [facility] [address] [place] [phone] Chelly Steel MD [address] [place] [phone] 03/16/2024 1:15 PM EST Office Visit Orthopaedics[address] [address] Brandon Vee PA-C [address] [place] [phone] Scheduled Procedures Name Priority Associated Diagnoses Date/Ti [...] Additional history exists CKD PHOS USE SMARTSET 81907 07/21/202407/12, 12/07/2021, 01/17/2020, Additional history exists Depression Screening 07/21/2024 07/22/2023 CKD HGB USE SMARTSET 63657 10/17/202410/17, 10/18/2023, 07/22/2023, Additional history exists TSH [...] filedocumented as of this encounter Care Teams Director Product Management Relationship Specialty Start Date End Date Blair Kasper DO PCP - General Internal Medicine 09/03/20 documented as of this encounter
--- OUTSIDE RECORDS SUMMARY | 2023-12-29 15:20 | External Medical Summary | Summary of Care ---
Author Name Unknown Organization [facility] Address [address] [address] Phone [phone] Care Team Providers Care Blacksmith Assistant Name Role Phone Nathannikhil Blair Anthonyothy Primary Care Provid er Reason for Visit * Reason Onset Date Comments [facility]: Acute 11/30/2023 Encounter Details Date Type Department Care Team (Late st Contact Info) Description 11/30/2023 Telephone [facility], [facility] [address] [facility] [place] [place] [address] Martha Shah RN [address] [facility] [place] [address] [facility]: Acute Allergies Active Allergy Reactions Criticality Noted Date Comments Adhesive Tape 04/20/2004 Clarithromycin 10/03/2000 nausea documented as of this encounter (statuses as of 11/30/2023) Medications Medication Sig Dispensed Refills Start Date [...] for Muscle spasms. 10 Tablet 11/30/2023 Active documented as of this encounter (statuses as of 11/30/2023) Active Problems Problem Noted Date Diagnosed Date [...] Torsemide 40mg BID Vitamin D deficiency 12/23/2011 BMI 35-39 ISOLATED (SEE ACTUAL BMI) 08/25/2009 Overview: Per Obesity Protocol, #19 Generalized osteoarthritis 12/15/2007 Last Assessment & Plan: Gets steroid injections by PCP Hydrocodone-APAP 5/325 every 6 hours prn Uses TENS and ICY HOT ADVANCE DIRECTIVE INFORMATION 09/05/2004 Overview: No, Advance Directive brochure given to patient at prior appointment. documented as of this encounter (statuses as of 11/30/2023) Resolved Problems Problem Noted Date Diagnosed Date [...] Overview: lmp 1987, hrt x 2 yrs [id number] IRON DEF ANEMIA DIETARY 08/26/200403/14 GENERAL OSTEOARTHROSIS [...] as of this encounter (statuses as of 11/30/2023) Immunizations Name Administration Dates Next Due COVID-19 mRNA, LNP-s, No Pre serve, 2-Dose Series (Moderna) 03/25/2021,08/13/2020,07/14/2020 Influenza, Whole Virus 12/21/2005,12/21/1998 Pneumococcal Conjugate Vacc, 13 Valent (Prevnar) 12/25/2015 Pneumococcal Polysaccharide PPV23 (Pneumovax) 12/21/2005,01/01/1999 Seasonal Influenza, PF, 6 M & above, IM , (FluLaval or Fluzone) 12/14/2019,01/31/2018,03/18/2017 Seasonal Influenza, Quadriva lent Hd (Fluzone Hd) 01/21/2023,12/23/2021,12/09/2020 Seasonal Influenza, Quadriva lent, No Preserve, IM 12/25/2015 Seasonal Influenza, Trivalen t, (IIV3), with Preserv, (Fluzone) 11/28/2014,02/01/2014,04/02/2013,12/22,01/14/2011,01/26/2010,12/04/2008 ,12/26/2007,01/12/2007 Seasonal Influenza, Trivalen t, Adjuvanted, 65+ YRS, [...] 07/22/2023 Hunger Vital Sign Answer Date Recorded Worried About Running Out of Food in the Last Ye ar Never true 10/16/2019 Ran Out of Food in the Last Year Never true 10/16/2019 Utilities Answer Date Recorded Do you have trouble paying y our heating, water, or electric bill? (Adult - for ages 18 years and over) Not on file 2023 Is your family able to pay t he heat, water, or electric bill? (Household - for ages 0-17 years) Not on file 2023 Does your family have access to good internet? (Household - for ages 0-17 years) Not on file 2023 Social Connections Answer Date Recorded How often do you feel lonely or isolated from those around you? (Adult - for ages 18 years and over) Not on file 2023 Sex and Gender Information Value Date Recorded Sex Assigned at Female 12/09/2020 3:42 PM EDT Gender Identity Female 12/09/2020 3:42 PM EDT Sexual Orientation Straight 12/09/2020 3: 42 PM EDT Job Start Date Occupation Industry Not on file Not on file Not on file documented as of this encounter Miscellaneous Notes * Addendum Note - Angel Clayton MD - 11/30/2023 4:10 PM EDTAddended by: ANGEL CLAYTON on: 11/30/2023 04:10 PM Modules accepted: Orders * Telephone Encounter - Angel Clayton MD - 11/30/2023 4:08 PM EDT Recommendations: Will attempt trial of baclofen for muscle spasm/pain. Please work toward PCP appointment for betterin person evaluation. Plan Baclofen 5 MG Oral Tablet (Lioresal) E * Telephone Encounter - Martha Shah RN - 11/30/2023 3:48 PM EDT [facility] publisher assistant Acute Call Date: 11/30/2023 Time: 3:49 PM Name: Judith Crowe : 1935 Caller: patient Chief Complaint Patient presents with [facility]: Acute HPI: Judith Crowe is a 88 year old old female that is calling [facility] to report ongoing uncontrolled pain. Nursing Assessment: Patient's chief complaint for this call: she reports lower back pain and right hip pain that radiates down the right leg, ongoing for the last 4 weeks. Pt was ordered a medrol pack on 11/22/23 which she completed Tuesday. Pt did have some relief on the steroid to a 4/10 on pain scale. Per chart review pt had been dx with sacroiliac joint pain by ortho but did not have any interventions for the pain. Pt has tried topical analgesics, warm compresses, ice with no relief. Pain Has pain Pain level: 8 Location: she reports lower back pain and right hip pain that radiates down the right leg, Quality of Pain: shooting pain, sharp ache Does the pain radiate: Yes Location(s) pain is radiating to: down right leg Exacerbated by walking Baseline Assessment Able to performing ADLs at baseline (walking, daily tasks, etc.): No Chief Complaint is related to a chronic condition: Yes Chronic Condition: Pain Chief Complaint is a change in baseline: Yes, pain returned to 8/10 upon completion of steroid taper Patient prescribed oxygen? No Patient has been ordered DME equipment (assistive devices, respiratory equipment, etc.): Yes Describe DME devices: walker Patient is using DME device as directed: Yes Medication Reconciliation: (See medication list) Received flu shot this season: Unknown Taking medication as ordered: Yes Medications ordered/taking to treat reason for call: Patient is taking Hydrocodone-APAP 3x/day together with Tylenol ES 500 mg TID. She states was advised to take medications together by PCP. Medrol pack completed Heart failure symptoms: No COPD exacerbation symptoms: No Reinforcement Education: Routing to [facility] for further orders/recommendations Keep RLE elevated throughout the day Use pillow to offload pressure to affected area Use walker for all ambulation Safety/fall precautions-good footwear/clear pathways Try moist heat to affected areas, make sure skin is clean and dry Call back with new/worsening symptoms Treatment/Plan: (need to report) Level of call: Non-Acute Recommended treatment plan: Clinical advice given over the phone Call back instructions provided to patient. documented in this encounter Plan of Treatment Upcoming Encounters Date Type Department Care Team (Late st Contact Info) Description 12/14/2023 8:50 AM EDT [facility]medicine [facility] [address] [place] [address] Bere Martin PA-C [address] [place] [address] Tawny Power, [facility] Telephone Order Dispatcher [address] [place] [address] 12/27/2023 8:30 AM EDT Home Visit [facility] [address] [place] [address] Mira Jalloh RN [address] [place] [address] 01/12/2024 9:20 AM EDT Office Visit [address] [address] Chelly Steel MD [address] [place] [phone] 03/16/2024 1:15 PM EST Office Visit Orthopaedics[address] [address] Brandon Vee PA-C [address] [place] [phone] Scheduled Procedures Name Priority Associated Diagnoses Date/Ti [...] Additional history exists CKD PHOS USE SMARTSET 25614 07/21/202407/12, 12/07/2021, 01/17/2020, Additional history exists Depression Screening 07/21/2024 07/22/2023 CKD HGB USE SMARTSET 51739 10/17/202410/17, 10/18/2023, 07/22/2023, Additional history exists TSH [...] filedocumented as of this encounter Care Teams Blacksmith Assistant Relationship Specialty Start Date End Date Blair Kasper DO [address] [place] [address] [phone] PCP - General Internal Medicine 09/03/20 documented as of this encounter
--- OUTSIDE RECORDS SUMMARY | 2023-12-29 15:20 | External Medical Summary | Summary of Care ---
Author Name Unknown Organization [facility] Address [address] [address] Phone [phone] Care Team Providers Care Beating Machine Operator Name Role Phone NathanBlair tejeda Primary Care Provid er Reason for Visit * Reason Onset Date Comments [facility]: Maintenance 12/02/2023 Encounter Details Date Type Department Care Team (Late st Contact Info) Description 12/02/2023 3:00 PM EDT Scheduled Telephone [facility], [place] [facility] [address] [place] [address] Coordinator, [facility] [address] [place] [address] Allergies Active Allergy Reactions Criticality Noted Date Comments Adhesive Tape 04/20/2004 Clarithromycin 10/03/2000 nausea documented as of this encounter (statuses as of 12/02/2023) Medications Medication Sig Dispensed Refills Start Date [...] as of this encounter (statuses as of 12/02/2023) Active Problems Problem Noted Date Diagnosed Date [...] as of this encounter (statuses as of 12/02/2023) Resolved Problems Problem Noted Date Diagnosed Date [...] Overview: lmp 1987, hrt x 2 yrs 8899-0795 IRON DEF ANEMIA DIETARY 08/26/200403/14 GENERAL OSTEOARTHROSIS [...] as of this encounter (statuses as of 12/02/2023) Immunizations Name Administration Dates Next Due COVID-19 [...] encounter Miscellaneous Notes * Telephone Encounter - Stephanie Becerra RN - 12/02/2023 9:46 AM EDT [facility] Telephonic Nurse Follow-Up Call [facility] Subprogram: Focused Care Management (3-9 months) Follow Up Call Type: 24 hour follow up Acute issue requiring follow-up call: Other: Uncontrolled low back and Rt hip pain into leg x 4 weeks. Completed Medrol Dose Pac on 11/21,Taking Hydrocodone-APAP and ES Tylenol TID Ortho told her it was sciatica. Objective: 11/15/2023 10:18 AM 10/31/2023 9:37 AM 10/10/2023 8:44 AM 09/30/2023 3:56 PM 09/01/2023 4:08 PM VITALS ACROSS ENCOUNTERS BP 130/72 138/70 130/70 118/62 120/68 Pulse 58 60 52 72 83 Weight 67.1 kg 64.4 kg BMI 33.48 kg/m2 32.12 kg/m2 Remote Patient Monitoring: NONE Oxygen Needs: NO supplemental oxygen needs identified DME Needs: Walker or other assistive device (specify: Walker, Lift chair ) Medications: New medication(s) added: Baclofen Subjective: Condition Status: [facility] Current Concerns: [facility], message left on voice mail for callback to [facility] with update on pain , has Baclofen helped ? Georgie reached out to Ortho to let them know pain has not improved ( dx: sciatica). She may need an injection ? [phone] # option #1 provided Disposition: Issue resolved. All appropriate follow up scheduled. Future Visits Scheduled: Future Appointments-next 60 days Date/Time Provider Specialty Dept Phone 12/02/2023 3:00 PM Coordinator, [facility] [phone] 12/14/2023 8:50 AM Tawny Power [facility] Health Zone Manager; Bere Martin PA-C [facility] [phone] 12/27/2023 8:30 AM Mira Jalloh RN [facility] [phone] 01/12/2024 9:20 AM (Arrive by 9:05 AM) Chelly Steel MD Family Medicine [phone] 03/16/2024 1:15 PM (Arrive by 1:00 PM) Brandon Vee PA-C Orthopedics [phone] Stephanie Becerra, RN documented in this encounter Plan of Treatment Upcoming Encounters Date Type Department Care Team (Late st Contact Info) Description 12/14/2023 8:50 AM EDT Telemedicine [facility], [facility] [address] [place] [address] Bere Martin PA-C [address] [place] [address] Tawny Power [facility] Manager [address] [place] [address] 12/27/2023 8:30 AM EDT Home Visit [facility] [place] [facility] [address] [place] [address] Mira Jalloh RN [address] [place] [address] 01/12/2024 9:20 AM EDT Office Visit [facility] [address] [place] [address] Chelly Steel MD [address] [place] [phone] 03/16/2024 1:15 PM EST [facility] [address] [place] [address] Brandon Vee PA-C [address] [place] [address] [phone] Scheduled Procedures Name Priority Associated Diagnoses Date/Ti me COLONOSCOPY CA SCRN HI RISK Recall History of colon polyps Health Maintenance Due Date Last Done Comments Adult Wellness Visit 2002 DXA Scan 06/29/2021 06/29/2018, 0203/2012, 03/20/2010, Additional history exists COVID-19 Vaccine ( season) 2023 03/25/2021, 08/13/2020, 07/14/2020 Influenza Vaccine (FLU shot) (#1) 2023 01/21/2023, 12/23/2021, 12/09/2020, Additional history exists Albumin/Creatinine Ratio 07/21/2024 024, 12/07/2021, 01/17/2020, Additional history exists CKD PHOS USE SMARTSET 95910 07/21/202407/12, 12/07/2021, 01/17/2020, Additional history exists Depression Screening 07/21/2024 07/22/2023 CKD HGB USE SMARTSET 88479 10/17/202410/17, 10/18/2023, 07/22/2023, Additional history exists TSH [...] filedocumented as of this encounter Care Teams Beating Machine Operator Relationship Specialty Start Date End Date Blair Kasper DO [address] [place] [phone] PCP - General Internal Medicine 09/03/20 documented as of this encounter
--- OUTSIDE RECORDS SUMMARY | 2023-12-29 15:20 | External Medical Summary | Summary of Care ---
Author Name Unknown Organization [facility] Address [address] [place] [address] Phone [phone] Care Team Providers Care Foundry Finisher Name Role Phone Blair Kasperothy Primary Care Provid er Encounter Details Date Type Department Care Team (Late st Contact Info) Description 12/14/2023 8:50 AM EDT Telemedicine [facility], [place] [address] [place] [address] Bere Martin PA-C [address] [place] [address] Tawny Power, Community Health Emergency Manager [address] [place] [address] Hypertensive heart and kidney disease with chronic diastolic congestive heart failure and stage 3b chronic kidney disease (HCC)*; Vitamin D deficiency; Generalized osteoarthritis; PMR (polymyalgia rheumatica) ([facility]) Allergies Active Allergy Reactions Criticality Noted Date [...] Overview: lmp 1987, hrt x 2 yrs [id number] IRON DEF ANEMIA DIETARY 08/26/200403/14 GENERAL OSTEOARTHROSIS [...] Sign Reading Time Taken Comments Blood Pressure 120/80 12/14/2023 9:16 AM EDT Pulse 79 12/14/2023 9:16 AM EDT Temperature 36.9 C (98.4 F) 12/14/2023 9:16 AM ED T Respiratory Rate 20 12/14/2023 9:16 AM EDT Oxygen Saturation 96% 12/14/2023 9:16 AM EDT Inhaled Oxygen Concentration - - Weight - - Height - - Body Mass Index - - documented in this encounter Progress Notes * Tawny Power Community Health Emergency Manager - 12/14/2023 9:18 AM EDT Telemedicine visit: Yes Patient location: HOME. I was not in a hospital or clinic location. After connecting through televideo, patient was verified with two unique identifiers. Patient (or authorized legal telephone sales representative) was then informed that this was a Telemedicine visit and being conducted confidentially over secure lines. Methods to assure confidentiality were taken. Patient acknowledged consent and understanding of privacy and security of the Telemedicine visit. The patient agreed to participate. Community Health Emergency Manager (JIMMIE) documentation: CHW assisted Bere Martin PA-C with telehealth visit this date * Bere Martin PA-C - 12/14/2023 8:51 AM EDT Images from the original note were not included. [facility] Problem Oriented Charting Provider Visit Date: 12/14/2023 Time: 8:51 AM Assessment and Plan #1 Hypertensive heart and kidney disease with chronic diastolic congestive heart failure and stage 3b chronic kidney disease (HCC) (Primary) Assessment & Plan: Carvedilol 3.125mg BID Torsemide 40mg BID Orders: - DIURETIC TITRATION PLAN; If no improvement on day 3, contact heart failure managing provider. Dispense: 1 Each; Refill: 0 #2 Vitamin D deficiency #3 Generalized osteoarthritis Assessment & Plan: Gets steroid injections by PCP Hydrocodone-APAP 5/325 every 6 hours prn Uses TENS and ICY HOT #4 PMR (polymyalgia rheumatica) (HCC) Assessment & Plan: Gets steroid injections by PCP Hydrocodone-APAP 5/325 every 6 hours prn Additional Medical Decision Making: DTP started (one extra Torsemide tab both am and afternoon x 3 days). TT sent to PCP to see if she is willing to increase prednisone to 10mg daily for PMR. Pt not willing to travel to see rheumatology. Recommended Vitamin D3 supplementation. Scheduled appointments in the next 60 days: Future Appointments-next 60 days Date/Time Provider Specialty Dept Phone 12/27/2023 8:30 AM Mira Jalloh RN [facility] [phone] 01/12/2024 9:20 AM (Arrive by 9:05 AM) Chelly Steel MD Family Medicine [phone] 03/16/2024 1:15 PM (Arrive by 1:00 PM) Brandon Vee PA-C Orthopedics [phone] A total of 30 minutes was spent face to face (via video-based telemedicine if designated as a telemedicine visit) Subjective Subjective Is this a Telemedicine Visit? Yes, Patient location: HOME. I was not in a hospital or clinic location. After connecting through televideo, patient was verified with two unique identifiers. Patient (or authorized legal telephone sales representative) was then informed that this was a Telemedicine visit and being conducted confidentially over secure lines. Methods to assure confidentiality were taken. Patient acknowledged consent and understanding of privacy and security of the Telemedicine visit. The patient agreed to participate. Reason For [facility] Visit: Follow-Up Current Concerns: Judith Crowe is a 88 year old female seen today for a [facility] provider visit. Received injection in right shoulder om 11/11/23 - she reports feels a little a better. Pt states that she haspain in her right hip. She called ortho and they sent in a prescription for "steroids" that she took for 5 days which helped but pain came back. She also took Baclofen 5mg for 5 days which helped "a little bit" but when prescription ran out pain came back. She has swelling in her legs today. She states that she didn't sleep well last night and was up walking around this am. She denies HORNER or SOB.She denies abdominal bloating. 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 Additional Review of Systems HENT: Positive for dental problem. Eyes: Positive for visual disturbance (wears glasses). Respiratory: Positive for cough ("just in the morning") and shortness of breath (HORNER- when up moving around. denies currently). Cardiovascular: Positive for chest pain ("once in awhile"), palpitations ("once in awhile") and legswelling (chronic - baseline). Gastrointestinal: LBM today - denies straining Endocrine: Positive for cold intolerance. Genitourinary: Denies any difficulty urinating Musculoskeletal: Positive for arthralgias, gait problem (uses walker) and myalgias. Chronic right arm / shoulder pain Neurological: Positive for dizziness ("If I bend over too far") and headaches (occasional - denies today). Psychiatric/Behavioral: Positive for sleep disturbance (right arm). All other systems reviewed and are negative. I have reviewed the following results: Current Outpatient Medications Medication Sig Dispense Refill Acetaminophen 500 MG Oral Tablet (Tylenol) Take 1 Tablet by mouth in the morning and 1 Tablet at noon and 1 Tablet in the evening. 270 Tablet 3 Allopurinol 100 MG Oral Tablet (Zyloprim) Take 1 Tablet by mouth in the morning. 90 Tablet 1 Aspirin 81 MG Oral Tablet Chewable 1 chewable by mouth daily to prevent heart attack 100 Tablet 5 Atorvastatin Calcium 20 MG Oral Tablet (Lipitor) TAKE 1 TABLET BY MOUTH ONCE DAILY IN THE MORNING 30 Tablet 5 Baclofen 5 MG Oral Tablet (Lioresal) Take 1 Tablet by mouth 2 times a day as needed for Muscle spasms. 10 Tablet 0 Carvedilol 3.125 MG Oral Tablet (Coreg) Take 1 Tablet by mouth in the morning and 1 Tablet before bedtime. with food. 180 Tablet 1 DIURETIC TITRATION PLAN If no improvement on day 3, contact heart failure managing provider. 1 Each0 FeroSul 325 (65 Fe) MG Oral Tablet (Ferrous Sulfate) Take 1 Tablet by mouth daily with breakfast. 30 Tablet 3 HYDROcodone-Acetaminophen 5-325 MG Oral Tablet Take 1 Tablet by mouth every 8 hours as needed for Pain, Mild. 30 Tablet 0 Levothyroxine Sodium 75 MCG Oral Tablet (Levoxyl) Take 1 Tablet by mouth in the morning. (at least 30 min prior to breakfast or other meds). 90 Tablet 3 methylPREDNISolone 4 MG Oral Tablet Therapy Pack (Medrol Dosepack) Take as per instructions on package. 21 Each 0 Potassium Chloride ER 10 MEQ Oral Capsule Extended Release Take 2 Capsules by mouth in the morning and 2 Capsules before bedtime. 120 Capsule 5 predniSONE 5 MG Oral Tablet (Deltasone) Take 1 Tablet by mouth in the morning. 90 Tablet 1 Sertraline HCl 100 MG Oral Tablet (Zoloft) TAKE 1 TABLET BY MOUTH ONCE DAILY IN THE MORNING 90 Tablet 2 Torsemide 20 MG Oral Tablet (Demadex) Take 2 Tablets by mouth in the morning and 2 Tablets before bedtime. 120 Tablet 3 No current facility-administered medications for this visit. Objective Objective Vitals: 12/14/23 0916 Temp: 36.9 C (98.4 F) Pulse: 79 Resp: 20 SpO2: 96% BP: 120/80 Last Weights: Wt Readings from Last 3 Encounters: 10/10/23 67.1 kg (148 lb) 09/01/23 64.4 kg (142 lb) 07/22/23 63.7 kg (140 lb 8 oz) Last BPs: BP Readings from Last 4 Encounters: 12/14/23 120/80 11/15/23 130/72 10/31/23 138/70 10/10/23 130/70 Physical Exam Constitutional: General: She is not in acute distress. Appearance: Normal appearance. She is normal weight. She is not ill-appearing, toxic-appearing or diaphoretic. HENT: Head: Normocephalic and atraumatic. Right Ear: External ear normal. Left Ear: External ear normal. Nose: Nose normal. Mouth/Throat: Mouth: Mucous membranes are moist. Eyes: General: No scleral icterus. Right eye: No discharge. Left eye: No discharge. Extraocular Movements: Extraocular movements intact. Comments: Left eye has scleral injection near the medial canthus Cardiovascular: Rate and Rhythm: Normal rate and regular rhythm. Pulses: Normal pulses. Heart sounds: Murmur (RSB) heard. No friction rub. No gallop. Pulmonary: Effort: Pulmonary effort is normal. No respiratory distress. Breath sounds: Normal breath sounds. No stridor. No wheezing, rhonchi or rales. Chest: Chest wall: No tenderness. Abdominal: General: Abdomen is flat. Bowel sounds are normal. There is no distension. Palpations: Abdomen is soft. There is no mass. Tenderness: There is no abdominal tenderness. There is no guarding. Musculoskeletal: General: No swelling, tenderness, deformity or signs of injury. Normal range of motion. Cervical back: Neck supple. Right lower leg: Edema (1+ edema from feet to mid tibia) present. Left lower leg: Edema (1+ edema from feet to mid tibia) present. Skin: General: Skin is warm and dry. Capillary Refill: Capillary refill takes less than 2 seconds. Coloration: Skin is not jaundiced or pale. Findings: Erythema (bilateral lower extremities) present. No bruising, lesion or rash. Neurological: Mental Status: She is alert and oriented to person, place, and time. Cranial Nerves: No cranial nerve deficit. Sensory: No sensory deficit. Motor: No weakness. Coordination: Coordination normal. Gait: Gait abnormal. Deep Tendon Reflexes: Reflexes normal. Psychiatric: Mood and Affect: Mood normal. Behavior: Behavior normal. Thought Content: Thought content normal. Judgment: Judgment normal. Bere Martin PA-C 8:51 AM documented in this encounter Miscellaneous Notes * ACP (Advance Care Planning) - Bere Martin PA-C - 12/14/2023 9:40 AM EDT Patient-centered Communication 12/14/2023 The patient/surrogate voluntarily agreed to participate in advance care planning discussion. They were advised that this is a separate service which may incur out of pocket cost in the form of copayment and/or deductibles. Location: Home Individual(s) present for conversation: Patient Decisions Synopsis [employer] Most Recent Value Past ~10 years 07/28/2023 14:35 Decisions CPR decision: Declines CPR 07/28/2023 Declines CPR Intubation/Mechanical Ventilation decision: Declines Intubation/mechanical ventilation 07/28/2023 Declines Intubation/mechanical ventilation Non-invasive ventilation or BIPAP decision: Declines all non-invasive ventilation 07/28/2023 Declines all non-invasive ventilation Antibiotic therapy decision: Patient chooses Antibiotic therapy 07/28/2023 Patient chooses Antibiotic therapy Artificial nutrition decision: Declines Artificial nutrition 07/28/2023 Declines Artificial nutrition IV hydration decision: Patient chooses IV hydration 07/28/2023 Patient chooses IV hydration Chemotherapy decision: Declines Chemotherapy 07/28/2023 Declines Chemotherapy Radiation therapy decision: Declines Radiation therapy 07/28/2023 Declines Radiation therapy Surgical procedure(s) decision: Declines Surgical procedure 07/28/2023 Declines Surgical procedure Blood transfusion decision: Declines Blood transfusion 07/28/2023 Declines Blood transfusion Lab draw decision: Patient chooses Lab draws 07/28/2023 Patient chooses Lab draws Hospice decision: Patient chooses Hospice 07/28/2023 Patient chooses Hospice Transport decision: Patient chooses Transport 07/28/2023 Patient chooses Transport Dying at home decision: Patient chooses Dying at home 07/28/2023 Patient chooses Dying at home Dialysis decision: Declines Dialysis 07/28/2023 Declines Dialysis Additional Comments Synopsis [employer] Most Recent Value Past ~10 years 06/29/2023 12:11 Additional Comments Additional Comments: patient wants to pass in her home 06/29/2023 patient wants to pass in her home Discerning What Matters Most to the Patient: [employer] Most Recent Value Past ~10 years 07/28/2023 14:36 Discerning What Matters Most to the Patient In their own words, patient's UNDERSTANDING of their illness is: I don't want any thing heroic. 07/28/2023 I don't want any thing heroic. Source: Content from [employer] Aligning Care With What Matters Most: [employer] Most Recent Value Past ~10 years 07/28/2023 14:35 Aligning Care With What Matters Most Interventions/Choices: CPR;Intubation/mechanical ventilation;Non-invasive ventilation or BIPAP;Antibiotic therapy;Artificial nutrition;IV hydration;Chemotherapy;Hospice;Lab draws;Blood transfusion;Transport; at home;Dialysis;Surgical procedure;Radiation therapy 07/28/2023 CPR;Intubation/mechanical ventilation;Non-invasive ventilation or BIPAP;Antibiotic therapy;Artificial nutrition;IV hydration;Chemotherapy;Hospice;Lab draws;Blood transfusion;Transport; at home;Dialysis;Surgical procedure;Radiation therapy Rationale for Decisions No changes per pt Source: Content from [employer] 5 minutes spent in direct [id number] discussion today, Bere Martin PA-C * Assessment & Plan Note - Bere Martin PA-C - 12/14/2023 9:31 AM EDTAssociated Problem(s): Vitamin D deficiency Recommended OTC Vitamin D3 supplement * Assessment & Plan Note - Bere Martin PA-C - 12/14/2023 9:30 AM EDTAssociated Problem(s): Generalized osteoarthritis Gets steroid injections by PCP Hydrocodone-APAP 5/325 every 6 hours prn Uses TENS and ICY HOT * Assessment & Plan Note - Bere Martin PA-C - 12/14/2023 9:29 AM EDTAssociated Problem(s): PMR (polymyalgia rheumatica) ([facility]) Gets steroid injections by PCP Hydrocodone-APAP 5/325 every 6 hours prn * Assessment & Plan Note - Bere Martin PA-C - 12/14/2023 9:29 AM EDTAssociated Problem(s): Hypertensive heart and kidney disease with chronic diastolic congestive heart failure and stage 3b chronic kidney disease (HCC) Carvedilol 3.125mg BID Torsemide 40mg BID documented in this encounter Plan of Treatment Upcoming Encounters Date Type Department Care Team (Late st Contact Info) Description 12/16/2023 10:30 AM EDT Home Visit Care Coordination and Integration [address] [place] [address] Nany Pryor, Community Health Emergency Manager [address] [place] [address] 12/27/2023 8:30 AM EDT Home Visit [facility] [address] [place] [address] Mira Jalloh RN [address] [place] [address] 01/12/2024 9:20 AM EDT Office Visit [address] [phone] Chelly Steel MD [address] [place] [phone] 03/16/2024 1:15 PM EST Office Visit Orthopaedics[address] [address] Brandon Vee PA-C [address] [place] [id number] Scheduled Procedures Name Priority Associated Diagnoses Date/Ti [...] Additional history exists CKD PHOS USE SMARTSET 19495 07/21/202407/12, 12/07/2021, 01/17/2020, Additional history exists Depression Screening 07/21/2024 07/22/2023 CKD HGB USE SMARTSET 90957 10/17/202410/17, 10/18/2023, 07/22/2023, Additional history exists TSH [...] stage 3b chronic kidney disease (HCC)- Primary Vitamin D deficiency Unspecified vitamin D deficiency Generalized osteoarthritis Generalized osteoarthrosis, unspecified site PMR (polymyalgia rheumatica) (HCC) Polymyalgia rheumatica documented in this encounter Care Teams Foundry Finisher Relationship Specialty Start Date End Date Blair Kasper DO PCP - General Internal Medicine 09/03/20 documented as of this encounter
--- OUTSIDE RECORDS SUMMARY | 2023-12-29 15:21 | External Medical Summary | Summary of Care ---
Author Name Unknown Organization [facility] Address [address] [address] Phone [phone] Care Team Providers Care Supervisor Grips Name Role Phone NathanBlair tejeda Primary Care Provid er Reason for Visit * Reason Comments [facility]: Maintenance Encounter Details Date Type Department Care Team (Late st Contact Info) Description 11/15/2023 8:30 AM EDT Home Visit [facility] [address] [place] [address] Mira Jalloh RN [address] [place] [address] Allergies Active Allergy Reactions Criticality Noted Date Comments Adhesive Tape 04/20/2004 Clarithromycin 10/03/2000 nausea documented as of this encounter (statuses as of 11/15/2023) Medications Medication Sig Dispensed Refills Start Date End Date Status Potassium Chloride ER 10 MEQ Oral Capsule Extended ReleaseIndications:Hy pertensive heart disease with heart failure (HCC) Take 2 Capsules by mouth in the morning and 2 Capsules before bedtime. 120 Capsule 5 06/24/2023 Active Aspirin 81 MG Oral Tablet ChewableIndications:G eneralized osteoarthritis of multiple sites 1 chewable by mouth daily to prevent heart attack 100 Tablet 5 06/24/2023 Active predniSONE 5 MG Oral Tablet (Deltasone)Indication s:Chronic pain of both knees,PMR (polymyalgia rheumatica) (HCC) Take 1 Tablet by mouth in the morning. 90 Tablet 1 06/24/2023 Active Sertraline HCl 100 MG Oral Tablet (Zoloft)Indications:D epression with anxiety TAKE 1 TABLET BY MOUTH ONCE DAILY IN THE MORNING 90 Tablet 2 06/24/2023 Active Carvedilol 3.125 MG Oral Tablet (Coreg)Indications:Hy pertensive heart disease with heart failure (HCC) Take 1 Tablet by mouth in the morning and 1 Tablet before bedtime. with food. 180 Tablet 1 07/22/2023 Active Allopurinol 100 MG Oral Tablet (Zyloprim) Take 1 Tablet by mouth in the morning. 90 Tablet 1 07/22/2023 Active Atorvastatin Calcium 20 MG Oral Tablet (Lipitor)Indications: Dyslipidemia, goal LDL below 130 TAKE 1 TABLET BY MOUTH ONCE DAILY IN THE MORNING 30 Tablet 5 09/06/2023 Active Acetaminophen 500 MG Oral Tablet (Tylenol) Take 1 Tablet by mouth in the morning and 1 Tablet at noon and 1 Tablet in the evening. 270 Tablet 3 10/10/2023 Active Torsemide 20 MG Oral Tablet (Demadex)Indications: Hypertensive heart disease with heart failure (HCC) Take 2 Tablets by mouth in the morning and 2 Tablets before bedtime. 120 Tablet 3 10/12/2023 Active Levothyroxine Sodium 75 MCG Oral Tablet (Levoxyl)Indications: Acquired hypothyroidism Take 1 Tablet by mouth in the morning. (at least 30 min prior to breakfast or other meds). 90 Tablet 3 10/19/2023 Active HYDROcodone-Acetamino phen 5-325 MG Oral TabletIndications:Chr onic right shoulder pain Take 1 Tablet by mouth every 8 hours as needed for Pain, Mild. 30 Tablet 11/03/2023 Active FeroSul 325 (65 Fe) MG Oral Tablet (Ferrous Sulfate)Indications:A nemia, unspecified type Take 1 Tablet by mouth daily with breakfast. 30 Tablet 3 11/09/2023 Active documented as of this encounter (statuses as of 11/15/2023) Active Problems Problem Noted Date Diagnosed Date [...] as of this encounter (statuses as of 11/15/2023) Resolved Problems Problem Noted Date Diagnosed Date [...] Overview: lmp 1987, hrt x 2 yrs 2140-2027 IRON DEF ANEMIA DIETARY 08/26/200403/14 GENERAL OSTEOARTHROSIS [...] as of this encounter (statuses as of 11/15/2023) Immunizations Name Administration Dates Next Due COVID-19 [...] Sign Reading Time Taken Comments Blood Pressure 130/72 11/15/2023 10:18 AM EDT Pulse 58 11/15/2023 10:18 AM EDT Temperature 36.7 C (98.1 F) 11/15/2023 10:18 AM E DT Respiratory Rate - - Oxygen Saturation 97% 11/15/2023 10:18 AM EDT room air Inhaled Oxygen Concentration - - Weight - - Height - - Body Mass Index - - documented in this encounter Progress Notes * Mira Jalloh RN - 11/15/2023 9:15 AM EDT [facility] Monthly Visit Date: 11/15/2023 Time: 9:16 AM Name: Judith Crowe : 1935 Current Concerns: 88 yo female being seen in her home for routine [facility] visit. Received injection in right shoulder om 8.30.24 - she reports feels a little a better Last [facility] provider visit was 8.19.24 Last PCP visit was 7.29.24 she has been elevating feet in lift chair at rest denies falls Denies shortness of breath. Physical Exam: BP 130/72 (BP Site: Left Arm, BP Position: Sitting) | Pulse 58 | Temp 36.7 C (98.1 F) (Tympanic) | SpO2 97% Comment: room air Pain 5 Physical Exam Constitutional: General: She is awake. [...] (trace) present. Comments: Chronic right shoulder pain & decreased ROM - receives injections which helps. No c/o's today. Skin: Findings: Bruising (arms) and erythema (BLE slight reddeness. not warm to touch.pt reports normal for her & feels they look pretty good) present. Neurological: Mental Status: She is alert [...] and Memory: Cognition normal. Judgment: Judgment normal. Problems/Symptoms: Review of Systems HENT: Positive for dental problem. Respiratory: Positive for shortness of breath (HORNER- when up moving around. denies currently). Cardiovascular: Positive for leg swelling (chronic - baseline). Gastrointestinal: Negative for constipation (occasional). LBM today - denies straining Endocrine: Positive for cold intolerance. Genitourinary: Denies any difficulty urinating Musculoskeletal: Positive for arthralgias, gait problem (uses walker) and myalgias. Chronic right arm / shoulder pain Neurological: Negative for headaches (occasional - denies today). Psychiatric/Behavioral: Positive for sleep disturbance (right arm). All other systems reviewed and are negative. Medication Reconciliation: (See medication list) Does patient take medications as ordered: Yes Patient Well Being: PHQ2/9: No questionnaires available. [facility]-10 Completed this Visit: No. Routine visit and No falls since last visit Advanced Care Planning: Healthcare POA. Patient's Goals of Care: Get stronger Able to make meals again Clean her house Reinforcement/Education: Educated on home safety: Create a fall proof home Clear floors of clutter, loose wires, throw rugs, and cords. Make sure halls, stairways, and entrances are well lit. Install a nightlight in your bedroom, hallway and bathroom. Install grab bars or handrails in the bathroom and on stairs. Use a non-skid tub/shower mat. Avoid climbing on a chair; instead use a step stool with a high handrail. Keep sidewalks and steps in good repair Keep steps and sidewalks free of snow and ice. Using aids to support and prevent falls If you have poor balance or have fallen in the past, consider additional support such as a cane or walker. Use a cane with good support and that is the proper length for you. Use a walker if a cane doesnt provide enough support. Avoid medications that increase the risk of falling by causing dizziness, change in sensation or slowed reflexes. Certain medicines may cause falls - blood pressure pills, heart medicines, water pills, or sleepingpills. Be sure to understand each medicine that you are taking and any side effects that may occur. Improve your balance and flexibility with muscle strengthening exercises. Ask your health care provider for some exercises that will be right for you. Reinforced safety education and fall prevention. and Reinforced medication regimen. Timing., Dosing., and Purspose. Treatment/Plan: Denies weighing herself - encouraged to weigh routinely Reviewed HF symptom monitoring: -Weigh self daily in am, post-void and record -Do not add salt to food, avoid foods high in sodium -Limit fluids to 2 liters per day -Report the following: ->2 lb weight gain in one day or 5 lbs in a week to PCP -increased edema in feet, abdomen or hands -increased SOB and cough, especially if at night -increased fatigue or vertigo Home Interventions Provided: Reinforced current Plan of Care, including self-management and medication regimen Patient's 'Red Flags': increased swelling, bloating or weight gains S/sx of cellulitis such as increased redness, drainage, warmth, fevers Increased constipation, straining, blood in stools Patient Needs to Remember: Call [facility] or PCP for red flags or urgent medical concerns Referrals Needed: Other none Follow Up: Is there cellular connectivity/connectivity in the home? Yes Does the patient have internet in the home? Yes Patient encouraged to call the intake phone number for all urgent but not emergent issues. Is the patient new to [facility] within the last 30 days? No, Assess appropriateness for upcoming telehealth visits. Cancel telehealth visits & schedule home visit with care steam service inspector(s)as indicated. Provider is in agreement with Plan of Care: Yes Scheduled to follow up with patient in ~4-6 weeks. Mira Jalloh RN 11/15/2023 9:16 AM documented in this encounter Plan of Treatment Upcoming Encounters Date Type Department Care Team (Late st Contact Info) Description 12/14/2023 8:50 AM EDT Telemedicine [facility], [facility] [address] [place] [address] Bere Martin PA-C [address] [place] [address] Tawny Power, Community Health Community Reinvestment Act Officer [address] [place] [address] 12/27/2023 8:30 AM EDT Home Visit [facility], [facility] [address] [place] [address] Mira Jalloh RN [address] [place] [address] 01/12/2024 9:20 AM EDT Office Visit [address] [address] Chelly Steel MD [address] [place] [phone] 02/17/2024 1:00 PM EST Office Visit Orthopaedics, [facility] [address] [place] [address] Brandon Vee PA-C [address] [place] [address] Scheduled Procedures Name Priority Associated Diagnoses Date/Ti [...] Additional history exists CKD PHOS USE SMARTSET 29526 07/21/202407/12, 12/07/2021, 01/17/2020, Additional history exists Depression Screening 07/21/2024 07/22/2023 CKD HGB USE SMARTSET 31111 10/17/202410/17, 10/18/2023, 07/22/2023, Additional history exists TSH [...] filedocumented as of this encounter Care Teams Supervisor Grips Relationship Specialty Start Date End Date Blair Kasper DO [address] [place] [address] PCP - General Internal Medicine 09/03/20 documented as of this encounter"
--- OUTSIDE RECORDS SUMMARY | 2023-12-29 15:21 | External Medical Summary | Summary of Care ---
Author Name Unknown Organization [facility] Address [address] [address] Phone [phone] Care Team Providers Care Shipping Assistant Name Role Phone Nathannikhil Blair Anthonyothy Primary Care Provid er Reason for Visit * Reason Onset Date Comments [facility]: Acute 11/30/2023 Encounter Details Date Type Department Care Team (Late st Contact Info) Description 11/30/2023 Telephone [facility], [facility] [address] [facility] [address] [address] Martha Shah RN [address] [facility] [address] [address] [facility]: Acute Allergies Active Allergy [...] Overview: lmp 1987, hrt x 2 yrs 4834-6967 IRON DEF ANEMIA DIETARY 08/26/200403/14 GENERAL OSTEOARTHROSIS [...] Telephone Encounter - Stephanie Becerra RN - 11/30/2023 4:16 PM EDT Called and made patient aware of new pain medication/anti spasm med sent to [facility] Aware she can take 1 pill twice a day as needed Follow up call for Tuesday to see how she is doing with it Stephanie Becerra, RN, BSN chart collectorCad Designer Drafter [phone] option #1 * Addendum Note - Angel Clayton MD [...] Shah RN - 11/30/2023 3:48 PM EDT [facility] multicultural manager Acute Call Date: 11/30/2023 Time: 3:49 PM Name: Judith Crowe : 1935 Caller: patient Chief Complaint Patient presents with [facility]: Acute HPI: Judith Crowe is a 88 year old old female that is calling [facility] to report ongoing uncontrolled [...] exacerbation symptoms: No Reinforcement Education: Routing to [facility] for further orders/recommendations Keep RLE elevated throughout [...] PM EDT Scheduled Telephone [facility], [facility] [address] [place] [address] Coordinator, [facility] [address] [place] [address] 12/14/2023 8:50 AM EDT Telemedicine [facility], [facility] [address] [place] [address] Bere Martin PA-C [address] [place] [address] Tawny Power, Community Health Casing Splitter [address] [place] [address] 12/27/2023 8:30 AM EDT Home Visit [facility], [facility] [address] [place] [address] Mira Jalloh RN [address] [place] [address] 01/12/2024 9:20 AM EDT Office Visit Family Practice [facility] [address] [place] [address] Chelly Steel MD [address] [place] [address] 03/16/2024 1:15 PM EST [facility] [address] [place] [address] Brandon Vee PA-C [address] [place] [address] Scheduled Procedures Name Priority Associated Diagnoses Date/Ti [...] Additional history exists CKD PHOS USE SMARTSET 96223 07/21/202407/12, 12/07/2021, 01/17/2020, Additional history exists Depression Screening 07/21/2024 07/22/2023 CKD HGB USE SMARTSET 99155 10/17/202410/17, 10/18/2023, 07/22/2023, Additional history exists TSH [...] filedocumented as of this encounter Care Teams Shipping Assistant Relationship Specialty Start Date End Date Blair Kasper DO [address] [place] [address] PCP - General Internal Medicine 09/03/20 documented as of this encounter
--- OUTSIDE RECORDS SUMMARY | 2023-12-29 15:21 | External Medical Summary | Summary of Care ---
Author Name Unknown Organization [facility] Address [address] [address] Phone [phone] Care Team Providers Care Tray Delivery Aide Name Role Phone Nathannikhil Blair Anthonyothy Primary Care Provid er Reason for Visit * Reason Onset Date Comments [facility]: Acute 11/30/2023 Encounter Details Date Type Department Care Team (Late st Contact Info) Description 11/30/2023 Telephone [facility], [facility] [address] [facility] [address] [address] Martha Shah RN [address] [facility] [address] [address] [facility]: Acute Allergies Active Allergy [...] Overview: lmp 1987, hrt x 2 yrs 5503-4327 IRON DEF ANEMIA DIETARY 08/26/200403/14 GENERAL OSTEOARTHROSIS [...] 11/30/2023 3:48 PM EDT [facility] route inspector Acute Call Date: 11/30/2023 Time: 3:49 PM [...] exacerbation symptoms: No Reinforcement Education: Routing to [facility] for further orders/recommendations Keep RLE elevated throughout [...] 12/14/2023 8:50 AM EDT Telemedicine [facility] [address] [place] [address] Bere Martin PA-C [address] [place] [address] Tawny Power, Community Health Psychiatric Aide [address] [place] [address] 12/27/2023 8:30 AM EDT [facility] Visit [facility] [address] [place] [address] Mira Jalloh RN [address] [place] [address] 01/12/2024 9:20 AM EDT Office Visit [address] [address] Chelly Steel MD [address] [place] [phone] 03/16/2024 1:15 PM EST Office Visit Orthopaedics[address] [address] Brandon Vee PA-C [address] [place] [address] Scheduled Procedures Name Priority Associated Diagnoses Date/Ti [...] Additional history exists CKD PHOS USE SMARTSET 58537 07/21/202407/12, 12/07/2021, 01/17/2020, Additional history exists Depression Screening 07/21/2024 07/22/2023 CKD HGB USE SMARTSET 42019 10/17/202410/17, 10/18/2023, 07/22/2023, Additional history exists TSH [...] filedocumented as of this encounter Care Teams Tray Delivery Aide Relationship Specialty Start Date End Date Blair Kasper DO [address] [place] [phone] PCP - General Internal Medicine 09/03/20 documented as of this encounter
--- OUTSIDE RECORDS SUMMARY | 2023-12-29 15:21 | External Medical Summary | Summary of Care ---
Author Name Unknown Organization [facility] Address [address] [address] Phone [phone] Care Team Providers Care Fishery Division Chief Name Role Phone NathanBlair tejeda Primary Care Provid er Reason for Visit * Reason Onset Date Comments [facility]: Acute 11/22/2023 Encounter Details Date Type Department Care Team (Late st Contact Info) Description 11/22/2023 Telephone [facility], [facility] [address] [facility] [address] [address] Kesha Kc RN [address] [facility] [address] [address] [facility]: Acute Allergies Active Allergy Reactions Criticality Noted Date Comments Adhesive Tape 04/20/2004 Clarithromycin 10/03/2000 nausea documented as of this encounter (statuses as of 11/22/2023) Medications Medication Sig Dispensed Refills Start Date [...] instructions on package. 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 Major depressive disorder Overview: ICD-10 update of inactive term Anxiety state 03/28/2017 Age-related osteoporosis wit olga current pathological fracture 10/10/2023 Overview: dexa 09/13 mod fx risk, started on Fosamax 08/16 Positional vertigo 8 HTN, goal below 140/90 12/24 Overview: 06/12 documented as of this encounter (statuses as of 11/22/2023) Immunizations Name Administration Dates Next Due COVID-19 [...] encounter Miscellaneous Notes * Telephone Encounter - Kesha Kc RN - 11/22/2023 5:45 PM EDT Phone call to patient, made aware of [facility] [place]recommendations. Instructed to take Medrol dose pakas directed on box and to hold her daily Prednisone during this burst. Patient verbalized understanding. Advised to call [facility] back with any new or worsening symptoms. Kesha HUGGINS, YESY [facility] coloring room worker Navigator * Telephone Encounter - Niall Phelps DO - 11/22/2023 5:07 PM EDT [facility] Remote Medical Command Angelica Walls Subprogram: Focused Care Management (3-9 months) Recommendations: We do not give injections in the home - especially if the concern is SI joint pain Will send in Medrol Dose Pack - hold her daily Prednisone during this burst Orders: No orders of the defined types were placed in this encounter. To Do: Please see below for follow up items to be completed and correspondence: supervisor laboratory Pool please work on the following: contact the caller with advice and orders as above Niall Phelps DO Remote Medical [facility] - [facility] 11/22/2023 Scheduled appointments in the next 60 days: Future Appointments-next 60 days Date/Time Provider Specialty Dept Phone 12/14/2023 8:50 AM Tawny Power, [facility] Rug Designer; Bere Martin PA-C [facility] [phone] 12/27/2023 8:30 AM Mira Jalloh RN [facility] [phone] 01/12/2024 9:20 AM (Arrive by 9:05 AM) Chelly Steel MD Family Medicine [phone] 02/17/2024 1:00 PM (Arrive by 12:45 PM) Brandon Vee PA-C Orthopedics [phone] * Telephone Encounter - Kesha Kc RN - 11/22/2023 4:15 PM EDT [facility] supervisor laboratory Acute Call Date: 11/22/2023 Time: 4:15 PM Name: Judith Crowe : 1935 Caller: Stephen Relationship to patient: son No chief complaint on file. HPI: Judith Crowe is a 88 year old female whose son Stephen is calling [facility] to reportflteresita. Son put patient on phone and she reports lower back pain and right hip pain that radiates down the right leg, ongoing for the last 3 weeks. Patient saw ortho on 11/10 for right shoulder cortisone injection. She states she discussed back/RLEpain and was told it was sacroiliac joint pain but no interventions or medications were ordered. She reports pain is not getting any better. Patient denies any recent falls, trauma or injury. -redness or swelling. Denies any SOB/CP. Patient reports pain currently 9/10, achy/sharp in nature. Occasional numbness above right knee. Patient uses walker at all times for ambulation. Pain is worse with ambulation and only obtains slight relief while resting. Patient is taking Hydrocodone-APAP 3x/day together with Tylenol ES 500 mg TID. She states was advised to take medications together by PCP. Patient states she has tried "almost everything" as far as topical analgesics with no effect. Patient states she has also tried alternating warm and cool compresses but nothing helps. Patient inquiring if [facility] gives steroid injections or what else she can do/take for pain relief. Nursing Assessment: Patient's chief complaint for this call: Other, describe right hip/RLE/lower back pain Pain Has pain Pain level: 9 Location: lower back, right leg Quality of Pain: aching Does the pain radiate: Yes Location(s) pain is radiating to: RLE Baseline Assessment Able to performing ADLs at [...] Medications ordered/taking to treat reason for call: Yes, PRN medication(s) Oxy- APAP, Tylenol ES Heart failure symptoms: No COPD exacerbation symptoms: No Reinforcement Education: Routing to [facility] for further orders/recommendations Take medications as directed Keep RLE elevated throughout the day Use pillow to offload pressure to affected areas Rest/pace activities Use walker for all ambulation Safety/fall precautions-good footwear/clear pathways Try moist heat to affected areas, make sure skin is clean and dry Call back with new/worsening symptoms Follow up call Treatment/Plan: (need to report) Level of call: Non-Acute Recommended treatment plan: Clinical advice given over the phone Awaiting further orders/recommendations from [facility] Call back instructions provided to patient. Kesha HUGGINS, RN [facility] coloring room worker Navigator documented in this encounter Plan of Treatment Upcoming Encounters Date Type Department Care Team (Late st Contact Info) Description 11/23/2023 12:45 PM EDT Scheduled Telephone [facility], [facility] [address] [place] [address] Coordinator, [facility] [address] [place] [address] 12/14/2023 8:50 AM EDT Telemedicine [facility], [facility] [address] [place] [address] Bere Martin PA-C [address] [place] [address] Tawny Power, Community Health Rug Designer [address] [place] [address] 12/27/2023 8:30 AM EDT Home Visit [facility], [facility] [address] [place] [address] Mira Jalloh RN [address] [place] [address] 01/12/2024 9:20 AM EDT Office Visit [address] [phone] Chelly Steel MD [address] [place] [phone] 02/17/2024 1:00 PM EST Office Visit Orthopaedics, [address] [address] Brandon Vee PA-C [address] [place] [address] Scheduled Procedures Name Priority Associated Diagnoses Date/Ti [...] Additional history exists CKD PHOS USE SMARTSET 25651 07/21/202407/12, 12/07/2021, 01/17/2020, Additional history exists Depression Screening 07/21/2024 07/22/2023 CKD HGB USE SMARTSET 18572 10/17/202410/17, 10/18/2023, 07/22/2023, Additional history exists TSH [...] filedocumented as of this encounter Care Teams Fishery Division Chief Relationship Specialty Start Date End Date Blair Kasper DO [address] [place] [address] PCP - General Internal Medicine 09/03/20 documented as of this encounter
--- OUTSIDE RECORDS SUMMARY | 2023-12-29 15:21 | External Medical Summary | Summary of Care ---
Author Name Unknown Organization [facility] Address [address] [address] Phone [phone] Care Team Providers Care Tv Technician Name Role Phone NathanBlair tejeda Primary Care Provid er Reason for Visit * Reason Onset Date Comments [facility]: Maintenance 11/28/2023 Encounter Details Date Type Department Care Team (Late st Contact Info) Description 11/28/2023 12:30 PM EDT Scheduled Telephone [facility], [place] [address] [place] [address] Coordinator, [facility] [address] [place] [address] Allergies Active Allergy Reactions Criticality Noted Date Comments Adhesive Tape 04/20/2004 Clarithromycin 10/03/2000 nausea documented as of this encounter (statuses as of 11/28/2023) Medications Medication Sig Dispensed Refills Start Date [...] as of this encounter (statuses as of 11/28/2023) Active Problems Problem Noted Date Diagnosed Date [...] as of this encounter (statuses as of 11/28/2023) Resolved Problems Problem Noted Date Diagnosed Date [...] Overview: lmp 1987, hrt x 2 yrs [id number] IRON DEF ANEMIA DIETARY 08/26/200403/14 GENERAL OSTEOARTHROSIS [...] as of this encounter (statuses as of 11/28/2023) Immunizations Name Administration Dates Next Due COVID-19 [...] encounter Miscellaneous Notes * Telephone Encounter - Debbie Kevin RN - 11/28/2023 12:08 PM EDT [facility] Telephonic Nurse Follow-Up Call [facility] Subprogram: Focused Care Management (3-9 months) Follow Up Call Type: Routine follow up call / Status Check Acute issue requiring follow-up call: Other: RLE Pain-finsihed Medrol dosepak Objective: 11/15/2023 10:18 AM 10/31/2023 9:37 AM 10/10/2023 8:44 AM 09/30/2023 3:56 PM 09/01/2023 4:08 PM VITALS ACROSS ENCOUNTERS BP 130/72 138/70 130/70 118/62 120/68 Pulse 58 60 52 72 83 Weight 67.1 kg 64.4 kg BMI 33.48 kg/m2 32.12 kg/m2 Remote Patient Monitoring: NONE Oxygen Needs: NO supplemental oxygen needs identified DME Needs: NO DME needs identified Medications: New medication(s) added: Medrol dosepak is finished. Subjective: Condition Status: Improvement in symptoms but not at baseline Current Concerns: Pt report s she has some improvement after Medrol. She is ambulating with an walker and she has a lft chair now., Adviased to use the lift chair until she gets back to baseline. Then go back to chairwith arms and no lift assist to promote independence and strength/ Pt feels Medrol was helpful. Disposition: Routed to [facility] and/or [facility] Care Team for further advice No further calls scheduled. Future Visits Scheduled: Future Appointments-next 60 days Date/Time Provider Specialty Dept Phone 11/28/2023 12:30 PM Coordinator, [facility] [phone] 12/14/2023 8:50 AM Tawny Power [facility] Health Trailer Sections Assembler; Bere Martin PA-C [facility] [phone] 12/27/2023 8:30 AM Mira Jalloh RN [facility] [phone] 01/12/2024 9:20 AM (Arrive by 9:05 AM) Chelly Steel MD Family Medicine [phone] 03/16/2024 1:15 PM (Arrive by 1:00 PM) Brandon Vee PA-C Orthopedics [phone] Debbie Kevin RN documented in this encounter Plan of Treatment Upcoming Encounters Date Type Department Care Team (Late st Contact Info) Description 12/14/2023 8:50 AM EDT Telemedicine [facility], [facility] [address] [place] [address] Bere Martin PA-C [address] [place] [address] Tawny Power [facility] Trailer Sections Assembler [address] [place] [address] 12/27/2023 8:30 AM EDT Home Visit [facility], [facility] [address] [place] [address] Mira Jalloh RN [address] [place] [address] 01/12/2024 9:20 AM EDT Office Visit Family [facility] [address] [place] [address] Chelly Steel MD [address] [place] [phone] 03/16/2024 1:15 PM EST [facility] [address] [place] [address] Brandon Vee PA-C [address] [place], [place] [phone] Scheduled Procedures Name Priority Associated Diagnoses Date/Ti me COLONOSCOPY CA SCRN HI RISK Recall History of colon polyps Health Maintenance Due Date Last Done Comments Adult Wellness Visit 2002 DXA Scan 06/29/2021 06/29/2018, 03/2012, 03/20/2010, Additional history exists COVID-19 Vaccine ( season) 2023 03/25/2021, 08/13/2020, 07/14/2020 Influenza Vaccine (FLU shot) (#1) 2023 01/21/2023, 12/23/2021, 12/09/2020, Additional history exists Albumin/Creatinine Ratio 07/21/20242 024, 12/07/2021, 01/17/2020, Additional history exists CKD PHOS USE SMARTSET 92402 07/21/202407/12, 12/07/2021, 01/17/2020, Additional history exists Depression Screening 07/21/2024 07/22/2023 CKD HGB USE SMARTSET 40110 10/17/202410/17, 10/18/2023, 07/22/2023, Additional history exists TSH [...] filedocumented as of this encounter Care Teams Tv Technician Relationship Specialty Start Date End Date Blair Kasper DO [address] [place] [address] [phone] PCP - General Internal Medicine 09/03/20 documented as of this encounter
--- OUTSIDE RECORDS SUMMARY | 2023-12-29 15:21 | External Medical Summary | Summary of Care ---
Author Name Unknown Organization [facility] Address [address] [address] Phone [phone] Care Team Providers Care Border Guard Name Role Phone Nathannikhil Blair Larsen Primary Care Provid er Reason for Visit * Reason Onset Date Comments [facility]: Maintenance 11/23/2023 Encounter Details Date Type Department Care Team (Late st Contact Info) Description 11/23/2023 12:45 PM EDT Scheduled Telephone [facility], [place] [address] [place] [address] Coordinator, [facility] [address] [place] [address] Allergies Active Allergy Reactions Criticality Noted Date Comments Adhesive Tape 04/20/2004 Clarithromycin 10/03/2000 nausea documented as of this encounter (statuses as of 11/23/2023) Medications Medication Sig Dispensed Refills Start Date [...] as of this encounter (statuses as of 11/23/2023) Active Problems Problem Noted Date Diagnosed Date [...] as of this encounter (statuses as of 11/23/2023) Resolved Problems Problem Noted Date Diagnosed Date [...] Overview: lmp 1987, hrt x 2 yrs [id number] IRON DEF ANEMIA DIETARY 08/26/200403/14 GENERAL OSTEOARTHROSIS [...] as of this encounter (statuses as of 11/23/2023) Immunizations Name Administration Dates Next Due COVID-19 [...] Telephone Encounter - Kesha Kc RN - 11/23/2023 1:12 PM EDT [facility] Telephonic Nurse Follow-Up Call [facility] Subprogram: Focused Care Management (3-9 months) Follow Up Call Type: 24 hour follow up Acute issue requiring follow-up call: Other: f/u PC-back, right hip/RLE pain-Medrol dose aditi ordered Objective: 11/15/2023 10:18 AM 10/31/2023 9:37 AM 10/10/2023 8:44 AM 09/30/2023 3:56 PM 09/01/2023 4:08 PM VITALS ACROSS ENCOUNTERS BP 130/72 138/70 130/70 118/62 120/68 Pulse 58 60 52 72 83 Weight 67.1 kg 64.4 kg BMI 33.48 kg/m2 32.12 kg/m2 Remote Patient Monitoring: NONE Oxygen Needs: NO supplemental oxygen needs identified DME Needs: NO DME needs identified Medications: New medication(s) added: Medrol dose aditi Subjective: Condition Status: No change in symptoms Current Concerns: Phone call to patient who states she took one dose of Medrol dosepak last night. Made patient awarethat Medrol dosepak has specific instructions on when to take medication and how many pills to take, reviewed same with patient yesterday. Patient states medication instructions are not on box, unable to see well. She does not have medication available at time of call. Patient states she did not sleep well last night and is taking a nap. Intake offered to call her back this afternoon to review medication dose/instructions. Patient agreeable to same Disposition: Follow up call scheduled for tomorrow with SALES FINANCIAL ANALYST [employer] Specialist Future Visits Scheduled: Future Appointments-next 60 days Date/Time Provider Specialty Dept Phone 12/14/2023 8:50 AM Tawny Power [facility] Radiographer Angiogram; Bere Martin PA-C [facility] [phone] 12/27/2023 8:30 AM Mira Jalloh RN [facility] [phone] 01/12/2024 9:20 AM (Arrive by 9:05 AM) Chelly Steel MD Family Medicine [phone] 02/17/2024 1:00 PM (Arrive by 12:45 PM) Brandon Vee PA-C Orthopedics [phone] Kesha Kc, YESY documented in this encounter Plan of Treatment Upcoming Encounters Date Type Department Care Team (Late st Contact Info) Description 12/14/2023 8:50 AM EDT Telemedicine [facility], [facility] [address] [place] [address] Bere Martin PA-C [address] [place] [address] Tawny Power [facility] Radiographer Angiogram [address] [place] [address] 12/27/2023 8:30 AM EDT Home Visit [facility], [facility] [address] [place] [address] Mira Jalloh RN [address] [place] [address] 01/12/2024 9:20 AM EDT Office Visit Family [facility] [address] [place] [address] Chelly Steel MD [address] [place] [phone] 02/17/2024 1:00 PM EST [facility] [address] [place] [address] Brandon Vee PA-C [address] [place] [address] Scheduled Procedures Name Priority Associated Diagnoses Date/Ti [...] Additional history exists CKD PHOS USE SMARTSET 48816 07/21/202407/12, 12/07/2021, 01/17/2020, Additional history exists Depression Screening 07/21/2024 07/22/2023 CKD HGB USE SMARTSET 88426 10/17/202410/17, 10/18/2023, 07/22/2023, Additional history exists TSH [...] filedocumented as of this encounter Care Teams Border Guard Relationship Specialty Start Date End Date Blair Kasper DO [address] [place] [address] [phone] PCP - General Internal Medicine 09/03/20 documented as of this encounter
--- OUTSIDE RECORDS SUMMARY | 2023-12-29 15:21 | External Medical Summary | Summary of Care ---
Author Name Unknown Organization [facility] Address [address] [facility] [address] [address] Phone [phone] Care Team Providers Care Fishing Hand Name Role Phone MariahrakeshBlair Chava Primary Care Provid er Reason for Visit * Reason Comments NEW PATIENT Pain Right shoulder * Evaluate & Treat - Unlimited Visits (Within 10 days (routine)) - Authorized Specialty Diagnoses / Procedures Referred By Contbridgett t Referred To Contact Orthopaedic Surgery / Orthopedics Diagnoses Chronic right shoulder pain Chelly Steel MD [address] [place] [phone] Referral ID Status Reason Start Date Expiration Date Visits Requested Visits Authorized [id number] Authorized Specialty Services Required 10/10/[phone] Encounter Details Date Type Department Care Team (Late st Contact Info) Description 11/11/2023 11:30 AM EDT [facility] [address] [place] [address] Brandon Vee PA-C [address] [place] [phone] Shoulder arthritis* Allergies Active Allergy Reactions Criticality Noted Date Comments Adhesive Tape 04/20/2004 Clarithromycin 10/03/2000 nausea documented as of this encounter (statuses as of 11/11/2023) Medications Medication Sig Dispensed Refills Start Date [...] with breakfast. 30 Tablet 3 11/09/2023 Active Hospital, Clinic, or Other Facility Administered Medication Ordered Dose Route Frequency Start Date End Date Status lidocaine 1% 1 mL - triamcinolone acetonide 40 mg/mL 1 mL inj 2 mLIndications:Shoulder arthritis 2 mL IJ ONCE 11/11/2023 11/11/2023 Ended documented as of this encounter (statuses as of 11/11/2023) Active Problems Problem Noted Date Diagnosed Date [...] as of this encounter (statuses as of 11/11/2023) Resolved Problems Problem Noted Date Diagnosed Date [...] Overview: lmp 1987, hrt x 2 yrs 9625-2669 IRON DEF ANEMIA DIETARY 08/26/200403/14 GENERAL OSTEOARTHROSIS [...] as of this encounter (statuses as of 11/11/2023) Immunizations Name Administration Dates Next Due COVID-19 [...] as of this encounter Progress Notes * Brandon Vee PA-C - 11/11/2023 11:02 AM EDT Patient name: Judith Crowe Shoulder Exam CHIEF COMPLAINT: Chief Complaint Patient presents with NEW PATIENT Pain Right shoulder Workmen's Comp: no. HISTORY OF PRESENT ILLNESS: Judith Crowe is a 88 year old female who presents for consultation at the request of Dr. Steel to us with a history of right shoulder pain which began years ago. Today the patient's symptoms are worsening. Patient describes the pain as severe in intensity and has an aching and sharp quality. Itdoes radiate. The pain is aggravated by any arm movement. The pain is alleviated by prior cortisoneinjections, last injection 07/21 with PCP office. Patient states the pain does not wake her from sleep. Patient rates pain scale for this current problem at 9 out of 10. Past Surgical History: Procedure Laterality Date COLONOSCOPY 11/13 diverticulosis REMOVAL OF APPENDIX Appendectomy REMOVE GALLBLADDER Cholecystectomy Review of patient's allergies indicates: Allergen Reactions Adhesive Tape Clarithromycin nausea Current Outpatient Medications Medication Sig Dispense Refill Potassium Chloride ER 10 MEQ Oral Capsule Extended Release Take 2 Capsules by mouth in the morning and 2 Capsules before bedtime. 120 Capsule 5 Aspirin 81 MG Oral Tablet Chewable 1 chewable by mouth daily to prevent heart attack 100 Tablet 5 predniSONE 5 MG Oral Tablet (Deltasone) Take 1 Tablet by mouth in the morning. 90 Tablet 1 Sertraline HCl 100 MG Oral Tablet (Zoloft) TAKE 1 TABLET BY MOUTH ONCE DAILY IN THE MORNING 90 Tablet 2 Carvedilol 3.125 MG Oral Tablet (Coreg) Take 1 Tablet by mouth in the morning and 1 Tablet before bedtime. with food. 180 Tablet 1 Allopurinol 100 MG Oral Tablet (Zyloprim) Take 1 Tablet by mouth in the morning. 90 Tablet 1 Atorvastatin Calcium 20 MG Oral Tablet (Lipitor) TAKE 1 TABLET BY MOUTH ONCE DAILY IN THE MORNING 30 Tablet 5 Acetaminophen 500 MG Oral Tablet (Tylenol) Take 1 Tablet by mouth in the morning and 1 Tablet at noon and 1 Tablet in the evening. 270 Tablet 3 Torsemide 20 MG Oral Tablet (Demadex) Take 2 Tablets by mouth in the morning and 2 Tablets before bedtime. 120 Tablet 3 Levothyroxine Sodium 75 MCG Oral Tablet (Levoxyl) Take 1 Tablet by mouth in the morning. (at least 30 min prior to breakfast or other meds). 90 Tablet 3 HYDROcodone-Acetaminophen 5-325 MG Oral Tablet Take 1 Tablet by mouth every 8 hours as needed for Pain, Mild. 30 Tablet 0 FeroSul 325 (65 Fe) MG Oral Tablet (Ferrous Sulfate) Take 1 Tablet by mouth daily with breakfast. 30 Tablet 3 No current facility-administered medications for this visit. Social History Socioeconomic History Marital status: Number of children: 2 Years of education: 9 Occupational History Occupation: cleaning person Tobacco Use Smoking status: Never Smokeless tobacco: Never Vaping Use Vaping status: Never Used Substance and Sexual Activity Alcohol use: No [...] No Seat Belt Yes Self-Exams No Social Determinants of Health Food Insecurity: No Food Insecurity (10/16/2019) Hunger Vital Sign Worried About Running Out of Food in the Last Year: Never true Ran Out of Food in the Last Year: Never true Social Connections Family History Problem Relation Name Age of Onset Diabetes Mother insulin Other (aceves) Father home burned, he lived 26d Endocrine Disorder Sister liver failure Heart Disorder Brother Cancer Brother colon Past Medical History: Diagnosis Date Anxiety state [...] 09/16/2004 lmp 1987, hrt x 2 yrs [id number] Mixed dyslipidemia Osteoporosis Personal history of peptic ulcer disease ROS EXAM: CONSTITUTIONAL: No change in weight, No weakness, No fatigue, and No fevers, sweats, or chills PULMONARY: No cough, sputum, or hemoptysis, No wheezing, No rales, No shortness of breath, and No recent change in breathing CARDIOVASCULAR: No chest pain, No shortness of breath, No dyspnea on exertion, No orthopnea, No paroxysmal nocturnal dyspnea, No edema, No palpitations, No syncope, and Positive for heart failure andvalvular heart disease GASTROINTESTINAL: No abdominal pain, No change in bowel habits, No significant heartburn, No significant change in appetite, No nausea, vomiting, diarrhea, or constipation, No hematemesis, No blood in stools or black tarry stools, No abdominal bloating or early satiety, and No dysphagia FEMALE: No STDs, No dysuria, No frequency, No incontinence, No irregular menstruation, No urgency, No vaginal discharge, and Positive for CKD 3 HEMATOLOGIC: No coagulation disorder, No anemia, No abnormal bleeding, No chills, No bruising, No HIV risk factors, No night sweats, No swollen nodes, No weight loss, and No history of transfusion EXTREMITIES: No pain, redness or swelling on the joints and except as noted above SKIN/INTEGUMENTARY: No edema, No rash, and No itching NEUROLOGIC: Normal balance, No headaches, No seizures, and No weakness ENDOCRINE: No heat intolerance, No cold intolerance, No excessive thirst or urination, and No history of diabetes. Positive for hypothyroidism PHYSICAL EXAM: Constitutional: in no acute distress HEENT: normocephalic, atraumatic Eyes: sclera white Respiratory: normal breathing Neurological: orientation - grossly oriented to person, place and time, attention - attention normal, concentration normal, and fund of knowledge within normal limits Mood and Affect/Psych: normal, affect appropriate, no hallucinations, no delusions present, and no psychotic thoughts Skin is normal Xray: I have personally reviewed the xrays done 05/07/2022 and agree with radiology report c/w "FINDINGS No acute fracture or dislocation about the right shoulder. 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 Possible subtle foci of calcific tendinosis along the right rotator cuff. Degenerative changes of the thoracic spine with dextrocurvature. Vascular calcifications. IMPRESSION IMPRESSION Severe glenohumeral and at least mild to moderate acromioclavicular arthrosis. Possible subtle foci of calcific tendinosis along the right rotator cuff." Shoulder Exam: right. Skin: No problem. Active ROM: Forward Flexion: 45 Abder: Unable to perform Passive Supine ROM: Forward Flexion: 90 Strength: Supraspinatus/Empty can test: Unable to perform External Rotators: 5/5 Internal Rotators: 5/5 Impingement Maneuvers: Pain with Parkinson' maneuver: grade III Pain with Neer's maneuver: grade III Acromioclavicular Joint: Tender to palpation: NO. Tender on Xarm Abduction: NO Crepitus at ac joint on FF: YES. Biceps Tendon: Tender to palpation: NO. 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 Educated patient on steroid flare reaction, risk of infection as well as signs and symptoms of infection. Advised patient to rest following the injection and ice the shoulder. Call office with any concerns. Follow up 3 months repeat injection- patient is requesting home health PA to perform next injectiondue to transportation and I advised that this could be done as long as she feels comfortable performing the injection Brandon Vee PA-C Orthopaedics, [facility] [address] [facility] [address] 11/11/2023 11:02 AM documented in this encounter Plan of Treatment Upcoming Encounters Date Type Department Care Team (Late st Contact Info) Description 11/15/2023 8:30 AM EDT [facility] [place], [facility] [address] [place] [address] Mira Jalloh RN [address] [place] [address] 12/14/2023 8:50 AM EDT [facility]icine [facility] [address] [place] [address] Bere Martin PA-C [address] [place] [address] Tawny Power, [facility] Slat Basket Maker Helper [address] [place] [address] 01/12/2024 9:20 AM EDT Office Visit [address] [phone] Chelly Steel MD [address] [place] [phone] 02/17/2024 1:00 PM EST Office Visit Orthopaedics, [facility] [address] [place] [address] Brandon Vee PA-C [address] [place] [address] Scheduled Orders Name Type Priority Associated Diagnoses Orde r Schedule ARTHROCENT ASP &/OR INJ MAJOR JX/BURSA W/O US Procedures Routine Shoulder arthritis Ordered: 11/11/2023 Scheduled Procedures Name Priority Associated Diagnoses Date/Ti [...] Additional history exists CKD PHOS USE SMARTSET 50912 07/21/202407/12, 12/07/2021, 01/17/2020, Additional history exists Depression Screening 07/21/2024 07/22/2023 CKD HGB USE SMARTSET 56851 10/17/202410/17, 10/18/2023, 07/22/2023, Additional history exists TSH [...] as of this encounter Visit Diagnoses Diagnosis Shoulder arthritis- Primary Unspecified arthropathy, shoulder region documented in this encounter Administered Medications Inactive Administered Medications - up to 3 most recent administrations Medication Order MAR Action Action Date Dose Rate Site lidocaine 1% 1 mL - triamcinolone acetonide 40 mg/mL 1 mL inj 2 mL 2 mL, Injection, ONCE, On Tue11/11/23 at 1145, For 1 dose, lidocaine 1% 1 mL - triamcinolone acetonide 40 mg/mL 1 mL inj TOTAL VOLUME 2 mL SYRINGE REFRIGERATE and SHAKE WELL Given 11/11/2023 11:06 AM EDT 2 mL Shoulder Right documented in this encounter Care Teams Fishing Hand Relationship Specialty Start Date End Date Blair Kasper DO [address] [place] [id number] PCP - General Internal Medicine 09/03/20 documented as of this encounter
--- OUTSIDE RECORDS SUMMARY | 2023-12-29 15:21 | External Medical Summary | Summary of Care ---
Author Name Unknown Organization [facility] Address [address] [address] Phone [phone] Care Team Providers Care Data Warehouse Manager Name Role Phone NathannikhilBlair Chava Primary Care Provid er Reason for Visit * Reason Onset Date Comments [facility]: Maintenance 11/24/2023 Encounter Details Date Type Department Care Team (Late st Contact Info) Description 11/24/2023 1:00 PM EDT Scheduled Telephone [facility] [place] [address] [place] [address] Coordinator, [facility] [address] [place] [address] Allergies Active Allergy Reactions Criticality Noted Date Comments Adhesive Tape 04/20/2004 Clarithromycin 10/03/2000 nausea documented as of this encounter (statuses as of 11/24/2023) Medications Medication Sig Dispensed Refills Start Date [...] as of this encounter (statuses as of 11/24/2023) Active Problems Problem Noted Date Diagnosed Date [...] as of this encounter (statuses as of 11/24/2023) Resolved Problems Problem Noted Date Diagnosed Date [...] Overview: lmp 1987, hrt x 2 yrs 5429-4335 IRON DEF ANEMIA DIETARY 08/26/200403/14 GENERAL OSTEOARTHROSIS [...] as of this encounter (statuses as of 11/24/2023) Immunizations Name Administration Dates Next Due COVID-19 [...] Telephone Encounter - Kesha Kc RN - 11/24/2023 3:08 PM EDT [facility] Telephonic Nurse Follow-Up Call [facility] Subprogram: Focused Care Management (3-9 months) Follow Up Call Type: Routine follow up call / Status Check Acute issue requiring follow-up call: Other: f/u [...] added: Medrol dose aditi Subjective: Condition Status: Improvement in symptoms but not at baseline Current Concerns: Spoke to patient who reports she had a better night last night and has noticed improvement in pain since starting Medrol dosepak. Patient states she wrote down dosepak instructions and is taking as directed. Denies any acute concerns today. Instructed to cont current tx plan, rest/pace activities, keep RLE elevated, use walker for all ambulation, pain medication as directed. Advised to call [facility] back with any new or worsening symptoms Disposition: [facility] Future Visits Scheduled: Future Appointments-next 60 days Date/Time Provider Specialty Dept Phone 12/14/2023 8:50 AM [facility] [employer]; Bere Martin PA-C [facility] [phone] 12/27/2023 8:30 AM Mira Jalloh RN [facility] [phone] 01/12/2024 9:20 AM (Arrive by 9:05 AM) Chelly Steel MD Family Medicine [phone] 03/16/2024 1:15 PM (Arrive by 1:00 PM) Brandon Vee PA-C Orthopedics [phone] Kesha Kc, YESY documented in this encounter Plan of Treatment Upcoming Encounters Date Type Department Care Team (Late st Contact Info) Description 11/28/2023 12:30 PM EDT Scheduled Telephone [facility] [place], [facility] [address] [place] [address] Coordinator, [facility] [address] [place] [address] 12/14/2023 8:50 AM EDT Telemedicine [facility] [place], [facility] [address] [place] [address] Bere Martin PA-C [address] [place] [address] Tono, Tawny, Community [facility] Electrician Ship [address] [place] [address] 12/27/2023 8:30 AM EDT [facility] [place] [address] [place] [address] Mira Jalloh RN [address] [address] 01/12/2024 9:20 AM EDT Office Visit Family [facility] [address] [place] [address] Chelly Steel MD [address] [place] [address] 03/16/2024 1:15 PM EST [facility] [address] [place] [address] Brandon Vee PA-C [address] [place] [address] Scheduled Procedures Name Priority Associated Diagnoses Date/Ti [...] Additional history exists CKD PHOS USE SMARTSET 88694 07/21/2024 05/, 12/07/2021, 01/17/2020, Additional history exists Depression Screening 07/21/2024 07/22/2023 CKD HGB USE SMARTSET 05091 10/17/202410/17, 10/18/2023, 07/22/2023, Additional history exists TSH [...] filedocumented as of this encounter Care Teams Data Warehouse Manager Relationship Specialty Start Date End Date Blair Kasper DO [address] [place] [address] PCP - General Internal Medicine 09/03/20 documented as of this encounter
--- OUTSIDE RECORDS SUMMARY | 2023-12-29 15:21 | External Medical Summary | Summary of Care ---
Author Name Unknown Organization [facility] Address [address] [facility] [address] [address] Phone [phone] Care Team Providers Care Service Desk Team Lead Name Role Phone MariahrakeshBlair Chava Primary Care Provid er Reason for Visit * Reason Comments NEW PATIENT Pain Right shoulder * Evaluate & Treat - Unlimited Visits (Within 10 days (routine)) - Authorized Specialty Diagnoses / Procedures Referred By Contbridgett t Referred To Contact Orthopaedic Surgery / Orthopedics Diagnoses Chronic right shoulder pain Chelly Steel MD [address] [place] [phone] Referral ID Status Reason Start Date Expiration Date Visits Requested Visits Authorized [id number] Authorized Specialty Services Required 10/10/[id number] Encounter Details Date Type Department Care Team (Late st Contact Info) Description 11/11/2023 11:30 AM EDT [facility] [address] [place] [address] Brandon Vee PA-C [address] [place] [address] Shoulder arthritis* Allergies Active Allergy Reactions Criticality [...] Overview: lmp 1987, hrt x 2 yrs 3083-5384 IRON DEF ANEMIA DIETARY 08/26/200403/14 GENERAL OSTEOARTHROSIS [...] 09/16/2004 lmp 1987, hrt x 2 yrs 5749-5052 Mixed dyslipidemia Osteoporosis Personal history of peptic [...] 3 months repeat injection- patient is requesting [facility] to perform next injectiondue to transportation and I advised that this could be done as long as she feels comfortable performing the injection Orthopaedic Procedure Clinic Note Date of Procedure: 11/15/2023 PROCEDURE NOTE INTRAARTICULAR INJECTION SITE: right shoulder DIAGNOSIS: DJD Lidocaine 1.0 % 1 mL Triamcinolone Acetonide 40 mg/mL 1 mL A timeout was called immediately prior to the procedure, to confirm the correct patient, procedure,and site. The site was marked by the physician prior to the procedure. Site was identified: shoulder: Right ROUTE: Intra-articular I injected the patient Brandon Vee PA-C Orthopaedics, [address] [address] 11/11/2023 11:02 AM documented in this encounter Plan of Treatment Upcoming Encounters Date Type Department Care Team (Late st Contact Info) Description 11/15/2023 8:30 AM EDT [facility] Visit [facility] [address] [address] Mira Jalloh RN [address] [place] [address] 12/14/2023 8:50 AM EDT Telemedicine [facility] [address] [place] [address] Bere Martin PA-C [address] [place] [address] Tawny Power, Community Health Superintendent [place] [address] [facility] [address] 01/12/2024 9:20 AM EDT Office Visit Family [facility] [address] [place] [address] Chelly Steel MD [address] [place] [address] 02/17/2024 1:00 PM EST Office Visit Orthopaedics, [facility] [address] [place] [address] Brandon Vee PA-C [address] [place], [place] [phone] Scheduled Orders Name Type Priority Associated Diagnoses [...] Additional history exists CKD PHOS USE SMARTSET 32350 07/21/2024 05, 12/07/2021, 01/17/2020, Additional history exists Depression Screening 07/21/2024 07/22/2023 CKD HGB USE SMARTSET 75396 10/17/202410/17, 10/18/2023, 07/22/2023, Additional history exists TSH [...] Right documented in this encounter Care Teams Service Desk Team Lead Relationship Specialty Start Date End Date Blair Kasper DO [address] [place] [address] [phone] PCP - General Internal Medicine 09/03/20 documented as of this encounter
--- OUTSIDE RECORDS SUMMARY | 2023-12-29 15:21 | External Medical Summary | Summary of Care ---
Author Name Unknown Organization [facility] Address [address] [address] Phone [phone] Care Team Providers Care Professional Security Officer Name Role Phone Nathannikhil Blair Larsen Primary Care Provid er Reason for Visit * Reason Onset Date Comments [facility]: Maintenance 11/23/2023 Encounter Details Date Type Department Care Team (Late st Contact Info) Description 11/23/2023 12:45 PM EDT Scheduled Telephone [facility], [place] [address] [place] [address] [address], [facility] [address] [place] [address] Allergies Active Allergy Reactions Criticality Noted Date [...] Overview: lmp 1987, hrt x 2 yrs 7537-4495 IRON DEF ANEMIA DIETARY 08/26/200403/14 GENERAL OSTEOARTHROSIS [...] [facility] Telephonic Nurse Follow-Up Call [facility] Subprogram: Focused Care Management (3-9 months) [...] review medication dose/instructions. Patient agreeable to same PC back to patient who states she did start Medrol dose aditi. Patient states she now has magnifying glass and can read instructions. Read over medications instructions with patient to confirm she is taking them as directed. She states she is also writing instructions down. She is aware to hold maintenance dose of Prednisone. Patient states pain is eased up while she is resting. Instructed to cont current tx plan, keep RLE elevated, rest/pace activities, use walker for all ambulation, pain medication as directed. Advised to call [facility] back with any new or worsening symptoms Disposition: Follow up call scheduled for tomorrow with ELECTRONIC IMAGING SYSTEM OPERATOR Rack Washer Future Visits Scheduled: Future Appointments-next 60 days Date/Time Provider Specialty Dept Phone 12/14/2023 8:50 AM Tawny Power, [facility] Aeronautical Engineering Professor; Bere Martin PA-C [facility] [phone] 12/27/2023 8:30 AM Mira Jalloh RN [facility] [phone] 01/12/2024 9:20 AM (Arrive by 9:05 AM) Chelly Steel MD Family Medicine [phone] 02/17/2024 1:00 PM (Arrive by 12:45 PM) Brandon Vee PA-C Orthopedics [phone] Kesha Kc RN documented in this encounter Plan of Treatment Upcoming Encounters Date Type Department Care Team (Late st Contact Info) Description 12/14/2023 8:50 AM EDT Telemedicine [facility] [place], [address] [address] Bere Martin PA-C [address] [place] [address] Tawny Power, Community Health Aeronautical Engineering Professor [address] [place] [address] 12/27/2023 8:30 AM EDT Home Visit [facility], [facility] [address] [place] [address] Mira Jalloh RN [address] [place] [address] 01/12/2024 9:20 AM EDT Office Visit [address] [address] Chelly Steel MD [address] [place] [address] 03/16/2024 1:15 PM EST [facility] [address] [place] [address] Brandon Vee PA-C [facility] [place] [address] Scheduled Procedures Name Priority Associated Diagnoses Date/Ti [...] Additional history exists CKD PHOS USE SMARTSET 93560 07/21/202407/12, 12/07/2021, 01/17/2020, Additional history exists Depression Screening 07/21/2024 07/22/2023 CKD HGB USE SMARTSET 22016 10/17/202410/17, 10/18/2023, 07/22/2023, Additional history exists TSH [...] filedocumented as of this encounter Care Teams Professional Security Officer Relationship Specialty Start Date End Date Blair Kasper DO [address] [place] [address] PCP - General Internal Medicine 09/03/20 documented as of this encounter
--- OUTSIDE RECORDS SUMMARY | 2023-12-29 15:21 | External Medical Summary | Summary of Care ---
Author Name Unknown Organization [facility] Address [address] [facility] [address] [place] [address] Phone [phone] Care Team Providers Care Spray Operator Name Role Phone Blair Kasper DO Primary Care Provid er Reason for Visit * Reason Onset Date Comments Med Request 11/01/2023 LMOM 11/04 Encounter Details Date Type Department Care Team ([facility] Contact Info) Description 11/01/[address] [address] Blair Kasper DO [address] [place] [address] Med Request (LMOM 11/04) Allergies Active Allergy Reactions Criticality Noted Date Comments Adhesive Tape 04/20/2004 Clarithromycin 10/03/2000 nausea documented as of this encounter (statuses as of 11/11/2023) Medications Medication Sig Dispensed Refills Start Date End Date Status Potassium Chloride ER 10 MEQ Oral Capsule Extended ReleaseIndications :Hypertensive heart disease with heart failure (HCC) Take 2 Capsules by mouth in the morning and 2 Capsules before bedtime. 120 Capsule 5 4 Active Aspirin 81 MG Oral Tablet ChewableIndication s:Generalized osteoarthritis of multiple sites 1 chewable by mouth daily to prevent heart attack 100 Tablet 5 4 Active predniSONE 5 MG Oral Tablet (Deltasone)Indicat ions:Chronic pain of both knees,PMR (polymyalgia rheumatica) (HCC) Take 1 Tablet by mouth in the morning. 90 Tablet 1 4 Active Sertraline HCl 100 MG Oral Tablet (Zoloft)Indication s:Depression with anxiety TAKE 1 TABLET BY MOUTH ONCE DAILY IN THE MORNING 90 Tablet 2 4 Active Carvedilol 3.125 MG Oral Tablet (Coreg)Indications :Hypertensive heart disease with heart failure (HCC) Take 1 Tablet by mouth in the morning and 1 Tablet before bedtime. with food. 180 Tablet 1 4 Active Allopurinol 100 MG Oral Tablet (Zyloprim) Take 1 Tablet by mouth in the morning. 90 Tablet 1 4 Active Atorvastatin Calcium 20 MG Oral Tablet (Lipitor)Indicatio ns:Dyslipidemia, goal LDL below 130 TAKE 1 TABLET BY MOUTH ONCE DAILY IN THE MORNING 30 Tablet 5 4 Active Acetaminophen 500 MG Oral Tablet (Tylenol) Take 1 Tablet by mouth in the morning and 1 Tablet at noon and 1 Tablet in the evening. 270 Tablet 3 4 Active Torsemide 20 MG Oral Tablet (Demadex)Indicatio ns:Hypertensive heart disease with heart failure (HCC) Take 2 Tablets by mouth in the morning and 2 Tablets before bedtime. 120 Tablet 3 4 Active Levothyroxine Sodium 75 MCG Oral Tablet (Levoxyl)Indicatio ns:Acquired hypothyroidism Take 1 Tablet by mouth in the morning. (at least 30 min prior to breakfast or other meds). 90 Tablet 3 4 Active Ferrous Sulfate 325 (65 Fe) MG Oral Tablet (Feosol)Indication s:Anemia, unspecified type Take 1 Tablet by mouth daily with breakfast. 30 Tablet 3 4 11/09/19 24 Discontinued HYDROcodone-Acetam inophen 5-325 MG Oral TabletIndications: Chronic right shoulder pain Take 1 Tablet by mouth every 8 hours as needed for Pain, Mild. 30 Tablet 4 11/01/19 24 Discontinued(Ref ill) documented as of this encounter (statuses as [...] Overview: lmp 1987, hrt x 2 yrs 4400-3735 IRON DEF ANEMIA DIETARY 08/26/200403/14 GENERAL OSTEOARTHROSIS [...] Miscellaneous Notes * Telephone Encounter - Blair Kasper DO - 11/11/2023 9:14 AM EDT Noted. Will follow-up on Ortho recommendations * Telephone Encounter - Gabi Hannon LPN - 11/11/2023 9:05 AM EDT Patient is seeing orthopedics today. * Telephone Encounter - Brendan Ramos LPN - 11/05/2023 3:15 PM EDT LMOM for return call. Please give below message. * Telephone Encounter - Blair Kasper DO - 11/02/2023 3:04 PM EDT Reviewed [facility] note. Is this in regards to her shoulder? She would be able to have another cortisone injection as her last was in July. Would prefer to wait for orthopedic evaluation Would not recommend increasing her chronic steroids just for shoulder however may be able to do a taper which ends on her usual 5 mg daily Can send in prednisone taper if she is agreeable * Telephone Encounter - Roxana Castillo LPN - 11/02/2023 10:37 AM EDT Please see home visit from 10/31/23--patient has upcoming appt with ortho on 11/11/2023. Thanks. * Telephone Encounter - Fidelia Tinajero PHARM Tech - 11/01/2023 4:28 PM EDT Pt called stating Bere Martin was at her house yesterday for a home visit. Pt said Bere told her to see abut getting prednisone increased to help with pain. Pt said she is in a lot of pain. Thanks, Fidelia Tinajero Paper Cup Machine Operator [facility] 11/01/2023,4:30 PM documented in this encounter Plan of Treatment Upcoming Encounters Date Type Department Care Team (Late st Contact Info) Description 11/11/2023 11:30 AM EDT Office Visit Orthopaedics, [facility] [address] [place] [address] Brandon Vee PA-C [address] [place] [address] 11/15/2023 8:30 AM EDT [facility] Visit [facility] [place], [facility] [address] [place] [address] Mira Jalloh RN [address] [place], [place] [address] 12/14/2023 8:50 AM EDT Telemedicine [facility], [place] [address] [place] [address] Bere Martin PA-C [address] [place] [address] Tawny Power, Community Health Director Of Community Education [address] [place] [address] 01/12/2024 9:20 AM EDT Office Visit [address] [address] Chelly Steel MD [address] [place] [address] Scheduled Procedures Name Priority Associated Diagnoses Date/Ti [...] Additional history exists CKD PHOS USE SMARTSET 90736 07/21/202407/12, 12/07/2021, 01/17/2020, Additional history exists Depression Screening 07/21/2024 07/22/2023 CKD HGB USE SMARTSET 04128 10/17/202410/17, 10/18/2023, 07/22/2023, Additional history exists TSH [...] filedocumented as of this encounter Care Teams Spray Operator Relationship Specialty Start Date End Date Blair Kasper DO [address] [place] [address] [phone] PCP - General Internal Medicine 09/03/20 documented as of this encounter
--- OUTSIDE RECORDS SUMMARY | 2023-12-29 15:22 | External Medical Summary ---
Author Name Unknown Address Unknown Organization K01:[facility] [place] [facility] [address] [facility] [place] [address] Laboratory Report Ordering Provider Test Date Status JONATHAN MAYER 10/18/2023 10:15:00 Final Observation Date Value Abnormality Reference (Units ) Status BUN 10/18/2023 10:15:00 29 Above high normal 6-20 (mg/dL) Final Creatinine 10/18/2023 10:15:00 1.1 Above high normal 0.5-1.0 (mg/dL) Final Glomerular filtration rate/1.73 sq M.predicted [Volume Rate/Area] in Serum, Plasma or Blood by Creatinine-based formula (CKD-EPI) 10/18/2023 10:15:00 48 Below low normal >=60 (mL/min) Final eGFR is calculated based on the CKD-EPI 2020 equation. Sodium 10/18/2023 10:15:00 142 135-146 (m mol/L) Final Potassium 10/18/2023 10:15:00 4.4 3.5-5.1 (m mol/L) Final Cl 10/18/2023 10:15:00 103 98-107 (mm ol/L) Final CO2 10/18/2023 10:15:00 26 22-32 (mmo l/L) Final Anion gap 10/18/2023 10:15:00 13 7-15 (mmol /L) Final Glucose 10/18/2023 10:15:00 75 70-120 (mg /dL) Final Albumin 10/18/2023 10:15:00 4.1 3.8-5.0 (g /dL) Final AST (Aspartate aminotransferase) 10/18/2023 10:15:00 24 10-35 (U/L) Fin al Alk Phos 10/18/2023 10:15:00 151 Above high normal 35 -130 (U/L) Final Bilirubin, Total 10/18/2023 10:15:00 0.3 <=1 .2 (mg/dL) Final Calcium 10/18/2023 10:15:00 9.2 8.4-10.2 ( mg/dL) Final Protein 10/18/2023 10:15:00 6.6 6.0-8.3 (g /dL) Final ALT (Alanine aminotransferase) 10/18/2023 10:15:00 14 10-35 (U/L) Shravan michael Performing Location [facility] [place] [address] [facility] [address]
--- OUTSIDE RECORDS SUMMARY | 2023-12-29 15:22 | External Medical Summary ---
Author Name Unknown Address Unknown Organization K01:[facility] [address] [facility] [place] [address] Laboratory Report Ordering Provider Test Date Status JONATHAN MAYER 10/18/2023 10:15:00 Final Observation Date Value Abnormality Reference (Units ) Status SYNC LEUKOCYTES IN BLOOD BY AUTOMATED COUNT 10/18/2023 10:15:00 11.37 Above high normal 4.00-10.80 (K/uL) Final Segs 10/18/2023 10:15:00 72.1 40.0-75.0 (%) Final Lymphs % 10/18/2023 10:15:00 19.6 18.0-42.0 (%) Final Monos 10/18/2023 10:15:00 6.4 1.0-11.0 (%) Final Eosinophils 10/18/2023 10:15:00 1.2 0.0-6.0 (%) Final Basos 10/18/2023 10:15:00 0.3 0.0-2.0 (%) Final Immature Granulocyte, Percent 10/18/2023 10:15:00 0.4 0.0-2.0 (%) Final Absolute Segs 10/18/2023 10:15:00 8.19 Above high normal 1.80-7.70 (K/uL) Final Lymphs, absolute 10/18/2023 10:15:00 2.23 1.00-4.80 (K/ul) Final Monos, Abs 10/18/2023 10:15:00 0.73 0.00-1.10 (K/uL) Final Eos, Abs 10/18/2023 10:15:00 0.14 0.00-0.70 (K/uL) Final Basos, Abs 10/18/2023 10:15:00 0.03 0.00-0.20 (K/uL) Final Immature Granulocytes, Number 10/18/2023 10:15:00 0.05 0.00-0.20 (K/uL) Final Performing Location [facility] [place] [facility] [address] [facility] [address]
--- OUTSIDE RECORDS SUMMARY | 2023-12-29 15:22 | External Medical Summary | Summary of Care ---
Author Name Unknown Organization [facility] Address [address] [facility] [place] [address] Phone [phone] Care Team Providers Care Square Cutter Name Role Phone NathanBlair tejeda Primary Care Provid er Reason for Visit * Reason Onset Date Comments Test Results 10/20/2023 Encounter Details Date Type Department Care Team ([facility] Contact Info) Description 10/20/2023 Telephone Family Practice [facility] [address] [place] [address] Chelly Steel MD [address] [place] [phone] Test Results Allergies Active Allergy Reactions Criticality Noted Date Comments Adhesive Tape 04/20/2004 Clarithromycin 10/03/2000 nausea documented as of this encounter (statuses as of 10/25/2023) Medications Medication Sig Dispensed Refills Start Date End Date Status Ferrous Sulfate 325 (65 Fe) MG Oral Tablet (Feosol)Indications:A nemia, unspecified type Take 1 Tablet by mouth daily with breakfast. 30 Tablet 3 06/24/2023 Active Potassium Chloride ER 10 MEQ Oral Capsule [...] the evening. 270 Tablet 3 10/10/2023 Active HYDROcodone-Acetamino phen 5-325 MG Oral TabletIndications:Chr onic right shoulder pain Take 1 Tablet by mouth every 8 hours as needed for Pain, Mild. 30 Tablet 10/10/2023 Active Torsemide 20 MG Oral Tablet [...] other meds). 90 Tablet 3 10/19/2023 Active documented as of this encounter (statuses as of 10/25/2023) Active Problems Problem Noted Date Diagnosed Date [...] PCP Hydrocodone-APAP 5/325 every 6 hours prn ADVANCE DIRECTIVE INFORMATION 09/05/2004 Overview: No, Advance Directive brochure given to patient at prior appointment. documented as of this encounter (statuses as of 10/25/2023) Resolved Problems Problem Noted Date Diagnosed Date [...] Overview: lmp 1987, hrt x 2 yrs [id number] IRON DEF ANEMIA DIETARY 08/26/200403/14 GENERAL OSTEOARTHROSIS [...] hout current pathological fracture 10/10/2023 Overview: dexa 7/03 mod fx risk, started on Fosamax 08/16 Positional vertigo 8 HTN, goal below 140/90 12/24 Overview: 06/12 documented as of this encounter (statuses as of 10/25/2023) Immunizations Name Administration Dates Next Due COVID-19 [...] encounter Miscellaneous Notes * Telephone Encounter - Reta Silva LPN - 10/25/2023 12:21 PM EDT Spoke with pt and gave message below. Pt verbalized understanding and had no further questions or concerns at this time. * Telephone Encounter - Reta Silva LPN - 10/20/2023 7:27 AM EDT ----- Message from Chelly Steel MD sent at 10/19/2023 5:35 PM EDT ----- TSH over-corrected with increase in levothyroxine. Recommend decreasing back to 75 mcg daily which she was stable on for some time. Repeat thyroid studies in 6 weeks. documented in this encounter Plan of Treatment Upcoming Encounters Date Type Department Care Team (Late st Contact Info) Description 10/31/2023 8:30 AM EDT [facility] Visit [facility] [place] [address] [place] [address] Bere Martin PA-C [address] [place] [address] 11/11/2023 11:30 AM EDT Office Visit Orthopaedics, [facility] [address] [place] [address] Brandon Vee PA-C [address] [place] [address] 11/11/2023 4:00 PM EDT Home Visit [facility] [place] [facility] [address] [place] [address] Mira Jalloh RN [address] [facility] [place] [address] 01/12/2024 9:20 AM EDT Office Visit [facility] [address] [place] [address] Chelly Steel MD [address] [place] [phone] Scheduled Procedures Name Priority Associated Diagnoses [...] Additional history exists CKD PHOS USE SMARTSET 37267 07/21/2024 05, 12/07/2021, 01/17/2020, Additional history exists Depression Screening 07/21/2024 07/22/2023 CKD HGB USE SMARTSET 34604 10/17/202410/174, 10/18/2023, 07/22/2023, Additional history exists TSH 10/17/2024 10/18/2023, 07/12, 06/21/2022, Additional history exists DTaP,Tdap,and Td Vaccines [...] filedocumented as of this encounter Care Teams Square Cutter Relationship Specialty Start Date End Date Blair Kasper DO [address] [place] [address] [phone] PCP - General Internal Medicine 09/03/20 documented as of this encounter
--- OUTSIDE RECORDS SUMMARY | 2023-12-29 15:22 | External Medical Summary | Summary of Care ---
Author Name Unknown Organization [facility] Address [address] [facility] [place] [address] Phone [phone] Care Team Providers Care Compliance Quality Performance Analyst Name Role Phone Blair Simental DO Primary Care Provid er Reason for Visit * Reason Onset Date Comments Medication Refill 11/01/2023 Encounter Details Date Type Department Care Team ([facility] Contact Info) Description 11/01/[address] [address] Blair Simental DO [address] [place] [phone] Chronic right shoulder pain Allergies Active Allergy Reactions Criticality Noted Date Comments Adhesive Tape 04/20/2004 Clarithromycin 10/03/2000 nausea documented as of this encounter (statuses as of 11/03/2023) Medications Medication Sig Dispensed Refills Start Date End Date Status Ferrous Sulfate 325 (65 Fe) MG Oral Tablet (Feosol)Indications :Anemia, unspecified type Take 1 Tablet by mouth daily with breakfast. 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 120 Capsule 5 06/24/2023 Active Aspirin 81 MG Oral Tablet ChewableIndications :Generalized osteoarthritis of multiple sites 1 chewable by mouth daily to prevent heart attack 100 Tablet 5 06/24/2023 Active predniSONE 5 MG Oral Tablet (Deltasone)Indicati ons:Chronic pain of both knees,PMR (polymyalgia rheumatica) (HCC) Take 1 Tablet by mouth in the morning. 90 Tablet 1 06/24/2023 Active Sertraline HCl 100 MG Oral Tablet (Zoloft)Indications :Depression with anxiety TAKE 1 TABLET BY MOUTH ONCE DAILY IN THE MORNING 90 Tablet 2 06/24/2023 Active Carvedilol 3.125 MG Oral Tablet (Coreg)Indications: [...] 10/10/2023 Active Torsemide 20 MG Oral Tablet (Demadex)Indication [...] other meds). 90 Tablet 3 10/19/2023 Active HYDROcodone-Acetami nophen 5-325 MG Oral TabletIndications:C hronic right shoulder pain Take 1 Tablet by mouth every 8 hours as needed for Pain, Mild. 30 Tablet 11/03/2023 Active HYDROcodone-Acetami nophen 5-325 MG Oral TabletIndications:C hronic right shoulder pain Take 1 Tablet by mouth every 8 hours as needed for Pain, Mild. 30 Tablet 10/10/2023 4 Discontinue d(Refill) documented as of this encounter (statuses as of 11/03/2023) Active Problems Problem Noted Date Diagnosed Date [...] as of this encounter (statuses as of 11/03/2023) Resolved Problems Problem Noted Date Diagnosed Date [...] Overview: lmp 1987, hrt x 2 yrs [id number] IRON DEF ANEMIA DIETARY 08/26/200403/14 GENERAL OSTEOARTHROSIS [...] as of this encounter (statuses as of 11/03/2023) Immunizations Name Administration Dates Next Due COVID-19 [...] Telephone Encounter - Blair Simental DO - 11/03/2023 12:00 PM EDT Signed Prescriptions: Disp Refills HYDROcodone-Acetaminophen 5-325 MG Oral Ta*30 Tab*0 Sig: Take 1 Tablet by mouth every 8 hours as needed for Pain, Mild. Authorizing Provider: BLAIR SIMENTAL * Telephone Encounter - Geovanna Waller [facility] - 11/03/2023 9:24 AM EDTPending Prescriptions: Disp Refills HYDROcodone-Acetaminophen 5-325 MG Oral Ta*30 Tab*0 Sig: Take 1 Tablet by mouth every 8 hours as needed for Pain, Mild. * Telephone Encounter - Geovanna Waller [facility] - 11/03/2023 9:24 AM EDT I have reviewed the patients controlled substance dispensing history in the Prescription Drug Monitoring Program in compliance with the [facility] regulations before prescribing a controlled substance. PDMP checked on 11/03/2023. Pending Prescriptions: Disp Refills HYDROcodone-Acetaminophen 5-325 MG Oral T*30 Tab*0 Sig: Take 1 Tablet by mouth every 8 hours as needed for Pain, Mild. Last Visit: 10/10/2023 (in office), Visit date not found (telemedicine) Next Visit: 01/12/2024 Date medication was last filled: 10/09 Date medication is due for refill: 10/18 Pharmacy: [facility] [address] Is this request for a controlled [...] Results Review. Please approve if appropriate. Thank you, Geovanna Waller PharmD Clinical Pharmacist [facility] ([facility]) [phone] 11/03/2023, 9:24 AM * Telephone Encounter - Fidelia Tinajero PHARM Tech - 11/01/2023 4:31 PM EDT Did you pend patient's preferred pharmacy and medication before forwarding?yes Pharmacy: [facility] [address] [facility] Pending Prescriptions: Disp Refills HYDROcodone-Acetaminophen 5-325 MG [...] appointment Last date the medication was ordered: 10/10/2023 Is this request for a controlled substance?Yes, What was the last refill date 10/10/2023 w/ [id number] and dosage 5-325 and Urine Drug Screen [...] TSH 9.31 (H) 01/17/2020 02:02 PM LDLCALC 78 10/18/2023 10:15 AM LDLCALC 95 01/17/2020 02:02 PM LDLDIRECT 84 06/21/2022 11:15 AM LDLDIRECT 108 06/18/2011 09:31 AM ALT 14 10/18/2023 10:15 AM ALT 19 01/17/2020 02:02 PM documented in this encounter Plan of Treatment Upcoming Encounters Date Type Department Care Team (Late st Contact Info) Description 11/11/2023 11:30 AM EDT Office Visit Orthopaedics, [facility] [address] [place] [address] Brandon Vee PA-C [address] [place] [address] 11/11/2023 4:00 PM EDT [facility] Visit [facility] [place] [address] [place] [address] Mira Jalloh RN [address] [place] [address] 01/12/2024 9:20 AM EDT Office Visit [address] [address] Chelly Steel MD [address] [place] [phone] Scheduled Procedures Name Priority Associated Diagnoses [...] Additional history exists CKD PHOS USE SMARTSET 46992 07/21/202407/12, 12/07/2021, 01/17/2020, Additional history exists Depression Screening 07/21/2024 07/22/2023 CKD HGB USE SMARTSET 12897 10/17/202410/17, 10/18/2023, 07/22/2023, Additional history exists TSH [...] region documented in this encounter Care Teams Compliance Quality Performance Analyst Relationship Specialty Start Date End Date Blair Simental DO [address] [place] [phone] PCP - General Internal Medicine 09/03/20 documented as of this encounter
--- OUTSIDE RECORDS SUMMARY | 2023-12-29 15:22 | External Medical Summary | Summary of Care ---
Author Name Unknown Organization [facility] Address [address] [facility] [place] [address] Phone [phone] Care Team Providers Care Sampler Pickup Name Role Phone Blair Kasper DO Primary Care Provid er Reason for Visit * Reason Comments eRx-Medication Refill Encounter Details Date Type Department Care Team ([facility] st Contact Info) Description 11/06/2023 Refill Family [facility] [address] [place] [address] Reema Carranza PA-C [address] [place] [address] Encounter for long-term (current) use of medications*; Anemia, unspecified type Allergies Active Allergy Reactions Criticality Noted Date Comments Adhesive Tape 04/20/2004 Clarithromycin 10/03/2000 nausea documented as of this encounter (statuses as of 11/09/2023) Medications Medication Sig Dispensed Refills Start Date [...] other meds). 90 Tablet 3 4 Active HYDROcodone-Acetami nophen 5-325 MG Oral TabletIndications:C hronic right shoulder pain Take 1 Tablet by mouth every 8 hours as needed for Pain, Mild. 30 Tablet 4 Active FeroSul 325 (65 Fe) MG Oral Tablet (Ferrous Sulfate)Indications :Anemia, unspecified type Take 1 Tablet by mouth daily with breakfast. 30 Tablet 3 4 Active Ferrous Sulfate 325 (65 Fe) MG Oral Tablet (Feosol)Indications :Anemia, unspecified type Take 1 Tablet by mouth daily with breakfast. 30 Tablet 3 4 11/09/19 24 Discontinued documented as of this encounter (statuses as of 11/09/2023) Active Problems Problem Noted Date Diagnosed Date [...] as of this encounter (statuses as of 11/09/2023) Resolved Problems Problem Noted Date Diagnosed Date [...] Overview: lmp 1987, hrt x 2 yrs 3423-6227 IRON DEF ANEMIA DIETARY 08/26/200403/14 GENERAL OSTEOARTHROSIS [...] as of this encounter (statuses as of 11/09/2023) Immunizations Name Administration Dates Next Due COVID-19 [...] encounter Miscellaneous Notes * Telephone Encounter - Reema Carranza PA-C - 11/09/2023 8:22 AM EDTSigned Prescriptions: Disp Refills FeroSul 325 (65 Fe) MG Oral Tablet (Ferrou*30 Tab*3 Sig: Take 1 Tablet by mouth daily with breakfast. Authorizing Provider: REEMA CARRANZA * Telephone Encounter - Mitali Nguyen [facility] - 11/08/2023 10:07 AM EDT Pending Prescriptions: Disp Refills FeroSul 325 (65 Fe) MG Oral Tablet (Ferrou*30 Tab*3 Sig: Take 1 Tablet by mouth daily with breakfast. * Telephone Encounter - Mitali Nguyen [facility] - 11/08/2023 10:04 AM EDT Please review refill request and approve if continuation of therapy is appropriate. Pending Prescriptions: Disp Refills FeroSul 325 (65 Fe) MG Oral Tablet (Karri*30 Tab*3 Sig: Take 1 Tablet by mouth daily with breakfast. Thank you, Mitali Nguyen [facility] Clinical Pharmacist [facility] ([facility]) 11/08/23 10:07 AM [phone] documented in this encounter Plan of Treatment Upcoming Encounters Date Type Department Care Team (Late st Contact Info) Description 11/11/2023 11:30 AM EDT Office Visit Orthopaedics, [place] [id number] [place] [address] Brandon Vee PA-C [facility] [place] [address] 11/15/2023 8:30 AM EDT [facility] Visit [facility] [place] [address] [place] [address] Mira Jalloh RN [address] [place] [address] 12/14/2023 8:50 AM EDT [facility]icine [facility] [address] [place] [address] Bere Martin PA-C [address] [place] [address] [employer], Community Health Station Operator [address] [place] [address] 01/12/2024 9:20 AM EDT Office Visit [address] [address] Chelly Steel MD [address] [place] [phone] Scheduled Orders Name Type Priority Associated Diagnoses Orde r Schedule FERRITIN Lab Routine Encounter for long-term (current) use of medications Expected: 11/22/2023, Expires: 11/07/2024 CBC WITH WBC DIFFERENTIAL Lab Routine Encounter for long-term (current) use of medications Expected: 11/22/2023 (Approximate), Expires: 11/07/2024 IRON SCREEN, INCLUDING TIBC Lab Routine Encounter for long-term (current) use of medications Expected: 11/22/2023 (Approximate), Expires: 11/07/2024 Scheduled Procedures Name Priority Associated Diagnoses Date/Ti [...] Additional history exists CKD PHOS USE SMARTSET 67255 07/21/2024 05, 12/07/2021, 01/17/2020, Additional history exists Depression Screening 07/21/2024 07/22/2023 CKD HGB USE SMARTSET 19134 10/17/202410/17, 10/18/2023, 07/22/2023, Additional history exists TSH [...] as of this encounter Visit Diagnoses Diagnosis Encounter for long-term (current) use of medications- Primary Encounter for long-term (current) use of other medications Anemia, unspecified type documented in this encounter Care Teams Sampler Pickup Relationship Specialty Start Date End Date Blair Kasper DO [address] [place] [phone] PCP - General Internal Medicine 09/03/20 documented as of this encounter
--- OUTSIDE RECORDS SUMMARY | 2023-12-29 15:22 | External Medical Summary ---
Author Name Unknown Address Unknown Organization K01:[facility] [address] [place] [address] Laboratory Report Ordering Provider Test Date Status JONATHAN MAYER 10/18/2023 10:15:00 Final Observation Date Value Abnormality Reference (Units ) Status T4, Free 10/18/2023 10:15:00 1.3 0.9-1.7 (n g/dL) Final Performing Location [facility] [address] [place] [address]
--- OUTSIDE RECORDS SUMMARY | 2023-12-29 15:22 | External Medical Summary | Summary of Care ---
Author Name Unknown Organization [facility] Address [address] [place] [address] Phone [phone] Care Team Providers Care Dowel Pointer Name Role Phone Blair Kasper Primary Care Provid er Reason for Visit * Reason Onset Date Comments Appointment 11/04/2023 Encounter Details Date Type Department Care Team (Late st Contact Info) Description 11/04/2023 Telephone [facility] [place] [facility] [address] [place] [address] [phone] Services, Scheduling [address] [place] [address] Appointment (//) Allergies Active Allergy Reactions Criticality Noted Date Comments Adhesive Tape 04/20/2004 Clarithromycin 10/03/2000 nausea documented as of this encounter (statuses as of 11/04/2023) Medications Medication Sig Dispensed Refills Start Date [...] for Pain, Mild. 30 Tablet 11/03/2023 Active documented as of this encounter (statuses as of 11/04/2023) Active Problems Problem Noted Date Diagnosed Date [...] as of this encounter (statuses as of 11/04/2023) Resolved Problems Problem Noted Date Diagnosed Date [...] Overview: lmp 1987, hrt x 2 yrs 3887-9200 IRON DEF ANEMIA DIETARY 08/26/200403/14 GENERAL OSTEOARTHROSIS [...] risk, started on Fosamax 08/16 Positional vertigo 01/15/201 8 HTN, goal below 140/90 12/24 Overview: 06/12 documented as of this encounter (statuses as of 11/04/2023) Immunizations Name Administration Dates Next Due COVID-19 [...] encounter Miscellaneous Notes * Telephone Encounter - Tessie Madden OSA - 11/04/2023 2:29 PM EDT Request to schedule a 1.5 ret telemed I called and had to lmom documented in this encounter Plan of Treatment Upcoming Encounters Date Type Department Care Team (Late st Contact Info) Description 11/11/2023 11:30 AM EDT [facility] [id number] [place] [address] Brandon Vee PA-C [facility] [place] [address] 11/15/2023 8:30 AM EDT [facility] [address] [place] [address] Mira Jalloh RN [address] [place] [address] 12/14/2023 8:50 AM EDT [facility]icine [facility] [address] [address] Bere Martin PA-C [address] [place] [address] [employer], Community Health Mail Distribution Clerk [address] [place] [facility] [address] 01/12/2024 9:20 AM EDT Office Visit [address] [address] Chelly Steel MD [address] [place] [phone] Scheduled Procedures Name Priority Associated Diagnoses [...] Additional history exists CKD PHOS USE SMARTSET 93994 07/21/202407/12, 12/07/2021, 01/17/2020, Additional history exists Depression Screening 07/21/2024 07/22/2023 CKD HGB USE SMARTSET 11246 10/17/202410/17, 10/18/2023, 07/22/2023, Additional history exists TSH [...] filedocumented as of this encounter Care Teams Dowel Pointer Relationship Specialty Start Date End Date Blair Kasper DO [address] [place] [address] [phone] PCP - General Internal Medicine 09/03/20 documented as of this encounter
--- OUTSIDE RECORDS SUMMARY | 2023-12-29 15:22 | External Medical Summary | Summary of Care ---
Author Name Unknown Organization [facility] Address [address] [address] Phone [phone] Care Team Providers Care Dray Truck Driver Name Role Phone MariahrakeshBlair Chava Primary Care Provid er Reason for Visit * Reason Comments [facility]: Maintenance Encounter Details Date Type Department Care Team (Late st Contact Info) Description 10/31/2023 8:30 AM EDT Home Visit [facility] [place] [address] [address] Bere Martin PA-C [address] [place] [address] Hypertensive heart and kidney disease with chronic diastolic congestive heart failure and stage 3b chronic kidney disease (HCC)*; Acquired hypothyroidism; Generalized osteoarthritis; Vitamin D deficiency Allergies Active Allergy Reactions Criticality Noted Date Comments Adhesive Tape 04/20/2004 Clarithromycin 10/03/2000 nausea documented as of this encounter (statuses as of 10/31/2023) Medications Medication Sig Dispensed Refills Start Date [...] as of this encounter (statuses as of 10/31/2023) Active Problems Problem Noted Date Diagnosed Date [...] as of this encounter (statuses as of 10/31/2023) Resolved Problems Problem Noted Date Diagnosed Date [...] Overview: lmp 1987, hrt x 2 yrs [id number] IRON DEF ANEMIA DIETARY 08/26/200403/14 GENERAL OSTEOARTHROSIS [...] as of this encounter (statuses as of 10/31/2023) Immunizations Name Administration Dates Next Due COVID-19 [...] Sign Reading Time Taken Comments Blood Pressure 138/70 10/31/2023 9:37 AM EDT Pulse 60 10/31/2023 9:37 AM EDT Temperature - - Respiratory Rate - - Oxygen Saturation 96% 10/31/2023 9:37 AM EDT Inhaled Oxygen Concentration - - Weight - - Height - - Body Mass Index - - documented in this encounter Progress Notes * Bere Martin PA-C - 10/31/2023 7:27 AM EDT Images from the original note were not included. [facility] Problem Oriented Charting Provider Visit Date: 10/31/2023 Time: 7:27 AM [facility] Sub-Program: Focused Care Management (3-9 months) Assessment and Plan #1 Hypertensive heart and kidney disease with chronic diastolic congestive heart failure and stage 3b chronic kidney disease (HCC) (Primary) Assessment & Plan: Carvedilol 3.125mg BID Torsemide 40mg BID #2 Acquired hypothyroidism Assessment & Plan: Levothyroxine just increased to 100mcg daily #3 Generalized osteoarthritis Assessment & Plan: Gets steroid injections by PCP Hydrocodone-APAP 5/325 every 6 hours prn Uses TENS and ICY HOT #4 Vitamin D deficiency Additional Medical Decision Making: Will see pt in 1.5 month to see if steroid injection from orthohelps. If it does not help, I would ask PCP her thoughts on increasing prednisone to 10mg daily. Scheduled appointments in the next 60 days: Future Appointments-next 60 days Date/Time Provider Specialty Dept Phone 10/31/2023 8:30 AM Bere Martin PA-C [facility] [phone] 11/11/2023 11:30 AM (Arrive by 11:15 AM) Brandon Vee PA-C Orthopedics [phone] 11/11/2023 4:00 PM Mira Jalloh RN [facility] [phone] 01/12/2024 9:20 AM (Arrive by 9:05 AM) Chelly Steel MD Family Medicine [phone] A total of 45 minutes was spent face to face (via video-based telemedicine if designated as a telemedicine visit) Subjective Subjective Is this a Telemedicine Visit? No, this is an Home Visit. Reason For [facility] Visit: Follow-Up Current Concerns: Judith Crowe is a 88 year old female seen today for a [facility] provider visit. Pt's lasthospitalization was -05/31/23 [facility] after a fall. Pt then went to rehab from 05/30- 06/17/23. Pt's daughter and grandson take turns staying with pt. Son stops in after work each night. Daughter is currently hospitalized at [facility] with an acute illness. Pt's only complaint today is that her right shoulder bothers her. Dr. Kasper did a steroid injection in July however it has worn off and pt has significant pain despite Tylenol TID, hydrocodone. She also uses topical creams and TENS unit. Pt has an appt on Nov 10 with [facility] ortho at [facility]. She has expressed that she will not do another surgery and she does not want to be hospitalized again. Pt has some redness and slight swelling to legs today. She has this chonically and takes Torsemide 40mg BID. She does try to elevate her legs throughout the day, she uses a power recliner. She also uses a walker to ambulate. She endorses HORNER. Denies SOB at rest. She has some PND and nasal congestion in the morning hours. Denies any chest discomfort. She has HFpEF - last EF 60% in 2020. . Last visit 07/21 had shoulder injection - had some improvement, but did not last long. Not interested in surgery. 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 Additional Objective Objective Vitals: 10/31/23 0937 Pulse: 60 SpO2: 96% BP: 138/70 BP Readings from Last 3 Encounters: 10/31/23 138/70 10/10/23 130/70 09/30/23 118/62 Wt Readings from Last 3 Encounters: 10/10/23 67.1 kg (148 lb) 09/01/23 64.4 kg (142 lb) 07/22/23 63.7 kg (140 lb 8 oz) Last Weights: Wt Readings from Last 3 Encounters: 10/10/23 67.1 kg (148 lb) 09/01/23 64.4 kg (142 lb) 07/22/23 63.7 kg (140 lb 8 oz) Last BPs: BP Readings from Last 4 Encounters: 10/31/23 138/70 10/10/23 130/70 09/30/23 118/62 09/01/23 120/68 Physical Exam Constitutional: General: She is not [...] Content: Thought content normal. Judgment: Judgment normal. Lab Review: I have reviewed the following results: BMP results Recent Labs Units 10/18/23 1015 07/22/23 0948 06/24/23 1540 SODIUM - [facility] mmol/L 142 143 140 POTASSIUM - [facility] mmol/L 4.4 3.7 3.6 CHLORIDE - [facility] mmol/L 103 102 101 CO2 - [facility] mmol/L 26 27 24 CREATININE - [facility] mg/dL 1.1* 1.2* 1.4* BUN - [facility] mg/dL 29* 21* 27* Medication Review "Bottles Out" medication review performed today and medication list in EMR updated Bere Martin PA-C 7:27 AM *Communication sent to PCP (via autofax if [facility]), [facility] Health Care Team members,relevant Specialty Care Physicians* documented in this encounter Miscellaneous Notes * Assessment & Plan Note - Bere Martin PA-C - 10/31/2023 9:45 AM EDTAssociated Problem(s): Generalized osteoarthritis Gets steroid injections by PCP Hydrocodone-APAP 5/325 every 6 hours prn Uses TENS and ICY HOT * Assessment & Plan Note - Bere Martin PA-C - 10/31/2023 9:44 AM EDTAssociated Problem(s): Acquired hypothyroidism Levothyroxine just increased to 100mcg daily * Assessment & Plan Note - Bere Martin PA-C - 10/31/2023 9:44 AM EDTAssociated Problem(s): Hypertensive heart and kidney disease with chronic diastolic congestive heart failure and stage 3b chronic kidney disease (HCC) Carvedilol 3.125mg BID Torsemide 40mg BID * ACP (Advance Care Planning) - Bere Martin PA-C - 10/31/2023 9:43 AM EDT Patient-centered Communication 10/31/2023 The patient/surrogate voluntarily agreed to participate in advance care planning discussion. They were advised that this is a separate service which may incur out of pocket cost in the form of copayment and/or deductibles. Location: Home Individual(s) present for conversation: Patient Decisions Synopsis SmartLink Most Recent Value Past ~10 years 07/28/2023 [...] Dialysis 07/28/2023 Declines Dialysis Additional Comments Synopsis SmartLink Most Recent Value Past ~10 years 06/29/2023 12:11 Additional Comments Additional Comments: patient wants to pass in her home 06/29/2023 patient wants to pass in her home Discerning What Matters Most to the Patient: Synopsis SmartLink Most Recent Value Past ~10 years 07/28/2023 14:36 Discerning What Matters Most to the Patient In their own words, patient's UNDERSTANDING of their illness is: I don't want any thing heroic. 07/28/2023 I don't want any thing heroic. Source: Content from [employer] Program Aligning Care With What Matters Most: Synopsis [employer] Most Recent Value Past ~10 years 07/28/2023 14:35 Aligning Care With What Matters Most Interventions/Choices: CPR;Intubation/mechanical ventilation;Non-invasive ventilation or BIPAP;Antibiotic therapy;Artificial nutrition;IV hydration;Chemotherapy;Hospice;Lab draws;Blood transfusion;Transport; at home;Dialysis;Surgical procedure;Radiation therapy 07/28/2023 CPR;Intubation/mechanical ventilation;Non-invasive ventilation or BIPAP;Antibiotic therapy;Artificial nutrition;IV hydration;Chemotherapy;Hospice;Lab draws;Blood transfusion;Transport; at home;Dialysis;Surgical procedure;Radiation therapy Rationale for Decisions Source: Content from [employer] Program 5 minutes spent in direct [id number] discussion today, Bere Martin PA-C documented in this encounter Plan of Treatment Upcoming Encounters Date Type Department Care Team (Late st Contact Info) Description 11/11/2023 11:30 AM EDT Office Visit Orthopaedics, [facility] [address] [place] [address] Brandon Vee PA-C [address] [place] [address] 11/11/2023 4:00 PM EDT Home Visit [facility] [place], [facility] [address] [place] [address] Mira Jalloh RN [address] [facility] [place] [address] 01/12/2024 9:20 AM EDT Office Visit Family [address] [address] Chelly Steel MD [address] [place] [phone] Scheduled Procedures Name Priority Associated Diagnoses [...] Additional history exists CKD PHOS USE SMARTSET 99001 07/21/2024 05/1 , 12/07/2021, 01/17/2020, Additional history exists Depression Screening 07/21/2024 07/22/2023 CKD HGB USE SMARTSET 92280 10/17/202410/17, 10/18/2023, 07/22/2023, Additional history exists TSH [...] stage 3b chronic kidney disease (HCC)- Primary Acquired hypothyroidism Unspecified hypothyroidism Generalized osteoarthritis Generalized osteoarthrosis, unspecified site Vitamin D deficiency Unspecified vitamin D deficiency documented in this encounter Care Teams Dray Truck Driver Relationship Specialty Start Date End Date Blair Kasper DO [address] [place] [phone] PCP - General Internal Medicine 09/03/20 documented as of this encounter
--- OUTSIDE RECORDS SUMMARY | 2023-12-29 15:22 | External Medical Summary | Summary of Care ---
Author Name Unknown Organization [facility] Address [address] [facility] [place] [place] [address] Phone [phone] Care Team Providers Care Mcat Instructor Name Role Phone Blair Kasper DO Primary Care Provid er Reason for Visit * Reason Onset Date Comments FYI 08/11/2023 Encounter Details Date Type Department Care Team ([facility] Contact Info) Description 08/11/[address] [phone] Blair Kasper DO [address] [place] [phone] FYI Allergies Active Allergy Reactions Criticality Noted Date Comments Adhesive Tape 04/20/2004 Clarithromycin 10/03/2000 nausea documented as of this encounter (statuses as of 11/10/2023) Medications Medication Sig Dispensed Refills Start Date [...] the morning. 90 Tablet 1 07/22/2023 Active documented as of this encounter (statuses as of 11/10/2023) Active Problems Problem Noted Date Diagnosed Date [...] as of this encounter (statuses as of 11/10/2023) Resolved Problems Problem Noted Date Diagnosed Date [...] Overview: lmp 1987, hrt x 2 yrs [id number] IRON DEF ANEMIA DIETARY 08/26/200403/14 GENERAL OSTEOARTHROSIS [...] as of this encounter (statuses as of 11/10/2023) Immunizations Name Administration Dates Next Due COVID-19 [...] encounter Miscellaneous Notes * Telephone Encounter - Zo Martin MED ASSIST - 08/11/2023 2:25 PM EDT FYI * Telephone Encounter - Melonie Monreal OSA - 08/11/2023 1:12 PM EDT Pt was d/c and is finished with home care all together and is doing well. documented in this encounter Plan of Treatment Upcoming Encounters Date Type Department Care Team (Late st Contact Info) Description 11/11/2023 11:30 AM EDT [facility] [address] [place] [address] Brandon Vee PA-C [address] [place] [address] 11/15/2023 8:30 AM EDT Home Visit [facility], [facility] [address] [place] [address] Mira Jalloh RN [address] [place] [address] 12/14/2023 8:50 AM EDT Telemedicine [facility], [facility] [address] [place] [address] Bere Martin PA-C [address] [place] [address] Tawny Power, Community Health Supervisor [employer] [address] [place] [address] 01/12/2024 9:20 AM EDT Office Visit [address] [phone] Chelly Steel MD [address] [place] [phone] Scheduled Procedures Name Priority Associated Diagnoses [...] Additional history exists CKD PHOS USE SMARTSET 52606 07/21/202407/12, 12/07/2021, 01/17/2020, Additional history exists Depression Screening 07/21/2024 07/22/2023 CKD HGB USE SMARTSET 77809 10/17/202410/17, 10/18/2023, 07/22/2023, Additional history exists TSH [...] filedocumented as of this encounter Care Teams Mcat Instructor Relationship Specialty Start Date End Date Blair Kasper DO [address] [place] [address] PCP - General Internal Medicine 09/03/20 documented as of this encounter
--- OUTSIDE RECORDS SUMMARY | 2023-12-29 15:22 | External Medical Summary ---
Author Name Unknown Address Unknown Organization K01:[facility]AT[facility] - [address] [place] [id number] Laboratory Report Ordering Provider Test Date Status JONATHAN MAYER 10/18/2023 10:15:00 Final Observation Date Value Abnormality Reference (Units ) Status Uric Acid 10/18/2023 10:15:00 6.9 Above high normal 2. 4-5.7 (mg/dL) Final Performing Location LABORATORY [facility] - [address] [place] [address]
--- OUTSIDE RECORDS SUMMARY | 2023-12-29 15:22 | External Medical Summary | Summary of Care ---
Author Name Unknown Organization [facility] Address [address] [place] [phone] Phone [phone] Care Team Providers Care Network Admin Name Role Phone NathanBlair tejeda Primary Care Provid er Reason for Referral * Ancillary Services (Within 10 days (routine)) - Authorized Specialty Diagnoses / Procedures Referred By Contac t Referred To Contact Hat Lining Blocker Diagnoses Hypertensive heart and kidney disease with chronic diastolic congestive heart failure and stage 3b chronic kidney disease (HCC) Chelly Steel MD [address] [place] [phone] Referral ID Status Reason Start Date Expiration Date Visits Requested Visits Authorized [id number] Authorized Ancillary Services Required 10/10/2023 999 999 Question Answer Referral Priority Within 10 days (routine) Where should this appointment be scheduled? Todd Comments Is Patient homebound? Yes All sections of this form must be filled out completely. Forms with missing or illegible information will be returned for completion. This form should not be modified in any way. Forms that have been modified will be returned. This form may not be submitted by a home health agency. It must be complete and submitted by the ordering provider. One full business day lead time is required and service will be scheduled based on the next service day for the [facility] Home Phlebotomy does not service every geographical location on a daily basis. Contact [facility] Client Services at to find out service days for a specific location. Medical Laboratory [address] [place] [phone] Brendon Grubbs M.D. Director and Recreational Therapy Technician Patient Name: Judith Crowe : 1935 Sex: female Address [facility] [address] [facility] [phone] Provider: Self? Blair Kasper, DO? Diagnosis: I13.0,I50.32,N18.32 Hypertensive heart and kidney disease with chronic diastolic congestive heart failure and stage 3b chronic kidney disease (HCC) (primary encounter diagnosis) I35.0 Nonrheumatic aortic valve stenosis N18.32 Stage 3b chronic kidney disease (HCC) E03.9 Acquired hypothyroidism E78.2 Mixed hyperlipidemia M15.9 Generalized osteoarthritis M35.3 PMR (polymyalgia rheumatica) (HCC) [id number].[id number] Chronic gout due to renal impairment of multiple sites without tophus M25.511,G89.29 Chronic right shoulder pain Tests Requested: CBC, CMP, lipids, TSH, uric acid once, around 10/22/23 * Evaluate & Treat - Unlimited Visits (Within 10 days (routine)) - Authorized Specialty Diagnoses / Procedures Referred By Shannan frausto Referred To Contact Orthopaedic Surgery / Orthopedics Diagnoses Chronic right shoulder pain Chelly Steel MD [address] [place] [phone] Referral ID Status Reason Start Date Expiration Date Visits Requested Visits Authorized [id number] Authorized Specialty Services Required 10/10/2023 999 999 Question Answer Referral Priority Within 10 days (routine) Where should this appointment be scheduled? [facility] What body part is the patient being seen for? Shoulder What condition is the patient being seen for? Arthritis including related infection Reason for Visit * Reason Comments Follow Up Patient here 3 Month follow up. Patient is here for a shot in her arm. Encounter Details Date Type Department Care Team ([facility] Contact Info) Description 10/10/2023 9:00 AM EDT Office Visit [address] [phone] Chelly Steel MD [address] [place] [phone] Hypertensive heart and kidney disease with chronic diastolic congestive heart failure and stage 3b chronic kidney disease (HCC)*; Nonrheumatic aortic valve stenosis; Stage 3b chronic kidney disease (HCC); Acquired hypothyroidism; Mixed hyperlipidemia; Generalized osteoarthritis; PMR (polymyalgia rheumatica) (HCC); Chronic gout due to renal impairment of multiple sites without tophus; Chronic right shoulder pain Allergies Active Allergy Reactions Criticality Noted Date Comments Adhesive Tape 04/20/2004 Clarithromycin 10/03/2000 nausea documented as of this encounter (statuses as of 10/19/2023) Medications Medication Sig Dispensed Refills Start Date End Date Status Ferrous Sulfate 325 (65 Fe) MG Oral Tablet (Feosol)Indication s:Anemia, unspecified type Take 1 Tablet by mouth daily with breakfast. 30 Tablet 3 4 Active Potassium Chloride ER 10 MEQ Oral [...] the evening. 270 Tablet 3 4 Active HYDROcodone-Acetam inophen 5-325 MG Oral TabletIndications: Chronic right shoulder pain Take 1 Tablet by mouth every 8 hours as needed for Pain, Mild. 30 Tablet 4 Active Levothyroxine Sodium 75 MCG Oral Tablet (Levoxyl)Indicatio ns:Acquired hypothyroidism Take 1 Tablet by mouth in the morning. (at least 30 min prior to breakfast or other meds). 90 Tablet 3 4 Active Torsemide 20 MG Oral Tablet (Demadex)Indicatio ns:Hypertensive heart disease with heart failure (HCC) Take 2 Tablets by mouth in the morning and 2 Tablets before bedtime. 120 Tablet 3 4 10/12/19 24 Discontinued Levothyroxine Sodium 100 MCG Oral Tablet (Levoxyl)Indicatio ns:Acquired hypothyroidism Take 1 Tablet by mouth in the morning. (at least 30 min prior to breakfast or other meds). 90 Tablet 1 4 10/19/19 24 Discontinued HYDROcodone-Acetam inophen 5-325 MG Oral TabletIndications: PMR (polymyalgia rheumatica) (HCC),Generalized osteoarthritis Take 1 Tablet by mouth every 6 hours as needed for Pain, Mild. 30 Tablet 4 10/10/19 24 Discontinued(Ref ill) documented as of this encounter (statuses as of 10/19/2023) Active Problems Problem Noted Date Diagnosed Date [...] as of this encounter (statuses as of 10/19/2023) Resolved Problems Problem Noted Date Diagnosed Date [...] Overview: lmp 1987, hrt x 2 yrs [id number] IRON DEF ANEMIA DIETARY 08/26/200403/14 GENERAL OSTEOARTHROSIS [...] as of this encounter (statuses as of 10/19/2023) Immunizations Name Administration Dates Next Due COVID-19 [...] Sign Reading Time Taken Comments Blood Pressure 130/70 10/10/2023 8:44 AM EDT Pulse 52 10/10/2023 8:44 AM EDT Temperature 36.6 C (97.9 F) 10/10/2023 8:44 AM ED T Respiratory Rate 18 10/10/2023 8:44 AM EDT Oxygen Saturation 96% 10/10/2023 8:44 AM EDT Inhaled Oxygen Concentration - - Weight 67.1 kg (148 lb) 10/10/2023 8:44 AM EDT Height - - Body Mass Index 33.48 07/22/2023 8:52 AM EDT documented in this encounter Progress Notes * Chelly Steel MD - 10/10/2023 9:00 AM EDT Images from the original note were not included. History of Present Illness Judith Crowe is a 88 year old female with HFpEF, aortic stenosis, hypothyroidism, hyperlipidemia,CKD 3B gout that presents for Follow Up (Patient here 3 Month follow up. Patient is here for a shotin her arm. ) Last visit with Dr. Kasper in July. Presents for follow up today - new patient to me. Previously was on hospice after extended hospitalization, but has recovered. Most GOC continue to remain aroundquality of life. HFpEF - last EF 60% in 2020. Managed with Coreg, torsemide 40 mg BID. Swelling also better with lift chair and elevating legs. CKD 3B - stable Hypothyroidism - stable on levothyroxine 100 Hyperlipidemia - continues on lipitor 20 Aortic stenosis - last echo with mild stenosis in 2021, no further surveillance Gout - last visit started on allopurinol with suspected gout and elevated uric acid. Tolerating well Osteoarthritis - med agreement and UDS up to date. Uses hydrocodone- acetaminophen 5-325 mg 2-3 times daily PRN. Also uses topical creams and TENS unit. Last visit 07/21 had shoulder injection - had some improvement, but did not last long. Not interested in surgery. PMR - on chronic prednisone 5 mg daily Last DEXA without osteoporosis, low fracture risk Physical Exam Vitals: 10/10/23 0844 Temp: 36.6 C (97.9 F) Pulse: 52 Resp: 18 SpO2: 96% BP: 130/70 Physical Exam Vitals and nursing note reviewed. Constitutional: General: She is not in acute distress. Appearance: Normal appearance. HENT: Head: Normocephalic and atraumatic. Nose: Nose normal. Mouth/Throat: Mouth: Mucous membranes are moist. Pharynx: Oropharynx is clear. Eyes: Conjunctiva/sclera: Conjunctivae normal. Cardiovascular: Rate and Rhythm: Normal rate and regular rhythm. Pulses: Normal pulses. Heart sounds: Murmur (3/6 systolic murmur at RUSB) heard. Pulmonary: Effort: Pulmonary effort is normal. No respiratory distress. Breath sounds: Normal breath sounds. Musculoskeletal: Right lower leg: Edema present. Left lower leg: Edema present. Comments: Right shoulder pain with limited ROM Bilateral edema, mild, to lower ankles, with chronic stasis dermatitis Skin: General: Skin is warm and dry. Capillary Refill: Capillary refill takes less than 2 seconds. Findings: No rash. Neurological: General: No focal deficit present. Mental Status: She is alert and oriented to person, place, and time. Mental status is at baseline. Psychiatric: Mood and Affect: Mood normal. Behavior: Behavior normal. I have reviewed the following results: echo, CMP, Lipid Panel, TSH, and CBC Assessment and Plan Hypertensive heart and kidney disease with chronic diastolic congestive heart failure and stage 3b chronic kidney disease (HCC) Stable on current torsemide 40 mg BID. No changes. Labs next month - CBC WITH WBC DIFFERENTIAL; Future - COMPREHENSIVE METABOLIC PANEL; Future - HOME PHLEBOTOMY REFERRAL OP Nonrheumatic aortic valve stenosis Mild last echo in 2020 - deferring further surveillance Stage 3b chronic kidney disease (HCC) - COMPREHENSIVE METABOLIC PANEL; Future Acquired hypothyroidism - TSH WITH FREE T4 IF INDICATED; Future Mixed hyperlipidemia - LIPID PANEL WITH DIRECT LDL IF TG IS HIGH; Future PMR (polymyalgia rheumatica) (HCC) Chronic prednisone 5 mg daily Chronic gout due to renal impairment of multiple sites without tophus Update uric acid on allopurinol - URIC ACID; Future Generalized osteoarthritis Chronic right shoulder pain Add acetaminophen 500 mg TID in addition to hydrocodone-acetaminophen 1-3 times per day. Referred to ortho for shoulder injections. - ORTHOPAEDICS REFERRAL OP - HYDROcodone-Acetaminophen 5-325 MG Oral Tablet; Take 1 Tablet by mouth every 8 hours as needed for Pain, Mild. Wrap-Up Follow Up: Return in about 3 months (around 01/10/2024) for Return with Physician. | For: Return with Physician | Check-out note: Schedule orthopedics - shoulder Time: I spent a total of 30-39 minutes (exact time 35 mins) on the date of service in preparation, delivery, and documentation of the care provided to Judith Crowe excluding any time spent in the performance of separately billed services. documented in this encounter Nursing Notes * Chio Haq MED ASSIST - 10/10/2023 8:44 AM EDT The patient has been properly identified by confirmation of name and date of . Chief Complaint Patient presents with Follow Up Patient here 3 Month follow up. Patient is here for a shot in her arm. documented in this encounter Miscellaneous Notes * Addendum Note - Chelly Steel MD - 10/19/2023 5:35 PM EDT Addended by: CHELLY STEEL on: 10/19/2023 05:35 PM Modules accepted: Orders documented in this encounter Plan of Treatment Upcoming Encounters Date Type Department Care Team (Late st Contact Info) Description 10/31/2023 8:30 AM EDT Home Visit [facility] [place] [address] [facility] [place] [address] Bere Martin PA-C [address] [place] [address] 11/11/2023 11:30 AM EDT Office Visit Orthopaedics, [facility] [address] [place] [address] Brandon Vee PA-C [address] [place] [address] 11/11/2023 4:00 PM EDT Home Visit [facility] [address] [place] [address] Mira Jalloh RN [address] [facility] [place] [address] 01/12/2024 9:20 AM EDT Office Visit [facility] [address] [place] [phone] Chelly Steel MD [address] [place] [phone] Scheduled Orders Name Type Priority Associated Diagnoses Orde r Schedule TSH WITH FREE T4 IF INDICATED Lab Routine Acquired hypothyroidism Expected: 11/19/2023 (Approximate), Expires: 10/18/2024 Scheduled Procedures Name Priority Associated Diagnoses Date/Ti me COLONOSCOPY CA SCRN HI RISK Recall History of colon polyps Scheduled Referrals Name Type Priority Associated Diagnoses Order Schedule ORTHOPAEDICS REFERRAL OP Referral Within 10 days (routine) Chronic right shoulder pain Ordered: 10/10/2023 HOME PHLEBOTOMY REFERRAL OP Referral Within 10 days (routine) Hypertensive heart and kidney disease with chronic diastolic congestive heart failure and stage 3b chronic kidney disease (HCC) Ordered: 10/10/2023 Health Maintenance Due Date Last Done Comments Adult Wellness Visit 2002 DXA Scan 06/29/2021 06/29/2018, 02/0 03/2012, 03/20/2010, Additional history exists COVID-19 Vaccine ( season) 2022 03/25/2021, 08/13/2020, 07/14/2020 Influenza Vaccine (FLU shot) (#1) 2023 01/21/2023, 12/23/2021, 12/09/2020, Additional history exists Albumin/Creatinine Ratio 07/21/2024 024, 12/07/2021, 01/17/2020, Additional history exists CKD PHOS USE SMARTSET 32955 07/21/202407/12, 12/07/2021, 01/17/2020, Additional history exists Depression Screening 07/21/2024 07/22/2023 CKD HGB USE SMARTSET 60343 10/17/202410/17, 10/18/2023, 07/22/2023, Additional history exists TSH [...] Not on filedocumented as of this encounter Results * (ABNORMAL) URIC ACID (10/18/2023 10:15 AM EDT) Uric Acid 6.9(H) 2.4 - 5.7 mg/dL 10/19/2023 2:03 AM EDT [facility] Blood Venous blood specimen / Unknown Venipuncture / Unknown 10/18/2023 10:15 AM EDT 10/18/2023 11:18 AM EDT Chelly Steel MD LAB BLOOD O RDERABLES Performing Organization Address [facility]/ZIP Co de Phone Number LABORATORY [facility] [address] [place] [address] * (ABNORMAL) TSH WITH FREE T4 IF INDICATED (10/18/2023 10:15 AM EDT) Pathologist [facility] TSH 0.08(L) 0.27 - 4.20 uIU/mL 10/19/2023 2:31 AM EDT LABORATORY [facility] Blood Venous blood specimen / Unknown Venipuncture / Unknown 10/18/2023 10:15 AM EDT 10/18/2023 11:18 AM EDT Chelly Steel MD LAB BLOOD O RDERABLES Performing Organization Address [facility] Co de Phone Number LABORATORY [facility] [address] [place] [address] * (ABNORMAL) LIPID PANEL WITH DIRECT LDL IF TG IS HIGH (10/18/2023 10:15 AM EDT) Triglycerides 181(H) <=174 mg/dL 10/19/2023 2:03 AM EDT LABORATORY [facility] Comment: Triglyceride Reference Ranges (mg/dL): <150 Acceptable 150-174 Borderline high 175-499 High >=500 Very high Cholesterol 156 <200 mg/dL 10/19/2023 2:03 AM EDT LABORATORY [facility] Comment: Total Cholesterol Reference Ranges (mg/dL): <200 Desirable 200-239 Borderline high >=240 High HDL Cholesterol 42(L) >49 mg/dL 2:03 AM EDT LABORATORY [facility] Comment: HDL Cholesterol Reference Ranges (mg/dL): >=60 High (Desirable) <50 Low (Undesirable) For Females <40 Low (Undesirable) For Males Non-HDL Cholesterol 114 <=159 mg/dL 10/19/2023 2:03 AM EDT LABORATORY [facility] Comment: Non-HDL Cholesterol Reference Range (mg/dL): <100 Target level for high risk ASCVD patient <130 Optimal for general population 130-159 Near optimal for general population 160-189 Borderline High 190-219 High >=220 Very High LDL Cholesterol 78 <=129 mg/dL 10/19/2023 2:03 AM EDT LABORATORY [facility] Comment: LDL Cholesterol Reference Ranges (mg/dL): <70 Target level for high risk ASCVD patient <100 Optimal for general population 100-129 Near optimal for general population 130-159 Borderline high 160-189 High >=190 Very high Blood Venous blood specimen / Unknown Venipuncture / Unknown 10/18/2023 10:15 AM EDT 10/18/2023 11:18 AM EDT Chelly Steel MD LAB BLOOD O RDERABLES LABORATORY [facility] [address] [place] [address] * (ABNORMAL) COMPREHENSIVE METABOLIC PANEL (10/18/2023 10:15 AM EDT) BUN 29(H) 6 - 20 mg/dL 10/19/2023 2:03 AM EDT [facility] Creatinine 1.1(H) 0.5 - 1.0 mg/dL 10/19/2023 2:03 AM EDT [facility] Estimated Glomerular Filtration Rate 48(L) >=60 mL/min 10/19/2023 2:03 AM EDT [facility] Comment:eGFR is calculated b ased on the CKD-EPI 2020 equation. Sodium 142 135 - 146 mmol/L 10/19/2023 2:03 AM EDT [facility] Potassium 4.4 3.5 - 5.1 mmol/L 10/19/2023 2:03 AM EDT [facility] Chloride 103 98 - 107 mmol/L 10/19/2023 2:03 AM EDT [facility] CO2 26 22 - 32 mmol/L 10/19/2023 2:03 AM EDT [facility] Anion Gap 13 7 - 15 mmol/L 10/19/2023 2:03 AM EDT [facility] Glucose 75 70 - 120 mg/dL 10/19/2023 2:03 AM EDT [facility] Albumin 4.1 3.8 - 5.0 g/dL 10/19/2023 2:03 AM EDT [facility] AST 24 10 - 35 U/L 10/19/2023 2:03 AM EDT [facility] Alkaline Phosphatase 151(H) 35 - 130 U/L 10/19/2023 2:03 AM EDT [facility] Bilirubin, Total 0.3 <=1.2 mg/dL 10/19/2023 2:03 AM EDT [facility] Calcium 9.2 8.4 - 10.2 mg/dL 10/19/2023 2:03 AM EDT [facility] Protein 6.6 6.0 - 8.3 g/dL 10/19/2023 2:03 AM EDT [facility] ALT 14 10 - 35 U/L 10/19/2023 2:03 AM EDT [facility] Blood Venous blood specimen / Unknown Venipuncture / Unknown 10/18/2023 10:15 AM EDT 10/18/2023 11:18 AM EDT Chelly Steel MD LAB BLOOD O RDERABLES [facility] [address] [place] [address] documented in this encounter Visit Diagnoses Diagnosis Hypertensive heart and kidney disease with chronic diastolic congestive heart failure and stage 3b chronic kidney disease (HCC)- Primary Nonrheumatic aortic valve stenosis Aortic valve disorders Stage 3b chronic kidney disease (HCC) Acquired hypothyroidism Unspecified hypothyroidism Mixed hyperlipidemia Generalized osteoarthritis Generalized osteoarthrosis, unspecified site PMR (polymyalgia rheumatica) (HCC) Polymyalgia rheumatica Chronic gout due to renal impairment of multiple sites without tophus Chronic gouty arthropathy without mention of tophus (tophi) Chronic right shoulder pain Pain in joint, shoulder region documented in this encounter Care Teams Network Admin Relationship Specialty Start Date End Date Blair Kasper DO [address] [place] [id number] PCP - General Internal Medicine 09/03/20 documented as of this encounter"
--- OUTSIDE RECORDS SUMMARY | 2023-12-29 15:22 | External Medical Summary ---
Author Name Unknown Address Unknown Organization [id number]:[facility] - [address] [place] [address] Laboratory Report Ordering Provider Test Date Status JONATHAN MAYER 10/18/2023 10:15:00 Final Observation Date Value Abnormality Reference (Units ) Status Triglyceride 10/18/2023 10:15:00 181 Above high normal <=174 (mg/dL) Final Triglyceride Reference Range s (mg/dL):
<150 Acceptable
150-174 Borderline high
175-499 High
>=500 Very high Cholesterol 10/18/2023 10:15:00 156 <200 (mg /dL) Final Total Cholesterol Reference Ranges (mg/dL):
<200 Desirable
200-239 Borderline high
>=240 High HDL 10/18/2023 10:15:00 42 Below low normal >49 (mg/dL) Final HDL Cholesterol Reference Ra nges (mg/dL):
>=60 High (Desirable)
<50 Low (Undesirable) For Females
<40 Low (Undesirable) For Males NON-HDL CHOLESTEROL 10/18/2023 10:15:00 114 <=159 (mg/dL) Final Non-HDL Cholesterol Referenc e Range (mg/dL):
<100 Target level for high risk ASCVD patient
<130 Optimal for general population
130-159 Near optimal for general population
160-189 Borderline High
190-219 High
>=220 Very High LDL, (calculated) 10/18/2023 10:15:00 78 <= 129 (mg/dL) Final LDL Cholesterol Reference Ra nges (mg/dL):
<70 Target level for high risk ASCVD patient
<100 Optimal for general population
100-129 Near optimal for general population
130-159 Borderline high
160-189 High
>=190 Very high Performing Location LABORATORY [facility] - [address] [facility] [address]
--- OUTSIDE RECORDS SUMMARY | 2023-12-29 15:22 | External Medical Summary ---
Author Name Unknown Address Unknown Organization [id number]:LABORATORY [facility] [place] - [address] [place] [address] Laboratory Report Ordering Provider Test Date Status JONATHAN MAYER 10/18/2023 10:15:00 Final Observation Date Value Abnormality Reference (Units ) Status WBC, Total 10/18/2023 10:15:00 11.37 Above high normal 4.00-10.80 (K/uL) Final RBC 10/18/2023 10:15:00 4.23 3.85-5.15 (M/uL) Final Hemoglobin 10/18/2023 10:15:00 11.7 Below low normal 12.0-15.3 (g/dL) Final HCT 10/18/2023 10:15:00 39.5 36.0-45.2 (%) Final MCV 10/18/2023 10:15:00 93.4 81.5-97.5 (fL) Final MCH 10/18/2023 10:15:00 27.7 27.0-34.0 (pg) Final MCHC 10/18/2023 10:15:00 29.6 32.0-36.0 (g/dL) Final RDW 10/18/2023 10:15:00 16.7 11.5-15.5 (%) Final Platelets 10/18/2023 10:15:00 262 140-400 (K/uL) Final MPV 10/18/2023 10:15:00 10.7 6.6-11.1 (fL) Final Nucleated erythrocytes/100 leukocytes [Ratio] in Blood by Automated count 10/18/2023 10:15:00 0 <=0 (/100 WBCs) Final Performing Location LABORATORY [facility] [place] - [address] [place] [address]
--- OUTSIDE RECORDS SUMMARY | 2023-12-29 15:22 | External Medical Summary | Summary of Care ---
Author Name Unknown Organization [facility] Address [address] [place] [address] Phone [phone] Care Team Providers Care Network Intern Name Role Phone Nathannikhil Blair Chava Primary Care Provid er Reason for Visit * Reason Onset Date Comments Appointment 11/04/2023 Encounter Details Date Type Department Care Team (Late st Contact Info) Description 11/04/2023 Telephone [facility] [place] [address] [place] [address] [phone] Jean Carlos Lau OSA [address] [place], [place] [phone] Appointment Allergies Active Allergy Reactions Criticality Noted [...] Overview: lmp 1987, hrt x 2 yrs 8291-5902 IRON DEF ANEMIA DIETARY 08/26/200403/14 GENERAL OSTEOARTHROSIS [...] encounter Miscellaneous Notes * Telephone Encounter - Jean Carlos Lau OSA - 11/04/2023 10:45 AM EDT Request from Call Offs - rescheduled November 10 appointment with Mira Jalloh to November 14 at 8:30 am. Spoke with patient and confirmed. documented in this encounter Plan of Treatment Upcoming Encounters Date Type Department Care Team (Late st Contact Info) Description 11/11/2023 11:30 AM EDT [facility] [address] [place] [address] Brandon Vee PA-C [address] [place] [address] 11/15/2023 8:30 AM EDT [facility] [place] [address] [facility] [place] [address] Mira Jalloh RN [address] [place] [address] 01/12/2024 9:20 AM EDT Office Visit [address] [phone] Chelly Steel MD [address] [place] [phone] Scheduled Procedures Name Priority Associated Diagnoses [...] Additional history exists CKD PHOS USE SMARTSET 27848 07/21/202407/12, 12/07/2021, 01/17/2020, Additional history exists Depression Screening 07/21/2024 07/22/2023 CKD HGB USE SMARTSET 45112 10/17/202410/17, 10/18/2023, 07/22/2023, Additional history exists TSH [...] filedocumented as of this encounter Care Teams Network Intern Relationship Specialty Start Date End Date Blair Kasper DO [address] [place] [address] [phone] PCP - General Internal Medicine 09/03/20 documented as of this encounter
--- OUTSIDE RECORDS SUMMARY | 2023-12-29 15:22 | External Medical Summary ---
Author Name Unknown Address Unknown Organization K01:[facility] [place] [address] [place] [address] Laboratory Report Ordering Provider Test Date Status JONATHAN MAYER 10/18/2023 10:15:00 Final Observation Date Value Abnormality Reference (Units ) Status TSH 10/18/2023 10:15:00 0.08 Below low normal 0.2 7-4.20 (uIU/mL) Final Performing Location [facility] - [address] [place] [address]
--- OUTSIDE RECORDS SUMMARY | 2023-12-29 15:23 | External Medical Summary | Summary of Care ---
Author Name Unknown Organization [facility] Address [address] [address] Phone [phone] Care Team Providers Care Insurance Sales Representative Name Role Phone NathanBlair tejeda Primary Care Provid er Reason for Visit * Reason Onset Date Comments [facility]: Maintenance 10/14/2023 Encounter Details Date Type Department Care Team (Late st Contact Info) Description 10/14/2023 Telephone [facility], [facility] [address] [facility] [place] [address] [facility], Nurse [facility] [address] [facility] [place] [address] [facility]: Maintenance Allergies Active Allergy Reactions Criticality Noted Date Comments Adhesive Tape 04/20/2004 Clarithromycin 10/03/2000 nausea documented as of this encounter (statuses as of 10/17/2023) Medications Medication Sig Dispensed Refills Start Date [...] the morning. 90 Tablet 1 07/22/2023 Active Levothyroxine Sodium 100 MCG Oral Tablet (Levoxyl)Indications: Acquired hypothyroidism Take 1 Tablet by mouth in the morning. (at least 30 min prior to breakfast or other meds). 90 Tablet 1 07/23/2023 Active Atorvastatin Calcium 20 MG Oral Tablet [...] before bedtime. 120 Tablet 3 10/12/2023 Active documented as of this encounter (statuses as of 10/17/2023) Active Problems Problem Noted Date Diagnosed Date [...] as of this encounter (statuses as of 10/17/2023) Resolved Problems Problem Noted Date Diagnosed Date [...] Overview: lmp 1987, hrt x 2 yrs 7410-8659 IRON DEF ANEMIA DIETARY 08/26/200403/14 GENERAL OSTEOARTHROSIS [...] as of this encounter (statuses as of 10/17/2023) Immunizations Name Administration Dates Next Due COVID-19 [...] encounter Miscellaneous Notes * Telephone Encounter - Martha Shah RN - 10/17/2023 4:18 PM EDT Call placed to pt. Spoke to Judith, made her aware of message from Bere Martin PA-C. Judith states that she is in so much pain that she would rather get the injection sooner than later and does not want to wait until going to ortho to get it. Prefers to get it at home visit on 10/31/23 * Telephone Encounter - Martha Shah RN - 10/14/2023 3:09 PM EDT Call received from the pt's Stephen. States that the pt has a home visit with Bere Martin PA-C on 10/31/23 for an injection in her shoulder. Pt to see ortho on 11/10 and is wonderingif the injection would interfere with anything ortho may do and if it would be better to wait untilortho appt for pt to get the injection. Reports pt having significant chronic pain to her shoulder and is unsure if waiting until ortho would be more beneficial to pt than getting the injection sooner. Will send pt question to provider to review for recommendations. documented in this encounter Plan of Treatment Upcoming Encounters Date Type Department Care Team (Late st Contact Info) Description 10/20/2023 7:10 AM EDT Laboratory Lab [facility] [address] [facility] [place] [address] [facility] [address] [facility] [place] [address] 10/31/2023 8:30 AM EDT [facility] Visit [facility], [facility] [address] [place] [address] Bere Martin PA-C [address] [place] [address] 11/11/2023 11:30 AM EDT [facility] [id number] [place] [address] Brandon Vee PA-C [address] [place] [address] 11/11/2023 4:00 PM EDT [facility] Visit [facility] [place], [facility] [address] [place] [address] Mira Jalloh RN [address] [place] [address] 01/12/2024 9:20 AM EDT Office Visit Family [address] [address] Chelly Steel MD [address] [place] [phone] Scheduled Procedures Name Priority Associated Diagnoses Date/Ti me COLONOSCOPY CA SCRN HI RISK Recall History of colon polyps Health Maintenance Due Date Last Done Comments DXA Scan 06/29/2021 06/29/2018, 02/0 03/2012, 03/20/2010, Additional history exists COVID-19 Vaccine ( season) 2022 03/25/2021, 08/13/2020, 07/14/2020 Influenza Vaccine (FLU shot) (#1) 2023 01/21/2023, 12/23/2021, 12/09/2020, Additional history exists Albumin/Creatinine Ratio 07/21/2024 024, 12/07/2021, 01/17/2020, Additional history exists CKD HGB USE SMARTSET 15732 07/21/202407/21, 07/22/2023, 06/24/2023, Additional history exists CKD PHOS USE SMARTSET 35551 07/21/202407/12, 12/07/2021, 01/17/2020, Additional history exists Depression Screening 07/21/2024 07/22/2023 TSH 07/21/2024 07/22/2023, 06/12, 12/07/2021, Additional history exists DTaP,Tdap,and Td Vaccines (2 [...] filedocumented as of this encounter Care Teams Insurance Sales Representative Relationship Specialty Start Date End Date Blair Kasper DO [address] [place] [address] PCP - General Internal Medicine 09/03/20 documented as of this encounter
--- OUTSIDE RECORDS SUMMARY | 2023-12-29 15:23 | External Medical Summary | Summary of Care ---
Author Name Unknown Organization [facility] Address [address] [address] Phone [phone] Care Team Providers Care Tender Coordinator Name Role Phone NathanBlair etjeda Primary Care Provid er Reason for Visit * Reason Comments [facility]: Maintenance Encounter Details Date Type Department Care Team (Late st Contact Info) Description 09/01/2023 4:00 PM EDT [facility] Visit [facility] [place] [address] [place] [address] Mira Jalloh RN [address] [place] [address] Allergies Active Allergy Reactions Criticality Noted Date Comments Adhesive Tape 04/20/2004 Clarithromycin 10/03/2000 nausea documented as of this encounter (statuses as of 09/01/2023) Medications Medication Sig Dispensed Refills Start Date End Date Status Torsemide 20 MG Oral Tablet (Demadex)Indications: Hypertensive heart disease with heart failure (HCC) Take 2 Tablets by mouth in the morning and 2 Tablets before bedtime. 120 Tablet 3 06/24/2023 Active Ferrous Sulfate 325 (65 Fe) MG [...] heart attack 100 Tablet 5 06/24/2023 Active Atorvastatin Calcium 20 MG Oral Tablet (Lipitor)Indications: Dyslipidemia, goal LDL below 130 Take 1 Tablet by mouth in the morning. 30 Tablet 1 06/24/2023 Active predniSONE 5 MG Oral Tablet [...] other meds). 90 Tablet 1 07/23/2023 Active HYDROcodone-Acetamino phen 5-325 MG Oral TabletIndications:PMR (polymyalgia rheumatica) (HCC),Generalized osteoarthritis Take 1 Tablet by mouth every 6 hours as needed for Pain, Mild. 30 Tablet 08/19/2023 Active documented as of this encounter (statuses as of 09/01/2023) Active Problems Problem Noted Date Diagnosed Date [...] as of this encounter (statuses as of 09/01/2023) Resolved Problems Problem Noted Date Diagnosed Date [...] rupture 08/26/2017 11/29/2017 HTN, goal below 140/90 09/27/2016 07/17 /2017 Acquired hypothyroidism 09/27/201603/14 Kidney disease, chronic, sta [...] Overview: lmp 1987, hrt x 2 yrs 3539-3372 IRON DEF ANEMIA DIETARY 08/26/200403/14 GENERAL OSTEOARTHROSIS [...] as of this encounter (statuses as of 09/01/2023) Immunizations Name Administration Dates Next Due COVID-19 [...] Sign Reading Time Taken Comments Blood Pressure 120/68 09/01/2023 4:08 PM EDT Pulse 83 09/01/2023 4:08 PM EDT Temperature 36.7 C (98.1 F) 09/01/2023 4:08 PM ED T Respiratory Rate - - Oxygen Saturation 94% 09/01/2023 4:08 PM EDT room air Inhaled Oxygen Concentration - - Weight 64.4 kg (142 lb) 09/01/2023 4:08 PM EDT Height - - Body Mass Index 32.12 07/22/2023 8:52 AM EDT documented in this encounter Progress Notes * Mira Jalloh RN - 09/01/2023 3:41 PM EDT [facility] Traffic Signal Technician Monthly Visit Date: 09/01/2023 Time: 3:41 PM Name: Judith Crowe : 1935 Current Concerns: 88 yo female being seen in her home for routine [facility] visit. Spoke to pt prior to arrival. Pt stated the door is unlocked just come in front door when arriving. Pt sitting on chair in living room she is c/o chronic arthritic pain in right shoulder & arm. Elevates feet in recliner at rest. Family stays with her at all times - takes turns. Grandson here during the day sleeping from working lumber kiln operator & pt has a hill she rings when she needs something. Physical Exam: BP 120/68 (BP Site: Left Arm, BP Position: Sitting) | Pulse 83 | Temp 36.7 C (98.1 F) (Tympanic) | Wt 64.4 kg (142 lb) | SpO2 94% Comment: room air | BMI 32.12 kg/m | BSA 1.59 m Pain 10 Physical Exam Constitutional: General: She is awake. Appearance: Normal appearance. She is obese. HENT: Mouth/Throat: Mouth: Mucous membranes are moist. Neck: Vascular: No JVD. Cardiovascular: Rate and Rhythm: Normal rate and regular rhythm. Pulses: Normal pulses. Pulmonary: Effort: Pulmonary effort is normal. Breath sounds: Normal breath sounds. Abdominal: General: Bowel sounds are normal. Palpations: Abdomen is soft. Musculoskeletal: General: Normal range of motion. Right lower le+ Pitting Edema (up to mid duong) present. Left lower le+ Pitting Edema (up to mid duong) present. Skin: Findings: Bruising (arms) and erythema (BLE- family & pt states baseline reddeness. not warm totouch.) present. Neurological: Mental Status: She is alert [...] problem. Respiratory: Positive for shortness of breath (HORNER). Cardiovascular: Positive for leg swelling (chronic - feels at baseline today stating "way better than they have been"). Gastrointestinal: Negative for constipation (occasional). LBM today - denies straining Endocrine: Positive for cold intolerance. Musculoskeletal: Positive for arthralgias, gait problem (uses walker) and myalgias. Chronic right arm / shoulder pain Neurological: Negative for headaches (occasional - denies today). All other systems reviewed and are negative. Medication Reconciliation: (See medication list) Does patient take medications as ordered: Yes Son & grandson fills pill box Patient Well Being: PHQ2/9: No questionnaires available. [facility]-10 Completed this Visit: No. No falls since last visit [facility] [...] medication regimen. Timing., Dosing., and Purspose. Treatment/Plan: Arrived at pt's home she is sitting in recliner in living room. Pt awake & pleasant. Grandson present during visit & her son arrived in the middle of visit. Pt reports she has family in with her often. She reports she has been staying alone now at night. Pt verbalized knowledge of how to use phone to call for help. - family aware to reschedule PCP apt that pt cx 142lbs today - continues to weigh daily. Home Interventions Provided: Reinforced current Plan of Care, including self-management and medication regimen Patient's 'Red Flags': Increased swelling, bloating or weight gains S/sx of [...] & schedule home visit with care steam trap worker(s)as indicated. Provider is in agreement with Plan of Care: Yes Scheduled to follow up with patient in ~4-6 weeks. Mira Jalloh RN 09/01/2023 3:41 PM documented in this encounter Plan of Treatment Upcoming Encounters Date Type Department Care Team (Late st Contact Info) Description 09/30/2023 4:00 PM EDT [facility] Visit [facility], [facility] [address] [place] [address] Mira Jalloh RN [address] [place] [address] 11/09/2023 1:00 PM EDT Telemedicine [facility], [facility] [address] [place] [address] Bere Martin PA-C [address] [place] [address] Tawny Power, [facility] Public Stenographer [address] [place] [address] Scheduled Procedures Name Priority Associated Diagnoses Date/Ti me COLONOSCOPY CA SCRN HI RISK Recall History of colon polyps Health Maintenance Due Date Last Done Comments DXA Scan 06/29/2020 06/29/2018, 03/2012, 03/20/2010, Additional history exists COVID-19 Vaccine ( season) 2022 03/25/2021, 08/13/2020, 07/14/2020 *BISPHONATE OR OTHER ACCEPTABLE MEDICATION NEEDED FOR OSTEOPOROSIS (REFER TO SMARTSET #1146) 06/27/2023 Albumin/Creatinine Ratio 07/21/2024 024, 12/07/2021, 01/17/2020, Additional history exists CKD HGB USE SMARTSET 29231 07/21/202407/21, 07/22/2023, 06/24/2023, Additional history exists CKD PHOS USE SMARTSET 29333 07/21/202407/12, 12/07/2021, 01/17/2020, Additional history exists Depression Screening 07/21/2024 07/22/2023 TSH 07/21/2024 07/22/2023, 06/12, 12/07/2021, Additional history exists DTaP,Tdap,and Td Vaccines (2 - Td or Tdap) 11/29/2024 11/29/2014, 11/01/2007 Pneumococcal Vaccine: 65+ Years Completed 12/25/2015, 12/21/2005, 01/01/1999 VITAMIN D LEVEL ONCE IN A LIFETIME-USE SMARTSET# 00405 Completed 06/27/2020, 01/17/2020, 03/06/2019, Additional history exists [...] filedocumented as of this encounter Care Teams Tender Coordinator Relationship Specialty Start Date End Date Blair Kasper DO [address] [place] [address] PCP - General Internal Medicine 09/03/20 documented as of this encounter
--- OUTSIDE RECORDS SUMMARY | 2023-12-29 15:23 | External Medical Summary | Summary of Care ---
Author Name Unknown Organization [facility] Address [address] [place] [address] Phone [phone] Care Team Providers Care Aviation Manager Name Role Phone NathanBlair tejeda Primary Care Provid er Reason for Referral * Ancillary Services (Within 10 days (routine)) - Authorized Specialty Diagnoses / Procedures Referred By Contac t Referred To Contact Sewing Supervisor Diagnoses Hypertensive heart and kidney disease with chronic diastolic congestive heart failure and stage 3b chronic kidney disease (HCC) Chelly Steel MD [address] [place] [phone] Referral ID Status Reason Start Date Expiration Date Visits Requested Visits Authorized [id number] Authorized Ancillary Services Required 10/10/2023 999 999 [...] on the next service day for the [facility] does not service every geographical location on a daily basis. Contact [facility] Client Services at to find out service days for a specific location. Medical Laboratory [address] [place] [phone] Brendon Grubbs M.D. Director and Curriculum Development Coordinator Patient Name: Judith Crowe : 1935 Sex: female Address [facility] [address] [facility] [id number] Provider: Self? Blair Kasper, DO? Diagnosis: I13.0,I50.32,N18.32 [...] Chronic right shoulder pain Chelly Steel MD [address] [place] [phone] Referral ID Status Reason Start Date Expiration Date Visits Requested Visits Authorized [id number] Authorized Specialty Services Required 10/10/2023 999 999 [...] Encounter Details Date Type Department Care Team ([facility] Contact Info) Description 10/10/2023 9:00 AM EDT Office Visit [address] [phone] Chelly Steel MD [address] [place] [phone] Hypertensive heart and kidney disease with [...] as of this encounter (statuses as of 10/10/2023) Medications Medication Sig Dispensed Refills Start Date End Date Status Torsemide 20 MG Oral Tablet (Demadex)Indication s:Hypertensive [...] Active Levothyroxine Sodium 100 MCG Oral Tablet (Levoxyl)Indication s:Acquired hypothyroidism Take [...] the evening. 270 Tablet 3 10/10/2023 Active HYDROcodone-Acetami nophen 5-325 MG Oral TabletIndications:C hronic right shoulder pain Take 1 Tablet by mouth every 8 hours as needed for Pain, Mild. 30 Tablet 10/10/2023 Active HYDROcodone-Acetami nophen 5-325 MG Oral TabletIndications:P MR (polymyalgia rheumatica) (HCC),Generalized osteoarthritis Take 1 Tablet by mouth every 6 hours as needed for Pain, Mild. 30 Tablet 08/19/2023 4 Discontinue d(Refill) documented as of this encounter (statuses as of 10/10/2023) Active Problems Problem Noted Date Diagnosed Date [...] as of this encounter (statuses as of 10/10/2023) Resolved Problems Problem Noted Date Diagnosed Date [...] Overview: lmp 1986, hrt x 2 yrs 0505-9363 IRON DEF ANEMIA DIETARY 08/26/200403/14 GENERAL OSTEOARTHROSIS [...] as of this encounter (statuses as of 10/10/2023) Immunizations Name Administration Dates Next Due COVID-19 [...] - last echo with mild stenosis in 2020, no further surveillance Gout - last visit [...] in her arm. documented in this encounter Plan of Treatment Upcoming Encounters Date Type Department Care Team (Late st Contact Info) Description 10/31/2023 8:30 AM EDT [facility] Visit [facility] [address] [place] [address] Bere Martin PA-C [address] [place] [address] 11/11/2023 11:30 AM EDT [facility] [address] [place] [address] Brandon Vee PA-C [address] [place] [address] 11/11/2023 4:00 PM EDT [facility] [address] [place] [address] Mira Jalloh RN [address] [place] [address] 01/12/2024 9:20 AM EDT Office Visit [address] [phone] Chelly Steel MD [address] [place] [phone] Scheduled Orders Name Type Priority Associated Diagnoses Orde r Schedule CBC WITH WBC DIFFERENTIAL Lab Routine Hypertensive heart and kidney disease with chronic diastolic congestive heart failure and stage 3b chronic kidney disease (HCC) Expected: 01/08/2024 (Approximate), Expires: 10/09/2024 COMPREHENSIVE METABOLIC PANEL Lab Routine Hypertensive heart and kidney disease with chronic diastolic congestive heart failure and stage 3b chronic kidney disease (HCC) Stage 3b chronic kidney disease (HCC) Expected: 01/08/2024 (Approximate), Expires: 10/09/2024 LIPID PANEL WITH DIRECT LDL IF TG IS HIGH Lab Routine Mixed hyperlipidemia Expected: 01/08/2024 (Approximate), Expires: 10/09/2024 TSH WITH FREE T4 IF INDICATED Lab Routine Acquired hypothyroidism Expected: 01/08/2024 (Approximate), Expires: 10/09/2024 URIC ACID Lab Routine Chronic gout due to renal impairment of multiple sites without tophus Expected: 01/10/2024 (Approximate), Expires: 10/09/2024 Scheduled Procedures Name Priority Associated Diagnoses Date/Ti [...] FOR OSTEOPOROSIS (REFER TO SMARTSET #1146) 06/27/2023 Influenza Vaccine (FLU shot) (#1) 2023 01/21/2023, 12/23/2021, 12/09/2020, Additional history exists Albumin/Creatinine Ratio 07/21/2024 024, 12/07/2021, 01/17/2020, Additional history exists CKD HGB USE SMARTSET 99284 07/21/202407/21, 07/22/2023, 06/24/2023, Additional history exists CKD PHOS USE SMARTSET 33896 07/21/202407/12, 12/07/2021, 01/17/2020, Additional history exists Depression [...] region documented in this encounter Care Teams Aviation Manager Relationship Specialty Start Date End Date Blair Kasper DO [address] [place] [phone] PCP - General Internal Medicine 09/03/20 documented as of this encounter"
--- OUTSIDE RECORDS SUMMARY | 2023-12-29 15:23 | External Medical Summary | Summary of Care ---
Author Name Unknown Organization [facility] Address [address] [facility] [place] [address] Phone [phone] Care Team Providers Care Correctional Probation Officer Name Role Phone Blair Kasper DO Primary Care Provid er Reason for Visit * Reason Comments eRx-Medication Refill Encounter Details Date Type Department Care Team ([facility] Contact Info) Description 10/12/2023 Refill Family [facility] [address] [place] [phone] Reema Carranza PA-C [address] [place] [address] Hypertensive heart disease with heart failure (HCC) Allergies Active Allergy Reactions Criticality Noted Date Comments Adhesive Tape 04/20/2004 Clarithromycin 10/03/2000 nausea documented as of this encounter (statuses as of 10/12/2023) Medications Medication Sig Dispensed Refills Start Date [...] the morning. 90 Tablet 1 4 Active Levothyroxine Sodium 100 MCG Oral Tablet (Levoxyl)Indication s:Acquired hypothyroidism Take 1 Tablet by mouth in the morning. (at least 30 min prior to breakfast or other meds). 90 Tablet 1 4 Active Atorvastatin Calcium 20 MG Oral Tablet (Lipitor)Indication s:Dyslipidemia, goal LDL below 130 TAKE 1 TABLET BY MOUTH ONCE DAILY IN THE MORNING 30 Tablet 5 4 Active Acetaminophen 500 MG Oral Tablet (Tylenol) Take 1 Tablet by mouth in the morning and 1 Tablet at noon and 1 Tablet in the evening. 270 Tablet 3 4 Active HYDROcodone-Acetami nophen 5-325 MG Oral TabletIndications:C hronic right shoulder pain Take 1 Tablet by mouth every 8 hours as needed for Pain, Mild. 30 Tablet 4 Active Torsemide 20 MG Oral Tablet (Demadex)Indication s:Hypertensive heart disease with heart failure (HCC) Take 2 Tablets by mouth in the morning and 2 Tablets before bedtime. 120 Tablet 3 4 Active Torsemide 20 MG Oral Tablet (Demadex)Indication s:Hypertensive heart disease with heart failure (HCC) Take 2 Tablets by mouth in the morning and 2 Tablets before bedtime. 120 Tablet 3 4 10/12/19 24 Discontinued documented as of this encounter (statuses as of 10/12/2023) Active Problems Problem Noted Date Diagnosed Date [...] as of this encounter (statuses as of 10/12/2023) Resolved Problems Problem Noted Date Diagnosed Date [...] Overview: lmp 1987, hrt x 2 yrs 8821-5790 IRON DEF ANEMIA DIETARY 08/26/200403/14 GENERAL OSTEOARTHROSIS 02/26/200412/09 Benign neoplasm of cerebral meninges 11/13/2003 09/27/2016 Overview: surgery in 1998 Vertebral fracture, pathological 08/21/2002 09/27/2016 Special screening for malign ant neoplasms, colon 01/30/2002 03/28/2017 Overview: 12/01/01 Hypothyroidism 08/26/2017 Mixed dyslipidemia 9 Overview: Per Lipid Taxonomy. Major depressive disorder Overview: ICD-10 update of inactive term Anxiety state 03/28/2017 Age-related osteoporosis ignacio espinoza current pathological fracture 10/10/2023 Overview: dexa 09/13 mod fx risk, started on Fosamax 08/16 Positional vertigo 8 HTN, goal below 140/90 12/24 Overview: 06/12 documented as of this encounter (statuses as of 10/12/2023) Immunizations Name Administration Dates Next Due COVID-19 [...] encounter Miscellaneous Notes * Telephone Encounter - Bryant Nguyen RPh - 10/12/2023 6:58 PM EDTSigned Prescriptions: Disp Refills Torsemide 20 MG Oral Tablet (Demadex) 120 Ta*3 Sig: Take 2 Tablets by mouth in the morning and 2 Tablets before bedtime.Authorizing Provider: REEMA CARRANZA User: BRYANT NGUYEN documented in this encounter Plan of Treatment Upcoming Encounters Date Type Department Care Team (Late st Contact Info) Description 10/20/2023 7:10 AM EDT Laboratory Lab [facility] [address] [place] [address] [facility] Draw [address] [place] [address] 10/31/2023 8:30 AM EDT [facility], [facility] [address] [place] [address] Bere Martin PA-C [address] [place] [address] 11/11/2023 11:30 AM EDT Office Visit Orthopaedics, [facility] [address] [place] [address] Brandon Vee PA-C [address] [place] [address] 11/11/2023 4:00 PM EDT [facility] Visit [facility], [facility] [address] [place] [address] Mira Jalloh RN [address] [place] [address] 01/12/2024 9:20 AM EDT Office Visit Family [address] [phone] Chelly Steel MD [address] [place] [phone] Scheduled Procedures Name Priority Associated Diagnoses Date/Ti me COLONOSCOPY CA SCRN HI RISK Recall History of colon polyps Health Maintenance Due Date Last Done Comments DXA Scan 06/29/2021 06/29/2018, 020 03/2012, 03/20/2010, Additional history exists COVID-19 Vaccine ( season) 2022 03/25/2021, 08/13/2020, 07/14/2020 *BISPHONATE OR OTHER ACCEPTABLE MEDICATION NEEDED FOR OSTEOPOROSIS (REFER TO SMARTSET #1146) 06/27/2023 Influenza Vaccine (FLU shot) (#1) 2023 01/21/2023, 12/23/2021, 12/09/2020, Additional history exists Albumin/Creatinine Ratio 07/21/2024 024, 12/07/2021, 01/17/2020, Additional history exists CKD HGB USE SMARTSET 79833 07/21/202407/21, 07/22/2023, 06/24/2023, Additional history exists CKD PHOS USE SMARTSET 51478 07/21/202407/12, 12/07/2021, 01/17/2020, Additional history exists Depression [...] failure documented in this encounter Care Teams Correctional Probation Officer Relationship Specialty Start Date End Date Blair Kasper DO [address] [place] [phone] PCP - General Internal Medicine 09/03/20 documented as of this encounter
--- OUTSIDE RECORDS SUMMARY | 2023-12-29 15:23 | External Medical Summary | Summary of Care ---
Author Name Unknown Organization [facility] Address [address] [facility] [place] [place] [address] Phone [phone] Care Team Providers Care Fisheries Manager Name Role Phone MariahrakeshBlairothy Primary Care Provid er Reason for Visit * Reason Comments eRx-Medication Refill Encounter Details Date Type Department Care Team ([facility] Contact Info) Description 09/05/2023 Refill Family Practice [facility] [address] [place] [address] Reema Carranza PA-C [address] [place] [address] Dyslipidemia, goal LDL below 130 Allergies Active Allergy Reactions Criticality Noted Date Comments Adhesive Tape 04/20/2004 Clarithromycin 10/03/2000 nausea documented as of this encounter (statuses as of 09/06/2023) Medications Medication Sig Dispensed Refills Start Date End Date Status Torsemide 20 MG Oral Tablet (Demadex)Indication s:Hypertensive heart disease with heart failure (HCC) Take 2 Tablets by mouth in the morning and 2 Tablets before bedtime. 120 Tablet 3 4 Active Ferrous Sulfate 325 [...] other meds). 90 Tablet 1 4 Active HYDROcodone-Acetami nophen 5-325 MG Oral TabletIndications:P MR (polymyalgia rheumatica) (HCC),Generalized osteoarthritis Take 1 Tablet by mouth every 6 hours as needed for Pain, Mild. 30 Tablet 4 Active Atorvastatin Calcium 20 MG Oral Tablet (Lipitor)Indication s:Dyslipidemia, goal LDL below 130 TAKE 1 TABLET BY MOUTH ONCE DAILY IN THE MORNING 30 Tablet 5 4 Active Atorvastatin Calcium 20 MG Oral Tablet (Lipitor)Indication s:Dyslipidemia, goal LDL below 130 Take 1 Tablet by mouth in the morning. 30 Tablet 1 4 09/06/19 24 Discontinued documented as of this encounter (statuses as of 09/06/2023) Active Problems Problem Noted Date Diagnosed Date [...] as of this encounter (statuses as of 09/06/2023) Resolved Problems Problem Noted Date Diagnosed Date [...] Overview: lmp 1987, hrt x 2 yrs 0353-3714 IRON DEF ANEMIA DIETARY 08/26/200403/14 GENERAL OSTEOARTHROSIS [...] as of this encounter (statuses as of 09/06/2023) Immunizations Name Administration Dates Next Due COVID-19 [...] encounter Miscellaneous Notes * Telephone Encounter - Concepción Gaspar RPh - 09/06/2023 7:03 AM EDTSigned Prescriptions: Disp Refills Atorvastatin Calcium 20 MG Oral Tablet (Li*30 Tab*5 Sig: TAKE 1 TABLET BY MOUTH ONCE DAILY IN THE MORNINGAuthorizing Provider: REEMA CARRANZA User: CONCEPCIÓN GASPAR documented in this encounter Plan of Treatment Upcoming Encounters Date Type Department Care Team (Late st Contact Info) Description 09/30/2023 4:00 PM EDT Home Visit [facility] [place] [address] [place] [address] Mira Jalloh RN [address] [place] [address] 11/09/2023 1:00 PM EDT Telemedicine [facility] [place] [address] [place] [address] Bere Martin PA-C [address] [place] [address] Tawny Power, Community Health Global Project Manager [address] [place] [address] Scheduled Procedures Name Priority Associated Diagnoses Date/Ti me COLONOSCOPY CA SCRN HI RISK Recall History of colon polyps Health Maintenance Due Date Last Done Comments DXA Scan 06/29/2020 06/29/2018, 03/2012, 03/20/2010, Additional history exists COVID-19 Vaccine ( season) 2022 03/25/2021, 08/13/2020, 07/14/2020 *BISPHONATE OR OTHER ACCEPTABLE MEDICATION NEEDED FOR OSTEOPOROSIS (REFER TO SMARTSET #1146) 06/27/2023 Albumin/Creatinine Ratio 07/21/20242 024, 12/07/2021, 01/17/2020, Additional history exists CKD HGB USE SMARTSET 80904 07/21/202407/21, 07/22/2023, 06/24/2023, Additional history exists CKD PHOS USE SMARTSET 63034 07/21/202407/12, 12/07/2021, 01/17/2020, Additional history exists Depression Screening 07/21/2024 07/22/2023 TSH 07/21/2024 07/22/2023, 06/12, 12/07/2021, Additional history exists DTaP,Tdap,and Td Vaccines (2 - Td or Tdap) 11/29/2024 11/29/2014, 11/01/2007 Pneumococcal Vaccine: 65+ Years Completed 12/25/2015, 12/21/2005, 01/01/1999 VITAMIN D LEVEL ONCE IN A LIFETIME-USE SMARTSET# [id number] Completed 06/27/2020, 01/17/2020, 03/06/2019, Additional history exists [...] hyperlipidemia documented in this encounter Care Teams Fisheries Manager Relationship Specialty Start Date End Date Blair Kasper DO [address] [place] [address] [phone] PCP - General Internal Medicine 09/03/20 documented as of this encounter
--- OUTSIDE RECORDS SUMMARY | 2023-12-29 15:23 | External Medical Summary | Summary of Care ---
Author Name Unknown Organization [facility] Address [address] [address] Phone [phone] Care Team Providers Care Orthotist Name Role Phone NathannikhilBlair Chava Primary Care Provid er Reason for Visit * Reason Onset Date Comments Appointment 10/03/2023 Encounter Details Date Type Department Care Team (Late st Contact Info) Description 10/03/2023 Telephone [facility] [address] [facility] [address] [phone] Meaghan Underwood DO [address] [place] [address] Appointment (/) Allergies Active Allergy Reactions Criticality Noted Date Comments Adhesive Tape 04/20/2004 Clarithromycin 10/03/2000 nausea documented as of this encounter (statuses as of 10/03/2023) Medications Medication Sig Dispensed Refills Start Date [...] for Pain, Mild. 30 Tablet 08/19/2023 Active Atorvastatin Calcium 20 MG Oral Tablet (Lipitor)Indications: Dyslipidemia, goal LDL below 130 TAKE 1 TABLET BY MOUTH ONCE DAILY IN THE MORNING 30 Tablet 5 09/06/2023 Active documented as of this encounter (statuses as of 10/03/2023) Active Problems Problem Noted Date Diagnosed Date [...] as of this encounter (statuses as of 10/03/2023) Resolved Problems Problem Noted Date Diagnosed Date [...] Overview: lmp 1987, hrt x 2 yrs 9338-7921 IRON DEF ANEMIA DIETARY 08/26/200403/14 GENERAL OSTEOARTHROSIS [...] as of this encounter (statuses as of 10/03/2023) Immunizations Name Administration Dates Next Due COVID-19 [...] 3:42 PM EDT Sexual Orientation Straight 12/09/2020 3 :42 PM EDT Job Start Date Occupation Industry Not on file Not on file Not on file documented as of this encounter Miscellaneous Notes * Telephone Encounter - Tessie Madden OSA - 10/03/2023 9:28 AM EDT Request to cx aug telemed and rs a home visit so R shoulder injection could be done by Veronica Rahat found 10/30@830 and called but had to lmom w/return cb number for any conflicts documented in this encounter Plan of Treatment Upcoming Encounters Date Type Department Care Team (Late st Contact Info) Description 10/31/2023 8:30 AM EDT [facility] [address] [place] [address] Bere Martin PA-C [address] [place] [place] [address] 11/11/2023 4:00 PM EDT [facility] Visit [facility] [address] [place] [address] Mira Jalloh RN [address] [place] [place] [address] Scheduled Procedures Name Priority Associated Diagnoses Date/Ti me COLONOSCOPY CA SCRN HI RISK Recall History of colon polyps Health Maintenance Due Date Last Done Comments DXA Scan 06/29/2020 06/29/2018, 02/0 03/2012, 03/20/2010, Additional history exists COVID-19 Vaccine ( season) 2022 03/25/2021, 08/13/2020, 07/14/2020 *BISPHONATE OR OTHER ACCEPTABLE MEDICATION NEEDED FOR OSTEOPOROSIS (REFER TO SMARTSET #1146) 06/27/2023 Influenza Vaccine (FLU shot) (#1) 2023 01/21/2023, 12/23/2021, 12/09/2020, Additional history exists Albumin/Creatinine Ratio 07/21/2024 024, 12/07/2021, 01/17/2020, Additional history exists CKD HGB USE SMARTSET 89625 07/21/202407/21, 07/22/2023, 06/24/2023, Additional history exists CKD PHOS USE SMARTSET 68215 07/21/202407/12, 12/07/2021, 01/17/2020, Additional history exists Depression Screening 07/21/2024 07/22/2023 TSH 07/21/2024 07/22/2023, 06/12, 12/07/2021, Additional history exists DTaP,Tdap,and Td Vaccines (2 - Td or Tdap) 11/29/2024 11/29/2014, 11/01/2007 Pneumococcal Vaccine: 65+ Years Completed 12/25/2015, 12/21/2005, 01/01/1999 VITAMIN D LEVEL ONCE IN A LIFETIME-USE SMARTSET# [id number] Completed 06/27/2020, 01/17/2020, 03/06/2019, Additional history exists HPV (Gardasil) Vaccine Aged Out No lo [...] filedocumented as of this encounter Care Teams Orthotist Relationship Specialty Start Date End Date Blari Kasper DO [address] [place] [phone] PCP - General Internal Medicine 09/03/20 documented as of this encounter
--- OUTSIDE RECORDS SUMMARY | 2023-12-29 15:23 | External Medical Summary | Summary of Care ---
Author Name Unknown Organization [facility] Address [address] [facility] [place] [address] Phone [phone] Care Team Providers Care Shrimp Pond Laborer Name Role Phone Blair Kasper DO Primary Care Provid er Reason for Visit * Reason Onset Date Comments Home Health 06/27/2023 Encounter Details Date Type Department Care Team ([facility] Contact Info) Description 06/27/[address] [address] Blair Kasper DO [address] [place] [address] Home Health Allergies Active Allergy Reactions Criticality Noted Date Comments Adhesive Tape 04/20/2004 Clarithromycin 10/03/2000 nausea documented as of this encounter (statuses as of 09/26/2023) Medications Medication Sig Dispensed Refills Start Date [...] THE MORNING 90 Tablet 2 06/24/2023 Active documented as of this encounter (statuses as of 09/26/2023) Active Problems Problem Noted Date Diagnosed Date [...] as of this encounter (statuses as of 09/26/2023) Resolved Problems Problem Noted Date Diagnosed Date [...] Overview: lmp 1987, hrt x 2 yrs 0433-7991 IRON DEF ANEMIA DIETARY 08/26/200403/14 GENERAL OSTEOARTHROSIS [...] as of this encounter (statuses as of 09/26/2023) Immunizations Name Administration Dates Next Due COVID-19 [...] encounter Miscellaneous Notes * Telephone Encounter - Lesly Jefferson LPN - 06/27/2023 4:40 PM EDT HH PT/OT/ST Eval Start of Care/Continuation Bia PT, Calling from: [facility] PT Plan of care: 1 times per week for 2 weeks: Advised that additional visit orders will be signed by PCP and to fax to the office for signature documented in this encounter Plan of Treatment Upcoming Encounters Date Type Department Care Team (Late st Contact Info) Description 09/30/2023 4:00 PM EDT [facility] [address] [place] [address] Mira Jalloh RN [address] [place] [address] 11/09/2023 1:00 PM EDT Telemedicine [facility] [address] [place] [address] Bere Martin PA-C [address] [place] [address] Tawny Power, Community Health Janitorial Manager [facility] [place] [address] Scheduled Procedures Name Priority Associated Diagnoses Date/Ti me COLONOSCOPY CA SCRN HI RISK Recall History of colon polyps Health Maintenance Due Date Last Done Comments DXA Scan 06/29/2020 06/29/2018, 0203/2012, 03/20/2010, Additional history exists COVID-19 Vaccine ( season) 2022 03/25/2021, 08/13/2020, 07/14/2020 *BISPHONATE OR OTHER ACCEPTABLE MEDICATION NEEDED FOR OSTEOPOROSIS (REFER TO SMARTSET #1146) 06/27/2023 Influenza Vaccine (FLU shot) (#1) 2023 01/21/2023, 12/23/2021, 12/09/2020, Additional history exists Albumin/Creatinine Ratio 07/21/2024 024, 12/07/2021, 01/17/2020, Additional history exists CKD HGB USE SMARTSET 02130 07/21/202407/21, 07/22/2023, 06/24/2023, Additional history exists CKD PHOS USE SMARTSET 11905 07/21/202407/12, 12/07/2021, 01/17/2020, Additional history exists Depression Screening 07/21/2024 07/22/2023 TSH 07/21/2024 07/22/2023, 06/12, 12/07/2021, Additional history exists DTaP,Tdap,and Td Vaccines (2 - Td or Tdap) 11/29/2024 11/29/2014, 11/01/2007 Pneumococcal Vaccine: 65+ Years Completed 12/25/2015, 12/21/2005, 01/01/1999 VITAMIN D LEVEL ONCE IN A LIFETIME-USE SMARTSET# [id number] Completed 06/27/2020, 01/17/2020, 03/06/2019, Additional history exists [...] filedocumented as of this encounter Care Teams Shrimp Pond Laborer Relationship Specialty Start Date End Date Blair Kasper DO [address] [place] [phone] PCP - General Internal Medicine 09/03/20 documented as of this encounter
--- OUTSIDE RECORDS SUMMARY | 2023-12-29 15:23 | External Medical Summary | Summary of Care ---
Author Name Unknown Organization [facility] Address [address] [address] Phone [phone] Care Team Providers Care Assembler Brazer Name Role Phone NathanBlair tejeda Primary Care Provid er Reason for Visit * Reason Onset Date Comments [facility]: Maintenance 10/14/2023 Encounter Details Date Type Department Care Team (Late st Contact Info) Description 10/14/2023 Telephone [facility] [address] [facility] [place] [place] [address] [facility], Nurse [facility] [address] [facility] [place] [address] [facility]: Maintenance Allergies Active Allergy Reactions Criticality Noted Date Comments Adhesive Tape 04/20/2004 Clarithromycin 10/03/2000 nausea documented as of this encounter (statuses as of 10/14/2023) Medications Medication Sig Dispensed Refills Start Date [...] as of this encounter (statuses as of 10/14/2023) Active Problems Problem Noted Date Diagnosed Date [...] as of this encounter (statuses as of 10/14/2023) Resolved Problems Problem Noted Date Diagnosed Date [...] Overview: lmp 1987, hrt x 2 yrs 0213-3831 IRON DEF ANEMIA DIETARY 08/26/200403/14 GENERAL OSTEOARTHROSIS [...] as of this encounter (statuses as of 10/14/2023) Immunizations Name Administration Dates Next Due COVID-19 [...] AM EDT Laboratory [facility] [address] [place] [address] [facility] [address] [place] [address] 10/31/2023 8:30 AM EDT [facility] [place] [address] [facility] [address] [place] [address] Bere Martin PA-C [address] [place] [address] 11/11/2023 11:30 AM EDT Office Visit Orthopaedics, [facility] [address] [place] [address] Brandon Vee PA-C [address] [place] [address] 11/11/2023 4:00 PM EDT [facility] [place] [address] [place] [address] Mira Jalloh RN [address] [place] [address] 01/12/2024 9:20 AM EDT Office Visit [facility] [address] [place] [address] Chelly Steel MD [address] [place] [phone] Scheduled Procedures Name Priority Associated Diagnoses [...] Additional history exists CKD HGB USE SMARTSET 54452 07/21/202407/21, 07/22/2023, 06/24/2023, Additional history exists CKD PHOS USE SMARTSET 39583 07/21/202407/12, 12/07/2021, 01/17/2020, Additional history exists Depression [...] filedocumented as of this encounter Care Teams Assembler Brazer Relationship Specialty Start Date End Date Blair Kasper DO [address] [place] [address] PCP - General Internal Medicine 09/03/20 documented as of this encounter
--- OUTSIDE RECORDS SUMMARY | 2023-12-29 15:23 | External Medical Summary | Summary of Care ---
Author Name Unknown Organization [facility] Address [address] [facility] [place] [address] Phone [phone] Care Team Providers Care Flatbed Stitcher Name Role Phone Blair Simental DO Primary Care Provid er Reason for Visit * Reason Onset Date Comments Medication Refill 08/17/2023 Encounter Details Date Type Department Care Team ([facility] Contact Info) Description 08/17/[address] [address] Blair Simental DO [address] [place] [phone] PMR (polymyalgia rheumatica) ([facility]); Generalized osteoarthritis Allergies Active Allergy Reactions Criticality Noted Date Comments Adhesive Tape 04/20/2004 Clarithromycin 10/03/2000 nausea documented as of this encounter (statuses as of 08/19/2023) Medications Medication Sig Dispensed Refills Start Date [...] other meds). 90 Tablet 1 07/23/2023 Active HYDROcodone-Acetami nophen 5-325 MG Oral TabletIndications:P MR (polymyalgia rheumatica) (HCC),Generalized osteoarthritis Take 1 Tablet by mouth every 6 hours as needed for Pain, Mild. 30 Tablet 08/19/2023 Active HYDROcodone-Acetami nophen 5-325 MG Oral TabletIndications:P MR (polymyalgia rheumatica) (HCC),Generalized osteoarthritis Take 1 Tablet by mouth every 6 hours as needed for Pain, Mild. 30 Tablet 07/22/2023 Discontinue d(Refill) documented as of this encounter (statuses as of 08/19/2023) Active Problems Problem Noted Date Diagnosed Date [...] as of this encounter (statuses as of 08/19/2023) Resolved Problems Problem Noted Date Diagnosed Date [...] Overview: lmp 1987, hrt x 2 yrs 4214-1347 IRON DEF ANEMIA DIETARY 08/26/200403/14 GENERAL OSTEOARTHROSIS [...] as of this encounter (statuses as of 08/19/2023) Immunizations Name Administration Dates Next Due COVID-19 [...] Telephone Encounter - Blair Simental DO - 08/19/2023 7:59 AM EDT Signed Prescriptions: Disp Refills HYDROcodone-Acetaminophen 5-325 MG Oral Ta*30 Tab*0 Sig: Take 1 Tablet by mouth every 6 hours as needed for Pain, Mild. Authorizing Provider: BLAIR SIMENTAL * Telephone Encounter - Brian Dixon [facility] - 08/18/2023 12:15 PM EDT Pending Prescriptions: Disp Refills HYDROcodone-Acetaminophen 5-325 MG Oral Ta*30 Tab*0 Sig: Take 1 Tablet by mouth every 6 hours as needed for Pain, Mild. * Telephone Encounter - Brian Dixon [facility] - 08/18/2023 12:14 PM EDT I have reviewed the patients controlled substance dispensing history in the Prescription Drug Monitoring Program in compliance with the [facility] regulations before prescribing a controlled substance. PDMP checked on 08/18/2023. Pending Prescriptions: Disp Refills HYDROcodone-Acetaminophen 5-325 MG Oral T*30 Tab*0 Sig: Take 1 Tablet by mouth every 6 hours as needed for Pain, Mild. Last Visit: 07/22/2023 (in office), Visit date not found (telemedicine) Next Visit: 09/09/2023 Date medication was last filled: 07/25/23 Date medication is due for refill: 08/02/23 Pharmacy: [facility] [address] Is this request for a controlled [...] in Results Review. Please approve if appropriate. Thanks, Brian Dixon PharmD Clinical Pharmacist [facility] ([facility]) [phone] 08/18/2023, 12:14 PM * Telephone Encounter - Brynn Sandoval PHARM Tech - 08/17/2023 2:08 PM EDT Did you pend patient's preferred pharmacy and medication before forwarding?yes Pharmacy: [facility] [address] Pending Prescriptions: Disp Refills HYDROcodone-Acetaminophen 5-325 MG Oral T*30 Tab*0 Sig: Take 1 Tablet by mouth every 6 hours as needed for Pain, Mild. Last Visit: 07/22/2023 (in office), Visit date not found (telemedicine) Next Visit: 09/09/2023 If no future appointments scheduled, and last appointment is greater than a year ago, please schedule patient for a follow-up appointment Last date the medication was ordered: 07/22/2023 Is this request for a controlled substance?Yes, What was the last refill date 07/22/2023 w/ quantity 30 and dosage 5-325 and [...] Results Component Value Date/Time CREAT 1.2 (H) 07/22/2023 09:48 AM CREAT 1.2 (H) 01/17/2020 02:02 PM POTASSIUM 3.7 07/22/2023 09:48 AM POTASSIUM 4.6 01/17/2020 02:02 PM TSH 6.26 (H) 07/22/2023 09:48 AM TSH 9.31 (H) 01/17/2020 02:02 PM LDLCALC 118 12/07/2021 10:55 AM LDLCALC 95 01/17/2020 02:02 PM LDLDIRECT 84 06/21/2022 11:15 AM LDLDIRECT 108 06/18/2011 09:31 AM ALT 17 06/24/2023 03:40 PM ALT 19 01/17/2020 02:02 PM documented in this encounter Plan of Treatment Upcoming Encounters Date Type Department Care Team ([facility] Contact Info) Description 08/29/2023 4:00 PM EDT [facility] [address] [place] [address] Mira Jalloh RN [address] [place] [address] 09/09/2023 12:00 PM EDT Office Visit [address] [address] Chelly Steel MD [address] [place] [phone] 11/09/2023 1:00 PM EDT Telemedicine [facility] [address] [place] [address] Bere Martin PA-C [address] [place] [address] Tawny Power, Community Health Manufacturing Engineer [employer] [address] [place] [address] Scheduled Procedures Name Priority Associated Diagnoses Date/Ti [...] Additional history exists CKD HGB USE SMARTSET 44119 07/21/202407/21, 07/22/2023, 06/24/2023, Additional history exists CKD PHOS USE SMARTSET 22550 07/21/202407/12, 12/07/2021, 01/17/2020, Additional history exists Depression Screening 07/21/2024 07/22/2023 TSH 07/21/2024 07/22/2023, 06/12, 12/07/2021, Additional history exists DTaP,Tdap,and Td Vaccines (2 - Td or Tdap) 11/29/2024 11/29/2014, 11/01/2007 Pneumococcal Vaccine: 65+ Years Completed 12/25/2015, 12/21/2005, 01/01/1999 VITAMIN D LEVEL ONCE IN A LIFETIME-USE SMARTSET# [id number] Completed 06/27/2020, 01/17/2020, 03/06/2019, Additional history exists [...] as of this encounter Visit Diagnoses Diagnosis PMR (polymyalgia rheumatica) (HCC) Polymyalgia rheumatica Generalized osteoarthritis Generalized osteoarthrosis, unspecified site documented in this encounter Care Teams Flatbed Stitcher Relationship Specialty Start Date End Date Blair Simental DO [address] [place] [address] PCP - General Internal Medicine 09/03/20 documented as of this encounter
--- OUTSIDE RECORDS SUMMARY | 2023-12-29 15:23 | External Medical Summary | Summary of Care ---
Author Name Unknown Organization [facility] Address [address] [address] Phone [phone] Care Team Providers Care Fare Register Repairer Name Role Phone NathanBlair tejeda Primary Care Provid er Reason for Visit * Reason Comments [facility]: Maintenance Encounter Details Date Type Department Care Team (Late st Contact Info) Description 09/30/2023 4:00 PM EDT [facility] Visit [facility] [place] [address] [place] [address] Mira Jalloh RN [address] [place] [address] Allergies Active Allergy Reactions Criticality Noted Date Comments Adhesive Tape 04/20/2004 Clarithromycin 10/03/2000 nausea documented as of this encounter (statuses as of 09/30/2023) Medications Medication Sig Dispensed Refills Start Date [...] as of this encounter (statuses as of 09/30/2023) Active Problems Problem Noted Date Diagnosed Date [...] as of this encounter (statuses as of 09/30/2023) Resolved Problems Problem Noted Date Diagnosed Date [...] Overview: lmp 1987, hrt x 2 yrs [id number] IRON DEF ANEMIA DIETARY 08/26/200403/14 GENERAL OSTEOARTHROSIS [...] as of this encounter (statuses as of 09/30/2023) Immunizations Name Administration Dates Next Due COVID-19 [...] Sign Reading Time Taken Comments Blood Pressure 118/62 09/30/2023 3:56 PM EDT Pulse 72 09/30/2023 3:56 PM EDT Temperature - - Respiratory Rate - - Oxygen Saturation 98% 09/30/2023 3:56 PM EDT room air Inhaled Oxygen Concentration - - Weight - - Height - - Body Mass Index - - documented in this encounter Progress Notes * Mira Jalloh RN - 09/30/2023 3:44 PM EDT [facility] Monthly Visit Date: 09/30/2023 Time: 3:44 PM Name: Judith Crowe : 1935 Current Concerns: 88 yo female being seen in her home for routine [facility] visit. Pt sitting on chair in living room she is c/o chronic arthritic pain in right shoulder & arm. Pt voiced tired today she did not sleep well last night. She feels may be from not really doing anything during the day. She voicing worrying about her daughter that was in an accident & in hospital. C/o right pain. She reports she has had xrays in the past & was told there is bone on bone. Sheis not getting any relief from percocet. Pain starting to keep her up at night, she does have notable decrease in ROM (lifting arms) r/t pain She has XRAY in April; FINDINGS No acute fracture or dislocation about the right shoulder. 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 Possible subtle foci of calcific tendinosis along the right rotator cuff. Degenerative changes of the thoracic spine with dextrocurvature. Vascular calcifications. 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 Possible subtle foci of calcific tendinosis along the right rotator cuff. Physical Exam: BP 118/62 (BP Site: Left Arm, BP Position: Sitting) | Pulse 72 | SpO2 98% Comment: room air Pain 10 Physical Exam Constitutional: General: She is awake. Appearance: Normal appearance. She is obese. HENT: Mouth/Throat: Mouth: Mucous membranes are moist. Neck: Vascular: No JVD. Cardiovascular: Rate and Rhythm: Normal rate and regular rhythm. Pulses: Normal pulses. Pulmonary: Effort: Pulmonary effort is normal. Breath sounds: Normal breath sounds. Abdominal: General: Bowel sounds are normal. Palpations: Abdomen is soft. Musculoskeletal: General: Tenderness (right shoulder pain & decreased ROM (lifting arm)) present. Right lower le+ Pitting Edema (up to mid duong) present. Left lower le+ Pitting Edema (up to mid duong) present. Skin: Findings: Bruising (arms) and erythema (BLE slight reddeness. not warm to touch.pt reports lnormal for her & feels they look pretty [...] shortness of breath (HORNER- when up moving around). Cardiovascular: Positive for leg swelling (chronic - feels at baseline today stating they look pretty good today). Gastrointestinal: Negative for constipation (occasional). LBM today [...] Patient Well Being: PHQ2/9: No questionnaires available. [facility]-10 Completed this Visit: No. Routine visit [...] medication regimen. Timing., Dosing., and Purspose. Treatment/Plan: Right shoulder pain & decreased ROM TT sent to Bere Martin PA-C -agreeable to inject right shoulder at future visit. -next visit 11.09.23 for telemed. Sent to scheduling pool requesting to change apt to a day in October Bere is doing HV's so she can inject pt. -reviewed importance of keeping appointments. Current weight 143lbs - continues to weigh daily or every so often when she remembers Reviewed HF symptom monitoring: -Weigh self daily [...] self-management and medication regimen Patient's 'Red Flags': ncreased swelling, bloating or weight gains S/sx of [...] & schedule home visit with care steam drier tender(s)as indicated. Provider is in agreement with Plan of Care: Yes Scheduled to follow up with patient in ~4-6 weeks. Mira Jalloh RN 09/30/2023 3:44 PM documented in this encounter Plan of Treatment Upcoming Encounters Date Type Department Care Team (Late st Contact Info) Description 11/09/2023 1:00 PM EDT [facility] [address] [place] [address] Bere Martin PA-C [address] [place] [address] Tawny Power, Community Health Brand Specialist [address] [place] [address] 11/11/2023 4:00 PM EDT Home Visit [facility] [address] [place] [address] Mira Jalloh, RN [address] [facility] [place] [address] Scheduled Procedures Name Priority Associated Diagnoses Date/Ti [...] Additional history exists CKD HGB USE SMARTSET 08062 07/21/202407/21, 07/22/2023, 06/24/2023, Additional history exists CKD PHOS USE SMARTSET 04221 07/21/202407/12, 12/07/2021, 01/17/2020, Additional history exists Depression Screening 07/21/2024 07/22/2023 TSH 07/21/2024 07/22/2023, 06/12, 12/07/2021, Additional history exists DTaP,Tdap,and Td Vaccines (2 - Td or Tdap) 11/29/2024 11/29/2014, 11/01/2007 Pneumococcal Vaccine: 65+ Years Completed 12/25/2015, 12/21/2005, 01/01/1999 VITAMIN D LEVEL ONCE IN A LIFETIME-USE SMARTSET# 54610 Completed 06/27/2020, 01/17/2020, 03/06/2019, Additional history exists [...] filedocumented as of this encounter Care Teams Fare Register Repairer Relationship Specialty Start Date End Date Blair Kasper DO [address] [place] [address] PCP - General Internal Medicine 09/03/20 documented as of this encounter"
--- OUTSIDE RECORDS SUMMARY | 2023-12-29 15:23 | External Medical Summary | Summary of Care ---
Author Name Unknown Organization [facility] Address [address] [address] Phone [phone] Care Team Providers Care Quick Mixer Operator Name Role Phone NathanBlair tejeda Primary Care Provid er Reason for Visit * Reason Onset Date Comments [facility]: Maintenance 08/29/2023 Encounter Details Date Type Department Care Team (Late st Contact Info) Description 08/29/2023 Telephone [facility] [address] [place] [address] [facility], Nurse [facility] [address] [place] [address] [facility]: Maintenance Allergies Active Allergy Reactions Criticality Noted Date Comments Adhesive Tape 04/20/2004 Clarithromycin 10/03/2000 nausea documented as of this encounter (statuses as of 08/29/2023) Medications Medication Sig Dispensed Refills Start Date [...] as of this encounter (statuses as of 08/29/2023) Active Problems Problem Noted Date Diagnosed Date [...] as of this encounter (statuses as of 08/29/2023) Resolved Problems Problem Noted Date Diagnosed Date [...] Overview: lmp 1987, hrt x 2 yrs [id number] IRON DEF ANEMIA DIETARY 08/26/200403/14 GENERAL OSTEOARTHROSIS [...] as of this encounter (statuses as of 08/29/2023) Immunizations Name Administration Dates Next Due COVID-19 [...] Miscellaneous Notes * Telephone Encounter - Martha Shah, RN - 08/29/2023 4:08 PM EDT RNCM re-routed to [facility]. Patient rescheduled to 09/01/23 4 pm. Patient agreeable documented in this encounter Plan of Treatment Upcoming Encounters Date Type Department Care Team (Late st Contact Info) Description 09/01/2023 4:00 PM EDT Home Visit [facility], [facility] [address] [place] [address] Mira Jalloh RN [address] [place] [address] 11/09/2023 1:00 PM EDT Telemedicine [facility], [facility] [address] [place] [address] Bere Martin PA-C [address] [place] [address] Tawny Power, Community Health Drapery Examiner [address] [place] [address] Scheduled Procedures Name Priority Associated Diagnoses Date/Ti [...] Additional history exists CKD HGB USE SMARTSET 42950 07/21/202407/21, 07/22/2023, 06/24/2023, Additional history exists CKD PHOS USE SMARTSET 80049 07/21/202407/12, 12/07/2021, 01/17/2020, Additional history exists Depression Screening 07/21/2024 07/22/2023 TSH 07/21/2024 07/22/2023, 06/12, 12/07/2021, Additional history exists DTaP,Tdap,and Td Vaccines (2 - Td or Tdap) 11/29/2024 11/29/2014, 11/01/2007 Pneumococcal Vaccine: 65+ Years Completed 12/25/2015, 12/21/2005, 01/01/1999 VITAMIN D LEVEL ONCE IN A LIFETIME-USE SMARTSET# 16730 Completed 06/27/2020, 01/17/2020, 03/06/2019, Additional history exists [...] filedocumented as of this encounter Care Teams Quick Mixer Operator Relationship Specialty Start Date End Date Blair Kasper DO [address] [place] [address] PCP - General Internal Medicine 09/03/20 documented as of this encounter
--- OUTSIDE RECORDS SUMMARY | 2023-12-29 15:24 | External Medical Summary ---
Author Name Unknown Address Unknown Organization [id number]:[facility] [place] [address] [facility] [address] [address] [place] [address] Laboratory Report Ordering Provider Test Date Status KAMILLE DICKSON 07/22/2023 09:48:44 Final Observation Date Value Abnormality Reference (Units ) Status SYNC LEUKOCYTES IN BLOOD BY AUTOMATED COUNT 07/22/2023 09:48:44 9.76 4.00-10.80 (K/uL) Final Segs 07/22/2023 09:48:44 69.9 40.0-75.0 (%) Final Lymphs % 07/22/2023 09:48:44 19.8 18.0-42.0 (%) Final Monos 07/22/2023 09:48:44 7.3 1.0-11.0 (%) Final Eosinophils 07/22/2023 09:48:44 2.2 0.0-6.0 (%) Final Basos 07/22/2023 09:48:44 0.4 0.0-2.0 (%) Final Immature Granulocyte, Percent 07/22/2023 09:48:44 0.4 0.0-2.0 (%) Final Absolute Segs 07/22/2023 09:48:44 6.83 1.80-7.70 (K/uL) Final Lymphs, absolute 07/22/2023 09:48:44 1.93 1.00-4.80 (K/ul) Final Monos, Abs 07/22/2023 09:48:44 0.71 0.00-1.10 (K/uL) Final Eos, Abs 07/22/2023 09:48:44 0.21 0.00-0.70 (K/uL) Final Basos, Abs 07/22/2023 09:48:44 0.04 0.00-0.20 (K/uL) Final Immature Granulocytes, Number 07/22/2023 09:48:44 0.04 0.00-0.20 (K/uL) Final Performing Location [facility] [place] [facility] [address] [facility] [address]
--- OUTSIDE RECORDS SUMMARY | 2023-12-29 15:24 | External Medical Summary ---
Author Name Unknown Address Unknown Organization [id number]:[facility] [place] - [address] [place] [address] Laboratory Report Ordering Provider Test Date Status KAMILLE DICKSON 07/22/2023 09:48:44 Final Observation Date Value Abnormality Reference (Units ) Status TSH 07/22/2023 09:48:44 6.26 Above high normal 0. 27-4.20 (uIU/mL) Final Performing Location [facility] - [address] [place] [address]
--- OUTSIDE RECORDS SUMMARY | 2023-12-29 15:24 | External Medical Summary ---
Author Name Unknown Address Unknown Organization K01:LAB[facility]ATORY [facility] - [address] [place] [address] Laboratory Report Ordering Provider Test Date Status KAMILLE DICKSON 07/22/2023 09:48:44 Final Drugs that require complianc e testing:

Opioids:
Hydrocodone/APAP: Quantity 1 tab Q6H PRN Date/Time of last Dose day of test

Cutoff Concentrations:
Drug Level
Amphetamines 500 ng/mL
Benzodiazepines 100 ng/mL
Cannabinoids 50 ng/mL
Cocaine Metabolite 150 ng/mL
Fentanyl 1 ng/mL
Hydrocodone / Hydromorphone 300 ng/mL
Methadone Metabolite 100 ng/mL
Morphine / Codeine 300 ng/mL
Oxycodone / Oxymorphone 100 ng/mL

Screening results are presumptive and can only be used for medical purposes. Confirmatory testing is available upon request. Observation Date Value Abnormality Reference (Units) Status Amphetamines, Urine screen 07/22/2023 09:48:44 Negative Negative Final Benzodiazepines, Urine screen 07/22/2023 09:48:44 Negative Negative Final Cannabinoids, Urine screen 07/22/2023 09:48:44 Negative Negative Final Cocaine Metabolite, Urine screen 07/22/2023 09:48:44 Negative Negative Final fentaNYL [Presence] in Urine by Screen method 07/22/2023 09:48:44 Negative Negative Final HYDROcodone [Presence] in Urine by Screen method 07/22/2023 09:48:44 Refer to confirmation results Abnormal Negative Final 7-Ptuiwsthwm-5,5-Dime thyl-3,3-Diphenylpyrr olidine (EDDP) [Presence] in Urine 07/22/2023 09:48:44 Negative Negative Final Opiates, Urine screen 07/22/2023 09:48:44 Refer to confirmation results Abnormal Negative Final oxyCODONE [Presence] in Urine by Screen method 07/22/2023 09:48:44 Refer to confirmation results Abnormal Negative Final FORENSIC VALID INTERPRETATION 07/22/2023 09:48:44 Normal Final Creatinine, Urine 07/22/2023 09:48:44 48 (mg/dL) Final Performing Location LAB[facility]ATORY [facility] [place] - [address] [facility] [address]
--- OUTSIDE RECORDS SUMMARY | 2023-12-29 15:24 | External Medical Summary ---
Author Name Unknown Address Unknown Organization [id number]:[facility] [place] [address] [facility] [address] [place] [address] Laboratory Report Ordering Provider Test Date Status KAMILLE DICKSON 07/22/2023 09:48:44 Final Observation Date Value Abnormality Reference (Units ) Status WBC, Total 07/22/2023 09:48:44 9.76 4.00-10.80 (K/uL) Final RBC 07/22/2023 09:48:44 3.92 3.85-5.15 (M/uL) Final Hemoglobin 07/22/2023 09:48:44 10.0 Below low normal 12.0-15.3 (g/dL) Final HCT 07/22/2023 09:48:44 34.1 Below low normal 36.0-45.2 (%) Final MCV 07/22/2023 09:48:44 87.0 81.5-97.5 (fL) Final MCH 07/22/2023 09:48:44 25.5 27.0-34.0 (pg) Final MCHC 07/22/2023 09:48:44 29.3 32.0-36.0 (g/dL) Final RDW 07/22/2023 09:48:44 20.7 11.5-15.5 (%) Final Platelets 07/22/2023 09:48:44 333 140-400 (K/uL) Final MPV 07/22/2023 09:48:44 9.9 6.6-11.1 (fL) Final Nucleated erythrocytes/100 leukocytes [Ratio] in Blood by Automated count 07/22/2023 09:48:44 0 <=0 (/100 WBCs) Final Performing Location [facility] [place] [address] [place] [address]
--- OUTSIDE RECORDS SUMMARY | 2023-12-29 15:24 | External Medical Summary | Summary of Care ---
Author Name Unknown Organization [facility] Address [address] [facility] [place] [address] Phone [phone] Care Team Providers Care Overhead Cleaner Name Role Phone Nathannikhil Blair Chava Primary Care Provid er Reason for Visit * Reason Comments Outpatient Testing Encounter Details Date Type Department Care Team (Late st Contact Info) Description 07/22/2023 9:50 AM EDT Laboratory Laboratory Patient Service [address] [phone] [address] Stage 3b chronic kidney disease (HCC); Mixed hyperlipidemia; Acquired hypothyroidism; PMR (polymyalgia rheumatica) (HCC); Generalized osteoarthritis Allergies Active Allergy Reactions Criticality Noted Date Comments Adhesive Tape 04/20/2004 Clarithromycin 10/03/2000 nausea documented as of this encounter (statuses as of 07/22/2023) Medications Medication Sig Dispensed Refills Start Date End Date Status Torsemide 20 MG Oral Tablet (Demadex)Indications :Hypertensive heart disease with heart failure (HCC) Take 2 Tablets by mouth in the morning and 2 Tablets before bedtime. 120 Tablet 3 06/24/2023 Active Ferrous Sulfate 325 (65 Fe) MG Oral Tablet (Feosol)Indications: Anemia, unspecified type Take 1 Tablet by [...] Tablet (Lipitor)Indications :Dyslipidemia, goal LDL below 130 Take 1 Tablet by mouth in the morning. 30 Tablet 1 06/24/2023 Active Levothyroxine Sodium 75 MCG Oral Tablet (Levoxyl)Indications :Acquired hypothyroidism TAKE 1 TABLET BY MOUTH ONCE DAILY AT LEAST 30 MINUTES PRIOR TO BREAKFAST AND OTHER MEDS 30 Tablet 1 06/24/2023 Active predniSONE 5 [...] with food. 180 Tablet 1 07/22/2023 Active HYDROcodone-Acetamin ophen 5-325 MG Oral TabletIndications:PM R (polymyalgia rheumatica) (HCC),Generalized osteoarthritis Take 1 Tablet by mouth every 6 hours as needed for Pain, Mild. 30 Tablet 0 07/22/2023 Active Cephalexin 500 MG Oral CapsuleIndications:C ellulitis of lower leg Take 1 Capsule by mouth in the morning and 1 Capsule at noon and 1 Capsule before bedtime. Do all this for 10 days. 30 Capsule 0 07/22/2023 08/01/2023 Active documented as of this encounter (statuses as of 07/22/2023) Active Problems Problem Noted Date Diagnosed Date Mixed hyperlipidemia 06/28/2022 Controlled substance agreement signed 12/09/2020 Stage 3b [...] as of this encounter (statuses as of 07/22/2023) Resolved Problems Problem Noted Date Diagnosed Date [...] Overview: lmp 1986, hrt x 2 yrs 1001-0384 IRON DEF ANEMIA DIETARY 08/26/200403/14 GENERAL OSTEOARTHROSIS [...] as of this encounter (statuses as of 07/22/2023) Immunizations Name Administration Dates Next Due COVID-19 [...] Care Team (Late st Contact Info) Description 07/28/2023 12:30 PM EDT [facility] Visit [facility] [place] [address] [place] [address] Bere Martin PA-C [address] [place] [address] [address] 08/29/2023 4:00 PM EDT Home Visit [facility] [place] [address] [facility] [place] [address] Mira Jalloh RN [address] [place] [address] 09/09/2023 12:00 PM EDT Office Visit [address] [phone] Chelly Steel MD [address] [place] [phone] Pending Results Name Type Priority Associated Diagnoses Date /Time BASIC METABOLIC PANEL Lab Routine Stage 3b chronic kidney disease (HCC) Mixed hyperlipidemia Acquired hypothyroidism 07/22/2023 9:48 AM EDT CBC WITH WBC DIFFERENTIAL Lab Routine Stage 3b chronic kidney disease (HCC) Mixed hyperlipidemia Acquired hypothyroidism 07/22/2023 9:48 AM EDT PHOSPHORUS Lab Routine Stage 3b chronic kidney disease (HCC) Mixed hyperlipidemia Acquired hypothyroidism 07/22/2023 9:48 AM EDT TSH WITH FREE T4 IF INDICATED Lab Routine Stage 3b chronic kidney disease (HCC) Mixed hyperlipidemia Acquired hypothyroidism 07/22/2023 9:48 AM EDT ALBUMIN / CREATININE RATIO, URINE Lab Routine Stage 3b chronic kidney disease (HCC) Mixed hyperlipidemia Acquired hypothyroidism 07/22/2023 9:48 AM EDT PAIN MANAGEMENT DRUG PANEL, URINE Lab Routine PMR (polymyalgia rheumatica) (HCC) Generalized osteoarthritis 07/22/2023 9:48 AM EDT CBC Lab Routine Stage 3b chronic kidney disease (HCC) Mixed hyperlipidemia Acquired hypothyroidism 07/22/2023 9:48 AM EDT DIFFERENTIAL, AUTOMATED Lab Routine Stage 3b chronic kidney disease (HCC) Mixed hyperlipidemia Acquired hypothyroidism 07/22/2023 9:48 AM EDT Scheduled Procedures Name Priority Associated Diagnoses Date/Ti me COLONOSCOPY CA SCRN HI RISK Recall History of colon polyps Health Maintenance Due Date Last Done Comments DXA Scan 06/29/2020 06/29/2018, 02/0 03/2012, 03/20/2010, Additional history exists COVID-19 Vaccine ( season) 2022 03/25/2021, 08/13/2020, 07/14/2020 Albumin/Creatinine Ratio 12/07/2022 022, 01/17/2020, 03/06/2019, Additional history exists CKD PHOS USE SMARTSET 44230 12/07/202211/13, 01/17/2020, 03/06/2019, Additional history exists Depression Screening 12/23/2022 12/23/2021 TSH 06/22/2023 06/21/2022, 11/13, 12/02/2020, Additional history exists *BISPHONATE OR OTHER ACCEPTABLE MEDICATION NEEDED FOR OSTEOPOROSIS (REFER TO SMARTSET #1146) 06/27/2023 CKD HGB USE SMARTSET 33413 06/23/202406/23, 06/24/2023, 06/14/2023, Additional history exists DTaP,Tdap,and Td Vaccines (2 - Td or Tdap) 11/29/2024 11/29/2014, 11/01/2007 Pneumococcal Vaccine: 65+ Years Completed 12/25/2015, 12/21/2005, 01/01/1999 VITAMIN D LEVEL ONCE IN A LIFETIME-USE SMARTSET# 38300 Completed 06/27/2020, 01/17/2020, 03/06/2019, Additional history exists [...] as of this encounter Visit Diagnoses Diagnosis Stage 3b chronic kidney disease (HCC) Mixed hyperlipidemia Acquired hypothyroidism Unspecified hypothyroidism PMR (polymyalgia rheumatica) (HCC) Polymyalgia rheumatica Generalized osteoarthritis Generalized osteoarthrosis, unspecified site documented in this encounter Care Teams Overhead Cleaner Relationship Specialty Start Date End Date Blair Kasper DO [address] [place] [id number] PCP - General Internal Medicine 09/03/20 documented as of this encounter
--- OUTSIDE RECORDS SUMMARY | 2023-12-29 15:24 | External Medical Summary ---
Author Name Unknown Address Unknown Organization K01:[facility]ATORY [facility] - [address] [place] [address] Laboratory Report Ordering Provider Test Date Status KAMILLE DICKSON 07/22/2023 09:48:44 Final Observation Date Value Abnormality Reference (Units ) Status T4, Free 07/22/2023 09:48:44 1.0 0.9-1.7 (n g/dL) Final Performing Location [facility] - [address] [place] [address]
--- OUTSIDE RECORDS SUMMARY | 2023-12-29 15:24 | External Medical Summary | Summary of Care ---
Author Name Unknown Organization [facility] Address [address] [facility] [place] [address] Phone [phone] Care Team Providers Care Scalper Operator Name Role Phone Blair Kasper DO Primary Care Provid er Reason for Visit * Reason Onset Date Comments Test Results 07/25/2023 Encounter Details Date Type Department Care Team ([facility] Contact Info) Description 07/25/[address] [phone] Blair Kasper DO [address] [place] [phone] Test Results Allergies Active Allergy Reactions Criticality Noted Date Comments Adhesive Tape 04/20/2004 Clarithromycin 10/03/2000 nausea documented as of this encounter (statuses as of 07/27/2023) Medications Medication Sig Dispensed Refills Start Date [...] ns:Chronic pain of both knees,PMR (polymyalgia rheumatica) ([facility]) Take 1 Tablet by mouth in the morning. 90 Tablet 1 06/24/2023 Active Sertraline HCl 100 MG Oral Tablet (Zoloft)Indications: Depression with anxiety TAKE 1 TABLET BY MOUTH ONCE DAILY IN THE MORNING 90 Tablet 2 06/24/2023 Active Carvedilol 3.125 MG Oral Tablet (Coreg)Indications:H ypertensive heart disease with heart failure ([facility]) Take 1 Tablet by mouth in the [...] days. 30 Capsule 0 07/22/2023 08/01/2023 Active Allopurinol 100 MG Oral Tablet (Zyloprim) Take 1 Tablet by mouth in the morning. 90 Tablet 1 07/22/2023 Active Levothyroxine Sodium 100 MCG Oral Tablet (Levoxyl)Indications :Acquired hypothyroidism Take 1 Tablet by mouth in the morning. (at least 30 min prior to breakfast or other meds). 90 Tablet 1 07/23/2023 Active documented as of this encounter (statuses as of 07/27/2023) Active Problems Problem Noted Date Diagnosed Date [...] as of this encounter (statuses as of 07/27/2023) Resolved Problems Problem Noted Date Diagnosed Date [...] Overview: lmp 1987, hrt x 2 yrs [id number] IRON DEF ANEMIA DIETARY 08/26/200403/14 GENERAL OSTEOARTHROSIS [...] as of this encounter (statuses as of 07/27/2023) Immunizations Name Administration Dates Next Due COVID-19 [...] Telephone Encounter - Reta Silva LPN - 07/27/2023 1:15 PM EDT Spoke with pt and gave message below. Pt verbalized understanding and had no further questions or concerns at this time. * Telephone Encounter - Reta Silva LPN - 07/25/2023 9:35 AM EDT ----- Message from Blair Kasper DO sent at 07/23/2023 12:19 PM EDT ----- Reviewed patient lab results. TSH slightly elevated 6.26. Free T4 low end of normal 1.0. Would liketo increase levothyroxine to 100 mcg daily. New prescription sent to [facility] Other results looked okay. Renal function back roll lathe operator to baseline. Continue other management documented in this encounter Plan of Treatment Upcoming Encounters Date Type Department Care Team (Late st Contact Info) Description 07/28/2023 12:30 PM EDT [facility] Visit [facility] [address] [place] [address] Bere Martin PA-C [address] [place] [address] 08/29/2023 4:00 PM EDT Home Visit [facility], [facility] [address] [place] [address] Mira Jalloh RN [address] [place] [address] 09/09/2023 12:00 PM EDT Office Visit [address] [phone] Chelly Steel MD [address] [place] [phone] Scheduled Procedures Name Priority Associated Diagnoses [...] Additional history exists CKD HGB USE SMARTSET 00116 07/21/202407/21, 07/22/2023, 06/24/2023, Additional history exists CKD PHOS USE SMARTSET 67468 07/21/202407/12, 12/07/2021, 01/17/2020, Additional history exists Depression Screening 07/21/2024 07/22/2023 TSH 07/21/2024 07/22/2023, 06/12, 12/07/2021, Additional history exists DTaP,Tdap,and Td Vaccines (2 - Td or Tdap) 11/29/2024 11/29/2014, 11/01/2007 Pneumococcal Vaccine: 65+ Years Completed 12/25/2015, 12/21/2005, 01/01/1999 VITAMIN D LEVEL ONCE IN A LIFETIME-USE SMARTSET# [id number] Completed 06/27/2020, 01/17/2020, 03/06/2019, Additional history exists [...] filedocumented as of this encounter Care Teams Scalper Operator Relationship Specialty Start Date End Date Blair Kasper DO [address] [place] [address] [phone] PCP - General Internal Medicine 09/03/20 documented as of this encounter
--- OUTSIDE RECORDS SUMMARY | 2023-12-29 15:24 | External Medical Summary ---
Author Name Unknown Address Unknown Organization K01:[facility] - [address] [place] [address] Laboratory Report Ordering Provider Test Date Status KAMILLE DICKSON 07/22/2023 09:48:44 Final Observation Date Value Abnormality Reference (Units ) Status Phosphate 07/22/2023 09:48:44 3.6 2.5-4.8 (m g/dL) Final Performing Location [facility] [address] [place] [address]
--- OUTSIDE RECORDS SUMMARY | 2023-12-29 15:24 | External Medical Summary ---
Author Name Unknown Address Unknown Organization K01:[facility] - [address] [facility] [address] [place] [address] Laboratory Report Ordering Provider Test Date Status KAMILLE DICKSON 07/22/2023 09:48:44 Final Cutoff Concentrations:
D rug \X09\\X09\ Level
Tramadol 50 ng/mL
O- Desmethyltramadol 50 ng/mL

This test was developed and its performance characteristics determined by [facility]. It has not been cleared or approved by the [place] Food and Drug Administration.
null Observation Date Value Abnormality Reference (Units ) Status METHODOLOGY 07/22/2023 09:48:44 LC-MS/MS Final TRAMADOL CONFIRMATION, U (CATEGORY) 07/22/2023 09:48:44 Negative Negative Final O-nortramadol [Mass/volume] in Urine by Confirmatory method 07/22/2023 09:48:44 >50 Above high normal Negative (ng/mL) Final Performing Location [facility] - [address] [place] [address]
--- OUTSIDE RECORDS SUMMARY | 2023-12-29 15:24 | External Medical Summary | Summary of Care ---
Author Name Unknown Organization [facility] Address [address] [facility] [place] [address] Phone [phone] Care Team Providers Care Vertical Punch Operator Name Role Phone Nathannikhil Blair Chava Primary Care Provid er Reason for Visit * Reason Comments Outpatient Testing Encounter Details Date Type Department Care Team (Late st Contact Info) Description 07/22/2023 9:50 AM EDT Laboratory Laboratory Patient Service [address] [phone] [address] Stage 3b chronic kidney disease (HCC); Mixed hyperlipidemia; Acquired hypothyroidism; PMR (polymyalgia rheumatica) (HCC); Generalized osteoarthritis Allergies Active Allergy Reactions Criticality Noted Date Comments Adhesive Tape 04/20/2004 Clarithromycin 10/03/2000 nausea documented as of this encounter (statuses as of 07/23/2023) Medications Medication Sig Dispensed Refills Start Date [...] ons:Chronic pain of both knees,PMR (polymyalgia rheumatica) ([facility]) Take 1 Tablet by mouth in the morning. 90 Tablet 1 06/24/2023 Active Sertraline HCl 100 MG Oral Tablet (Zoloft)Indications :Depression with anxiety TAKE 1 TABLET BY MOUTH ONCE DAILY IN THE MORNING 90 Tablet 2 06/24/2023 Active Carvedilol 3.125 MG Oral Tablet (Coreg)Indications: Hypertensive heart disease with heart failure ([facility]) Take 1 Tablet by mouth in the morning and 1 Tablet before bedtime. with food. 180 Tablet 1 07/22/2023 Active HYDROcodone-Acetami nophen 5-325 MG Oral TabletIndications:P MR (polymyalgia rheumatica) ([facility]),Generalized osteoarthritis Take 1 Tablet by mouth every 6 hours as needed for Pain, Mild. 30 Tablet 0 07/22/2023 Active Cephalexin 500 MG Oral CapsuleIndications: Cellulitis of lower leg Take 1 Capsule by mouth in the morning and 1 Capsule at noon and 1 Capsule before bedtime. Do all this for 10 days. 30 Capsule 0 07/22/2023 4 Active Levothyroxine Sodium 100 MCG Oral Tablet (Levoxyl)Indication s:Acquired hypothyroidism Take 1 Tablet by mouth in the morning. (at least 30 min prior to breakfast or other meds). 90 Tablet 1 07/23/2023 Active Levothyroxine Sodium 75 MCG Oral Tablet (Levoxyl)Indication s:Acquired hypothyroidism TAKE 1 TABLET BY MOUTH ONCE DAILY AT LEAST 30 MINUTES PRIOR TO BREAKFAST AND OTHER MEDS 30 Tablet 1 06/24/2023 4 Discontinue d(Medicatio n/Dose Changed) documented as of this encounter (statuses as of 07/23/2023) Active Problems Problem Noted Date Diagnosed Date [...] as of this encounter (statuses as of 07/23/2023) Resolved Problems Problem Noted Date Diagnosed Date [...] Overview: lmp 1987, hrt x 2 yrs [address] IRON DEF ANEMIA DIETARY 08/26/200403/14 GENERAL OSTEOARTHROSIS [...] as of this encounter (statuses as of 07/23/2023) Immunizations Name Administration Dates Next Due COVID-19 [...] encounter Miscellaneous Notes * Addendum Note - Blair Simental DO - 07/23/2023 12:19 PM EDT Addended by: BLAIR SIMENTAL on: 07/23/2023 12:19 PM Modules accepted: Orders documented in this encounter Plan of Treatment Upcoming Encounters Date Type Department Care Team ([facility] Contact Info) Description 07/28/2023 12:30 PM EDT Home Visit [facility] [address] [place] [address] Bere Martin PA-C [address] [place] [address] 08/29/2023 4:00 PM EDT Home Visit [facility], [facility] [address] [place] [address] Mira Jalloh RN [address] [place] [address] 09/09/2023 12:00 PM EDT Office Visit Family [address] [phone] Chelly Steel MD [address] [place] [phone] Pending Results Name Type Priority Associated Diagnoses Date /Time PAIN MANAGEMENT DRUG PANEL, URINE Lab Routine PMR (polymyalgia rheumatica) (HCC) Generalized osteoarthritis 07/22/2023 9:48 AM EDT Scheduled Procedures Name Priority Associated Diagnoses Date/Ti me COLONOSCOPY CA SCRN HI RISK Recall History of colon polyps Health Maintenance Due Date Last Done Comments DXA Scan 06/29/2020 06/29/2018, 020 03/2012, 03/20/2010, Additional history exists COVID-19 Vaccine ( season) 2022 03/25/2021, 08/13/2020, 07/14/2020 *BISPHONATE OR OTHER ACCEPTABLE MEDICATION NEEDED FOR OSTEOPOROSIS (REFER TO SMARTSET #1146) 06/27/2023 Albumin/Creatinine Ratio 07/21/20242 024, 12/07/2021, 01/17/2020, Additional history exists CKD HGB USE SMARTSET 05461 07/21/202407/21, 07/22/2023, 06/24/2023, Additional history exists CKD PHOS USE SMARTSET 88026 07/21/202407/12, 12/07/2021, 01/17/2020, Additional history exists Depression Screening 07/21/2024 07/22/2023 TSH 07/21/2024 07/22/2023, 06/12, 12/07/2021, Additional history exists DTaP,Tdap,and Td Vaccines (2 - Td or Tdap) 11/29/2024 11/29/2014, 11/01/2007 Pneumococcal Vaccine: 65+ Years Completed 12/25/2015, 12/21/2005, 01/01/1999 VITAMIN D LEVEL ONCE IN A LIFETIME-USE SMARTSET# [id number] Completed 06/27/2020, 01/17/2020, 03/06/2019, Additional history exists [...] Not on filedocumented as of this encounter Procedures Procedure Name Priority Date/Time Associated Diagnosis Comments DIFFERENTIAL, AUTOMATED Routine 07/22/2023 9:48 AM EDT Stage 3b chronic kidney disease (HCC) Mixed hyperlipidemia Acquired hypothyroidism TSH WITH FREE T4 IF INDICATED Routine 07/22/2023 9:48 AM EDT Stage 3b chronic kidney disease (HCC) Mixed hyperlipidemia Acquired hypothyroidism BASIC METABOLIC PANEL Routine 07/22/2023 9:48 AM EDT Stage 3b chronic kidney disease (HCC) Mixed hyperlipidemia Acquired hypothyroidism CBC Routine 07/22/2023 9:48 AM EDT Stage 3b chronic kidney disease (HCC) Mixed hyperlipidemia Acquired hypothyroidism PHOSPHORUS Routine 07/22/2023 9:48 AM EDT Stage 3b chronic kidney disease (HCC) Mixed hyperlipidemia Acquired hypothyroidism ALBUMIN / CREATININE RATIO, URINE Routine 07/22/2023 9:48 AM EDT Stage 3b chronic kidney disease (HCC) Mixed hyperlipidemia Acquired hypothyroidism CBC Routine 07/22/2023 9:48 AM EDT Stage 3b chronic kidney disease (HCC) Mixed hyperlipidemia Acquired hypothyroidism T4, FREE Routine 07/22/2023 9:48 AM EDT Stage 3b chronic kidney disease (HCC) Mixed hyperlipidemia Acquired hypothyroidism documented in this encounter Results * T4, FREE (07/22/2023 9:48 AM EDT) T4, Free 1.0 0.9 - 1.7 ng/dL 07/22/2023 8:05 PM EDT [facility] Blood Venous blood specimen / Unknown Venipuncture / Unknown 07/22/2023 9:48 AM EDT 07/22/2023 9:48 AM EDT Blair Simental DO LAB BLOOD OR DERABLES Performing Organization Address City/State/[facility] Co de Phone Number [facility] [address] [place] [address] * DIFFERENTIAL, AUTOMATED (07/22/2023 9:48 AM EDT) WBC 9.76 4.00 - 10.80 K/uL 07/22/2023 6:00 PM EDT [facility] Neutrophils % 69.9 40.0 - 75.0 % 07/22/2023 6:00 PM EDT [facility] Lymphocytes % 19.8 18.0 - 42.0 % 07/22/2023 6:00 PM EDT [facility] Monocytes % 7.3 1.0 - 11.0 % 07/22/2023 6:00 PM EDT [facility] Eosinophils % 2.2 0.0 - 6.0 % 07/22/2023 6:00 PM EDT [facility] Basophils % 0.4 0.0 - 2.0 % 07/22/2023 6:00 PM EDT [facility] Immature Granulocytes % 0.4 0.0 - 2.0 % 07/22/2023 6:00 PM EDT [facility] Absolute Neutrophils 6.83 1.80 - 7.70 K/uL 07/22/2023 6:00 PM EDT [facility] Absolute Lymphocytes 1.93 1.00 - 4.80 K/ul 07/22/2023 6:00 PM EDT [facility] Absolute Monocytes 0.71 0.00 - 1.10 K/uL 07/22/2023 6:00 PM EDT [facility] Absolute Eosinophils 0.21 0.00 - 0.70 K/uL 07/22/2023 6:00 PM EDT [facility] Absolute Basophils 0.04 0.00 - 0.20 K/uL 07/22/2023 6:00 PM EDT [facility] Absolute Immature Granulocytes 0.04 0.00 - 0.20 K/uL 07/22/2023 6:00 PM EDT [facility] Blood Venous blood specimen / Unknown Venipuncture / Unknown 07/22/2023 9:48 AM EDT 07/22/2023 9:48 AM EDT Blair Simental DO LAB BLOOD OR DERABLES Performing Organization Address City/State/[facility] Co de Phone Number [facility] [address] [place] [address] * (ABNORMAL) CBC (07/22/2023 9:48 AM EDT) [facility] WBC 9.76 4.00 - 10.80 K/uL 07/22/2023 6:00 PM EDT [facility] RBC 3.92 3.85 - 5.15 M/uL 07/22/2023 6:00 PM EDT [facility] HGB 10.0(L) 12.0 - 15.3 g/dL 07/22/2023 6:00 PM EDT [facility] HCT 34.1(L) 36.0 - 45.2 % 07/22/2023 6:00 PM EDT [facility] MCV 87.0 81.5 - 97.5 fL 07/22/2023 6:00 PM EDT [facility] MCH 25.5 27.0 - 34.0 pg 07/22/2023 6:00 PM EDT [facility] MCHC 29.3 32.0 - 36.0 g/dL 07/22/2023 6:00 PM EDT [facility] RDW 20.7 11.5 - 15.5 % 07/22/2023 6:00 PM EDT [facility] PLT 333 140 - 400 K/uL 07/22/2023 6:00 PM EDT [facility] MPV 9.9 6.6 - 11.1 fL 07/22/2023 6:00 PM EDT [facility] nRBCs 0 <=0 /100 WBCs 07/22/2023 6:00 PM EDT [facility] Blood Venous blood specimen / Unknown Venipuncture / Unknown 07/22/2023 9:48 AM EDT 07/22/2023 9:48 AM EDT Blair Simental DO LAB BLOOD OR DERABLES Performing Organization Address City/State/[facility] Co de Phone Number [facility] [address] [place] [address] * (ABNORMAL) ALBUMIN / CREATININE RATIO, URINE (07/22/2023 9:48 AM EDT) Pathologist [facility] Albumin, Random Urine 4.58 mg/dL 07/22/2023 5:23 PM EDT [facility] Creatinine, Random Urine 48 mg/dL 07/22/2023 5:23 PM EDT [facility] Albumin / Creatinine Ratio, Urine 95(H) <30 mg/g Creat 07/22/2023 5:23 PM EDT [facility] Urine Urine specimen obtained by clean catch procedure / Unknown Non-blood Collection / Unknown 07/22/2023 9:48 AM EDT 07/22/2023 9:48 AM EDT Narrative [facility] - 07/22/2023 5:23 PM EDT Normal: <30 mg/g creatinine High: 30-300 mg/g creatinine Very High: >300 mg/g creatinine Nephrotic: >2200 mg/g creatinine Blair Simental DO LAB URINE OR DERABLES Performing Organization Address City/[facility] Co de Phone Number [facility] [address] [place] [address] * (ABNORMAL) TSH WITH FREE T4 IF INDICATED (07/22/2023 9:48 AM EDT) TSH 6.26(H) 0.27 - 4.20 uIU/mL 07/22/2023 7:29 PM EDT LAB[facility]ORY C Blood Venous blood specimen / Unknown Venipuncture / Unknown 07/22/2023 9:48 AM EDT 07/22/2023 9:48 AM EDT Blair Simental LAB BLOOD OR DERABLES Performing Organization Address [facility] Co de Phone Number [facility] [address] [place] [address] * PHOSPHORUS (07/22/2023 9:48 AM EDT) Phosphorus 3.6 2.5 - 4.8 mg/dL 07/22/2023 7:02 PM EDT [facility] Blood Venous blood specimen / Unknown Venipuncture / Unknown 07/22/2023 9:48 AM EDT 07/22/2023 9:48 AM EDT Blair Simental DO LAB BLOOD OR DERABLES Performing Organization Address City/[facility] Co de Phone Number [facility] [address] [place] [address] * (ABNORMAL) BASIC METABOLIC PANEL (07/22/2023 9:48 AM EDT) BUN 21(H) 6 - 20 mg/dL 07/22/2023 7:02 PM EDT [facility] Creatinine 1.2(H) 0.5 - 1.0 mg/dL 07/22/2023 7:02 PM EDT [facility] Estimated Glomerular Filtration Rate 46(L) >=60 mL/min 07/22/2023 7:02 PM EDT [facility] Comment:eGFR is calculated b ased on the CKD-EPI 2020 equation Sodium 143 135 - 146 mmol/L 07/22/2023 7:02 PM EDT [facility] Potassium 3.7 3.5 - 5.1 mmol/L 07/22/2023 7:02 PM EDT [facility] Chloride 102 98 - 107 mmol/L 07/22/2023 7:02 PM EDT [facility] CO2 27 22 - 32 mmol/L 07/22/2023 7:02 PM EDT [facility] Anion Gap 14 7 - 15 mmol/L 07/22/2023 7:02 PM EDT [facility] Glucose 89 70 - 120 mg/dL 07/22/2023 7:02 PM EDT [facility] Calcium 9.1 8.4 - 10.2 mg/dL 07/22/2023 7:02 PM EDT [facility] Blood Venous blood specimen / Unknown Venipuncture / Unknown 07/22/2023 9:48 AM EDT 07/22/2023 9:48 AM EDT Blair Simental DO LAB BLOOD OR DERABLES [facility] [address] [place] [address] documented in this encounter Visit Diagnoses Diagnosis Stage 3b chronic kidney disease (HCC) Mixed hyperlipidemia Acquired hypothyroidism Unspecified hypothyroidism PMR (polymyalgia rheumatica) (HCC) Polymyalgia rheumatica Generalized osteoarthritis Generalized osteoarthrosis, unspecified site documented in this encounter Care Teams Vertical Punch Operator Relationship Specialty Start Date End Date Blair Simental DO [address] [place] [phone] PCP - General Internal Medicine 09/03/20 documented as of this encounter
--- OUTSIDE RECORDS SUMMARY | 2023-12-29 15:24 | External Medical Summary | Summary of Care ---
Author Name Unknown Organization [facility] Address [address] [place] [address] Phone [phone] Care Team Providers Care Staff Pharmacist Name Role Phone Blair Kasper DO Primary Care Provid er Reason for Referral * Medication Prior Authorization - Pending Review Specialty Diagnoses / Procedures Referred By Shannan frausto Referred To Contact Diagnoses PMR (polymyalgia rheumatica) (HCC) Generalized osteoarthritis Blair Kasper DO [address] [place] [address] Referral ID Status Reason Start Date Expiration Date V isits Requested Visits Authorized [id number] Pending Review 999 [id number] Reason for Visit * Reason Comments Follow Up Pt is present today for a 6 mos follow up.Pt states she has concerns today she would like injections in her left knee and right arm. She states she fell a couple weeks ago. She has a cut on arm she has been bandaging. Pt also has edama bilateral and has been going on for awhile. Home nurse feels she needs antibiotic. Pt states her edema is painful. 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)*; Primary osteoarthritis of right shoulder; Idiopathic chronic gout of multiple sites without tophus; Stage 3b chronic kidney disease (HCC); Mixed hyperlipidemia; Acquired hypothyroidism; Vitamin D deficiency; PMR (polymyalgia rheumatica) ([facility]); Generalized osteoarthritis; PAF (paroxysmal atrial fibrillation) ([facility]); Dyslipidemia, goal LDL below 130; Anemia due to stage 3b chronic kidney disease ([facility]); Skin tear of left forearm without complication, initial encounter; Cellulitis of lower leg; Screening for depression Allergies Active Allergy Reactions Criticality Noted Date Comments Adhesive Tape 04/20/2004 Clarithromycin 10/03/2000 nausea documented as of this encounter (statuses as of 07/22/2023) Medications Medication Sig Dispensed Refills Start Date End Date Status Torsemide 20 MG Oral Tablet (Demadex)Indication s:Hypertensive heart disease with heart failure ([facility]) Take 2 Tablets by mouth in the morning and 2 Tablets before bedtime. 120 Tablet 3 06/24/2023 Active Ferrous Sulfate 325 (65 Fe) MG Oral Tablet (Feosol)Indications :Anemia, unspecified type Take 1 Tablet by mouth daily with breakfast. 30 Tablet 3 06/24/2023 Active Potassium Chloride ER 10 MEQ Oral Capsule Extended ReleaseIndications: Hypertensive heart disease with heart failure ([facility]) Take 2 Capsules by mouth in the [...] ons:Chronic pain of both knees,PMR (polymyalgia rheumatica) ([facility]) Take 1 Tablet by mouth in the [...] 5-325 MG Oral TabletIndications:P MR (polymyalgia rheumatica) ([facility]),Generalized osteoarthritis Take 1 Tablet by mouth every 6 hours as needed for Pain, Mild. 30 Tablet 0 07/22/2023 Active Cephalexin 500 MG Oral CapsuleIndications: Cellulitis of lower leg Take 1 Capsule by mouth in the morning and 1 Capsule at noon and 1 Capsule before bedtime. Do all this for 10 days. 30 Capsule 0 07/22/2023 4 Active Allopurinol 100 MG Oral Tablet (Zyloprim) Take 1 Tablet by mouth in the morning. 90 Tablet 1 07/22/2023 Active traMADol HCl 25 MG Oral TabletIndications:C hronic pain of both knees Take 50 mg by mouth every 6 hours as needed for Pain, Moderate. 60 Tablet 0 06/24/2023 4 Discontinue d(Patient preference/ discontinua tion) Carvedilol 6.25 MG Oral Tablet (Coreg)Indications: Hypertensive heart and kidney disease with chronic diastolic congestive heart failure and stage 3b chronic kidney disease (HCC) Take 1 Tablet by mouth 2 times a day with morning and evening meals. 60 Tablet 3 06/24/2023 4 Discontinue d(Medicatio n/Dose Changed) Multi Vitamin Daily Oral TabletIndications:H ypertensive heart disease with heart failure (HCC) Take 1 Tablet by mouth once for 1 dose. 30 Tablet 3 06/24/2023 4 Discontinue d(Patient preference/ discontinua tion) Hospital, Clinic, or Other Facility Administered Medication Ordered Dose Route Frequency Start Date End Date Status lidocaine 1 % inj 10 mgIndications:Primary osteoarthritis of right shoulder 10 mg IX ONCE 07/22/2023 07/22/2023 Ended Triamcinolone Acetonide (Kenalog) 40 MG/ML inj 40 mgIndications:Primary osteoarthritis of right shoulder 40 mg IX ONCE 07/22/2023 07/22/2023 Ended dexAMETHasone Sodium Phosphate (Decadron) 4 MG/ML inj 4 mgIndications:Primary osteoarthritis of right shoulder 4 mg IX ONCE 07/22/2023 07/22/2023 Ended documented as of this encounter (statuses [...] Hypertensive heart disease with heart failure 08/27/19 06/02/2018 Thoracic aortic aneurysm without rupture 08/26/2017 [...] Overview: lmp 1987, hrt x 2 yrs [id number] IRON DEF ANEMIA DIETARY 08/26/200403/14 GENERAL OSTEOARTHROSIS [...] Date Smoking Tobacco: Never Smokeless Tobacco: Never Tobacco Cessation:Counseling Given: Not Answered Alcohol Use Standard Drinks/Week Comments No 0 [...] Sign Reading Time Taken Comments Blood Pressure 128/86 07/22/2023 8:52 AM EDT Pulse 74 07/22/2023 8:52 AM EDT Temperature 36.2 C (97.2 F) 07/22/2023 8:52 AM ED T Respiratory Rate 20 07/22/2023 8:52 AM EDT Oxygen Saturation 95% 07/22/2023 8:52 AM EDT Inhaled Oxygen Concentration - - Weight 63.7 kg (140 lb 8 oz) 07/22/2023 8:52 AM EDT Height 141.6 cm (4' 7.75") 07/22/2023 8:52 AM ED T Body Mass Index 31.78 07/22/2023 8:52 AM EDT documented in this encounter Progress Notes * Blair Kasper, - 07/22/2023 9:04 AM EDT Subjective Judith Crowe is a 87 year old female. Chief Complaint Patient presents with Follow Up Pt is present today for a 6 mos follow up. Pt states she has concerns today she would like injections in her left knee and right arm. She states she fell a couple weeks ago. She has a cut on arm she has been bandaging. Pt also has edama bilateral and has been going on for awhile. Home nurse feels she needs antibiotic. Pt states her edema ispainful. HPI: Patient presents to the office for routine follow up. Lab work from June 2023 reviewed with patient. Medication list reviewed. Patient has history of DJD of multiple joints. Historically has taken hydrocodone/APAP 5-325 mg every 6 hours as needed for this. Medication does work well. PDMP checked without issues. For some reason this was switched to tramadol since her last hospitalization. She had also been admitted to hospice. States current medication does not seem to help. Also wondering if she could have injection in her right shoulder as well as both of her knees. These have helped in the past She does note some swelling in both lower extremities. She does have this chronically. Son has ensured that she is elevating her legs while at home. They have gotten a lift chair which is very helpful. Legs look less swollen overall but for the past 48 hours have looked more red and have been tender to touch. No obvious cuts or injuries noted Patient did have a fall 2 weeks ago. No loss of consciousness or head strike. Does have a skin tearto her left forearm. Son has been placing Neosporin and dressing over daily. Wanted to have checkedto make sure healing right Patient does have history of hypertensive heart disease with CHF. Not currently volume overloaded. Does take torsemide 40 mg twice daily. Tolerating without side effects. Did have recent VENTURA after hospital stay. Last creatinine slightly improved to 1.4. Does not note any acute urinary symptoms. Is on carvedilol 6.25 mg twice daily for hypertension however son notes her blood pressure has been on the lower side. He worries about her getting dizzy. They have since only been doing carvedilol 6.25 mg once daily Has history of PMR maintained on prednisone 5 mg daily. Seems to control symptoms well overall. Didhowever note possible nodule in her distal right pointer finger as well as distal right 2nd toe. Just a distal areas of these joints were red and slightly swollen. Some tenderness. No obvious drainage PMH: Patient Active Problem List Diagnosis Code ADVANCE DIRECTIVE INFORMATION Age-related osteoporosis without current pathological fracture M81.0 Generalized osteoarthritis M15.9 BMI 35-39 ISOLATED (SEE ACTUAL BMI) E66.9 Vitamin D deficiency E55.9 Hypertensive heart and kidney disease with chronic diastolic congestive heart failure and stage 3b chronic kidney disease ([facility]) I13.0, I50.32, N18.32 Acquired hypothyroidism E03.9 PMR (polymyalgia rheumatica) ([facility]) M35.3 Nonrheumatic aortic valve stenosis I35.0 Stage 3b chronic kidney disease ([facility]) N18.32 Controlled substance agreement signed Z79.899 Mixed hyperlipidemia E78.2 Current Outpatient Medications Medication Sig Dispense Refill traMADol HCl 25 MG Oral Tablet Take 50 mg by mouth every 6 hours as needed for Pain, Moderate. 60 Tablet 0 Torsemide 20 MG Oral Tablet (Demadex) Take 2 Tablets by mouth in the morning and 2 Tablets before bedtime. 120 Tablet 3 Carvedilol 6.25 MG Oral Tablet (Coreg) Take 1 Tablet by mouth 2 times a day with morning and evening meals. 60 Tablet 3 Ferrous Sulfate 325 (65 Fe) MG Oral Tablet (Feosol) Take 1 Tablet by mouth daily with breakfast. 30Tablet 3 Potassium Chloride ER 10 MEQ Oral Capsule Extended Release Take 2 Capsules by mouth in the morning and 2 Capsules before bedtime. 120 Capsule 5 Aspirin 81 MG Oral Tablet Chewable 1 chewable by mouth daily to prevent heart attack 100 Tablet 5 Atorvastatin Calcium 20 MG Oral Tablet (Lipitor) Take 1 Tablet by mouth in the morning. 30 Tablet 1 Levothyroxine Sodium 75 MCG Oral Tablet (Levoxyl) TAKE 1 TABLET BY MOUTH ONCE DAILY AT LEAST 30 MINUTES PRIOR TO BREAKFAST AND OTHER MEDS 30 Tablet 1 predniSONE 5 MG Oral Tablet (Deltasone) Take 1 Tablet by mouth in the morning. 90 Tablet 1 Sertraline HCl 100 MG Oral Tablet (Zoloft) TAKE 1 TABLET BY MOUTH ONCE DAILY IN THE MORNING 90 Tablet 2 No current facility-administered medications for this visit. 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 Cardiovascular: Negative for chest pain and palpitations. Gastrointestinal: Negative for abdominal distention, abdominal pain, nausea and vomiting. Genitourinary: Negative for dysuria and frequency. Musculoskeletal: Positive for arthralgias, back pain and joint swelling. Negative for myalgias. Skin: Positive for wound. Negative for pallor and rash. Neurological: Negative for dizziness, light-headedness and headaches. Psychiatric/Behavioral: Negative for sleep disturbance. The patient is not nervous/anxious. Objective BP 128/86 | Pulse 74 | Temp 36.2 C (97.2 F) (Tympanic) | Resp 20 | Ht 1.416 m (4' 7.75") | Wt 63.7 kg (140 lb 8 oz) | SpO2 95% | BMI 31.78 kg/m | BSA 1.58 m Physical Exam Constitutional: General: She is [...] tenderness or left CVA tenderness. Musculoskeletal: General: Swelling and tenderness present. No deformity. Normal range of motion. Cervical back: Normal range of motion and neck supple. Right lower leg: No edema. Left lower leg: No edema. Comments: There is some localized swelling around DIP joints of the right pointer finger. Some mildtenderness. No obvious redness or swelling elsewhere. Those also similar swelling of the distal right 2nd toe. Lymphadenopathy: Cervical: No cervical adenopathy. Skin: General: Skin is warm and dry. Coloration: Skin is not jaundiced. Findings: No rash. Comments: Small skin tear about 2-3 cm long left forearm. No signs of secondary infection Neurological: General: No focal deficit present. Mental Status: She is oriented to person, place, and time. Cranial Nerves: No cranial nerve deficit. Sensory: No sensory deficit. Motor: No weakness. Psychiatric: Mood and Affect: Mood normal. Behavior: Behavior normal. Procedure note: Cortisone injection right shoulder Patient presents to office with chronic joint pain. Notes currently in both of her knees. Known DJDhere. Also known DJD of the right shoulder. Asking for cortisone injection as these have helped in the past. Explained to patient that due to her current swelling in her legs as well as possible redness, not safe to do knee injection at this time. However okay to proceed with right shoulder injection. Explained risks versus benefits and patient agrees to continue. Posterior right shoulder landmarks were identified. Area cleaned with Betadine/alcohol swab. Cold spray used for topical anesthesia.Solution containing triamcinolone/Decadron/lidocaine successfully introduced into right shoulder joint space without issues. No blood loss. Patient tolerated Latest Reference Range & Units 06/14/23 12:12 06/24/23 15:40 Sodium 135 - 146 mmol/L 137 140 Potassium 3.5 - 5.1 mmol/L 4.6 3.6 Chloride 98 - 107 mmol/L 100 101 CO2 22 - 32 mmol/L 22 24 BUN 6 - 20 mg/dL 29 (H) 27 (H) Creatinine 0.5 - 1.0 mg/dL 1.9 (H) 1.4 (H) Estimated Glomerular Filtration Rate >=60 mL/min 25 (L) 37 (L) Anion Gap 7 - 15 mmol/L 15 15 Glucose 70 - 120 mg/dL 118 99 Calcium 8.4 - 10.2 mg/dL 9.4 9.6 Protein 6.0 - 8.3 g/dL 7.0 Uric Acid 2.4 - 5.7 mg/dL 12.3 (H) CBC Rpt ! Rpt ! WBC 4.00 - 10.80 K/uL 9.17 10.76 RBC 3.85 - 5.15 M/uL 3.88 4.13 HGB 12.0 - 15.3 g/dL 9.3 (L) 10.2 (L) HCT 36.0 - 45.2 % 32.2 (L) 34.7 (L) MCV 81.5 - 97.5 fL 83.0 84.0 MCH 27.0 - 34.0 pg 24.0 24.7 MCHC 32.0 - 36.0 g/dL 28.9 29.4 RDW 11.5 - 15.5 % 20.4 20.0 PLT 140 - 400 K/uL 483 (H) 360 MPV 6.6 - 11.1 fL 9.0 9.9 CBC WITH WBC DIFFERENTIAL Rpt ! Absolute Neutrophils 1.80 - 7.70 K/uL 7.12 Absolute Lymphocytes 1.00 - 4.80 K/ul 2.34 Absolute Monocytes 0.00 - 1.10 K/uL 1.03 Absolute Eosinophils 0.00 - 0.70 K/uL 0.18 Absolute Basophils 0.00 - 0.20 K/uL 0.05 IRON SCREEN, INCLUDING TIBC Rpt ! Iron 33 - 151 ug/dL 22 (L) Iron Binding Capacity 250 - 425 ug/dL 357 Transferrin Saturation Percent 15 - 55 % 6 (L) Albumin 3.8 - 5.0 g/dL 3.9 AST 10 - 35 U/L 22 ALT 10 - 35 U/L 17 Alkaline Phosphatase 35 - 130 U/L 180 (H) Bilirubin, Total <=1.2 mg/dL 0.2 (H): Data is abnormally high (L): Data is abnormally low !: Data is abnormal Rpt: View report in Results Review for more information ASSESSMENT/PLAN: Hypertensive heart disease with heart failure (HCC) (Primary) - Carvedilol 3.125 MG Oral Tablet (Coreg); Take 1 Tablet by mouth in the morning and 1 Tablet before bedtime. with food. 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 (HCC) - BASIC METABOLIC PANEL; Future; Expected date: 07/22/2023 - CBC WITH WBC DIFFERENTIAL; Future; Expected date: 07/22/2023 - PHOSPHORUS; Future; Expected date: 07/22/2023 - TSH WITH FREE T4 IF INDICATED; Future; Expected date: 07/22/2023 - ALBUMIN / CREATININE RATIO, URINE; Future; Expected date: 07/22/2023 Mixed hyperlipidemia - BASIC METABOLIC PANEL; Future; Expected date: 07/22/2023 - CBC WITH WBC DIFFERENTIAL; Future; Expected date: 07/22/2023 - PHOSPHORUS; Future; Expected date: 07/22/2023 - TSH WITH FREE T4 IF INDICATED; Future; Expected date: 07/22/2023 - ALBUMIN / CREATININE RATIO, URINE; Future; Expected date: 07/22/2023 Acquired hypothyroidism - BASIC METABOLIC PANEL; Future; Expected date: 07/22/2023 - CBC WITH WBC DIFFERENTIAL; Future; Expected date: 07/22/2023 - PHOSPHORUS; Future; Expected date: 07/22/2023 - TSH WITH FREE T4 IF INDICATED; Future; Expected date: 07/22/2023 - ALBUMIN / CREATININE RATIO, URINE; Future; Expected date: 07/22/2023 Vitamin D deficiency PMR (polymyalgia rheumatica) ([facility]) - PAIN MANAGEMENT DRUG PANEL, URINE; Future; Expected date: 07/22/2023 - HYDROcodone-Acetaminophen 5-325 MG Oral Tablet; Take 1 Tablet by mouth every 6 hours as needed for Pain, Mild. Generalized osteoarthritis - PAIN MANAGEMENT DRUG PANEL, URINE; Future; Expected date: 07/22/2023 - HYDROcodone-Acetaminophen 5-325 MG Oral Tablet; Take 1 Tablet by mouth every 6 hours as needed for Pain, Mild. PAF (paroxysmal atrial fibrillation) (HCC) Dyslipidemia, goal LDL below 130 Anemia due to stage 3b chronic kidney disease (HCC) Skin tear of left forearm without complication, initial encounter Cellulitis of lower leg - Cephalexin 500 MG Oral Capsule; Take 1 Capsule by mouth in the morning and 1 Capsule at noon and 1 Capsule before bedtime. Do all this for 10 days. Screening for depression Plan: Patient presents to office for routine follow-up. Had a number of things to go over Patient has history of venous insufficiency/stasis dermatitis changes of both of her legs. Overall her swelling looks stable however she does have some redness and tenderness. She may have the beginnings of cellulitis. I would like to treat with Keflex 500 mg three times daily for 10 days. Counseled to take with food. Counseled on common side effects which to monitor. Due to the possibility of low er extremity cellulitis, explained that it is not safe to perform knee injection at this time. Willneed to be done at a later visit Known DJD of her right shoulder. Cortisone injection performed. Patient tolerated well. Will follow-up Okay to resume her hydrocodone/APAP 5-325 mg 1 tablet every 6 hours as needed for pain. Believe this was previously stopped while in the hospital at [facility]. PDMP checked. Med use agreement updated today. UDS ordered for today. Patient had previously been on this medication for number of years with good improvement in her moderate to severe pain Believe she has gout of the right finger and right 2nd toe. Her uric acid was elevated at 12. Either area not consistent with cellulitis. Start allopurinol 100 mg daily. Will repeat uric acid in 3-6 months. Counseled on common side effects of medication for which to monitor Her skin tear on left forearm was examined. No signs of secondary infection. This was readdressed. Counseled patient's son to continue with Neosporin application and dressing change daily. Blood pressure historically well managed on carvedilol 6.25 mg twice daily however has been on low side recently. Is a fall risk. Explained to patient/son that carvedilol once daily does not give adequate blood pressure coverage. Would like to reduce carvedilol 3.125 mg twice daily Patient had recent VENTURA on CKD 3B. Would like to repeat labs including CMP, phosphorus, TSH, urine albumin. Will also include routine UDS for hydrocodone prescription Follow Up: Return in about 6 months (around 01/22/2024), or if symptoms worsen or fail to improve, for Return with Physician. | For: Return with Physician | Check-out note: 3 month follow up Labs , urine sample today Dr Steel I have evaluated Judith Crowe and have documentation of an appropriate physical exam, diagnostic testing/imaging results, and pain assessment indicating [id number] pain. FOR RENEWAL REQUESTS: Judith experienced an improvement in pain control and level of functioning while taking the requested medication? Yes Judith is being monitored for adverse events and warning signs of serious problems, such as overdoseand opioid use disorder? Yes FOR ALL REQUESTS: The requested opioid medication will be used in combination with tolerated non- drug therapies and non-opioid medications? Yes The anticipated duration of therapy with opioids is: 6 months Judith was evaluated for risk factors for opioid-related harm, and if at high risk for opioid-related harm I considered prescribing naloxone? Yes If the patient is also prescribed a benzodiazepine, the benzodiazepine or opioid is being tapered or concomitant use is medically necessary? Not applicable patient not prescribed benzodiazepine. Judith signed a medication use agreement which is scanned into their medical record? Yes I or my delegate searched the PDMP to review the patient's controlled substance prescription history before prescribing the requested medication? Yes CAGE-AID Have you felt you ought to cut down on your drinking or drug use? No Have people annoyed you by criticizing your drinking or drug use? No Have you felt bad or guilty about your drinking or drug use? No Have you ever had a drink or used drugs first thing in the morning to steady your nerves or to get rid of a hangover (eye-opening)? No Two or more positive responses indicate the need for further evaluation. Urine drug screen needed every 12 months for less than 50 MME, every 6 months for 50 MME and higher. Results for orders placed or performed in [...] results can be found in Results Review. Blair Kasper DO documented in this encounter Nursing Notes * Shirley Valdivia CCMA - 07/22/2023 8:52 AM EDT The patient has been properly identified by confirmation of name and date of . Chief Complaint Patient presents with Follow Up Pt is present today for a 6 mos follow up. Pt states she has concerns today she would like injections in her left knee and right arm. She states she fell a couple weeks ago. She has a cut on arm she has been bandaging. Pt also has edama bilateral and has been going on for awhile. Home nurse feels she needs antibiotic. Pt states her edema ispainful. Pt states she is sleeping upright in a chair. Pt has been taking 1 BP med a day. Son would like to go over what meds she should be taking. Forgotpaperwork from hospital. documented in this encounter Plan of Treatment Upcoming Encounters Date Type Department Care Team (Late st Contact Info) Description 07/28/2023 12:30 PM EDT Home Visit [facility] [place] [address] [id number] Bere Martin PA-C [address] [place] [address] 08/29/2023 4:00 PM EDT Home Visit [facility] [place] [address] [place] [address] Mira Jalloh RN [address] [place] [address] 09/09/2023 12:00 PM EDT Office Visit [facility] [address] [place] [address] Chelly Steel MD [address] [place] [phone] Pending Results Name Type Priority Associated [...] Generalized osteoarthritis 07/22/2023 9:48 AM EDT Scheduled Orders Name Type Priority Associated Diagnoses Orde r Schedule ARTHROCENT ASP &/OR INJ MAJOR JX/BURSA W/O US Procedures Routine Primary osteoarthritis of right shoulder Ordered: 07/22/2023 BASIC METABOLIC PANEL Lab Routine Stage 3b chronic kidney disease (HCC) Mixed hyperlipidemia Acquired hypothyroidism Expected: 07/22/2023 (Approximate), Expires: 07/21/2024 CBC WITH WBC DIFFERENTIAL Lab Routine Stage 3b chronic kidney disease (HCC) Mixed hyperlipidemia Acquired hypothyroidism Expected: 07/22/2023 (Approximate), Expires: 07/21/2024 PHOSPHORUS Lab Routine Stage 3b chronic kidney disease (HCC) Mixed hyperlipidemia Acquired hypothyroidism Expected: 07/22/2023 (Approximate), Expires: 07/21/2024 TSH WITH FREE T4 IF INDICATED Lab Routine Stage 3b chronic kidney disease (HCC) Mixed hyperlipidemia Acquired hypothyroidism Expected: 07/22/2023 (Approximate), Expires: 07/21/2024 ALBUMIN / CREATININE RATIO, URINE Lab Routine Stage 3b chronic kidney disease (HCC) Mixed hyperlipidemia Acquired hypothyroidism Expected: 07/22/2023 (Approximate), Expires: 07/21/2024 PAIN MANAGEMENT DRUG PANEL, URINE Lab Routine PMR (polymyalgia rheumatica) (HCC) Generalized osteoarthritis Expected: 07/22/2023 (Approximate), Expires: 07/21/2024 Scheduled Procedures Name Priority Associated Diagnoses Date/Ti me COLONOSCOPY CA SCRN HI RISK Recall History of colon polyps Health Maintenance Due Date Last Done Comments DXA Scan 06/29/2020 06/29/2018, 03/2012, 03/20/2010, Additional history exists COVID-19 Vaccine ( season) 2022 03/25/2021, 08/13/2020, 07/14/2020 Albumin/Creatinine Ratio 12/07/2022 022, 01/17/2020, 03/06/2019, Additional history exists CKD PHOS USE SMARTSET 71816 12/07/202211/13, 01/17/2020, 03/06/2019, Additional history exists TSH 06/22/2023 06/21/2022, 11/13, 12/02/2020, Additional history exists *BISPHONATE OR OTHER ACCEPTABLE MEDICATION NEEDED FOR OSTEOPOROSIS (REFER TO SMARTSET #1146) 06/27/2023 CKD HGB USE SMARTSET 15216 06/23/202406/23, 06/24/2023, 06/14/2023, Additional history exists Depression Screening 07/21/2024 07/22/2023 DTaP,Tdap,and Td Vaccines (2 - Td or Tdap) 11/29/2024 11/29/2014, 11/01/2007 Pneumococcal Vaccine: 65+ Years Completed 12/25/2015, 12/21/2005, 01/01/1999 VITAMIN D LEVEL ONCE IN A LIFETIME-USE SMARTSET# [id number] Completed 06/27/2020, 01/17/2020, 03/06/2019, Additional history exists [...] Diagnosis Hypertensive heart disease with heart failure (HCC)- Primary Unspecified hypertensive heart disease with heart failure Primary osteoarthritis of right shoulder Primary localized osteoarthrosis, shoulder region Idiopathic chronic gout of multiple sites without tophus Chronic gouty arthropathy without mention of tophus (tophi) Stage 3b chronic kidney disease (HCC) Mixed hyperlipidemia Acquired hypothyroidism Unspecified hypothyroidism Vitamin D deficiency Unspecified vitamin D deficiency PMR (polymyalgia rheumatica) (HCC) Polymyalgia rheumatica Generalized osteoarthritis Generalized osteoarthrosis, unspecified site PAF (paroxysmal atrial fibrillation) (HCC) Atrial fibrillation Dyslipidemia, goal LDL below 130 Other and unspecified hyperlipidemia Anemia due to stage 3b chronic kidney disease (HCC) Skin tear of left forearm without complication, initial encounter Cellulitis of lower leg Cellulitis and abscess of leg, except foot Screening for depression documented in this encounter Administered Medications Inactive Administered Medications - up to 3 most recent administrations Medication Order MAR Action Action Date Dose Rate Site dexAMETHasone Sodium Phosphate (Decadron) 4 MG/ML inj 4 mg 4 mg, Intra-Articular, ONCE, On Tue07/22/23 at 1030, For 1 dose, Protect from Light Given 07/22/2023 9:45 AM EDT 4 mg lidocaine 1 % inj 10 mg 10 mg, Intra-Articular, ONCE, On Tue07/22/23 at 1030, For 1 dose Given 07/22/2023 9:45 AM EDT 10 mg Triamcinolone Acetonide (Kenalog) 40 MG/ML inj 40 mg 40 mg, Intra-Articular, ONCE, On Tue07/22/23 at 1030, For 1 dose Given 07/22/2023 9:45 AM EDT 40 mg documented in this encounter Care Teams Staff Pharmacist Relationship Specialty Start Date End Date Blair Kasper DO [address] [place] [address] [place] [phone] PCP - General Internal Medicine 09/03/20 documented as of this encounter
--- OUTSIDE RECORDS SUMMARY | 2023-12-29 15:24 | External Medical Summary ---
Author Name Unknown Address Unknown Organization K01:[facility] [place] - [facility] [address] [place] [id number] Laboratory Report Ordering Provider Test Date Status KAMILLE DICKSON 07/22/2023 09:48:44 Final Observation Date Value Abnormality Reference (Units ) Status BUN 07/22/2023 09:48:44 21 Above high normal 6-20 (mg/dL) Final Creatinine 07/22/2023 09:48:44 1.2 Above high normal 0.5-1.0 (mg/dL) Final Glomerular filtration rate/1.73 sq M.predicted [Volume Rate/Area] in Serum, Plasma or Blood by Creatinine-based formula (CKD-EPI) 07/22/2023 09:48:44 46 Below low normal >=60 (mL/min) Final eGFR is calculated based on the CKD-EPI 2020 equation Sodium 07/22/2023 09:48:44 143 135-146 (m mol/L) Final Potassium 07/22/2023 09:48:44 3.7 3.5-5.1 (m mol/L) Final Cl 07/22/2023 09:48:44 102 98-107 (mm ol/L) Final CO2 07/22/2023 09:48:44 27 22-32 (mmo l/L) Final Anion gap 07/22/2023 09:48:44 14 7-15 (mmol /L) Final Glucose 07/22/2023 09:48:44 89 70-120 (mg /dL) Final Calcium 07/22/2023 09:48:44 9.1 8.4-10.2 ( mg/dL) Final Performing Location [facility] [place] - [address] [place] [id number]
--- OUTSIDE RECORDS SUMMARY | 2023-12-29 15:24 | External Medical Summary | Summary of Care ---
Author Name Unknown Organization [facility] Address [address] [place] [address] Phone [phone] Care Team Providers Care Newspaper Reporter Name Role Phone Blair Kasper DO Primary Care Provid er Reason for Visit * Reason Onset Date Comments Med Request 07/25/2023 Encounter Details Date Type Department Care Team ([facility] Contact Info) Description 07/25/[address] [phone] Blair Kasper DO [address] [place] [phone] Med Request (/) Allergies Active Allergy Reactions Criticality Noted Date Comments Adhesive Tape 04/20/2004 Clarithromycin 10/03/2000 nausea documented as of this encounter (statuses as of 07/25/2023) Medications Medication Sig Dispensed Refills Start Date [...] ns:Chronic pain of both knees,PMR (polymyalgia rheumatica) ([facility]) Take 1 Tablet by mouth in the morning. 90 Tablet 1 06/24/2023 Active Sertraline HCl 100 MG Oral Tablet (Zoloft)Indications: Depression with anxiety TAKE 1 TABLET BY MOUTH ONCE DAILY IN THE MORNING 90 Tablet 2 06/24/2023 Active Carvedilol 3.125 MG Oral Tablet (Coreg)Indications:H ypertensive heart disease with heart failure ([facility]) Take 1 Tablet by mouth in the [...] as of this encounter (statuses as of 07/25/2023) Active Problems Problem Noted Date Diagnosed Date [...] as of this encounter (statuses as of 07/25/2023) Resolved Problems Problem Noted Date Diagnosed Date [...] Overview: lmp 1986, hrt x 2 yrs 2560-7960 IRON DEF ANEMIA DIETARY 08/26/200403/14 GENERAL OSTEOARTHROSIS [...] as of this encounter (statuses as of 07/25/2023) Immunizations Name Administration Dates Next Due COVID-19 [...] encounter Miscellaneous Notes * Telephone Encounter - Ofe Brooks CPhT - 07/25/2023 3:42 PM EDT Pt needed Hydrocodone released to pharmacy Thank you, Ofe Brooks CPhT Hydrogen Cell Tender [facility] ([facility] telepharmacy) 07/25/2023,3:42 PM documented in this encounter Plan of Treatment Upcoming Encounters Date Type Department Care Team ([facility] st Contact Info) Description 07/28/2023 12:30 PM EDT [facility] Visit [facility] [address] [place] [address] Bere Martin PA-C [address] [place] [address] 08/29/2023 4:00 PM EDT Home Visit [facility], [facility] [address] [place] [address] Mira Jalloh RN [address] [place] [address] 09/09/2023 12:00 PM EDT Office Visit Family [address] [phone] Chelly Steel MD [address] [place] [phone] Scheduled Procedures Name Priority Associated Diagnoses [...] Additional history exists CKD HGB USE SMARTSET 86688 07/21/202407/21, 07/22/2023, 06/24/2023, Additional history exists CKD PHOS USE SMARTSET 87661 07/21/202407/12, 12/07/2021, 01/17/2020, Additional history exists Depression Screening 07/21/2024 07/22/2023 TSH 07/21/2024 07/22/2023, 06/12, 12/07/2021, Additional history exists DTaP,Tdap,and Td Vaccines (2 - Td or Tdap) 11/29/2024 11/29/2014, 11/01/2007 Pneumococcal Vaccine: 65+ Years Completed 12/25/2015, 12/21/2005, 01/01/1999 VITAMIN D LEVEL ONCE IN A LIFETIME-USE SMARTSET# [id number] Completed 06/27/2020, 01/17/2020, 03/06/2019, Additional history exists [...] filedocumented as of this encounter Care Teams Newspaper Reporter Relationship Specialty Start Date End Date Blair Kasper DO [address] [place] [id number] PCP - General Internal Medicine 09/03/20 documented as of this encounter
--- OUTSIDE RECORDS SUMMARY | 2023-12-29 15:24 | External Medical Summary | Summary of Care ---
Author Name Unknown Organization [facility] Address [address] [facility] [place] [address] Phone [phone] Care Team Providers Care Screen Tender Helper Name Role Phone Blair Kasper DO Primary Care Provid er Reason for Visit * Reason Onset Date Comments Other 07/07/2023 Encounter Details Date Type Department Care Team ([facility] Contact Info) Description 07/07/[address] [phone] Blair Kasper DO [address] [place] [phone] Other Allergies Active Allergy Reactions Criticality Noted Date Comments Adhesive Tape 04/20/2004 Clarithromycin 10/03/2000 nausea documented as of this encounter (statuses as of 07/07/2023) Medications Medication Sig Dispensed Refills Start Date End Date Status traMADol HCl 25 MG Oral TabletIndications:Chr onic pain of both knees Take 50 mg by mouth every 6 hours as needed for Pain, Moderate. 60 Tablet 0 06/24/2023 Active Torsemide 20 MG Oral Tablet (Demadex)Indications: Hypertensive heart disease with heart failure (HCC) Take 2 Tablets by mouth in the morning and 2 Tablets before bedtime. 120 Tablet 3 06/24/2023 Active Carvedilol 6.25 MG Oral Tablet (Coreg)Indications:Hy pertensive heart and kidney disease with chronic diastolic congestive heart failure and stage 3b chronic kidney disease (HCC) Take 1 Tablet by mouth 2 times a day with morning and evening meals. 60 Tablet 3 06/24/2023 Active Ferrous Sulfate 325 [...] as of this encounter (statuses as of 07/07/2023) Active Problems Problem Noted Date Diagnosed Date [...] as of this encounter (statuses as of 07/07/2023) Resolved Problems Problem Noted Date Diagnosed Date [...] Overview: lmp 1987, hrt x 2 yrs 2299-3203 IRON DEF ANEMIA DIETARY 08/26/200403/14 GENERAL OSTEOARTHROSIS [...] as of this encounter (statuses as of 07/07/2023) Immunizations Name Administration Dates Next Due COVID-19 [...] encounter Miscellaneous Notes * Telephone Encounter - Effie Beal CPhT - 07/07/2023 3:00 PM EDT Pt son is calling to find out if his moms rx are on automatic refill. Informed pt son to call the pharmacy they use to find out as they would be able to tell him. Pt son verbalized understanding. Thank you, Tamara Beal [employer] I [facility] ([facility]) 07/07/2023,3:01 PM documented in this encounter Plan of Treatment Upcoming Encounters Date Type Department Care Team ([facility] st Contact Info) Description 07/22/2023 9:00 AM EDT Office Visit [facility] [address] [place] [phone] Blair Kasper DO [address] [place] [phone] 07/28/2023 12:30 PM EDT Home Visit [facility], [facility] [address] [place] [address] Bere Martin PA-C [address] [place] [address] 08/29/2023 4:00 PM EDT Home Visit [facility] [place], [facility] [address] [place] [address] Mira Jalloh RN [address] [place] [address] Scheduled Procedures Name Priority Associated Diagnoses Date/Ti me COLONOSCOPY CA SCRN HI RISK Recall History of colon polyps Health Maintenance Due Date Last Done Comments DXA Scan 06/29/2020 06/29/2018, 0203/2012, 03/20/2010, Additional history exists COVID-19 Vaccine ( season) 2022 03/25/2021, 08/13/2020, 07/14/2020 Albumin/Creatinine Ratio 12/07/2022 022, 01/17/2020, 03/06/2019, Additional history exists CKD PHOS USE SMARTSET 51749 12/07/202211/13, 01/17/2020, 03/06/2019, Additional history exists Depression Screening 12/23/2022 12/23/2021 TSH 06/22/2023 06/21/2022, 11/13, 12/02/2020, Additional history exists *BISPHONATE OR OTHER ACCEPTABLE MEDICATION NEEDED FOR OSTEOPOROSIS (REFER TO SMARTSET #1146) 06/27/2023 CKD HGB USE SMARTSET 88086 06/23/202406/23, 06/24/2023, 06/14/2023, Additional history exists DTaP,Tdap,and Td Vaccines (2 - Td or Tdap) 11/29/2024 11/29/2014, 11/01/2007 Pneumococcal Vaccine: 65+ Years Completed 12/25/2015, 12/21/2005, 01/01/1999 VITAMIN D LEVEL ONCE IN A LIFETIME-USE SMARTSET# [id number] Completed 06/27/2020, 01/17/2020, 03/06/2019, Additional history exists [...] filedocumented as of this encounter Care Teams Screen Tender Helper Relationship Specialty Start Date End Date Blair Kasper DO [address] [place] [phone] PCP - General Internal Medicine 09/03/20 documented as of this encounter
--- OUTSIDE RECORDS SUMMARY | 2023-12-29 15:24 | External Medical Summary | Summary of Care ---
Author Name Unknown Organization [facility] Address [address] [place] [address] Phone [phone] Care Team Providers Care Search Engine Marketing Specialist Name Role Phone Nathannikhil Blair Chava Primary Care Provid er Reason for Visit * Reason Comments Outpatient Testing Encounter Details Date Type Department Care Team (Late st Contact Info) Description 07/22/2023 9:50 AM EDT Laboratory Laboratory Patient Service [address] [phone] [address] PMR (polymyalgia rheumatica) ([facility])*; Stage 3b chronic kidney disease ([facility]); Mixed hyperlipidemia; Acquired hypothyroidism; Generalized osteoarthritis Allergies Active Allergy Reactions Criticality Noted Date Comments Adhesive Tape 04/20/2004 Clarithromycin 10/03/2000 nausea documented as of this encounter (statuses as of 07/28/2023) Medications Medication Sig Dispensed Refills Start Date [...] of both knees,PMR (polymyalgia rheumatica) ([facility]) Take 1 Tablet by mouth in the morning. 90 Tablet 1 06/24/2023 Active Sertraline HCl 100 MG Oral Tablet (Zoloft)Indications :Depression with anxiety TAKE 1 TABLET BY MOUTH ONCE DAILY IN THE MORNING 90 Tablet 2 06/24/2023 Active Carvedilol 3.125 MG Oral Tablet (Coreg)Indications: Hypertensive heart disease with heart failure ([facility]) Take 1 Tablet by mouth in the morning and 1 Tablet before bedtime. with food. 180 Tablet 1 07/22/2023 Active HYDROcodone-Acetami nophen 5-325 MG Oral TabletIndications:P MR (polymyalgia rheumatica) ([facility]),Generalized osteoarthritis Take 1 Tablet by mouth every [...] as of this encounter (statuses as of 07/28/2023) Active Problems Problem Noted Date Diagnosed Date [...] as of this encounter (statuses as of 07/28/2023) Resolved Problems Problem Noted Date Diagnosed Date [...] Overview: lmp 1987, hrt x 2 yrs [id number] IRON DEF [facility]EM[facility] 08/26/200403/14 GENERAL OSTEOARTHROSIS [...] as of this encounter (statuses as of 07/28/2023) Immunizations Name Administration Dates Next Due COVID-19 [...] encounter Miscellaneous Notes * Addendum Note - Jennifer Po[place], [place] - 07/28/2023 12:18 PM EDTAddended by: JENNIFER POOLE on: 07/28/2023 12:18 PM Modules accepted: Orders * Result Encounter Note - Blair Simental DO - 07/23/2023 12:19 PM EDT Reviewed patient lab results. TSH slightly elevated 6.26. Free T4 low end of normal 1.0. Would liketo increase levothyroxine to 100 mcg daily. New prescription sent to [facility] Other results looked okay. Renal function double backer to baseline. Continue other management * Addendum Note - Blair Simental DO - 07/23/2023 12:19 PM EDT Addended by: BLAIR SIMENTAL on: 07/23/2023 12:19 PM Modules accepted: Orders documented in this encounter Plan of Treatment Upcoming Encounters Date Type Department Care Team (Late st Contact Info) Description 07/28/2023 12:30 PM EDT Home Visit [facility] [address] [place] [address] Bere Martin PA-C [address] [place] [address] 08/29/2023 4:00 PM EDT Home Visit [facility], [facility] [address] [place] [address] Mira Jalloh RN [address] [place] [address] 09/09/2023 12:00 PM EDT Office Visit [address] [phone] Chelly Steel MD [address] [place] [phone] Pending Results Name Type Priority Associated Diagnoses Date /Time TRAMADOL, URINE CONFIRMATION Lab Routine PMR (polymyalgia rheumatica) (HCC) Generalized osteoarthritis 07/22/2023 9:48 AM EDT Scheduled Orders Name Type Priority Associated Diagnoses Orde r Schedule TRAMADOL, URINE CONFIRMATION Lab Routine PMR (polymyalgia rheumatica) (HCC) Generalized osteoarthritis Expected: 07/28/2023, Expires: 07/27/2024 Scheduled Procedures Name Priority Associated Diagnoses Date/Ti [...] Additional history exists CKD HGB USE SMARTSET 32678 07/21/202407/21, 07/22/2023, 06/24/2023, Additional history exists CKD PHOS USE SMARTSET 52339 07/21/202407/12, 12/07/2021, 01/17/2020, Additional history exists Depression Screening 07/21/2024 07/22/2023 TSH 07/21/2024 07/22/2023, 06/12, 12/07/2021, Additional history exists DTaP,Tdap,and Td Vaccines (2 - Td or Tdap) 11/29/2024 11/29/2014, 11/01/2007 Pneumococcal Vaccine: 65+ Years Completed 12/25/2015, 12/21/2005, 01/01/1999 VITAMIN D LEVEL ONCE IN A LIFETIME-USE SMARTSET# [id number] Completed 06/27/2020, 01/17/2020, 03/06/2019, Additional history exists [...] kidney disease (HCC) Mixed hyperlipidemia Acquired hypothyroidism PAIN MANAGEMENT DRUG PANEL, URINE Routine 07/22/2023 9:48 AM EDT PMR (polymyalgia rheumatica) (HCC) Generalized osteoarthritis TSH WITH FREE T4 IF INDICATED Routine 07/22/2023 9:48 AM EDT Stage 3b chronic kidney disease (HCC) Mixed hyperlipidemia Acquired hypothyroidism OPIOIDS, URINE CONFIRMATION Routine 07/22/2023 9:48 AM EDT PMR (polymyalgia rheumatica) (HCC) Generalized osteoarthritis BASIC METABOLIC PANEL Routine 07/22/2023 9:48 AM [...] hypothyroidism documented in this encounter Results * (ABNORMAL) OPIOIDS, URINE CONFIRMATION (07/22/2023 9:48 AM EDT) Methodology LC-MS/MS 07/28/2023 12:15 PM EDT LABORATORY [facility] Codeine Confirmation, U Negative Negative 07/28/2023 12:15 PM EDT LABORATORY [facility] Morphine Confirmation, U Negative Negative 07/28/2023 12:15 PM EDT LABORATORY [facility] Hydrocodone Confirmation, U 466(H) Negative ng/mL 07/28/2023 12:15 PM EDT LABORATORY [facility] Hydromorphone Confirmation, U 115(H) Negative ng/mL 07/28/2023 12:15 PM EDT LABORATORY [facility] Dihydrocodeine Confirmation, U 422(H) Negative ng/mL 07/28/2023 12:15 PM EDT LABORATORY [facility] Oxycodone Confirmation, U Negative Negative 07/28/2023 12:15 PM EDT LABORATORY [facility] Oxymorphone Confirmation, U Negative Negative 07/28/2023 12:15 PM EDT LABORATORY [facility] Urine Urine specimen obtained by clean catch procedure / Unknown Non-blood Collection / Unknown 07/22/2023 9:48 AM EDT 07/22/2023 9:48 AM EDT [facility] LAB[facility]ATORY [facility] - 07/28/2023 12:15 PM EDT Cutoff Concentrations: Drug Level Codeine 40 ng/mL Morphine 40 ng/mL Hydrocodone 40 ng/mL Hydromorphone 40 ng/mL Dihydrocodeine 40 ng/mL Oxycodone 50 ng/mL Oxymorphone 50 ng/mL This test was developed and its performance characteristics determined by [employer]. It has not been cleared or approved by the [place] Food and Drug Administration. Blair Simental DO LAB URINE OR DERABLES LABORATORY [facility] [address] [place] [address] * T4, FREE (07/22/2023 9:48 AM EDT) Pathologist [facility] T4, Free 1.0 0.9 - 1.7 ng/dL 07/22/2023 8:05 PM EDT [facility] Blood Venous blood specimen / Unknown Venipuncture / Unknown 07/22/2023 9:48 AM EDT 07/22/2023 9:48 AM EDT Blair Simental DO LAB BLOOD OR DERABLES Performing Organization Address City/State/[facility] Co de Phone Number LAB[facility]ATORY [facility] [address] [place] [address] * DIFFERENTIAL, AUTOMATED (07/22/2023 9:48 AM EDT) [facility] WBC 9.76 4.00 - 10.80 K/uL 07/22/2023 [...] LAB BLOOD OR DERABLES [facility] [address] [place] [address] * (ABNORMAL) CBC (07/22/2023 9:48 AM EDT) WBC 9.76 4.00 - 10.80 K/uL 07/22/2023 6:00 PM EDT [facility] RBC 3.92 3.85 - 5.15 M/uL 07/22/2023 6:00 PM EDT [facility] HGB 10.0(L) 12.0 - 15.3 g/dL 07/22/2023 6:00 PM EDT [facility] HCT 34.1(L) 36.0 - 45.2 % 07/22/2023 6:00 PM EDT [facility] MCV 87.0 81.5 - 97.5 fL 07/22/2023 6:00 PM EDT [facility] MCH 25.5 27.0 - 34.0 pg 07/22/2023 6:00 PM EDT [facility] MCHC 29.3 32.0 - 36.0 g/dL 07/22/2023 6:00 PM EDT [facility] RDW 20.7 11.5 - 15.5 % 07/22/2023 6:00 PM EDT [facility] PLT 333 140 - 400 K/uL 07/22/2023 6:00 PM EDT [facility] MPV 9.9 6.6 - 11.1 fL 07/22/2023 6:00 PM EDT [facility] nRBCs 0 <=0 /100 WBCs 07/22/2023 6:00 PM EDT [facility] Blood Venous blood specimen / Unknown Venipuncture / Unknown 07/22/2023 9:48 AM EDT 07/22/2023 9:48 AM EDT Blair Simental DO LAB BLOOD OR DERABLES LABORATORY [facility] [address] [place] [address] * (ABNORMAL) PAIN MANAGEMENT DRUG PANEL, URINE (07/22/2023 9:48 AM EDT) [facility] Amphetamines Screen, U Negative Negative 07/25/2023 3:33 PM EDT LABORATORY [facility] Benzodiazepines Screen, U Negative Negative 07/25/2023 3:33 PM EDT LABORATORY [facility] Cannabinoids Screen, U Negative Negative 07/25/2023 3:33 PM EDT LABORATORY [facility] Cocaine Metabolite Screen, U Negative Negative 07/25/2023 3:33 PM EDT LABORATORY [facility] Fentanyl Screen, U Negative Negative 2023 3:33 PM EDT LABORATORY [facility] Hydrocodone Screen, U Refer to confirmation results(A) Negative 07/25/2023 3:33 PM EDT LABORATORY [facility] Methadone Metabolite Screen, U Negative Negative 07/25/2023 3:33 PM EDT LABORATORY [facility] Morphine/Codeine Screen, U Refer to confirmation results(A) Negative 07/25/2023 3:33 PM EDT LABORATORY [facility] Oxycodone Screen, U Refer to confirmation results(A) Negative 07/25/2023 3:33 PM EDT LABORATORY [facility] Valid Interpretation Normal 07/25/2023 3:33 PM EDT LABORATORY [facility] Creatinine, U 48 mg/dL 07/25/2023 3:33 PM EDT LABORATORY [facility] Urine Urine specimen obtained by clean catch procedure / Unknown Non-blood Collection / Unknown 07/22/2023 9:48 AM EDT 07/22/2023 9:48 AM EDT Narrative [facility]ORY [facility] - 07/25/2023 3:33 PM EDT Cutoff Concentrations: Drug Level Amphetamines 500 ng/mL Benzodiazepines 100 ng/mL Cannabinoids 50 ng/mL Cocaine Metabolite 150 ng/mL Fentanyl 1 ng/mL Hydrocodone / Hydromorphone 300 ng/mL Methadone Metabolite 100 ng/mL Morphine / Codeine 300 ng/mL Oxycodone / Oxymorphone 100 ng/mL Screening results are presumptive and can only be used for medical purposes. Confirmatory testing is available upon request. Blair Evansnikhil DO LAB URINE OR DERABLES Performing Organization Address [facility] Co de Phone Number LABORATORY [facility] [address] [place] [address] * (ABNORMAL) ALBUMIN / CREATININE RATIO, URINE (07/22/2023 9:48 AM EDT) Albumin, Random Urine 4.58 mg/dL 07/22/2023 5:23 PM EDT LABORATORY [facility] Creatinine, Random Urine 48 mg/dL 07/22/2023 5:23 PM EDT LABORATORY [facility] Albumin / Creatinine Ratio, Urine 95(H) <30 mg/g Creat 07/22/2023 5:23 PM EDT LABORATORY [facility] Urine Urine specimen obtained by clean catch procedure / Unknown Non-blood Collection / Unknown 07/22/2023 9:48 AM EDT 07/22/2023 9:48 AM EDT Narrative LABORATORY [facility] - 07/22/2023 5:23 PM EDT Normal: <30 mg/g creatinine High: 30-300 mg/g creatinine Very High: >300 mg/g creatinine Nephrotic: >2200 mg/g creatinine Blair Evansnikhil TAYLOR LAB URINE OR DERABLES Performing Organization Address [facility] Co de Phone Number LABORATORY [facility] [address] [place] [address] * (ABNORMAL) TSH WITH FREE T4 IF INDICATED (07/22/2023 9:48 AM EDT) TSH 6.26(H) 0.27 - 4.20 uIU/mL 07/22/2023 7:29 PM EDT LABORATORY [facility] Blood Venous blood specimen / Unknown Venipuncture / Unknown 07/22/2023 9:48 AM EDT 07/22/2023 9:48 AM EDT Blair Simental DO LAB BLOOD OR DERABLES Performing Organization Address [facility]/ZIP Co de Phone Number LAB[facility]ATORY [facility] [address] [place] [address] * PHOSPHORUS (07/22/2023 9:48 AM EDT) Phosphorus 3.6 2.5 - 4.8 mg/dL 07/22/2023 7:02 PM EDT LABORATORY [facility] Blood Venous blood specimen / Unknown Venipuncture / Unknown 07/22/2023 9:48 AM EDT 07/22/2023 9:48 AM EDT Blair Simental DO LAB BLOOD OR DERABLES Performing Organization Address [facility] Co de Phone Number LAB[facility]ORY [facility] [address] [place] [address] * (ABNORMAL) BASIC METABOLIC PANEL (07/22/2023 9:48 AM EDT) BUN 21(H) 6 - 20 mg/dL 07/22/2023 7:02 PM EDT [facility] Creatinine 1.2(H) 0.5 - 1.0 mg/dL 07/22/2023 7:02 PM EDT LABORATORY [facility] Estimated Glomerular Filtration Rate 46(L) >=60 mL/min 07/22/2023 7:02 PM EDT LABORATORY C Comment:eGFR is calculated b ased on the [...] 10.2 mg/dL 07/22/2023 7:02 PM EDT LABORATORY [facility] Blood Venous blood specimen / Unknown Venipuncture / Unknown 07/22/2023 9:48 AM EDT 07/22/2023 9:48 AM EDT Blair Simental DO LAB BLOOD OR DERABLES [facility] [address] [place] [address] documented in this encounter Visit Diagnoses Diagnosis PMR (polymyalgia rheumatica) (HCC)- Primary Polymyalgia rheumatica Stage 3b chronic kidney disease (HCC) Mixed hyperlipidemia Acquired hypothyroidism Unspecified hypothyroidism Generalized osteoarthritis Generalized osteoarthrosis, unspecified site documented in this encounter Care Teams Search Engine Marketing Specialist Relationship Specialty Start Date End Date Blair Simental DO [address] [place] [id number] PCP - General Internal Medicine 09/03/20 documented as of this encounter
--- OUTSIDE RECORDS SUMMARY | 2023-12-29 15:24 | External Medical Summary ---
Author Name Unknown Address Unknown Organization [id number]:LABORATORY [facility] - [address] [place] [address] Laboratory Report Ordering Provider Test Date Status KAMILLE DICKSON 07/22/2023 09:48:44 Final Normal: <30 mg/g creatinine< br/>High: 30-300 mg/g creatinine
Very High: >300 mg/g creatinine
Nephrotic: >2200 mg/g creatinine Observation Date Value Abnormality Reference (Units ) Status Albumin, Urine 07/22/2023 09:48:44 4.58 (mg/dL) Final Creatinine, Urine 07/22/2023 09:48:44 48 (mg/dL) Final Albumin/Creatinine [Mass Ratio] in Urine 07/22/2023 09:48:44 95 Above high normal <30 (mg/g Creat) Final Performing Location LABORATORY [facility] - [address] [place] [address]
--- OUTSIDE RECORDS SUMMARY | 2023-12-29 15:24 | External Medical Summary ---
Author Name Unknown Address Unknown Organization [id number]:LAB[facility]ATORY [facility] [address] [place] [address] Laboratory Report Ordering Provider Test Date Status ANA DICKSONKATH 07/22/2023 09:48:44 Final Drugs that require complianc e testing:

Opioids:
Hydrocodone/APAP: Quantity 1 tab Q6H PRN Date/Time of last Dose day of test

Cutoff Concentrations:
Drug Level
Codeine 40 ng/mL
Morphine 40 ng/mL
Hydrocodone 40 ng/mL
Hydromorphone 40 ng/mL
Dihydrocodeine 40 ng/mL
Oxycodone 50 ng/mL
Oxymorphone 50 ng/mL

This test was developed and its performance characteristics determined by [facility]. It has not been cleared or approved by the [place] Food and Drug Administration. Observation Date Value Abnormality Reference (Units ) Status METHODOLOGY 07/22/2023 09:48:44 LC-MS/MS Final Codeine 07/22/2023 09:48:44 Negative Negative Final Morphine, Urine confirmatory 07/22/2023 09:48:44 Negative Negative Final HYDROcodone cutoff [Mass/volume] in Urine for Confirmatory method 07/22/2023 09:48:44 466 Above high normal Negative (ng/mL) Final Hydromorphone, Urine confirmatory 07/22/2023 09:48:44 115 Above high normal Negative (ng/mL) Final Dihydrocodeine [Mass/volume] in Urine by Confirmatory method 07/22/2023 09:48:44 422 Above high normal Negative (ng/mL) Final oxyCODONE [Presence] in Urine by Screen method 07/22/2023 09:48:44 Negative Negative Final oxyMORphone cutoff [Mass/volume] in Urine for Confirmatory method 07/22/2023 09:48:44 Negative Negative Final Performing Location LABORATORY [facility] - [facility] [address] [facility] [address]
--- OUTSIDE RECORDS SUMMARY | 2023-12-29 15:24 | External Medical Summary | Summary of Care ---
Author Name Unknown Organization [facility] Address [address] [address] Phone [phone] Care Team Providers Care Weld Technician Name Role Phone Nathannikhil Blair Chava Primary Care Provid er Reason for Visit * Reason Comments [facility]: Enrollment Encounter Details Date Type Department Care Team (Late st Contact Info) Description 07/28/2023 12:30 PM EDT Home Visit [facility] [place] [address] [address] Bere Martin PA-C [address] [place] [address] Hypertensive heart and kidney disease with chronic diastolic congestive heart failure and stage 3b chronic kidney disease (HCC)*; Nonrheumatic aortic valve stenosis; Mixed hyperlipidemia; Generalized osteoarthritis; Acquired hypothyroidism Allergies Active Allergy Reactions Criticality [...] Overview: lmp 1987, hrt x 2 yrs [id number] IRON DEF ANEMIA DIETARY 08/26/200403/14 GENERAL OSTEOARTHROSIS [...] Sign Reading Time Taken Comments Blood Pressure - - Pulse 72 07/28/2023 2:18 PM EDT Temperature - - Respiratory Rate - - Oxygen Saturation 97% 07/28/2023 2:18 PM EDT Inhaled Oxygen Concentration - - Weight - - Height - - Body Mass Index - - documented in this encounter Progress Notes * Bere Martin PA-C - 07/28/2023 1:45 PM EDT Images from the original note were not included. [facility] Problem Oriented Charting Provider Visit Date: 07/28/2023 Time: 1:45 PM [facility] Sub-Program: Focused Care Management (3-9 months) Assessment and Plan #1 Hypertensive heart and kidney disease with chronic diastolic congestive heart failure and stage 3b chronic kidney disease (HCC) (Primary) Assessment & Plan: Carvedilol 3.125mg BID Torsemide 40mg BID #2 Nonrheumatic aortic valve stenosis Overview: Mild in 2017 #3 Mixed hyperlipidemia Assessment & Plan: Atorvastatin 20mg daily #4 Generalized osteoarthritis Assessment & Plan: Gets steroid injections by PCP Hydrocodone-APAP 5/325 every 6 hours prn #5 Acquired hypothyroidism Assessment & Plan: Levothyroxine just increased to 100mcg daily Additional Medical Decision Making: No changes made Scheduled appointments in the next 60 days: Future Appointments-next 60 days Date/Time Provider Specialty Dept Phone 08/29/2023 4:00 PM Mira Jalloh RN [facility] [phone] 09/09/2023 12:00 PM (Arrive by 11:45 AM) Chelly Steel MD Family Medicine [phone] A total of 45 minutes was spent face to face (via video-based telemedicine if designated as a telemedicine visit) Subjective Subjective Is this a Telemedicine Visit? No, this is an Home Visit. Reason For [facility] Visit: Enrollment Current Concerns: Judith Crowe is a 87 year old female seen today for a [facility] provider visit. Pt's lasthospitalization was -05/31/23 [facility] after a fall. Pt then went to rehab from 05/30- 06/17/23. Pt's daughter and grandson take turns staying with pt. She is never alone. Pt's only complaint today is that her right shoulder bothers her. Dr. Kasper did a steroid injection last week but it hasn't started working yet. Pt's last fall was about 3 weeks ago. She sustained a skin tear to left forearm that her son has been bandaging and treating with neosporin. She always uses her walker to ambulate. She has been on an antibiotic for cellulitis in her lower extremities. She has this chonically and takes Torsemide 40mg BID. She does try to elevate her legs throughout the day, she uses a power recliner. She endorses HORNER. Denies SOB at rest. Denies any chest discomfort. She did have recent VENTURA after hospital stay. Last creatinine improved to 1.4. She was on carvedilol 6.25 mg twice daily for hypertension however it appears that this was decreased during last PCP appt to 3.125mg BID. 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 Additional Review of Systems Respiratory: Positive for shortness of breath (HORNER). Cardiovascular: Positive for leg swelling. Gastrointestinal: Positive for constipation (occasional). Endocrine: Positive for cold intolerance. Musculoskeletal: Positive for arthralgias, gait problem and myalgias. All other systems reviewed and are negative. Objective Objective There were no vitals filed for this visit. Last Weights: Wt Readings from Last 3 Encounters: 07/22/23 63.7 kg (140 lb 8 oz) 06/24/23 61.4 kg (135 lb 6.4 oz) 01/21/23 71.9 kg (158 lb 9.6 oz) Last BPs: BP Readings from Last 4 Encounters: 07/22/23 128/86 06/29/23 122/80 06/24/23 110/68 01/21/23 118/88 Physical Exam Constitutional: General: She is not [...] abdominal tenderness. There is no right CVA tenderness, left CVA tendernessor guarding. Musculoskeletal: General: No swelling, tenderness, deformity [...] Review: I have reviewed the following results: Medication Review "Bottles Out" medication review performed today and medication list in EMR updated Bere Martin PA-C 1:45 PM *Communication sent to PCP (via autofax if [facility]), [facility] Care Team members,relevant Specialty Care Physicians* documented in this encounter Miscellaneous Notes * Assessment & Plan Note - Bere Martin PA-C - 07/28/2023 2:15 PM EDTAssociated Problem(s): Acquired hypothyroidism Levothyroxine just increased to 100mcg daily * Assessment & Plan Note - Bere Martin PA-C - 07/28/2023 2:14 PM EDTAssociated Problem(s): PMR (polymyalgia rheumatica) (HCC) Gets steroid injections by PCP Hydrocodone-APAP 5/325 every 6 hours prn * Assessment & Plan Note - Bere Martin PA-C - 07/28/2023 2:13 PM EDTAssociated Problem(s): Generalized osteoarthritis Gets steroid injections by PCP Hydrocodone-APAP 5/325 every 6 hours prn * Assessment & Plan Note - Bere Martin PA-C - 07/28/2023 2:12 PM EDTAssociated Problem(s): Mixed hyperlipidemia Atorvastatin 20mg daily * Assessment & Plan Note - Bere Martin PA-C - 07/28/2023 2:12 PM EDTAssociated Problem(s): Hypertensive heart and kidney disease with chronic diastolic congestive heart failure and stage 3b chronic kidney disease (HCC) Carvedilol 3.125mg BID Torsemide 40mg BID documented in this encounter Plan of Treatment Upcoming Encounters Date Type Department Care Team ([facility] Contact Info) Description 08/29/2023 4:00 PM EDT Home Visit [facility] [place] [place] [address] [place] [address] Mira Jalloh RN [address] [facility] [place] [address] 09/09/2023 12:00 PM EDT Office Visit [address] [phone] Chelly Steel MD [address] [place] [phone] Scheduled Procedures Name Priority Associated Diagnoses [...] Additional history exists CKD HGB USE SMARTSET 93932 07/21/202407/21, 07/22/2023, 06/24/2023, Additional history exists CKD PHOS USE SMARTSET 00200 07/21/2024 05/, 12/07/2021, 01/17/2020, Additional history exists Depression Screening 07/21/2024 07/22/2023 TSH 07/21/2024 07/22/2023, 06/12, 12/07/2021, Additional history exists DTaP,Tdap,and Td Vaccines (2 - Td or Tdap) 11/29/2024 11/29/2014, 11/01/2007 Pneumococcal Vaccine: 65+ Years Completed 12/25/2015, 12/21/2005, 01/01/1999 VITAMIN D LEVEL ONCE IN A LIFETIME-USE SMARTSET# [id number] Completed 06/27/2020, 01/17/2020, 03/06/2019, Additional history exists [...] Nonrheumatic aortic valve stenosis Aortic valve disorders Mixed hyperlipidemia Generalized osteoarthritis Generalized osteoarthrosis, unspecified site Acquired hypothyroidism Unspecified hypothyroidism documented in this encounter Care Teams Weld Technician Relationship Specialty Start Date End Date Blair Kasper DO [address] [place] [id number] PCP - General Internal Medicine 09/03/20 documented as of this encounter
--- OUTSIDE RECORDS SUMMARY | 2023-12-29 15:24 | External Medical Summary | Summary of Care ---
Author Name Unknown Organization [facility] Address [address] [place] [address] Phone [phone] Care Team Providers Care Clam Dredger Name Role Phone Blair Kasper Primary Care Provid er Reason for Visit * Reason Onset Date Comments Appointment 07/29/2023 Encounter Details Date Type Department Care Team (Late st Contact Info) Description 07/29/2023 Telephone [facility] [place] [address] [place] [address] [phone] Services, Scheduling [address] [place] [address] Appointment Allergies Active Allergy Reactions Criticality Noted Date Comments Adhesive Tape 04/20/2004 Clarithromycin 10/03/2000 nausea documented as of this encounter (statuses as of 07/29/2023) Medications Medication Sig Dispensed Refills Start Date [...] ns:Chronic pain of both knees,PMR (polymyalgia rheumatica) ([facility]) Take 1 Tablet by mouth in the [...] 5-325 MG Oral TabletIndications:PM R (polymyalgia rheumatica) ([facility]),Generalized osteoarthritis Take 1 Tablet by mouth every [...] as of this encounter (statuses as of 07/29/2023) Active Problems Problem Noted Date Diagnosed Date [...] as of this encounter (statuses as of 07/29/2023) Resolved Problems Problem Noted Date Diagnosed Date [...] Overview: lmp 1987, hrt x 2 yrs 1250-1491 IRON DEF ANEMIA DIETARY 08/26/200403/14 GENERAL OSTEOARTHROSIS [...] as of this encounter (statuses as of 07/29/2023) Immunizations Name Administration Dates Next Due COVID-19 [...] Encounter - Jean Carlos Lau OSA - 07/29/2023 3:58 PM EDT Per Request - scheduled a 3 month telemed with Veronica/Tono on November 08 at 1pm. Spoke with patient and confirmed. documented in this encounter Plan of Treatment Upcoming Encounters Date Type Department Care Team ([facility] Contact Info) Description 08/29/2023 4:00 PM EDT Home Visit [facility] [address] [place] [address] Mira Jalloh RN [address] [place] [address] 09/09/2023 12:00 PM EDT Office Visit [address] [phone] Chelly Steel MD [address] [place] [phone] 11/09/2023 1:00 PM EDT [facility]medicine [facility] [place] [address] [place] [address] Bere Martin PA-C [address] [place] [address] Tawny Power, [facility] Land Acquisition Analyst [address] [place] [address] Scheduled Procedures Name Priority Associated Diagnoses Date/Ti [...] Additional history exists CKD HGB USE SMARTSET 36457 07/21/202407/21, 07/22/2023, 06/24/2023, Additional history exists CKD PHOS USE SMARTSET 49323 07/21/202407/12, 12/07/2021, 01/17/2020, Additional history exists Depression Screening 07/21/2024 07/22/2023 TSH 07/21/2024 07/22/2023, 06/12, 12/07/2021, Additional history exists DTaP,Tdap,and Td Vaccines (2 - Td or Tdap) 11/29/2024 11/29/2014, 11/01/2007 Pneumococcal Vaccine: 65+ Years Completed 12/25/2015, 12/21/2005, 01/01/1999 VITAMIN D LEVEL ONCE IN A LIFETIME-USE SMARTSET# 39402 Completed 06/27/2020, 01/17/2020, 03/06/2019, Additional history exists [...] filedocumented as of this encounter Care Teams Clam Dredger Relationship Specialty Start Date End Date Blair Kasper DO [address] [place] [id number] PCP - General Internal Medicine 09/03/20 documented as of this encounter
[2023-12-29] MEDS: ACETAMINOPHEN 1,000 MG/100 ML VIAL IV STA (17:15)
--- NOTE | 2023-12-29 17:29 | Hospitalist Progress Note ---
Date of Service December 29, 2023 Assessment & Plan (1) Anemia: Plan: Acute on chronic anemia secondary to UGIB GERD/history PUD as per records Acute on chronic anemia secondary to above Troponin elevation secondary to kidney dysfunction and illness chronic diastolic heart failure, patient on the dry side valvular heart disease (severe mild MR) PVD DM2 on oral medications, reasonable control as of recent hemoglobin A1c of 7.12 September 2023 hypothyroidism, euthyroid as of recent outpatient TSH PMR on chronic steroid Rx Admit to F Comfort measures as per patient request. Palliative care consultation, social service re: home hospice arrangements, patient would like to at home if possible. DNR 12/28 ordered Protonix, Phenergan, IV Tylenol for comfort continue other medications for comfort measures for now Admission and Anticipated Discharge Date Admission Date: December 29, 2023 Subjective ff up for anemia, likely secondary to upper GI bleed, etc seen resting in bed, comfortable oriented x 3, weak answers questions appropriately states she feels very tired but no active chest pain, dyspnea, nausea, abdominal pain no melena/hematochezia since this morning sat down with patient to confirm wishes patient maintains strongly that she does not want further work up including blood work, blood transfusion, GI consult, possible EGD/Colonoscopy she prefers to go home and be comfortable as per CM, son is coming at 430pm to discuss with Physician and patient re: hospice reevaluated patient around 5pm (+) nausea, abdominal pain ordered Phenergan, IV Tylenol, Protonix IV for comfort gave patient's son Stephen an update, including patient's preference for comfort measures at this point he is on his way to the hospital to discuss and confirm plan of care with his mom Review of Systems Review of Systems: all noted and negative except for above Physical Exam Physical Exam: General- oriented x 3, not in distress, speaks in sentences with no effort or accessory muscle use weak Eyes- anicteric Neck- no JVD Lungs- clear breath sounds bilaterally, no rales/wheezes Heart- normal rate, regular rhythm; no murmurs Abdomen- normal bowel sounds, nondistended, soft, nontender Extremities- no pretibial edema, no calf tenderness Neuro- alert, oriented x 3; no gross focal neurologic deficits Skin- warm & dry Results & Data Results & Data Vital Signs (Past 12 Hours) Vital Signs O2 Del Method O2 Flow Rate 12/29/23 07:32 Nasal Cannula 2 all noted and reviewed including below (1) Anemia Anemia type: other cause Other causes of anemia: acute posthemorrhagic Qualified Code(s): D62 - Acute posthemorrhagic anemia
[2023-12-29] MEDS: PROMETHAZINE 12.5 MG/50.5 ML BAG IV PRN (17:43)
[2023-12-29] MEDS ORDERED: PANTOPRAZOLE BOLUS/DRIP IV STA (18:15)
[2023-12-29] MEDS ORDERED: SODIUM CHLORIDE 0.9% 500 ML IV ONE (18:25)
[2023-12-29] MEDS: PANTOprazole 40 MG/10 ML SYR IV ONE (18:35)
[2023-12-29] MEDS: SODIUM CHLORIDE 0.9% 500 ML IV ONE (18:43)
[2023-12-29 19:00] LABS: Hemoglobin 3.7 g/dl (12.0-16.0); Mean Corpuscular Hemoglobin 27.8 pg (25.0-34.0); Mean Corpuscular Hgb Conc 28.5 g/dL (32.0-36.0); Mean Corpuscular Volume 97.7 fL (80.0-100.0); Mean Platelet Volume 10.1 fL (9.4-12.4); Nucleated RBC # (auto) 0.13 K/uL (0.00-0.12); Nucleated RBC % (auto) 0.8 %; Platelet Count 315 K/uL (130-400); RDW Coefficient of Variation 18.8 % (11.5-14.5); RDW Standard Deviation 66.6 fL (36.4-46.3); Red Blood Count 1.33 M/uL (4.20-5.40); White Blood Count 16.25 K/ul (4.8-10.8)
[2023-12-29] MEDS ORDERED: SODIUM CHLORIDE 0.9% 250 ML IV PRN (19:03)
[2023-12-29 19:12] LABS: Albumin Level 3.2 gm/dl (3.4-5.0); Anisocytosis Present; Basophils # (auto) 0.03 K/uL (0.00-0.20); Basophils % (auto) 0.2 %; Bilirubin,Total 0.5 mg/dl (0.2-1.0); Calcium 7.5 mg/dl (8.6-10.3); Eosinophils % (auto) 0.6 %; Immature Granulocytes # (auto) 0.11 K/uL (0.01-0.20); Immature Granulocytes % (auto) 0.7 %; Lymphocytes % (auto) 4.3 %; Monocytes % (auto) 6.2 %; Neutrophils # (auto) 14.31 K/uL (1.40-6.50); Polychromasia 2+; Potassium 3.2 mmol/L (3.5-5.1)
[2023-12-29 19:18] LABS: Albumin Globulin Ratio 1.5 (0.9-2); BUN Creatinine Ratio 25.7 (10-20); Creatinine Clr Calc Pharmacy 21.8 ml/min; Globulin 2.2 gm/dl (2.5-4.0); Total Protein 5.4 gm/dl (6.0-8.3)
[2023-12-29] MEDS: diphenhydrAMINE 50 MG/ML VIAL IV ONE (19:47)
[2023-12-29] MEDS: PANTOprazole 80 MG in DEXTROSE 5% 100 ML IV ONE (19:58)
[2023-12-29] MEDS: PANTOprazole 40 MG in DEXTROSE 5% MINI-B 100 ML IV SCH (20:17)
[2023-12-29] MEDS: POTASSIUM CHLORIDE CRTAB 20 MEQ TABCR PO STA (21:16)
[2023-12-29] MEDS ORDERED: Nursing to Pharmacy Communication SCH (23:45)
[2023-12-30] MEDS ORDERED: SODIUM CHLORIDE 0.9% 100 ML IV PRN (00:21)
[2023-12-30] MEDS: ACETAMINOPHEN 325 MG TAB PO PRN (03:29)
[2023-12-30 07:46] LABS: Basophils # (auto) 0.04 K/uL (0.00-0.20); Basophils % (auto) 0.3 %; Eosinophils # (auto) 0.18 K/uL (0.00-0.50); Eosinophils % (auto) 1.3 %; Hematocrit (blood only) 27.3 % (37.0-47.0); Hemoglobin 8.9 g/dl (12.0-16.0); Immature Granulocytes # (auto) 0.11 K/uL (0.01-0.20); Immature Granulocytes % (auto) 0.8 %; Lymphocytes # (auto) 0.86 K/uL (1.20-3.40); Lymphocytes % (auto) 6.4 %; Mean Corpuscular Hemoglobin 28.1 pg (25.0-34.0); Mean Corpuscular Hgb Conc 32.6 g/dL (32.0-36.0); Mean Corpuscular Volume 86.1 fL (80.0-100.0); Mean Platelet Volume 9.9 fL (9.4-12.4); Monocytes # (auto) 0.88 K/uL (0.11-0.59); Monocytes % (auto) 6.5 %; Neutrophils # (auto) 11.43 K/uL (1.40-6.50); Neutrophils % (auto) 84.7 %; Nucleated RBC # (auto) 0.12 K/uL (0.00-0.12); Nucleated RBC % (auto) 0.9 %; Platelet Count 262 K/uL (130-400); RDW Coefficient of Variation 18.7 % (11.5-14.5); RDW Standard Deviation 55.4 fL (36.4-46.3); Red Blood Count 3.17 M/uL (4.20-5.40)
[2023-12-30 08:01] LABS: Albumin Globulin Ratio 1.5 (0.9-2); Albumin Level 3.2 gm/dl (3.4-5.0); BUN Creatinine Ratio 21.5 (10-20); Calcium 7.7 mg/dl (8.6-10.3); Creatinine Clr Calc Pharmacy 25.5 ml/min; Globulin 2.2 gm/dl (2.5-4.0); Potassium 4.1 mmol/L (3.5-5.1); Total Protein 5.4 gm/dl (6.0-8.3)
[2023-12-30] MEDS ORDERED: PANTOprazole 40 MG/10 ML SYR IV SCH (09:00)
[2023-12-30] MEDS: predniSONE 5 MG TAB PO SCH (09:27)
[2023-12-30] MEDS: allopurinoL 100 MG TAB PO SCH (09:27)
[2023-12-30] MEDS: LEVOTHYROXINE SODIUM 75 MCG TABLET PO ONE (09:27)
[2023-12-30] MEDS: SERTRALINE HCL 100 MG TABLET PO SCH (09:27)
[2023-12-30] MEDS: carvediloL 3.125 MG TAB PO SCH (09:27)
--- NOTE | 2023-12-30 09:46 | Gastrointestinal Consultation ---
<Statement entered by Marquis Herndon MD - 12/30/23 11:53> I personally saw and examined the patient. I have reviewed the chart and agree with the documentation provided by the LEAD CARE MANAGER including discussion about the assessment, treatment and plan. Briefly, 88 year old female who presented to the ED on 12/27 with complaints of abdominal pain and headaches. pain is epigastric in nature. no emesis. Upon evaluation in the ED she had an unremarkable CT A/P. stools did test heme positive and she admits to having had some darker stools but didn't think much of it as she takes oral iron and they are always dark. Hgb on admission was 4 and had fallen to as low as 3.7. she is s/p transfusion and 12/29 hgb is 8.9. She tells me that she has used regular ibuprofen for her headaches. Given NSAIDs and hemoglobin of 3.7 with dark stools, will proceed with an EGD today. Patient is to be NPO. PPI IV twice daily. Differential diagnosis is peptic ulcer disease duodenal ulcer gastritis or esophagitis. Supportive care for now Date of Consultation December 30, 2023 Assessment & Plan (1) Anemia: Patient is an 88 year old female admitted with complaints of nausea and abdominal pain and found to have a significant anemia. She is agreeable to further evaluation. Case was discussed with Dr. Herndon. - will set patient up for EGD for today to further evaluate. - follow hgb/hct and transfuse as needed. - would advise against nsaid use in the future. - continue with protonix drip for now. History of Present Illness Reason for Consultation: UGIB Requesting Physician: Tomer Craig MD Attending Physician: Tomer Craig MD History of Present Illness patient is an 88 year old female who presented to the ED on 12/27 with complaints of abdominal pain and headaches. She tells me she has had headaches for several years but her abdominal pain has been new over the past week and is associated with nausea. pain is epigastric in nature. no emesis. Upon evaluation in the ED she had an unremarkable CT A/P. stools did test heme positive and she admits to having had some darker stools but didn't think much of it as she takes oral iron and they are always dark. Hgb on admission was 4 and had fallen to as low as 3.7. she is s/p transfusion and 12/29 hgb is 8.9. She tells me that she has used regular ibuprofen for her headaches. She admits to an EGD done last year in [place] that shown "bleeding somewhere" that she tells me they cauterized. I do not have copy of this report. rest of GI ros unremarkable. no chest pain or sob. Allergies Allergy/AdvReac Type Severity Reaction Status Date / Time clarithromycin AdvReac Intermediate GI SYMPTOMS Verified 04/15/15 12:56 adhesive AdvReac Rash Verified 05/12/23 16:08 Home Medications Medication Instructions Recorded Confirmed Type carvedilol 3.125 mg tablet 3.125 mg PO AMHS 12/28/23 12/29/23 History ondansetron 4 mg disintegrating 4 mg translingual Q8 PRN Nausea 12/28/23 12/28/23 History tablet sertraline 100 mg tablet 100 mg PO QAM 12/28/23 12/29/23 History acetaminophen 500 mg tablet 500 mg PO TID 12/29/23 12/29/23 History allopurinol 100 mg tablet 100 mg PO QAM 12/29/23 12/29/23 History aspirin 81 mg chewable tablet 81 mg PO QAM 12/29/23 12/29/23 History (Aspirin Childrens) atorvastatin 20 mg tablet 20 mg PO QAM 12/29/23 12/29/23 History ferrous sulfate 325 mg (65 mg 325 mg PO QDB 12/29/23 12/29/23 History iron) tablet (FeroSul) hydrocodone 5 mg-acetaminophen 325 1 tab PO Q8 PRN Mild Pain (Scale 12/29/23 12/29/23 History mg tablet Score 1-4) levothyroxine 75 mcg tablet 75 mcg PO DAILYBB 12/29/23 12/29/23 History prednisone 5 mg tablet 5 mg PO QAM 12/29/23 12/29/23 History torsemide 20 mg tablet 40 mg PO AMHS 12/29/23 12/29/23 History Patient History Medical History Chronic kidney disease (CKD), stage III (moderate) Ovarian cyst, left Osteoporosis Aortic stenosis HLD (hyperlipidemia) HTN (hypertension) PMR (polymyalgia rheumatica) Surgical History History of cholecystectomy Hx of appendectomy Family History Mother Diabetes Brother Heart disease Social History Smoking Status: Unknown if ever smoked Hx Alcohol Use: No Hx Substance Use: No Preferred Language: Bulgarian Communication Ability: Effective Audio Visual Facilities Engineer Required: No Beliefs That Will Affect Care: None Current Living Situation: Family Other Information That Helps Us Care for You: No Feels Safe at Home: Yes Safety Concerns: Feels Safe At This Time Assistive Devices: Cane and Walker Review of Systems Review of Systems: All systems reviewed & are unremarkable except as noted in HPI & below Physical Exam Constitutional: WD/WN, vitals as above Respiratory: normal respiratory effort, lungs clear to auscultation Cardiovascular: Rate/Rhythm: regular rate and regular rhythm Gastrointestinal (Abdomen): normal bowel sounds, soft, nontender, no hepatosplenomegaly Psychiatric: Orientation: alert and oriented x 3 Results & Data Vital Signs (Past 12 Hours) Vital Signs Temp Pulse Pulse Resp BP BP Pulse Ox 12/30/23 07:25 98.2 F 78 18 118/78 95 12/30/23 06:31 98.2 F 60 16 125/80 99 12/30/23 06:09 97.9 F 60 16 119/74 99 12/30/23 05:09 98.6 F 63 16 126/62 95 12/30/23 04:09 98.4 F 65 18 116/76 96 12/30/23 03:39 98.6 F 61 16 110/74 96 12/30/23 03:24 98.4 F 73 16 115/70 97 12/30/23 03:23 98.4 F 73 16 115/70 97 12/30/23 03:08 98.8 F 69 18 115/71 97 12/30/23 03:03 98.8 F 66 16 115/71 97 12/30/23 02:34 99.1 F 65 18 115/75 94 12/30/23 01:34 98.2 F 60 18 118/76 100 12/30/23 00:34 98.6 F 81 16 120/77 94 12/30/23 00:34 99.1 F 65 18 115/75 94 12/30/23 00:04 98.8 F 70 16 113/74 94 12/29/23 23:49 98.6 F 67 16 110/69 95 12/29/23 23:34 99.0 F 70 16 107/69 100 12/29/23 23:27 99.0 F 70 16 107/69 98 12/29/23 23:15 98.4 F 65 18 111/65 98 12/29/23 22:48 99.0 F 89 18 118/77 98 12/29/23 21:48 98.6 F 65 16 103/54 L 100 O2 Del Method O2 Flow Rate 12/30/23 07:25 Nasal Cannula 2 12/30/23 06:31 2 12/30/23 06:09 2 12/30/23 05:09 2 12/30/23 04:09 2 12/30/23 03:39 2 12/30/23 03:24 2 12/30/23 03:23 2 12/30/23 03:08 12/30/23 03:03 12/30/23 02:34 12/30/23 01:34 2 12/30/23 00:34 2 12/30/23 00:34 2 12/30/23 00:04 2 12/29/23 23:49 2 12/29/23 23:34 2 12/29/23 23:27 2 12/29/23 23:15 2 12/29/23 22:48 12/29/23 21:48 2 Coding Level of Care Code 84210 INT INP/OBS CARE MIN Diagnoses Anemia D62 Anemia type: other cause Other causes of anemia: acute posthemorrhagic (1) Anemia Anemia type: other cause Other causes of anemia: acute posthemorrhagic Qualified Code(s): D62 - Acute posthemorrhagic anemia
--- NOTE | 2023-12-30 11:21 | Anesthesiology Consultation ---
Date of Service December 30, 2023 Assessment & Plan (1) Encounter for pre-operative examination: Chart Review Chart Review: Acceptable Risk for Surgery, Patient NOT seen in Pre Admission Testing and entry level drafter initiated Consults Requested none Proposed Anesthesia Anesthesia Type: MAC History Surgery Operation Date: 12/30/23 17:50 Proposed Procedures p Esophagogastroduodenoscopy Yanick Herndon MD Height/Weight Height: 4 ft 11 in Weight: 67.5 kg Allergies Allergy/AdvReac Type Severity Reaction Status Date / Time clarithromycin AdvReac Intermediate GI SYMPTOMS Verified 04/15/15 12:56 adhesive AdvReac Rash Verified 05/12/23 16:08 Medications Home Medications Medication Instructions Recorded Confirmed Last Taken carvedilol 3.125 mg tablet 3.125 mg PO AMHS 12/28/23 12/29/23 12/27/23 ondansetron 4 mg disintegrating 4 mg translingual Q8 PRN Nausea 12/28/23 12/28/23 Unknown tablet sertraline 100 mg tablet 100 mg PO QAM 12/28/23 12/29/23 12/27/23 acetaminophen 500 mg tablet 500 mg PO TID 12/29/23 12/29/23 12/27/23 allopurinol 100 mg tablet 100 mg PO QAM 12/29/23 12/29/23 12/27/23 aspirin 81 mg chewable tablet 81 mg PO QAM 12/29/23 12/29/23 12/27/23 (Aspirin Childrens) atorvastatin 20 mg tablet 20 mg PO QAM 12/29/23 12/29/23 12/27/23 ferrous sulfate 325 mg (65 mg 325 mg PO QDB 12/29/23 12/29/23 12/23/23 iron) tablet (FeroSul) hydrocodone 5 mg-acetaminophen 325 1 tab PO Q8 PRN Mild Pain (Scale 12/29/23 12/29/23 Unknown mg tablet Score 1-4) levothyroxine 75 mcg tablet 75 mcg PO DAILYBB 12/29/23 12/29/23 12/27/23 prednisone 5 mg tablet 5 mg PO QAM 12/29/23 12/29/23 12/27/23 torsemide 20 mg tablet 40 mg PO AMHS 12/29/23 12/29/23 12/27/23 Active Medications Generic Name Dose Route Start Last Admin Trade Name Freq PRN Reason Stop Dose Admin Acetaminophen 650 mg 12/30/23 03:02 12/30/23 03:29 Acetaminophen 325 Mg Tab PO 01/29/24 03:01 650 mg QID PRN Administration pain/fever Allopurinol 100 mg 12/30/23 09:00 12/30/23 09:27 Allopurinol 100 Mg Tab PO 01/29/24 08:59 100 mg QAM KAYKAY Administration Carvedilol 3.125 mg 12/30/23 09:00 12/30/23 09:27 Carvedilol 3.125 Mg Tab PO 01/29/24 08:59 3.125 mg BIDM KAYKAY Administration Promethazine HCl 12.5 mg in 50.5 mls @ 202 mls/hr 12/29/23 17:08 12/29/23 18:32 Phenergan IV 01/28/24 17:07 Infused Q6H PRN Infusion Nausea And Vomiting Pantoprazole Sodium 40 mg/ 100 mls @ 20 mls/hr 12/29/23 18:45 12/30/23 10:23 Dextrose IV 01/28/24 18:44 8 mg/hr Q5H KAYKAY 20 mls/hr Administration 8 MG/HR Ondansetron HCl 4 mg 12/29/23 00:59 12/30/23 10:23 Ondansetron Inj 2 Mg/Ml 2 Ml Vial IV 01/28/24 00:58 4 mg Q4H PRN Administration Nausea &/or Vomiting Prednisone 5 mg 12/30/23 09:00 12/30/23 09:27 Prednisone 5 Mg Tab PO 01/29/24 08:59 5 mg QAM KAYKAY Administration Sertraline HCl 100 mg 12/30/23 09:00 12/30/23 09:27 Sertraline Hcl 100 Mg Tablet PO 01/29/24 08:59 100 mg QAM KAYKAY Administration Past Family History Family History Mother Diabetes Brother Heart disease Past Surgical History Surgical History History of cholecystectomy Hx of appendectomy Social History Smoking Status: Unknown if ever smoked Hx Alcohol Use: No Hx Substance Use: No Physical Exam Vital Signs Last Vital Signs Temp 36.8 C 10/18/24 07:25 Pulse 78 12/30/23 07:25 Resp 18 12/30/23 07:25 BP 118/78 12/30/23 07:25 Pulse Ox 95 12/30/23 07:25 O2 Del Method Room Air 12/30/23 08:45 O2 Flow Rate 2 12/30/23 07:25 Testing Laboratory Results 12/30/23 06:52 12/30/23 06:52 Blood Type B Positive 12/28/23 23:23 Antibody Screen NEGATIVE 12/28/23 23:23 Electrocardiogram Date: 12/29/23 Findings: + NSR @ (79; PACs), + NSST changes and + RBBB (incomplete) Chest X-Ray Date: 12/28/23 CLINICAL HISTORY: diffuse pain/weakness COMPARISON STUDY: Chest radiograph and chest CT May 12, 2023. FINDINGS: Lung volumes are normal. Lungs are clear. There is no pneumothorax or pleural effusion. Moderate cardiomegaly is unchanged. Mediastinal contours are normal. There is pulmonary vascular congestion. IMPRESSION: Cardiomegaly with pulmonary vascular congestion, similar to prior exam Echocardiogram Date: 05/13/23 EF: 65-70 Other Findings: + LVH (mild) Valvular Disease: + (mod to borderline severe) and + MR (mild)
[2023-12-30] MEDS ORDERED: SIMETHICONE (ENDO) IR PRN (11:51)
[2023-12-30] MEDS: SODIUM CHLORIDE 0.9% 500 ML IV SCH (12:31)
--- NOTE | 2023-12-30 12:52 | GI REPORT ---
[facility] Patient: BIGG BARRAGAN : 1935 Sex at : Female Age: 88 Years Procedure: Upper GI endoscopy Date: 12/30/2023 Attending Physician: Marquis Herndon MD Referring MD: Tomer Craig Indications: - Melena - Acute post hemorrhagic anemia Medications: - Monitored Anesthesia Care Complications: - No immediate complications. Estimated Blood Loss: - Estimated blood loss: None. - Estimated blood loss was minimal. Procedure: - Prior to the procedure, a History and Physical was performed, and patient medications and allergies were reviewed. The patient's tolerance of previous anesthesia was also reviewed. The risks and benefits of the procedure and the sedation options and risks were discussed with the patient. All questions were answered, and informed consent was obtained. Prior Anticoagulants: The patient has taken no anticoagulant or antiplatelet agents. ASA Grade Assessment: III - A patient with severe systemic disease. After reviewing the risks and benefits, the patient was deemed in satisfactory condition to undergo the procedure. - The egd scope was introduced through the mouth and advanced to the third part of the duodenum. - The upper GI endoscopy was accomplished without difficulty. - The patient tolerated the procedure well. Findings: - The examined esophagus was normal. - Diffuse moderate inflammation characterized by erythema was found in the gastric body. Biopsies were taken with a cold forceps for Helicobacter pylori testing. - Four non-bleeding duodenal ulcers with no stigmata of bleeding were found in the duodenal bulb. The largest lesion was 7 mm in largest dimension. - A single small angiodysplastic lesion with bleeding was found in the first portion of the duodenum. Coagulation for hemostasis using argon plasma was successful. Impression: - Normal esophagus. - Acute gastritis, characterized by erythema. Biopsied. - Non-bleeding duodenal ulcers with no stigmata of bleeding. 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 Treated with argon plasma coagulation (APC). Recommendation: - Discharge patient to home (ambulatory). - Resume previous diet and clear liquid diet. - Continue present medications. - Await pathology results. - Return to primary care physician as previously scheduled. - Patient has a contact number available for emergencies. The signs and symptoms of potential delayed complications were discussed with the patient. Return to normal activities tomorrow. Written discharge instructions were provided to the patient. - Pantoprazole 40 mg iv twice daily. Procedure Code(s): - 52186-46, Esophagogastroduodenoscopy, flexible, transoral; with control of bleeding, any method - 49311, Esophagogastroduodenoscopy, flexible, transoral; with biopsy, single or multiple Diagnosis Code(s): - K92.1, Melena (includes Hematochezia) - D62, Acute posthemorrhagic anemia - K29.00, Acute gastritis without bleeding - K26.9, Duodenal ulcer, unspecified as acute or chronic, without hemorrhage or perforation - K31.811, Angiodysplasia of stomach and duodenum with bleeding CPT(R) - 2023 copyright [employer]. All Rights Reserved. The CPT codes, CCI edits and ICD codes generated are intended as suggestions and were generated based on input data. These codes are preliminary and upon political research scientist review may be revised to meet current compliance and payer requirements. The provider is responsible for the final determination of appropriate codes, and modifiers. Marquis Herndon MD This document has been electronically signed. Note Initiated:12/30/2023 Note Completed:12/30/2023 12:52 PM [id number]
[2023-12-30] MEDS: ONDANSETRON INJ 2 MG/ML 2 ML VIAL ONE (13:53)
[2023-12-30] MEDS: PROPOFOL IV EMULSION 10 MG/ML 20 ML VIAL IV ONE (13:53)
[2023-12-30] MEDS: LIDOCAINE 2% 2 ML VIAL/AMP(20MG/ML) INFIL ONE (13:53)
--- NOTE | 2023-12-30 14:01 | Anesthesiology Progress Note ---
Date of Service December 30, 2023 Anesthesia Post Procedure Vital Signs Vital Signs: Temp Pulse Pulse Pulse Resp BP BP 12/30/23 13:57 36.7 C 65 116/70 12/30/23 13:19 57 L 16 137/83 12/30/23 13:10 64 16 144/92 H 12/30/23 12:55 65 101/55 L 12/30/23 11:34 36.2 C L 69 20 129/77 12/30/23 08:45 12/30/23 07:25 36.8 C 78 18 118/78 12/30/23 06:31 36.8 C 60 16 125/80 12/30/23 06:09 36.6 C 60 16 119/74 12/30/23 05:09 37.0 C 63 16 126/62 12/30/23 04:09 36.9 C 65 18 116/76 12/30/23 03:39 37.0 C 61 16 110/74 12/30/23 03:24 36.9 C 73 16 115/70 12/30/23 03:23 36.9 C 73 16 115/70 12/30/23 03:08 37.1 C 69 18 115/71 12/30/23 03:03 37.1 C 66 16 115/71 12/30/23 02:34 37.3 C 65 18 115/75 12/30/23 01:34 36.8 C 60 18 118/76 12/30/23 00:34 37 C 81 16 120/77 12/30/23 00:34 37.3 C 65 18 115/75 12/30/23 00:04 37.1 C 70 16 113/74 12/29/23 23:49 37.0 C 67 16 110/69 12/29/23 23:34 37.2 C 70 16 107/69 12/29/23 23:27 37.2 C 70 16 107/69 12/29/23 23:15 36.9 C 65 18 111/65 12/29/23 22:48 37.2 C 89 18 118/77 12/29/23 21:48 37 C 65 16 103/54 L 12/29/23 20:48 36.9 C 70 16 97/61 L 12/29/23 20:18 36.8 C 69 16 95/62 L 12/29/23 20:03 37.1 C 79 18 100/63 12/29/23 19:48 36.8 C 76 16 95/65 L 12/29/23 19:45 12/29/23 19:36 36.8 C 70 18 95/65 L 12/29/23 18:27 37 C 70 17 87/46 L Pulse Ox O2 Del Method O2 Flow Rate 12/30/23 13:57 97 Nasal Cannula 12/30/23 13:19 100 Nasal Cannula 2 12/30/23 13:10 100 Nasal Cannula 5 12/30/23 12:55 99 Nasal Cannula 5 12/30/23 11:34 95 Nasal Cannula 2 12/30/23 08:45 Room Air 12/30/23 07:25 95 Nasal Cannula 2 12/30/23 06:31 99 2 12/30/23 06:09 99 2 12/30/23 05:09 95 2 12/30/23 04:09 96 2 12/30/23 03:39 96 2 12/30/23 03:24 97 2 12/30/23 03:23 97 2 12/30/23 03:08 97 12/30/23 03:03 97 12/30/23 02:34 94 12/30/23 01:34 100 2 12/30/23 00:34 94 2 12/30/23 00:34 94 2 12/30/23 00:04 94 2 12/29/23 23:49 95 2 12/29/23 23:34 100 2 12/29/23 23:27 98 2 12/29/23 23:15 98 2 12/29/23 22:48 98 12/29/23 21:48 100 2 12/29/23 20:48 94 12/29/23 20:18 96 2 12/29/23 20:03 94 2 12/29/23 19:48 95 12/29/23 19:45 Nasal Cannula 2 12/29/23 19:36 97 Nasal Cannula 2 12/29/23 18:27 95 Nasal Cannula 2 Transfer of Care Handoff Completed per policy Notes Mental Status: alert / awake / arousable and participated in evaluation Patient Amnestic to Procedure: Yes Nausea / Vomiting: adequately controlled Pain: adequately controlled Airway Patency, RR, SpO2: stable & adequate BP & HR: stable & adequate Hydration State: stable & adequate Anesthetic Complications: no major complications apparent
[2023-12-30 16:23] LABS: Hematocrit (blood only) 28.1 % (37.0-47.0)
--- NOTE | 2023-12-30 18:15 | Hospitalist Progress Note ---
Date of Service December 30, 2023 Assessment & Plan (1) Anemia: Plan: Acute on chronic anemia secondary to UGIB GERD/history PUD as per records Hemoglobin improved to 8 Continue to monitor closely For EGD Continue Protonix drip Acute on chronic anemia secondary to above Troponin elevation secondary to kidney dysfunction and illness chronic diastolic heart failure, patient on the dry side valvular heart disease (severe mild MR) PVD DM2 on oral medications, reasonable control as of recent hemoglobin A1c of 7.12 September 2023 hypothyroidism, euthyroid as of recent outpatient TSH PMR on chronic steroid Rx Admission and Anticipated Discharge Date Admission Date: December 29, 2023 Subjective Follow-up for severe anemia, GI bleed, etc. Seen resting in bed, comfortable Feels weak, but nausea is better Minimal abdominal pain No other new symptoms Review of Systems Review of Systems: all noted and negative except for above Physical Exam Physical Exam: General- oriented x 3, not in distress, speaks in sentences with no effort or accessory muscle use weak Eyes- anicteric Neck- no JVD Lungs- clear breath sounds bilaterally, no rales/wheezes Heart- normal rate, regular rhythm; no murmurs Abdomen- normal bowel sounds, nondistended, soft, nontender Extremities- no pretibial edema, no calf tenderness Neuro- alert, oriented x 3; no gross focal neurologic deficits Skin- warm & dry Results & Data Results & Data Vital Signs (Past 12 Hours) Vital Signs Temp Pulse Pulse Pulse Resp BP BP 12/30/23 13:57 36.7 C 65 116/70 12/30/23 13:19 57 L 16 137/83 12/30/23 13:10 64 16 144/92 H 12/30/23 12:55 65 101/55 L 12/30/23 11:34 36.2 C L 69 20 129/77 12/30/23 08:45 12/30/23 07:25 36.8 C 78 18 118/78 12/30/23 06:31 36.8 C 60 16 125/80 Pulse Ox O2 Del Method O2 Flow Rate 12/30/23 13:57 97 Nasal Cannula 12/30/23 13:19 100 Nasal Cannula 2 12/30/23 13:10 100 Nasal Cannula 5 12/30/23 12:55 99 Nasal Cannula 5 12/30/23 11:34 95 Nasal Cannula 2 12/30/23 08:45 Room Air 12/30/23 07:25 95 Nasal Cannula 2 12/30/23 06:31 99 2 all noted and reviewed including below (1) Anemia Anemia type: other cause Other causes of anemia: acute posthemorrhagic Qualified Code(s): D62 - Acute posthemorrhagic anemia
[2023-12-31] MEDS: LORazepam 0.5 MG TAB PO PRN (01:40)
[2023-12-31] MEDS: LEVOTHYROXINE SODIUM 75 MCG TABLET PO SCH (05:40)
[2023-12-31 07:08] LABS: Basophils # (auto) 0.03 K/uL (0.00-0.20); Basophils % (auto) 0.2 %; Eosinophils % (auto) 1.4 %; Hematocrit (blood only) 27.2 % (37.0-47.0); Hemoglobin 8.8 g/dl (12.0-16.0); Immature Granulocytes # (auto) 0.09 K/uL (0.01-0.20); Immature Granulocytes % (auto) 0.6 %; Lymphocytes # (auto) 1.05 K/uL (1.20-3.40); Lymphocytes % (auto) 7.4 %; Mean Corpuscular Hemoglobin 27.4 pg (25.0-34.0); Mean Corpuscular Hgb Conc 32.4 g/dL (32.0-36.0); Mean Corpuscular Volume 84.7 fL (80.0-100.0); Mean Platelet Volume 10.3 fL (9.4-12.4); Monocytes # (auto) 0.92 K/uL (0.11-0.59); Monocytes % (auto) 6.5 %; Neutrophils # (auto) 11.88 K/uL (1.40-6.50); Neutrophils % (auto) 83.9 %; Nucleated RBC # (auto) 0.11 K/uL (0.00-0.12); Nucleated RBC % (auto) 0.8 %; Platelet Count 255 K/uL (130-400); RDW Standard Deviation 60.1 fL (36.4-46.3); Red Blood Count 3.21 M/uL (4.20-5.40); White Blood Count 14.17 K/ul (4.8-10.8)
[2023-12-31 07:20] LABS: Albumin Globulin Ratio 1.3 (0.9-2); Albumin Level 3.1 gm/dl (3.4-5.0); Bilirubin,Total 0.8 mg/dl (0.2-1.0); Calcium 7.8 mg/dl (8.6-10.3); Creatinine Clr Calc Pharmacy 31.5 ml/min; Globulin 2.3 gm/dl (2.5-4.0); Total Protein 5.4 gm/dl (6.0-8.3)
[2023-12-31] MEDS: PANTOprazole 40 MG/10 ML SYR IV SCH (10:34)
--- NOTE | 2023-12-31 17:23 | Hospitalist Progress Note ---
Date of Service December 31, 2023 Assessment & Plan (1) Acute GI bleeding: (2) Peptic ulcer disease: Plan: (1) Anemia: Plan: Acute on chronic anemia secondary to UGIB GERD/history PUD as per records 12/29 s/p EGD: Hg stable at 8 no recurrence of bleeding clear liquid diet Protonix drip continue to monitor closely Acute on chronic anemia secondary to above Troponin elevation secondary to kidney dysfunction and illness chronic diastolic heart failure valvular heart disease (severe mild MR) = no signs of overt overload PVD DM2 on oral medications, reasonable control as of recent hemoglobin A1c of 7.12 September 2023 hypothyroidism, euthyroid as of recent outpatient TSH PMR on chronic steroid Rx Admit to [facility] Comfort measures as per patient request. Palliative care consultation, social service re: home hospice arrangements, patient would like to at home if possible. DNR Admission and Anticipated Discharge Date Admission Date: December 29, 2023 Subjective ff up for anemia, etc seen resting in bed, comfortable, in good spirits states she feels fine overall tolerating clears no abdominal pain, nausea no recurrence of bleeding no chest pain, dyspnea, palpitations, dizziness no other symptoms Review of Systems Review of Systems: all noted and negative except for above Physical Exam Physical Exam: General- oriented x 3, not in distress, speaks in sentences with no effort or accessory muscle use Eyes- anicteric Neck- no JVD Lungs- clear breath sounds bilaterally, no crackles/wheezing Heart- normal rate, regular rhythm; no murmurs Abdomen- normal bowel sounds, nondistended, soft, nontender Extremities- no pretibial edema, no calf tenderness Neuro- alert, oriented x 3; no gross focal neurologic deficits Skin- warm & dry Results & Data Results & Data Vital Signs (Past 12 Hours) Vital Signs Temp Pulse Resp BP Pulse Ox O2 Del Method 12/31/23 11:00 Room Air 12/31/23 08:08 36.9 C 74 16 115/73 90 Room Air all noted and reviewed including below
[2024-01-01 06:11] LABS: Basophils # (auto) 0.03 K/uL (0.00-0.20); Basophils % (auto) 0.3 %; Eosinophils # (auto) 0.34 K/uL (0.00-0.50); Eosinophils % (auto) 3.1 %; Hematocrit (blood only) 27.6 % (37.0-47.0); Hemoglobin 8.7 g/dl (12.0-16.0); Immature Granulocytes # (auto) 0.07 K/uL (0.01-0.20); Immature Granulocytes % (auto) 0.6 %; Lymphocytes # (auto) 1.46 K/uL (1.20-3.40); Lymphocytes % (auto) 13.2 %; Mean Corpuscular Hemoglobin 27.3 pg (25.0-34.0); Mean Corpuscular Hgb Conc 31.5 g/dL (32.0-36.0); Mean Corpuscular Volume 86.5 fL (80.0-100.0); Mean Platelet Volume 10.1 fL (9.4-12.4); Monocytes # (auto) 0.82 K/uL (0.11-0.59); Monocytes % (auto) 7.4 %; Neutrophils # (auto) 8.32 K/uL (1.40-6.50); Neutrophils % (auto) 75.4 %; Nucleated RBC # (auto) 0.05 K/uL (0.00-0.12); Nucleated RBC % (auto) 0.5 %; Platelet Count 237 K/uL (130-400); RDW Coefficient of Variation 19.7 % (11.5-14.5); RDW Standard Deviation 60.8 fL (36.4-46.3); Red Blood Count 3.19 M/uL (4.20-5.40); White Blood Count 11.04 K/ul (4.8-10.8)
[2024-01-01 06:34] LABS: Albumin Globulin Ratio 1.3 (0.9-2); Albumin Level 2.9 gm/dl (3.4-5.0); Bilirubin,Total 0.6 mg/dl (0.2-1.0); Calcium 7.7 mg/dl (8.6-10.3); Creatinine Clr Calc Pharmacy 31.5 ml/min; Globulin 2.3 gm/dl (2.5-4.0); Potassium 3.9 mmol/L (3.5-5.1); Total Protein 5.2 gm/dl (6.0-8.3)
[2024-01-01] MEDS: TORSEMIDE 20 MG TAB PO SCH (10:10)
[2024-01-01] MEDS: POLYETHYLENE (MIRALAX) 17 GM PACK PO PRN (10:10)
--- NOTE | 2024-01-01 14:36 | Hospitalist Progress Note ---
Date of Service January 01, 2024 Assessment & Plan (1) Anemia: Plan: (1) Acute GI bleeding: (2) Peptic ulcer disease: Plan: (1) Anemia: Plan: Acute on chronic anemia secondary to UGIB GERD/history PUD as per records 12/29 s/p EGD: Hg stable at 8 no recurrence of bleeding clear liquid diet Protonix drip continue to monitor closely 12/31 Remains stable overall No recurrence of GI bleed Hemoglobin stable at 8 Tolerating soft diet Continue Protonix IV twice daily Anemia panel in a.m. Acute on chronic anemia secondary to above Troponin elevation secondary to kidney dysfunction and illness chronic diastolic heart failure valvular heart disease (severe mild MR) = no signs of overt overload = Resume torsemide 20 mg twice a day PVD = May resume aspirin as per GI service DM2 on oral medications, reasonable control as of recent hemoglobin A1c of 7.12 September 2023 hypothyroidism, euthyroid as of recent outpatient TSH PMR on chronic steroid Rx Disposition Comfort measures reviewed per patient and family disposition PT and OT evaluation Will likely need acute rehab or [facility] facility Admission and Anticipated Discharge Date Admission Date: December 29, 2023 Subjective Follow-up for anemia, GI bleed, etc. seen resting in bed, comfortable in good spirits feels better overall tolerating diet well no GI bleed no chest pain, dyspnea, palpitations, dizziness Review of Systems Review of Systems: all noted and negative except for above Physical Exam Physical Exam: General- oriented x 3, not in distress, speaks in sentences with no effort or accessory muscle use Eyes- anicteric Neck- no JVD Lungs- clear breath sounds BL no crackles or wheezing Heart- normal rate, regular rhythm; no murmurs Abdomen- normal bowel sounds, nondistended, soft, nontender Extremities- no pretibial edema, no calf tenderness Neuro- alert, oriented x 3; no gross focal neurologic deficits Skin- warm & dry Results & Data Results & Data Vital Signs (Past 12 Hours) Vital Signs Temp Pulse Resp BP Pulse Ox O2 Del Method 01/01/24 09:00 Room Air 01/01/24 07:49 36.5 C 61 16 123/73 92 Room Air all noted and reviewed including below (1) Anemia Anemia type: other cause Other causes of anemia: acute posthemorrhagic Qualified Code(s): D62 - Acute posthemorrhagic anemia
[2024-01-02 07:52] LABS: Basophils # (auto) 0.04 K/uL (0.00-0.20); Basophils % (auto) 0.4 %; Eosinophils # (auto) 0.29 K/uL (0.00-0.50); Hematocrit (blood only) 30.3 % (37.0-47.0); Hemoglobin 9.3 g/dl (12.0-16.0); Immature Granulocytes # (auto) 0.06 K/uL (0.01-0.20); Immature Granulocytes % (auto) 0.6 %; Lymphocytes # (auto) 1.42 K/uL (1.20-3.40); Lymphocytes % (auto) 14.9 %; Mean Corpuscular Hemoglobin 26.6 pg (25.0-34.0); Mean Corpuscular Hgb Conc 30.7 g/dL (32.0-36.0); Mean Corpuscular Volume 86.6 fL (80.0-100.0); Mean Platelet Volume 10.4 fL (9.4-12.4); Monocytes # (auto) 0.73 K/uL (0.11-0.59); Monocytes % (auto) 7.6 %; Neutrophils # (auto) 7.01 K/uL (1.40-6.50); Neutrophils % (auto) 73.5 %; Nucleated RBC # (auto) 0.03 K/uL (0.00-0.12); Nucleated RBC % (auto) 0.3 %; Platelet Count 254 K/uL (130-400); RDW Standard Deviation 59.4 fL (36.4-46.3); White Blood Count 9.55 K/ul (4.8-10.8)
[2024-01-02 08:13] LABS: Alanine Aminotransferase 8 U/L (7-52); Albumin Globulin Ratio 1.3 (0.9-2); Albumin Level 3.1 gm/dl (3.4-5.0); Alkaline Phosphatase 114 U/L (34-104); Anion Gap 8 (3-11); Aspartate Aminotransferase 12 U/L (13-39); BUN Creatinine Ratio 20.5 (10-20); Bilirubin,Total 0.6 mg/dl (0.2-1.0); Blood Urea Nitrogen 26 mg/dl (6-23); Calcium 7.6 mg/dl (8.6-10.3); Carbon Dioxide 29 mmol/L (21-32); Chloride 106 mmol/L (98-107); Creatinine Clr Calc Pharmacy 26.1 ml/min; Globulin 2.4 gm/dl (2.5-4.0); Glucose 79 mg/dl (70-99(Fasting)); Potassium 3.4 mmol/L (3.5-5.1); Sodium 143 mmol/L (136-145); Total Protein 5.5 gm/dl (6.0-8.3)
[2024-01-02 08:43] LABS: Iron < 10 mcg/dl (35-150)
[2024-01-02 09:25] LABS: Folate (Folic Acid),Ser orPlas 13.62 ng/ml (>5.38)
[2024-01-02] MEDS: IRON SUCROSE 300 MG in SODIUM CHLORIDE 0.9% 250 ML IV ONE (10:37)
[2024-01-02] MEDS: MAGNESIUM HYDROXIDE SUSP 30 ML UDC PO PRN (15:31)
[2024-01-02] MEDS: POTASSIUM CHLORIDE CRTAB 20 MEQ TABCR PO STA (15:31)
--- NOTE | 2024-01-02 15:50 | Hospitalist Progress Note ---
Date of Service January 02, 2024 Assessment & Plan (1) Anemia: Plan: Acute on chronic anemia secondary to UGIB GERD/history PUD as per records 12/29 s/p EGD: Hg stable at 8 no recurrence of bleeding clear liquid diet Protonix drip continue to monitor closely 12/31 Remains stable overall No recurrence of GI bleed Hemoglobin stable at 8 Tolerating soft diet Continue Protonix IV twice daily Anemia panel in a.m. 01/01 Hemoglobin stable, 9 Iron less than 10 IV iron ordered Change Protonix to 40 mg IV twice daily Will need ferrous sulfate daily Acute on chronic anemia secondary to above Troponin elevation secondary to kidney dysfunction and illness chronic diastolic heart failure valvular heart disease (severe mild MR) = no signs of overt overload = Continue with usual torsemide 20 mg twice a day PVD = May resume aspirin as per GI service DM2 on oral medications, reasonable control as of recent hemoglobin A1c of 7.12 September 2023 hypothyroidism, euthyroid as of recent outpatient TSH PMR on chronic steroid Rx Disposition Comfort measures revoked per patient and family PT and OT evaluation Will likely need acute rehab or [facility] facility Admission and Anticipated Discharge Date Admission Date: December 29, 2023 Subjective Follow-up for anemia, etc. Seen resting in bed, comfortable, in good spirits States she feels fine overall Chief complaint is constipation, but no nausea vomiting, abdominal pain, recurrence of GI bleed No chest pain, shortness of breath, palpitations, dizziness No other new symptoms Review of Systems Review of Systems: all noted and negative except for above Physical Exam Physical Exam: General- oriented x 3, not in distress, speaks in sentences with no effort or accessory muscle use Eyes- anicteric Neck- no JVD Lungs- clear breath sounds bilaterally, no rales/wheezes Heart- normal rate, regular rhythm; no murmurs Abdomen- normal bowel sounds, nondistended, soft, nontender Extremities- no pretibial edema, no calf tenderness Neuro- alert, oriented x 3; no gross focal neurologic deficits Skin- warm & dry Results & Data Results & Data Vital Signs (Past 12 Hours) Vital Signs Temp Pulse Resp BP Pulse Ox O2 Del Method 01/02/24 14:40 36.8 C 60 18 121/73 96 Room Air 01/02/24 12:20 36.8 C 59 L 17 110/71 95 Room Air 01/02/24 10:38 36.8 C 57 L 17 122/83 94 Room Air 01/02/24 09:04 65 105/72 01/02/24 07:25 36.6 C 69 18 106/64 96 Room Air all noted and reviewed including below (1) Anemia Anemia type: other cause Other causes of anemia: acute posthemorrhagic Qualified Code(s): D62 - Acute posthemorrhagic anemia
[2024-01-03 07:26] VITALS: RESP 18
[2024-01-03 07:59] LABS: Basophils # (auto) 0.04 K/uL (0.00-0.20); Basophils % (auto) 0.3 %; Eosinophils # (auto) 0.35 K/uL (0.00-0.50); Eosinophils % (auto) 2.9 %; Hematocrit (blood only) 31.2 % (37.0-47.0); Hemoglobin 9.8 g/dl (12.0-16.0); Immature Granulocytes # (auto) 0.07 K/uL (0.01-0.20); Immature Granulocytes % (auto) 0.6 %; Lymphocytes % (auto) 10.7 %; Mean Corpuscular Hemoglobin 26.8 pg (25.0-34.0); Mean Corpuscular Hgb Conc 31.4 g/dL (32.0-36.0); Mean Corpuscular Volume 85.5 fL (80.0-100.0); Mean Platelet Volume 10.3 fL (9.4-12.4); Monocytes % (auto) 7.4 %; Neutrophils # (auto) 9.54 K/uL (1.40-6.50); Neutrophils % (auto) 78.1 %; Nucleated RBC # (auto) 0.02 K/uL (0.00-0.12); Nucleated RBC % (auto) 0.2 %; Platelet Count 298 K/uL (130-400); RDW Coefficient of Variation 18.3 % (11.5-14.5); RDW Standard Deviation 56.9 fL (36.4-46.3); Red Blood Count 3.65 M/uL (4.20-5.40)
[2024-01-03] MEDS: FERROUS SULFATE 325 MG TAB PO SCH (08:27)
[2024-01-03] MEDS: oxyCODONE HCL IR 5 MG TAB (IMMEDIATE RELEASE) PO PRN (09:59)
[2024-01-03] MEDS: bisacodyL 10 MG SUPP PR PRN (11:18)
[2024-01-03 11:26] VITALS: TEMP 97.7; O2SAT 97
--- NOTE | 2024-01-03 11:50 | Hospitalist Progress Note ---
Date of Service January 03, 2024 Assessment & Plan (1) Anemia: Plan: Acute on chronic anemia secondary to UGIB GERD/history PUD as per records 12/29 s/p EGD: Hg stable at 8 no recurrence of bleeding clear liquid diet Protonix drip continue to monitor closely 12/31 Remains stable overall No recurrence of GI bleed Hemoglobin stable at 8 Tolerating soft diet Continue Protonix IV twice daily Anemia panel in a.m. 01/01 Hemoglobin stable, 9 Iron less than 10 IV iron ordered Change Protonix to 40 mg IV twice daily Will need ferrous sulfate daily 01/02 No recurrence of GI bleed Hemoglobin remained stable around 9 Continue Protonix 40 mg twice a day for 1 month then 1 daily Continue iron supplement Repeat CBC and monitor iron levels as an outpatient Advised not to take medications under the class of NSAIDs including ibuprofen, naproxen, etc. Acute on chronic anemia secondary to above Troponin elevation secondary to kidney dysfunction and illness chronic diastolic heart failure valvular heart disease (severe mild MR) = no signs of overt overload = Continue with usual torsemide 20 mg twice a day PVD = May resume aspirin as per GI service DM2 on oral medications, reasonable control as of recent hemoglobin A1c of 7.12 September 2023 hypothyroidism, euthyroid as of recent outpatient TSH PMR on chronic steroid Rx Disposition Discharge to home Home health services with PT OT PCP follow-up in 1 week Admission and Anticipated Discharge Date Admission Date: December 29, 2023 Subjective Follow-up for anemia, upper GI bleed, etc. Seen resting in bedside chair, comfortable, not in distress In good spirits States she feels fine overall No abdominal pain, nausea or vomiting Had a small BM yesterday, positive flatus No chest pain, shortness of breath, palpitations, dizziness No other new symptoms States she is ready for discharge today Review of Systems Review of Systems: all noted and negative except for above Physical Exam Physical Exam: General- oriented x 3, not in distress, speaks in sentences with no effort or accessory muscle use Eyes- anicteric Neck- no JVD Lungs- clear breath sounds bilaterally, no rales/wheezes Heart- normal rate, regular rhythm; no murmurs Abdomen- normal bowel sounds, nondistended, soft, nontender Extremities- no pretibial edema, no calf tenderness Neuro- alert, oriented x 3; no gross focal neurologic deficits Skin- warm & dry Results & Data Results & Data Vital Signs (Past 12 Hours) Vital Signs Temp Pulse Resp BP BP Pulse Ox O2 Del Method 01/03/24 11:00 36.5 C 72 18 123/72 97 Room Air 01/03/24 07:23 37.0 C 77 18 109/77 96 Room Air all noted and reviewed including below (1) Anemia Anemia type: other cause Other causes of anemia: acute posthemorrhagic Qualified Code(s): D62 - Acute posthemorrhagic anemia
[2024-01-03] MEDS: LACTULOSE SYRUP 20 GM/30 ML UDC PO ONE (11:55)
[2024-01-03 12:42] VITALS: BP 109/77; PULSE 66
--- NOTE | 2024-01-03 17:41 | Discharge Summary ---
Discharge Summary Date of Service January 03, 2024 delayed entry date of service noted above Principal Dx & Hospital Course #1 = Principal Diagnosis (1) Anemia: Acute on chronic anemia secondary to UGIB GERD/history PUD as per records 12/29 s/p EGD: Impression: - Normal esophagus. - Acute gastritis, characterized by erythema. Biopsied. - Non-bleeding duodenal ulcers with no stigmata of bleeding. 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 Treated with argon plasma coagulation (APC). Recommendation: - Discharge patient to home (ambulatory). - Resume previous diet and clear liquid diet. - Continue present medications. - Await pathology results. - Return to primary care physician as previously scheduled. - Pantoprazole 40 mg iv twice daily. 01/01 Hemoglobin stable, 9 Iron less than 10 IV iron ordered Change Protonix to 40 mg IV twice daily Will need ferrous sulfate daily 01/02 No recurrence of GI bleed Hemoglobin remained stable around 9 Continue Protonix 40 mg twice a day for 1 month then 1 daily Continue iron supplement Repeat CBC and monitor iron levels as an outpatient Advised not to take medications under the class of NSAIDs including ibuprofen, naproxen, etc. Troponin elevation secondary to kidney dysfunction and illness chronic diastolic heart failure valvular heart disease (severe mild MR) = no signs of overt overload = Continue with usual torsemide 20 mg twice a day LEFT ovarian cyst measures 3.3 cm. = seen on CT abdomen.pelvis = ff up as outpatient PVD = May resume aspirin as per GI service DM2 on oral medications, reasonable control as of recent hemoglobin A1c of 7.12 September 2023 hypothyroidism, euthyroid as of recent outpatient TSH PMR on chronic steroid Rx Disposition Discharge to home Home health services with PT OT PCP follow-up in 1 week Notes For Next Care Provider Medication Changes From Visit Protonix 40mg Ferrous sulfate Admission HPI Per Admitting Provider History obtained from patient, family, and records. Medical history significant for chronic diastolic heart failure, valvular heart disease (severe mild MR), PVD, hypertension, GERD/history PUD as per records, chronic anemia (baseline hemoglobin 10-11), CRI (baseline creatinine 1.2-1.6), DM2 on oral medications, hypothyroidism, PMR on chronic steroid Rx, anxiety/mood disorder. Last confinement May 2023 for sepsis secondary to RSV infection/possible sigmoid diverticulitis. Patient discharged to SNF rehab then later discharged home. Patient not feeling well the last few days. Achy abdominal pain with usual dark stools attributed to iron. Denies chest pain, SOB. Worsening SOB on exertion and weakness. EMS called to patient's home by family. Heme positive melanotic stool noted at the ER. IV PPI administered at the ER for UGIB. Patient refusing further intervention. She adamantly states that she is ready to . She only wants comfort but would like to at home. Medical History as above Surgical History : Cholecystectomy, appendectomy Family History : Colon cancer, DM, heart disease Personal/Social history : Non-smoker, no EtOH intake, retired from cleaning work Admission Exam Per Admitting Provider GENERAL: Obese, uncomfortable, no respiratory distress SKIN: Pallor, warm HEENT: Pale palpebral conjunctivae, no ptosis, dry buccal mucosa NECK : Supple, short neck, no tenderness CHEST : CTA, no tenderness HEART : RRR, systolic murmur ABDOMEN: Some distention, epigastric tenderness EXTREMITIES : Minimal LE swelling, no LE tenderness, no other conspicuous deformities noted NEUROLOGIC : Coherent, no facial asymmetry, no other gross focality Discharge Exam General- oriented x 3, not in distress, speaks in sentences with no effort or accessory muscle use Eyes- anicteric Neck- no JVD Lungs- clear breath sounds bilaterally, no rales/wheezes Heart- normal rate, regular rhythm; no murmurs Abdomen- normal bowel sounds, nondistended, soft, nontender Extremities- no pretibial edema, no calf tenderness Neuro- alert, oriented x 3; no gross focal neurologic deficits Skin- warm & dry Updated Medication List Medication Instructions Recorded Confirmed Type carvedilol 3.125 mg tablet 3.125 mg PO AMHS 12/28/23 12/29/23 History ondansetron 4 mg disintegrating 4 mg translingual Q8 PRN Nausea 12/28/23 12/28/23 History tablet sertraline 100 mg tablet 100 mg PO QAM 12/28/23 12/29/23 History allopurinol 100 mg tablet 100 mg PO QAM 12/29/23 12/29/23 History aspirin 81 mg chewable tablet 81 mg PO QAM 12/29/23 12/29/23 History (Aspirin Childrens) atorvastatin 20 mg tablet 20 mg PO QAM 12/29/23 12/29/23 History hydrocodone 5 mg-acetaminophen 325 1 tab PO Q8 PRN Mild Pain (Scale 12/29/23 12/29/23 History mg tablet Score 1-4) levothyroxine 75 mcg tablet 75 mcg PO DAILYBB 12/29/23 12/29/23 History prednisone 5 mg tablet 5 mg PO QAM 12/29/23 12/29/23 History torsemide 20 mg tablet 40 mg PO AMHS 12/29/23 12/29/23 History acetaminophen 500 mg tablet 500 mg PO TID PRN pain #14 tabs 01/03/24 12/29/23 Rx ferrous sulfate 325 mg (65 mg 325 mg PO BID #0 tabs 01/03/24 12/29/23 Rx iron) tablet (FeroSul) magnesium hydroxide 400 mg/5 mL 30 ml PO Q6H PRN constipation #300 01/03/24 Rx oral suspension (Milk of Magnesia) mL pantoprazole 40 mg tablet,delayed 40 mg PO BID #90 tabs 01/03/24 Rx release (Protonix) polyethylene glycol 3350 17 gram 17 g PO DAILY 30 days #30 ea 01/03/24 Rx oral powder packet (Miralax) Hospital Stay Data Consultations 12/29/23 00:22 ED Decision to Admit Stat 12/29/23 18:15 Consult Gastroenterology Routine Procedures Performed Operation Date: 12/30/23 17:50 Actual Procedures p EGD Hemostasis - Marquis Herndon MD Diagnostic Imagining Performed 12/28/23 23:16 CT abd pelvis wo con Stat Exam(s): CT ABDOMEN + PELVIS Without Contrast EXAM: CT Abdomen and Pelvis Without Intravenous Contrast CLINICAL HISTORY: Reason for exam: diffuse abdominal pain. TECHNIQUE: Axial computed tomography images of the abdomen and pelvis without intravenous contrast. CTDI is 26.85 mGy and DLP is 1068.21 mGy-cm. Automated exposure control was utilized for the study. A dose lowering technique was utilized adhering to the principles of ALARA. COMPARISON: Head CT May 12, 2023. FINDINGS: Lung bases: Unremarkable. No mass. No consolidation. Heart: Calcified mitral annulus. ABDOMEN: Liver: Unremarkable. Gallbladder and bile ducts: Cholecystectomy. No ductal dilation. Pancreas: Unremarkable. No ductal dilation. Spleen: Unremarkable. No splenomegaly. Adrenals: Unremarkable. No mass. Kidneys and ureters: Unremarkable. No obstructing stones. No hydronephrosis. Stomach and bowel: Diverticulosis, without acute diverticulitis. No small bowel obstruction. No free intraperitoneal air. PELVIS: Appendix: No findings to suggest acute appendicitis. Bladder: Unremarkable. No stones. Reproductive: LEFT ovarian cyst measures 3.3 cm. ABDOMEN and PELVIS: Intraperitoneal space: Unremarkable. No free air. No significant fluid collection. Bones/joints: Degenerative changes of the spine. No acute fracture. No dislocation. Soft tissues: Unremarkable. Vasculature: Atherosclerotic changes of the aorta. No abdominal aortic aneurysm. Lymph nodes: Unremarkable. No enlarged lymph nodes. IMPRESSION: 1. Cholecystectomy. 2. Diverticulosis, without acute diverticulitis. No small bowel obstruction. No free intraperitoneal air. Electronically signed by: Stephen Pagan MD 12/29/23 00:36 AM Exam(s): CT HEAD Without Contrast EXAM: CT Head Without Intravenous Contrast CLINICAL HISTORY: Reason for exam: Headache. TECHNIQUE: Axial computed tomography images of the head/brain without intravenous contrast. CTDI is 33.97 mGy and DLP is 546.36 mGy-cm. Automated exposure control was utilized for the study. A dose lowering technique was utilized adhering to the principles of ALARA. COMPARISON: No relevant prior studies available. FINDINGS: No acute intracranial hemorrhage. No midline shift or mass effect. The territorial raya-white matter differentiation is maintained throughout. Age-related cerebral volume loss. Periventricular and subcortical white matter hypoattenuation, consistent with chronic microangiopathy. The visualized orbits appear grossly unremarkable. Old RIGHT pterional craniotomy. The visualized paranasal sinuses and mastoid air cells are grossly clear. IMPRESSION: No acute intracranial hemorrhage, midline shift, or mass effect. Electronically signed by: Stephen Pagan MD 12/29/23 00:30 AM Pending Results Patient Have Any Pending Studies at Discharge: No Discharge Instructions Given to Patient (Per Discharging Provider) PLEASE REFER TO YOUR NEW MEDICATION LIST AND FOLLOW INSTRUCTIONS CAREFULLY. YOUR NEW MEDICATIONS INCLUDE: Protonix-antacid to prevent stomach bleeding -Always take at least 30 minutes before breakfast and dinner -Take twice a day for 1 month, then daily Iron supplement Miralax daily x 1 week PLEASE CALL YOUR PRIMARY CARE PHYSICIAN OR RETURN TO THE ER IF WITH WORSENING OF SYMPTOMS, INCLUDING [] FOLLOW UP WITH PRIMARY CARE PHYSICIAN OUTLINED ABOVE. Total Time Total Time Spent Total Time Spent (In Minutes): 40 minutes
== END 2024-01-03 17:36 | disposition home health service (06) | DRG 378 ==
LOC: ED 22:57 → 3W 12-29 00:58